=== PATIENT | female | born 1935 | race Caucasian/White ===

== ENCOUNTER → 2016-03-04 | Outpatient (CLI) | payer BC, OTHER ==
[~2016-03-04] MED LIST: ACET-1138 PO; APIX1TAB3 PO; ASPCH81X PO; ASPEC81 PO; BIOTCAP2 PO; COEN1CAP37 PO; CRS20 PO; CTP/1 PO; CTP1CL PO; CZR50 PO; DIAZ5TAB3 PO; DORZ2SOL17 OPB; ELQ25 PO; ERGO500011 PO; FERR1TAB13 PO; FERR325T5 PO; FERR325T51 PO; HYDR12.55 PO; HYDR25TA5 PO; HYZ/10015 PO; LEVO100T7 PO; LOSA100T65 PO; LVNIS40 SC; NRN100 PO; POLY335019 PO; PRAMCRE2 RE; ROSU20TA PO; RXC5 PO; SNK PO; TYLOTC500 PO; ULT50X PO; VITAMIN D2 PO; VTMD1000 PO
[2016-03-04 10:11] LABS: BASO % 0.3 %; BASO ABS # 0.02 K/uL (0-0.2); COMPLETE YES; HEMATOCRIT 42.5 % (37-47); IG% 0.2 %; LYMPH % 29.9 %; MEAN CELL VOLUME 93.2 fL (80-100); MEAN CORPUSCULAR HEMOGLOBIN 33.1 pg (25-34); MEAN CORPUSCULAR HGB CONC 35.5 g/dl (32-36); MEAN PLATELET VOLUME 10.5 fL (7.4-10.4); MONO % 8.1 %; NEUT % 60.5 %; PLATELET COUNT 169 K/uL (130-400); RED BLOOD COUNT 4.56 M/uL (4.2-5.4); WHITE BLOOD COUNT 6.02 K/uL (4.8-10.8)
[2016-03-04 10:20] LABS: URINE APPEARANCE CLEAR (CLEAR); URINE BILIRUBIN NEG (NEG); URINE COLOR YELLOW; URINE EPITHELIAL CELL AUTO >30 /lpf (0-5); URINE NITRITE NEG (NEG); URINE PH 6.5 (4.5-7.5); URINE SPECIFIC GRAVITY 1.018 (1.000-1.030); UROBILINOGEN NEG (NEG)
[2016-03-04 10:22] LABS: MANUAL MICROSCOPIC REQUIRED? NO; REVIEW REQ? NO
[2016-03-04 10:32] LABS: ALT/SGPT 17 U/L (12-78); AST/SGOT 20 U/L (15-37); BLOOD UREA NITROGEN 15 mg/dl (7-18); BUN/CREATININE RATIO 13.8 (10-20); CARBON DIOXIDE 24 mmol/L (21-32); CHLORIDE 100 mmol/L (98-107); CHOLESTEROL 259 mg/dl (0-200); GLUCOSE 131 mg/dl (70-99); SODIUM 134 mmol/L (136-145)
--- NOTE | 2016-03-04 10:34 | DIAGNOSTIC IMAGING REPORT ---
CT OF THE ABDOMEN WITH ORAL CONTRAST CT DOSE: 1022.65 mGy.cm CLINICAL HISTORY: Abdominal pain. TECHNIQUE: Axial images of the abdomen were obtained without IV contrast. Oral contrast was administered. COMPARISON STUDY: CT of the abdomen and pelvis September 14, 2012 and right upper quadrant ultrasound April 23, 2015. FINDINGS: The patient is status post left mastectomy. There is a small hiatal hernia. There is apparent wall thickening of the distal esophagus and proximal stomach. No pneumatosis, free air or portal venous gas is present. There several gallstones within the gallbladder. There is no pericholecystic infiltration. Evaluation of the abdomen is suboptimal given the lack of IV contrast. Unenhanced images of the liver, spleen, adrenal glands, kidneys and pancreas are unremarkable. There is no biliary or pancreatic ductal dilatation with there is no hydronephrosis. No renal calculi are present. The caliber and wall thickness of visualized small and large bowel are normal. The appendix is normal. There is a tiny fat-containing umbilical hernia. There is no abdominal lymphadenopathy. No suspicious skeletal lesions are identified. IMPRESSION: 1. Small hiatal hernia with apparent wall thickening of the distal esophagus and proximal stomach. This is probably due to underdistention although esophagitis or mucosal lesion could appear similar. If not recently performed, consideration might be given to further evaluation with upper endoscopy. 2. Cholelithiasis. No evidence of acute cholecystitis by CT. 3. Normal appendix. 4. No hydronephrosis. No renal calculi. Electronically signed by: Amarjit Quiñonez M.D. 03/04/2016 10:31 AM
[2016-03-04 10:44] LABS: CHOLESTEROL/HDL RATIO 5.1; ESTIMATED AVERAGE GLUCOSE 114 mg/dl; HA1C FLAG Normal (Normal); HDL CHOLESTEROL 51 mg/dl; LDL CHOLESTEROL CALCULATED 162 mg/dl; THYROID STIMULATING HORMONE 0.708 uIu/ml (0.300-4.500); TRIGLYCERIDES 228 mg/dl (0-150); VERY LOW DENSITY LIPOPROT CALC 46 mg/dl
--- NOTE | 2016-03-12 07:53 | CODING QUERY MEDICAL NECESSITY ---
SUPPORTING DIAGNOSIS NEEDED A supporting diagnosis is required for the test/procedure performed on this patient in order for us to be reimbursed by the patient's insurance. Please provide a supporting diagnosis for the following test/procedure listed below next to the test name along with your signature. *If there is no additional diagnosis for this patient that would support the following test/procedure please document that below next to the test/procedure. Test(s)/Procedure(s) that require a supporting diagnosis: DOS 03/04 * Hba1c DIAGNOSIS: Provider Signature: Date: Thank you Dia Malik Health Information Management Once completed, please kindly fax back to [phone] For questions please call [phone]
== END | disposition home or self-care (01) ==
LOC: C.CTS 09:24
PROVIDERS: ATTEND Internal Medicine
DX: R10.31 Right lower quadrant pain (principal); K44.9 Diaphragmatic hernia without obstruction or gangrene; K80.20 Calculus of gallbladder without cholecystitis without obstruction; E78.00 Pure hypercholesterolemia, unspecified; E11.9 Type 2 diabetes mellitus without complications

== ENCOUNTER → 2016-04-17 | Outpatient (CLI) | payer BC, OTHER ==
[~2016-04-17] MED LIST changes: -ASPCH81X PO; -CTP/1 PO; +ERGO1CAP41 PO; -ERGO500011 PO; -FERR1TAB13 PO; -HYDR12.55 PO; -LOSA100T65 PO; -LVNIS40 SC; -ROSU20TA PO; -TYLOTC500 PO; -VITAMIN D2 PO
== END | disposition home or self-care (01) ==
LOC: C.LAB1850 17:16
PROVIDERS: ATTEND Internal Medicine
DX: E78.00 Pure hypercholesterolemia, unspecified (principal)

== ENCOUNTER → 2016-06-06 | Outpatient (CLI) | payer BC, OTHER ==
[~2016-06-06] MED LIST changes: +ASPCH81X PO; +CTP/1 PO; -ERGO1CAP41 PO; +ERGO500011 PO; +FERR1TAB13 PO; +HYDR12.55 PO; +LOSA100T65 PO; +ROSU20TA PO; +TYLOTC500 PO; +VITAMIN D2 PO
[2016-06-06 14:50] LABS: ESTIMATED AVERAGE GLUCOSE 120 mg/dl; HA1C FLAG Normal (Normal)
--- NOTE | 2016-06-11 10:06 | CODING QUERY MEDICAL NECESSITY ---
SUPPORTING DIAGNOSIS NEEDED Dr. Valencia, A supporting diagnosis is required for the test/procedure performed on this patient in order for us to be reimbursed by the patient's insurance. Please provide a supporting diagnosis for the following test/procedure listed below next to the test name along with your signature. *If there is no additional diagnosis for this patient that would support the following test/procedure please document that below next to the test/procedure. Test(s)/Procedure(s) that require a supporting diagnosis: * 36001 GLYCATED HEMOGLOBIN DIAGNOSIS: * [id number] FRUCTOSAMINE DIAGNOSIS: DATE OF SERVICE: 06/06/16 Provider Signature: Date: Thank you Shankar Vila [facility] Information Management Once completed, please kindly fax back to [phone] For questions please call [phone]
== END | disposition home or self-care (01) ==
LOC: C.LAB1850 12:57
PROVIDERS: ATTEND Internal Medicine
DX: E78.00 Pure hypercholesterolemia, unspecified (principal); E11.9 Type 2 diabetes mellitus without complications

== ENCOUNTER → 2016-10-17 | Outpatient (CLI) | payer BC, OTHER ==
[~2016-10-17] MED LIST changes: -ASPCH81X PO; -CTP/1 PO; +ERGO1CAP41 PO; -ERGO500011 PO; -FERR1TAB13 PO; -HYDR12.55 PO; -LOSA100T65 PO; -ROSU20TA PO; -TYLOTC500 PO; -VITAMIN D2 PO
[2016-10-17 09:47] LABS: BASO % 0.5 %; BASO ABS # 0.04 K/uL (0-0.2); COMPLETE YES; EOS % 1.3 %; HEMATOCRIT 41.6 % (37-47); IG% 0.3 %; LYMPH % 31.7 %; LYMPH ABS # 2.74 K/uL (1.2-3.4); MEAN CELL VOLUME 96.1 fL (80-100); MEAN CORPUSCULAR HEMOGLOBIN 33.7 pg (25-34); MEAN CORPUSCULAR HGB CONC 35.1 g/dl (32-36); MEAN PLATELET VOLUME 10.7 fL (7.4-10.4); MONO % 9.1 %; NEUT % 57.1 %; PLATELET COUNT 194 K/uL (130-400); RED BLOOD COUNT 4.33 M/uL (4.2-5.4); WHITE BLOOD COUNT 8.65 K/uL (4.8-10.8)
[2016-10-17 09:50] LABS: URINE APPEARANCE CLEAR (CLEAR); URINE BILIRUBIN NEG (NEG); URINE COLOR YELLOW; URINE NITRITE NEG (NEG); URINE SPECIFIC GRAVITY 1.015 (1.000-1.030); UROBILINOGEN NEG (NEG)
[2016-10-17 09:52] LABS: MANUAL MICROSCOPIC REQUIRED? NO; REVIEW REQ? NO
[2016-10-17 10:10] LABS: BLOOD UREA NITROGEN 30 mg/dl (7-18); BUN/CREATININE RATIO 22.7 (10-20); CALCIUM 9.4 mg/dl (8.5-10.1); CARBON DIOXIDE 27 mmol/L (21-32); CHLORIDE 95 mmol/L (98-107); GLUCOSE 121 mg/dl (70-99); POTASSIUM 4.2 mmol/L (3.5-5.1); SODIUM 129 mmol/L (136-145)
[2016-10-17 10:20] LABS: RATIO 572.9 mcg/mg (0-30.0)
[2016-10-17 12:01] LABS: ESTIMATED AVERAGE GLUCOSE 123 mg/dl; HA1C FLAG Normal (Normal)
--- NOTE | 2016-10-28 11:14 | CODING QUERY MEDICAL NECESSITY ---
CQSUPPORTING DIAGNOSIS NEEDED A supporting diagnosis is required for the test/procedure performed on this patient in order for us to be reimbursed by the patient's insurance. Please provide a supporting diagnosis for the following test/procedure listed below next to the test name along with your signature. *If there is no additional diagnosis for this patient that would support the following test/procedure please document that below next to the test/procedure. Test(s)/Procedure(s) that require a supporting diagnosis: DOS 10/17/16 GLYCATED HEMOGLOBIN TEST Provider Signature: Date: Thank you Maria D Cooper Health Information Management Once completed, please kindly fax back to [phone] For questions please call [phone]
== END | disposition home or self-care (01) ==
LOC: C.LAB1850 07:34
PROVIDERS: ATTEND Internal Medicine
DX: E78.00 Pure hypercholesterolemia, unspecified (principal); E11.9 Type 2 diabetes mellitus without complications

== ENCOUNTER 2016-11-16 13:31 | Inpatient (IN) | payer BC, OTHER ==
[~2016-11-16] VITALS: Ht 170.2 cm; Wt 99.1 kg
[~2016-11-16 13:31] MED LIST changes: -APIX1TAB3 PO; -CRS20 PO; -CTP1CL PO; -CZR50 PO; -ELQ25 PO; -ERGO1CAP41 PO; -FERR325T5 PO; -HYDR25TA5 PO; -NRN100 PO; -VTMD1000 PO
[2016-11-16] MEDS ORDERED: SODIUM CHLORIDE 0.9% 1000ML 1,000 ML IV SCH (13:42)
[2016-11-16 14:16] LABS: BASO % 0.3 %; BASO ABS # 0.02 K/uL (0-0.2); COMPLETE YES; EOS % 1.4 %; HEMATOCRIT 43.6 % (37-47); IG% 0.1 %; LYMPH % 31.7 %; LYMPH ABS # 2.28 K/uL (1.2-3.4); MEAN CELL VOLUME 97.3 fL (80-100); MEAN CORPUSCULAR HEMOGLOBIN 34.4 pg (25-34); MEAN CORPUSCULAR HGB CONC 35.3 g/dl (32-36); MEAN PLATELET VOLUME 9.7 fL (7.4-10.4); MONO % 9.2 %; NEUT % 57.3 %; PLATELET COUNT 176 K/uL (130-400); RED BLOOD COUNT 4.48 M/uL (4.2-5.4); WHITE BLOOD COUNT 7.19 K/uL (4.8-10.8)
[2016-11-16 14:24] LABS: PROTHROMBIN TIME (PATIENT) 10.8 SECONDS (9.0-12.0)
[2016-11-16 14:32] LABS: ALT/SGPT 17 U/L (12-78); BLOOD UREA NITROGEN 21 mg/dl (7-18); BUN/CREATININE RATIO 16.3 (10-20); CALCIUM 9.7 mg/dl (8.5-10.1); CARBON DIOXIDE 27 mmol/L (21-32); CHLORIDE 103 mmol/L (98-107); GLUCOSE 109 mg/dl (70-99); POTASSIUM 3.6 mmol/L (3.5-5.1); SODIUM 139 mmol/L (136-145)
--- NOTE | 2016-11-16 14:35 | DIAGNOSTIC IMAGING REPORT ---
HEAD WITHOUT CONTRAST (CT) CLINICAL HISTORY: 81 years-old Female presenting with Stroke. TECHNIQUE: Multidetector CT imaging of the head was performed without the use of intravenous contrast. IV contrast: None. A dose lowering technique was used consistent with the principles of ALARA (as low as reasonably achievable). COMPARISON: 04/22/2013. CT DOSE (mGy.cm): The estimated cumulative dose is 537.48 mGy.cm. 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 Ventricles and sulci normal in size. Apparent crowding of the foramen magnum unchanged from prior. Periventricular and subcortical white matter hypoattenuation, nonspecific but likely indicative of chronic small vessel ischemic change. Interval development of new hypodensity in the left occipital parietal region with effacement of regional sulci. More inferiorly, evidence of chronic infarct in the left occipital lobe, new from prior. No hemorrhage or acute territorial infarct. No extra-axial fluid collection. Minimal polypoid mucosal thickening in the left maxillary sinus. Calvarium intact. IMPRESSION: 1. Findings consistent with acute to subacute infarct in the left occipital parietal region, new from prior. No hemorrhage. Noncontrast MR brain could confirm the acuity of these findings. 2. 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 3. Chronic small vessel ischemic change. 4. Crowding of the foramen magnum is unchanged from prior, likely normal variant or Chiari malformation. Mass effect as a cause for crowding is felt to be unlikely at this time. The report will be called/faxed according to standard departmental protocol. Electronically signed by: Abrahan Vergara M.D. 11/16/2016 2:33 PM Dictated Date/Time: 11/16/2016 2:28 PM
--- NOTE | 2016-11-16 14:36 | DIAGNOSTIC IMAGING REPORT ---
CHEST ONE VIEW PORTABLE CLINICAL HISTORY: 81 years-old Female presenting with Stroke. TECHNIQUE: Portable upright AP view of the chest was obtained. COMPARISON: 06/13/2015. FINDINGS: Mild prominence of the ascending aorta is unchanged from prior. Cardiac silhouette normal in size. Lungs and pleural spaces clear. Degenerative changes of the thoracic spine. Upper abdomen normal. IMPRESSION: 1. No acute cardiopulmonary disease. Electronically signed by: Abrahan Vergara M.D. 11/16/2016 2:34 PM Dictated Date/Time: 11/16/2016 2:33 PM
[2016-11-16 14:37] LABS: ALKALINE PHOSPHATASE 71 U/L (45-117); AST/SGOT 23 U/L (15-37); CKMB/CK RATIO 1.2 (0-3.0)
[2016-11-16] MEDS ORDERED: FERR325T5 PO (14:37)
[2016-11-16] MEDS ORDERED: NRN100 PO (14:37)
[2016-11-16] MEDS ORDERED: CTP1CL PO (14:37)
[2016-11-16] MEDS ORDERED: ASPIRIN 81 MG CHEW PO STA (14:43)
--- NOTE | 2016-11-16 14:50 | EMERGENCY ROOM VISIT NOTE ---
History Report prepared by Estella: Jay Trinidad Under the Supervision of: Alison GarciaO. First contact with patient: 13:42 Chief Complaint: STROKE SYMPTOMS Stated Complaint: CONFUSION, DROOPING MOUTH, MEMORY LOSS History of Present Illness The patient is a 81 year old female who presents to the Emergency Room with complaints of constant stroke symptoms first noticed about an hour ago. The patient's son states that the patient has been more confused, she has slurred speech, and she has a right sided facial droop. The patient denies any headache , chest pain, shortness of breath, nausea, and vomiting. The son states that the patient's last known well time was yesterday evening around 6 or 7pm. The patient has a history of hypertension, hip surgery, and she had diabetes but it is under control after weight loss. The patient does not have a history of strokes or irregular heart beats. Source of History: patient, family Onset: an hour ago Position: other (global) Quality: other (stroke symptoms) Timing: constant Associated Symptoms: No headache, No chest pain, No SOB, No nausea, No vomiting Note: Associated symptoms: Confusion, slurred speech, and right sided facial droop. Review of Systems See HPI for pertinent positives & negatives. A total of 10 systems reviewed and were otherwise negative. Past Medical & Surgical Medical Problems: (1) Arthritis (2) HTN (hypertension) (3) Hyperlipidemia (4) Hypothyroid (5) IDDM (insulin dependent diabetes mellitus) (6) Neuropathy (7) Restless leg syndrome (8) Sleep apnea Surgical Problems: (1) Post-operative state Family History FH: dementia Hypertension Social History Smoking Status: Never Smoker Alcohol Use: none Drug Use: none Marital Status: Housing Status: lives alone Occupation Status: retired Current/Historical Medications Scheduled Aspirin (Aspirin EC Low Dose), 81 MG PO BID Biotin (Biotin 5000), 1 CAP PO HS Clonidine Hcl (Catapres), 1 TAB PO BID Coenzyme Q10 (Ubidecarenone) (Co Q-10), 200 MG PO QAM Diazepam (Valium), 5 MG PO HS Ferrous Sulfate (Ferrous Sulfate), 1 TAB PO DAILY Gabapentin (Gabapentin), 100 MG PO DAILY Hctz/Losartan (Hyzaar 25MG/100MG), 1 TABLET PO QAM Levothyroxine Sodium (Levothyroxine Sodium), 100 MCG PO QAM Scheduled PRN Tramadol HCl (Tramadol HCl), 50-100 MG PO Q4H PRN for Pain Allergies Coded Allergies: Adhesives (Verified Allergy, Mild, SKIN GETS RED, SORE AND ITCHY, 11/16/16) Atorvastatin (Verified Adverse Reaction, Intermediate, GENERIC-SEVERE LEG CRAMPS NAUSEA NIGHTMARES, 11/16/16) CAN USE NAME BRAND LIPITOR Physical Exam Vital Signs Date Time Temp Pulse Resp B/P (MAP) Pulse Ox O2 Delivery O2 Flow Rate FiO2 11/16/16 15:16 195/99 11/16/16 15:06 71 21 99 11/16/16 15:01 215/124 11/16/16 14:51 60 19 100 11/16/16 14:46 195/97 11/16/16 14:36 64 18 99 11/16/16 14:31 166/101 11/16/16 14:25 212/127 11/16/16 14:21 62 18 99 11/16/16 14:16 73 20 221/98 98 11/16/16 14:12 228/98 11/16/16 14:12 97 Room Air 11/16/16 14:03 76 11/16/16 13:58 240/110 11/16/16 13:37 37.0 87 18 205/121 93 Room Air Physical Exam GENERAL: Patient is listless but responds to questions appropriately. EYES: The conjunctivae are clear. The pupils are round and reactive. EARS, NOSE, MOUTH AND THROAT: The nose is without any evidence of any deformity. Mucous membranes are moist tongue is midline NECK: The neck is nontender and supple. RESPIRATORY: Normal respiratory effort is noted there is no evidence of wheezing rhonchi or rales CARDIOVASCULAR: Regular rate and rhythm noted there no murmurs rubs or gallops normal S1 normal S2 GASTROINTESTINAL: The abdomen is soft. Bowel sounds are present in all quadrants. Abdomen is nontender MUSCULOSKELETAL/EXTREMITIES: There is no evidence of gross deformity full range of motion is noted in the hips and shoulders SKIN: There is trace pedal edema bilaterally. There is no obvious evidence of any rash. There are no petechiae, pallor or cyanosis noted. NEUROLOGIC: Speech was slurred and pressured. Right sided facial droop with forehead involvement. Finisher Brush strength is diminished but symmetric. No drift in the upper extremities. Medical Decision & Procedures ER Provider Diagnostic Interpretation: Radiology results as stated below per my review and radiologist interpretation: HEAD WITHOUT CONTRAST (CT) CLINICAL HISTORY: 81 years-old Female presenting with Stroke. TECHNIQUE: Multidetector CT imaging of the head was performed without the use of intravenous contrast. IV contrast: None. A dose lowering technique was used consistent with the principles of ALARA (as low as reasonably achievable). COMPARISON: 04/22/2013. CT DOSE (mGy.cm): The estimated cumulative dose is 537.48 mGy.cm. 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 Ventricles and sulci normal in size. Apparent crowding of the foramen magnum unchanged from prior. Periventricular and subcortical white matter hypoattenuation, nonspecific but likely indicative of chronic small vessel ischemic change. Interval development of new hypodensity in the left occipital parietal region with effacement of regional sulci. More inferiorly, evidence of chronic infarct in the left occipital lobe, new from prior. No hemorrhage or acute territorial infarct. No extra-axial fluid collection. Minimal polypoid mucosal thickening in the left maxillary sinus. Calvarium intact. IMPRESSION: 1. Findings consistent with acute to subacute infarct in the left occipital parietal region, new from prior. No hemorrhage. Noncontrast MR brain could confirm the acuity of these findings. 2. 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 3. Chronic small vessel ischemic change. 4. Crowding of the foramen magnum is unchanged from prior, likely normal variant or Chiari malformation. Mass effect as a cause for crowding is felt to be unlikely at this time. The report will be called/faxed according to standard departmental protocol. Electronically signed by: Abrahan Vergara M.D. 11/16/2016 2:33 PM Dictated Date/Time: 11/16/2016 2:28 PM CHEST ONE VIEW PORTABLE CLINICAL HISTORY: 81 years-old Female presenting with Stroke. TECHNIQUE: Portable upright AP view of the chest was obtained. COMPARISON: 06/13/2015. FINDINGS: Mild prominence of the ascending aorta is unchanged from prior. Cardiac silhouette normal in size. Lungs and pleural spaces clear. Degenerative changes of the thoracic spine. Upper abdomen normal. IMPRESSION: 1. No acute cardiopulmonary disease. Electronically signed by: Abrahan Vergara M.D. 11/16/2016 2:34 PM Dictated Date/Time: 11/16/2016 2:33 PM Laboratory Results 11/16/16 14:06 Red Blood Count 4.48, Mean Corpuscular Volume 97.3, Mean Corpuscular Hemoglobin 34.4, Mean Corpuscular Hemoglobin Concent 35.3, Mean Platelet Volume 9.7, Neutrophils (%) (Auto) 57.3, Lymphocytes (%) (Auto) 31.7, Monocytes (%) (Auto) 9.2, Eosinophils (%) (Auto) 1.4, Basophils (%) (Auto) 0.3, Neutrophils # (Auto) 4.12, Lymphocytes # (Auto) 2.28, Monocytes # (Auto) 0.66, Eosinophils # (Auto) 0.10, Basophils # (Auto) 0.02 11/16/16 14:06 Test 11/16/16 13:59 11/16/16 14:00 11/16/16 14:06 Bedside Prothrombin Time INR 1.0 (0.9-1.1) Bedside Glucose 101 mg/dl (70-90) White Blood Count 7.19 K/uL (4.8-10.8) Red Blood Count 4.48 M/uL (4.2-5.4) Hemoglobin 15.4 g/dL (12.0-16.0) Hematocrit 43.6 % (37-47) Mean Corpuscular Volume 97.3 fL (80-100) Mean Corpuscular Hemoglobin 34.4 pg (25-34) Mean Corpuscular Hemoglobin Concent 35.3 g/dl (32-36) Platelet Count 176 K/uL (130-400) Mean Platelet Volume 9.7 fL (7.4-10.4) Neutrophils (%) (Auto) 57.3 % Lymphocytes (%) (Auto) 31.7 % Monocytes (%) (Auto) 9.2 % Eosinophils (%) (Auto) 1.4 % Basophils (%) (Auto) 0.3 % Neutrophils # (Auto) 4.12 K/uL (1.4-6.5) Lymphocytes # (Auto) 2.28 K/uL (1.2-3.4) Monocytes # (Auto) 0.66 K/uL (0.11-0.59) Eosinophils # (Auto) 0.10 K/uL (0-0.5) Basophils # (Auto) 0.02 K/uL (0-0.2) RDW Standard Deviation 44.9 fL (36.4-46.3) RDW Coefficient of Variation 12.7 % (11.5-14.5) Immature Granulocyte % (Auto) 0.1 % Immature Granulocyte # (Auto) 0.01 K/uL (0.00-0.02) Prothrombin Time 10.8 SECONDS (9.0-12.0) Prothromb Time International Ratio 1.0 (0.9-1.1) Activated Partial Thromboplast Time 25.1 SECONDS (21.0-31.0) Partial Thromboplastin Ratio 1.0 Anion Gap 9.0 mmol/L (3-11) Est Creatinine Clear Calc Drug Dose 41.8 ml/min Estimated GFR () 44.9 Estimated GFR (Non- 38.7 BUN/Creatinine Ratio 16.3 (10-20) Calcium Level 9.7 mg/dl (8.5-10.1) Total Bilirubin 0.6 mg/dl (0.2-1) Direct Bilirubin 0.1 mg/dl (0-0.2) Aspartate Amino Transf (AST/SGOT) 23 U/L (15-37) Alanine Aminotransferase (ALT/SGPT) 17 U/L (12-78) Alkaline Phosphatase 71 U/L (45-117) Total Creatine Kinase 134 U/L (26-192) Creatine Kinase MB 1.6 ng/ml (0.5-3.6) Creatine Kinase MB Ratio 1.2 (0-3.0) Troponin I < 0.015 ng/ml (0-0.045) Total Protein 7.8 gm/dl (6.4-8.2) Albumin 4.0 gm/dl (3.4-5.0) Laboratory results per my review. Medications Administered Medications (Trade) Dose Ordered Sig/Olaf Route Start Time Stop Time Status Last Admin Dose Admin Sodium Chloride 1,000 ml @ 50 mls/hr Q20H IV 11/16/16 13:42 11/16/16 17:16 DC 11/16/16 14:20 50 MLS/HR Aspirin (Aspirin Chew) 324 mg NOW STAT PO 11/16/16 14:43 11/16/16 14:44 DC 11/16/16 14:58 324 MG ECG Indication: other (stroke symptoms) Rate (beats per minute): 77 Rhythm: normal sinus Findings: PAC, other (No acute ST abnormalities) ED Course 1342: The patient was evaluated in room B1. A complete history and physical examination were performed. I ordered NSS 1,000 ml @ 50 mls/hr IV 1430: I reevaluated the patient, and I discussed the treatment plan with her. 1442: I discussed the patient's case with Dr. Castañeda, [facility]. The patient will be evaluated for further management. 1443: Aspirin 324mg PO Medical Decision Differential diagnosis: Etiologies such as metabolic, infection, hypo/hyperglycemia, electrolyte abnormalities, cardiac sources, intracerebral event, toxicologic, neurologic, as well as others were entertained. Nursing notes reviewed. Additional history is obtained from the patient's son. The patient is an 81-year-old female who presented to the emergency department for an evaluation of weakness. The patient has had some generalized weakness and has been having problems with walking as well as memory over the last few days. The patient was last known well last evening when she was seen by family members. Today she was found to have a facial droop and appeared to be slurring her speech. The patient did not meet criteria for thrombolytics because of the unknown onset of symptoms. Her CT showed signs of subacute infarction which appears to be ischemic in nature. She was treated with aspirin. She was also treated with IV fluids. I discussed the patient's laboratory radiographic studies with her. [facility] also [facility] evaluate patient in emergent apartment for further management and disposition. I discussed the patient's laboratory and radiographic studies with her and her family members. Medication Reconcilliation Current Medication List: was personally reviewed by me Blood Pressure Screening Patient's blood pressure: Elevated blood pressure Blood pressure disposition: Elevated BP felt to be situational Consults Time Called: 1440 Consulting Physician: Dr. Castañeda Returned Call: 1442 I discussed the patient's case with Dr. Castañeda, [facility]. The patient will be evaluated for further management. Impression Primary Impression: CVA (cerebral vascular accident) Additional Impression: Facial droop Scribe Attestation The scribe's documentation has been prepared under my direction and personally reviewed by me in its entirety. I confirm that the note above accurately reflects all work, treatment, procedures, and medical decision making performed by me. Departure Information Dispostion Being Evaluated By Hospitalist Referrals Maico Valencia M.D. (PCP) Patient Instructions [facility] Problem Qualifiers Primary Impression: CVA (cerebral vascular accident) CVA mechanism: unspecified Qualified Codes: I63.9 - Cerebral infarction, unspecified
[2016-11-16] MEDS ORDERED: MAGNESIUM HYDROXIDE SUSP 30 ML UDC PO PRN (15:15)
[2016-11-16] MEDS ORDERED: ONDANSETRON INJ 2 MG/ML 2 ML VIAL IV PRN (15:15)
[2016-11-16] MEDS ORDERED: PHARMACIST DISCHARGE MED REC CONSULT PRN (15:15)
[2016-11-16] MEDS ORDERED: ACETAMINOPHEN 325 MG TAB PO PRN (15:15)
--- NOTE | 2016-11-16 15:42 | History and Physical ---
History & Physical Date & Time of Service: Nov 16, 2016 at 15:20 Chief Complaint: Confusion, Drooping Mouth, Memory Loss Primary Care Physician: Maico Valencia M.D. History of Present Illness Source: patient, family 81 y/o F who was brought to the ED by her son for concerns of slurred speech and R sided facial droop. Son states that pt was with his yesterday. He states he felt that the pt was having difficulty with memory recall, which is unusual for the pt, but was otherwise her usual self. Son states that he noted this morning that pt was having slurred speech, more issues with memory, and R facial droop. He states that due to multiple hip and knee replacements, pt has issues with walking at baseline, but that she was able to ambulate at her usual. He did not notice any difference with her UE use. Pt cannot tell me when this started. Pt does know that she has "felt slow" and had some vision changes in the last few weeks. She notes that she had laser eye surgery 2-3 weeks ago, but is not certain why she had this. Son states that pt has been having memory issues for some time now, but "could always figure it out", but today she cannot. Pt states that she used to see Dr. Valencia, but recently switched to Dr. Braun. She states that Dr. Braun changed her medications during that visit. Pt is having difficulty remembering, but she was started on gabapentin, she thinks to replace the valium that she had been taking prior. Pt states she checks her BP and that it was in the 165-175 systolic range, but then she started the gabapentin and it has been over 200 systolic since that time. She states that she does not take medication for HTN, but that Dr. Braun wanted her to start one. It is unclear if pt filled this script or not. Son states that pt took 2 doses of gabapentin in late September after that initial appt, but it caused a skin rash on her hands so she has not continued to take it. It is not certain if Dr. Braun was made aware of this. Son notes that her facial droop is still present, but better than it was. Pharmacy contacted to clarify meds. Per outpt pharmacy records, pt has been on Hyzaar for many months, last filled for a 3 month supply in August. Catapres is a new medication started 10/31. Pharmacy states that records indicate the gabapentin was started for RLS, which was also the indication given for the valium dosing. Past Medical/Surgical History Medical Problems: (1) Arthritis Status: Chronic (2) HTN (hypertension) Status: Chronic (3) Hyperlipidemia Status: Chronic (4) Hypothyroid Status: Chronic (6) Neuropathy Status: Chronic (7) Restless leg syndrome Status: Chronic (8) Sleep apnea--on CPAP Status: Chronic DM: pt states she used to be on insulin, but after she lost 50+ pounds, she has not needed any medication for DM including PO Family History Family history was reviewed; no changes noted. Social History Smoking Status: Never Smoker Alcohol Use: none Drug Use: none Marital Status: Occupational Status: retired Immunizations History of Influenza Vaccine: Yes Influenza Vaccine Date: Jan 30, 2013 History of Tetanus Vaccine?: No History of Pneumococcal: Yes Pneumococcal Date: Dec 23, 2011 History of Hepatitis B Vaccine: No Multi-Drug Resistant Organisms History of MDRO: No Allergies Coded Allergies: Adhesives (Verified Allergy, Mild, SKIN GETS RED, SORE AND ITCHY, 11/16/16) Atorvastatin (Verified Allergy, Unknown, SEVERE LEG CRAMPS NAUSEA NIGHTMARES, 11/16/16) CAN USE NAME BRAND LIPITOR Home Medications Scheduled Aspirin (Aspirin EC Low Dose), 81 MG PO BID Biotin (Biotin 5000), 1 CAP PO HS Clonidine Hcl (Catapres), 1 TAB PO BID Coenzyme Q10 (Ubidecarenone) (Co Q-10), 200 MG PO QAM Diazepam (Valium), 5 MG PO HS Ferrous Sulfate (Ferrous Sulfate), 1 TAB PO DAILY Gabapentin (Gabapentin), 100 MG PO DAILY Hctz/Losartan (Hyzaar 25MG/100MG), 1 TABLET PO QAM Levothyroxine Sodium (Levothyroxine Sodium), 100 MCG PO QAM Scheduled PRN Tramadol HCl (Tramadol HCl), 50-100 MG PO Q4H PRN for Pain Review of Systems Pertinent positives and negatives reviewed in HPI--all others negative Physical Exam Vital Signs Date Time Temp Pulse Resp B/P (MAP) Pulse Ox O2 Delivery O2 Flow Rate FiO2 11/16/16 14:31 166/101 11/16/16 14:25 212/127 11/16/16 14:21 62 18 99 11/16/16 14:16 73 20 221/98 98 11/16/16 14:12 228/98 11/16/16 14:12 97 Room Air 11/16/16 14:03 76 11/16/16 13:58 240/110 11/16/16 13:37 37.0 87 18 205/121 93 Room Air General Appearance: WD/WN, no apparent distress Head: normocephalic, atraumatic Eyes: normal inspection, PERRL, EOMI ENT: hearing grossly normal Neck: supple Respiratory/Chest: normal breath sounds, no respiratory distress Cardiovascular: regular rate, rhythm, no edema Abdomen/GI: non tender, soft Extremities/Musculoskelatal: no calf tenderness, no pedal edema Neurologic/Psych: alert, oriented x 3, + facial droop (R sided, minimal), + pertinent finding (Speech is slurred, mild facial droop but other cranial nerves intact, 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, 4/5 strength against resistance with hip flexion, 5/5 strength against resistence with plantar/dorsiflexion, difficulty with recall) Skin: normal color, warm/dry Diagnostics Laboratory Results Results Past 24 Hours Test 11/16/16 13:59 11/16/16 14:06 11/16/16 15:13 Range/Units Bedside Prothrombin Time INR 1.0 0.9-1.1 White Blood Count 7.19 4.8-10.8 K/uL Red Blood Count 4.48 4.2-5.4 M/uL Hemoglobin 15.4 12.0-16.0 g/dL Hematocrit 43.6 37-47 % Mean Corpuscular Volume 97.3 80-100 fL Mean Corpuscular Hemoglobin 34.4 25-34 pg Mean Corpuscular Hemoglobin Concent 35.3 32-36 g/dl Platelet Count 176 130-400 K/uL Mean Platelet Volume 9.7 7.4-10.4 fL Neutrophils (%) (Auto) 57.3 % Lymphocytes (%) (Auto) 31.7 % Monocytes (%) (Auto) 9.2 % Eosinophils (%) (Auto) 1.4 % Basophils (%) (Auto) 0.3 % Neutrophils # (Auto) 4.12 1.4-6.5 K/uL Lymphocytes # (Auto) 2.28 1.2-3.4 K/uL Monocytes # (Auto) 0.66 0.11-0.59 K/uL Eosinophils # (Auto) 0.10 0-0.5 K/uL Basophils # (Auto) 0.02 0-0.2 K/uL RDW Standard Deviation 44.9 36.4-46.3 fL RDW Coefficient of Variation 12.7 11.5-14.5 % Immature Granulocyte % (Auto) 0.1 % Immature Granulocyte # (Auto) 0.01 0.00-0.02 K/uL Prothrombin Time 10.8 9.0-12.0 SECONDS Prothromb Time International Ratio 1.0 0.9-1.1 Activated Partial Thromboplast Time 25.1 21.0-31.0 SECONDS Partial Thromboplastin Ratio 1.0 Sodium Level 139 136-145 mmol/L Potassium Level 3.6 3.5-5.1 mmol/L Chloride Level 103 98-107 mmol/L Carbon Dioxide Level 27 21-32 mmol/L Anion Gap 9.0 3-11 mmol/L Blood Urea Nitrogen 21 7-18 mg/dl Creatinine 1.30 0.60-1.20 mg/dl Est Creatinine Clear Calc Drug Dose 41.8 ml/min Estimated GFR () 44.9 Estimated GFR (Non- 38.7 BUN/Creatinine Ratio 16.3 10-20 Random Glucose 109 70-99 mg/dl Calcium Level 9.7 8.5-10.1 mg/dl Total Bilirubin 0.6 0.2-1 mg/dl Direct Bilirubin 0.1 0-0.2 mg/dl Aspartate Amino Transf (AST/SGOT) 23 15-37 U/L Alanine Aminotransferase (ALT/SGPT) 17 12-78 U/L Alkaline Phosphatase 71 45-117 U/L Total Creatine Kinase 134 26-192 U/L Creatine Kinase MB 1.6 0.5-3.6 ng/ml Creatine Kinase MB Ratio 1.2 0-3.0 Troponin I < 0.015 0-0.045 ng/ml Total Protein 7.8 6.4-8.2 gm/dl Albumin 4.0 3.4-5.0 gm/dl Diagnostic Radiology CXR neg for acute CT head: IMPRESSION: 1. Findings consistent with acute to subacute infarct in the left occipital parietal region, new from prior. No hemorrhage. Noncontrast MR brain could confirm the acuity of these findings. 2. 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 3. Chronic small vessel ischemic change. 4. Crowding of the foramen magnum is unchanged from prior, likely normal variant or Chiari malformation. Mass effect as a cause for crowding is felt to be unlikely at this time. EKG Sinus with PACs Impression Assessment and Plan 81 y/o F who was admitted on 11/16 for CVA CVA: subacute L occipital noted on CT head, possibly related to elevated BP MRI/MRA pending ECHO pending 324 aspirin given in ED Pt's home medications list aspirin 81mg, however pt denies daily use Trop neg x1, serials pending PT/OT/speech evals Neuro c/s pending HTN: pt denies medications for this, however pharmacy clarified that she has been on hyzaar for many months, catapres was new 10/31 Uncertain if pt is taking this Will continue given elevated BP RLS: pt was on valium and tramadol HS for this per pharmacy records Changed to gabapentin, however only took 2 doses due to rash Will not continue freeman given rash or valium/tramadol given current mentation issue Elevated cr: appears baseline is 1.1-1.3 Monitor on NS + K given borderline K Hypothyroid: continue home meds JUAN: pt compliant with CPAP at home, son will bring in tonight for use Other: Full code, although does specify that she would not want a feeding tube or longterm or prolonged life support Heparin for DVT proph NPO for bedside dysphagia, can move to AHA diet if passed Level of Care Telemetry Resuscitation Status FULL RESUSCITATION VTE Prophylaxis VTE Risk Assessment Done? Y/N: Yes Risk Level: Low
[2016-11-16] MEDS ORDERED: GADAVIST IV PRN (17:15)
--- NOTE | 2016-11-16 17:24 | DIAGNOSTIC IMAGING REPORT ---
BRAIN COMBO, MRA NECK COMBO CLINICAL HISTORY: 81 years-old Female presenting with Stroke, slurred speech, confusion, memory loss, right-sided facial droop started this afternoon, abnormal CT. TECHNIQUE: Multisequence, multiplanar MR imaging of the brain was performed before and after the administration of intravenous contrast. MR angiography of the neck was performed before and after the administration of intravenous contrast. IV contrast: 10 mL of Gadavist. COMPARISON: CT head performed earlier the same day.. FINDINGS: MR brain: Ventricles and sulci normal in size. Periventricular and subcortical white matter T2/FLAIR hyperintensity, nonspecific but likely indicative of chronic small vessel ischemic change. Regional mass effect with sulcal effacement in the left parieto-occipital region as seen on CT. Multifocal sites of restricted diffusion in the bilateral cerebellar hemispheres most prominently on the left in the left parieto-occipital region as well as right frontal region. Intrinsic T1 hyperintensity along the cortex of the left occipital region at the inferior margin of the acute infarct. Mild enhancement in this region suggested likely indicating blood barrier breakdown. Old infarct in the left occipital lobe noted. Old lacunar infarct noted in the bria and right basal ganglia. No extra-axial fluid collection. T2 skull base flow voids preserved. Bone marrow signal intensity within the calvarium within normal limits. MRA head: Limited intracranial evaluation demonstrates patent vasculature in the anterior and posterior circulations. Three-vessel aortic arch with patent origins of the major branch vessels. Right common carotid artery patent. Significant stenosis of the proximal right internal carotid artery with a minimal diameter of 1.5 mm in comparison to the normal distal diameter of 4 mm (greater than 60% stenosis). Left common carotid artery patent. Mild narrowing of the proximal left internal carotid artery. Right vertebral artery patent at its origin and along its course. Critical stenosis or vessel occlusion of the origin of the left vertebral artery. 1 to 2 cm beyond its origin, the left vertebral artery is opacified, although irregularity of its lumen suggest atherosclerotic plaque in this region. The remainder is patent. IMPRESSION: 1. Findings consistent with embolic infarcts most prominently involving the left parieto-occipital region but affecting the bilateral cerebral hemispheres. The presence of intrinsic T1 hyperintensity along a small region of the cortex in the left occipital lobe at the inferior margin of the acute infarct may represent laminar necrosis or microhemorrhage. Mineralization would be unexpected in the acute setting. 2. Old infarcts in the left occipital lobe and old lacunar infarcts in the bria and right basal ganglia. 3. Greater than 60% stenosis of the proximal right ICA. 4. Critical stenosis/occlusion of the origin and proximal 1 to 2 cm of the left vertebral artery. In the most proximal opacified portion 1 to 2 cm beyond its origin, luminal irregularity in the proximal portion suggestive of atherosclerotic plaque. Electronically signed by: Abrahan Vergara M.D. 11/16/2016 5:23 PM Dictated Date/Time: 11/16/2016 5:08 PM
[2016-11-16 17:26] VITALS: BP 197/111; PULSE 61; TEMP 36.7; O2SAT 95; Ht 170.2 cm; Wt 99.1 kg
[2016-11-16] MEDS: NSS + 20MEQ KCL 1000ML 1,000 ML IV SCH (17:50)
[2016-11-16 19:35] LABS: URINE APPEARANCE CLEAR (CLEAR); URINE BILIRUBIN NEG (NEG); URINE COLOR YELLOW; URINE NITRITE NEG (NEG); URINE PH 7.5 (4.5-7.5); URINE SPECIFIC GRAVITY 1.016 (1.000-1.030); UROBILINOGEN NEG (NEG); ZZUR CULT IF INDIC CLEAN CATCH NO
[2016-11-16 19:38] LABS: MANUAL MICROSCOPIC REQUIRED? NO; REVIEW REQ? NO; SULFASALICYLIC ACID POS (NEG)
[2016-11-16 20:03] VITALS: BP 187/94; PULSE 85; TEMP 36.7; O2SAT 98
[2016-11-16] MEDS: CLONIDINE HCL 0.1 MG TAB PO SCH (20:06)
[2016-11-16] MEDS ORDERED: NON-FORMULARY MEDICATION (Biotin (Biotin 5000) 1 CAP) PO SCH (21:00)
[2016-11-16] MEDS: HEPARIN SOD 5000 UNIT/0.5 ML CARP SQ SCH (22:13)
[2016-11-17] VITALS (7 sets, daily range): BP systolic 113–188; BP diastolic 62–95; PULSE 55–88; TEMP 36.5–37.1; O2SAT 94–98
[2016-11-17 05:44] LABS: BLOOD UREA NITROGEN 20 mg/dl (7-18); BUN/CREATININE RATIO 16.5 (10-20); CALCIUM 8.4 mg/dl (8.5-10.1); CARBON DIOXIDE 28 mmol/L (21-32); CHLORIDE 105 mmol/L (98-107); GLUCOSE 123 mg/dl (70-99); SODIUM 139 mmol/L (136-145)
[2016-11-17 05:49] LABS: CHOLESTEROL 241 mg/dl (0-200); CHOLESTEROL/HDL RATIO 5.2; HDL CHOLESTEROL 46 mg/dl; LDL CHOLESTEROL CALCULATED 149 mg/dl; TRIGLYCERIDES 228 mg/dl (0-150); VERY LOW DENSITY LIPOPROT CALC 46 mg/dl
[2016-11-17] MEDS: HEPARIN SOD 5000 UNIT/0.5 ML CARP SQ SCH ×2 (05:56→13:24)
[2016-11-17] MEDS: LEVOTHYROXINE 100 MCG TAB PO SCH (05:56)
[2016-11-17] MEDS: NSS + 20MEQ KCL 1000ML 1,000 ML IV SCH ×2 (05:57→21:09)
[2016-11-17 06:09] LABS: ESTIMATED AVERAGE GLUCOSE 123 mg/dl; HA1C FLAG Normal (Normal)
[2016-11-17] MEDS: FERROUS SULFATE 325 MG TAB PO SCH (08:29)
[2016-11-17] MEDS: CLONIDINE HCL 0.1 MG TAB PO SCH ×2 (08:29→21:06)
[2016-11-17] MEDS: LOSARTAN/HCTZ 50-12.5 EA TAB PO SCH (08:29)
[2016-11-17] MEDS: ASPIRIN 81 MG ECTAB PO SCH (08:29)
[2016-11-17] MEDS ORDERED: NON-FORMULARY MEDICATION (Coenzyme Q10 (Ubidecarenone) (Co Q-10) 200 MG) PO SCH (09:00)
[2016-11-17] MEDS ORDERED: OPTIRAY 320 IV PRN (10:45)
--- NOTE | 2016-11-17 10:46 | Neurology Consultation ---
Neurology Consultation Date of Consultation: Nov 17, 2016. Attending Physician: Asad Arrington D.O. Primary Care Physician: Maico Valencia M.D. Reason for Consultation: Acute stroke History of Present Illness Source: patient, hospital records This is a 81-year-old right-handed female who presented with slurred speech and right facial droop. Per family report she may been having some increased memory and confusion the day before. Patient seems to indicate that her speech may have been off for a longer period of time but the son only noticed it yesterday. She does report some nonspecific weakness and gait dysfunction for which she has been getting physical therapy for the last month. She does report some baseline peripheral neuropathy diffusely in her legs a little bit on her hands. Otherwise she denies any new numbness. Denies any new focal weakness other than facial weakness. Does have slurred speech. Reports that her vision is been off but it's not clear that this is acute and could be secondary to cataracts. Denies any trouble swallowing. Denies any chest pain, shortness of breath, or heart palpitations. I could not find any previous history of A. fib and the patient does not know if any diagnosis of A. fib. Patient was not taking any antiplatelets at the time of this event. Echocardiogram is pending MRI of the brain report and images reviewed by myself. The patient has patchy extensive left parietal and occipital subacute ischemic strokes along with a few tiny bilateral subcortical cerebral subacute ischemic strokes. There may be small spot of microhemorrhage in the left occipital area. Also noted is old left occipital, pontine, and right basal ganglia lacunar strokes MRA of the neck Notes greater than 60% stenosis of the right ICA and critical stenosis versus occlusion of the left vertebral proximal artery. Total cholesterol 241, LDL 149, HDL 46, triglycerides 228, hemoglobin A1c 5.9 Past Medical/Surgical History Medical Problems: (1) Abdominal pain Status: Acute (2) CVA (cerebral vascular accident) Status: Acute (3) Facial droop Status: Acute Past medical history: Hypertension Peripheral neuropathy with restless leg symptoms (previously on gabapentin and Valium) Dyslipidemia Hypothyroid Obstructive sleep apnea on CPAP Chronic pain, arthralgias, myalgias Depression History of breast cancer status post mastectomy Sensory neuronal hearing loss History of diabetes type 2 diet controlled Family History Noncontributory Social History Patient is normally independent in her activities of daily living. No tobacco use. Smoking Status: Never smoker Alcohol Use: none Drug Use: none Marital Status: Housing Status: lives alone Occupation Status: retired Allergies Coded Allergies: Adhesives (Verified Allergy, Mild, SKIN GETS RED, SORE AND ITCHY, 11/16/16) Atorvastatin (Verified Adverse Reaction, Intermediate, GENERIC-SEVERE LEG CRAMPS NAUSEA NIGHTMARES, 11/16/16) CAN USE NAME BRAND LIPITOR Current Inpatient Medications Current Inpatient Medications Medications (Trade) Dose Ordered Sig/Olaf Route Start Time Stop Time Status Last Admin Dose Admin Aspirin (Ecotrin Tab) 81 mg QAM PO 11/17/16 09:00 12/17/16 08:59 11/17/16 08:29 81 MG Miscellaneous Information (Pharmacist Discharge Med Rec Consult) 1 ea UD PRN N/A 11/16/16 15:15 12/16/16 15:14 Heparin Sodium (Porcine) (Heparin Sq 5000 Unit/0.5ml) 5,000 unit Q8 SQ 11/16/16 22:00 12/16/16 21:59 11/17/16 05:56 5,000 UNIT Acetaminophen (Tylenol Tab) 650 mg Q4H PRN PO 11/16/16 15:15 12/16/16 15:14 Magnesium Hydroxide (Milk Of Magnesia Susp) 30 ml Q12H PRN PO 11/16/16 15:15 12/16/16 15:14 Ondansetron HCl (Zofran Inj) 4 mg Q6H PRN IV 11/16/16 15:15 12/16/16 15:14 Ferrous Sulfate (Feosol Tab) 325 mg DAILY PO 11/17/16 09:00 12/17/16 08:59 11/17/16 08:29 325 MG Levothyroxine Sodium (Synthroid Tab) 100 mcg DAILYBB PO 11/17/16 06:00 12/17/16 05:59 11/17/16 05:56 100 MCG Clonidine HCl (Catapres Tab) 0.1 mg BID PO 11/16/16 21:00 12/16/16 20:59 11/17/16 08:29 0.1 MG HCTZ/Losartan Potassium (Hyzaar 50-12.5 Tab) 1 tab QAM PO 11/17/16 09:00 12/17/16 08:59 11/17/16 08:29 1 TAB Potassium Chloride/Sodium Chloride 1,000 ml @ 80 mls/hr [id number] IV 11/16/16 17:45 12/16/16 15:44 11/17/16 05:57 80 MLS/HR Gadobutrol (Gadavist) 10 mmol UD PRN IV 11/16/16 17:15 11/20/16 17:14 Review of Systems Complete review of systems is otherwise negative except for the above noted in history of present illness Physical Exam Vital Signs (Past 24 Hrs): Date Time Temp Pulse Resp B/P (MAP) Pulse Ox O2 Delivery O2 Flow Rate FiO2 11/17/16 08:23 36.9 60 18 156/84 (108) 96 11/17/16 08:00 Room Air 11/17/16 04:16 36.5 88 18 159/89 (112) 94 Room Air 11/17/16 04:00 Room Air 11/17/16 00:07 37.1 66 20 145/81 (102) 96 CPAP 11/17/16 00:00 Room Air 11/16/16 20:03 36.7 85 16 187/94 (125) 98 Room Air 11/16/16 20:00 Room Air 11/16/16 17:26 36.7 61 18 197/111 95 Room Air 11/16/16 15:46 201/141 11/16/16 15:36 62 17 99 11/16/16 15:31 194/107 11/16/16 15:21 59 17 99 11/16/16 15:16 195/99 11/16/16 15:06 71 21 99 11/16/16 15:01 215/124 11/16/16 14:51 60 19 100 11/16/16 14:46 195/97 11/16/16 14:36 64 18 99 11/16/16 14:31 166/101 11/16/16 14:25 212/127 11/16/16 14:21 62 18 99 11/16/16 14:16 73 20 221/98 98 11/16/16 14:12 228/98 11/16/16 14:12 97 Room Air 11/16/16 14:03 76 11/16/16 13:58 240/110 11/16/16 13:37 37.0 87 18 205/121 93 Room Air Gen.: Patient is alert and sitting in bed, in no acute distress. HEENT: Normocephalic /atraumatic, no scleral icterus Heart: Regular rate and rhythm Extremities: No gross deformities or rashes noted Neurological examination: Mental status: Patient is alert and oriented x3. Attention and concentration normal for the situation. Able to give her own history but question how accurate of a historian she is currently. Speech is fluent with mild to moderate dysarthria Cranial nerve: Funduscopic examination was difficult to visualize. Pupils equally round and reactive to light. Extraocular muscles intact without nystagmus. Mild right lower facial droop. Facial sensation intact. Tongue is midline. Good palatal elevation. Good shoulder shrug bilaterally. Hearing globally decreased to voice. Strength: 5/5 both proximal and distally in all extremities although there was some give way weakness bilaterally in upper extremities. There is no arm drift. Tone is normal. Sensation: Grossly intact to light touch in all extremities although patient does note decreased sensation to light touch in bilateral lower extremities diffusely. Deep tendon reflexes: +1 in bilateral biceps, brachioradialis and patellar. Coordination: Patient had good finger to nose without dysmetria Station within the bed was normal Laboratory Results Past 24 Hours: 11/16/16 14:06 Red Blood Count 4.48, Mean Corpuscular Volume 97.3, Mean Corpuscular Hemoglobin 34.4, Mean Corpuscular Hemoglobin Concent 35.3, Mean Platelet Volume 9.7, Neutrophils (%) (Auto) 57.3, Lymphocytes (%) (Auto) 31.7, Monocytes (%) (Auto) 9.2, Eosinophils (%) (Auto) 1.4, Basophils (%) (Auto) 0.3, Neutrophils # (Auto) 4.12, Lymphocytes # (Auto) 2.28, Monocytes # (Auto) 0.66, Eosinophils # (Auto) 0.10, Basophils # (Auto) 0.02 11/17/16 05:11 Test 11/16/16 13:59 11/16/16 14:06 11/16/16 19:20 11/16/16 20:20 Bedside Prothrombin Time INR 1.0 (0.9-1.1) White Blood Count 7.19 K/uL (4.8-10.8) Red Blood Count 4.48 M/uL (4.2-5.4) Hemoglobin 15.4 g/dL (12.0-16.0) Hematocrit 43.6 % (37-47) Mean Corpuscular Volume 97.3 fL (80-100) Mean Corpuscular Hemoglobin 34.4 pg (25-34) Mean Corpuscular Hemoglobin Concent 35.3 g/dl (32-36) Platelet Count 176 K/uL (130-400) Mean Platelet Volume 9.7 fL (7.4-10.4) Neutrophils (%) (Auto) 57.3 % Lymphocytes (%) (Auto) 31.7 % Monocytes (%) (Auto) 9.2 % Eosinophils (%) (Auto) 1.4 % Basophils (%) (Auto) 0.3 % Neutrophils # (Auto) 4.12 K/uL (1.4-6.5) Lymphocytes # (Auto) 2.28 K/uL (1.2-3.4) Monocytes # (Auto) 0.66 K/uL (0.11-0.59) Eosinophils # (Auto) 0.10 K/uL (0-0.5) Basophils # (Auto) 0.02 K/uL (0-0.2) RDW Standard Deviation 44.9 fL (36.4-46.3) RDW Coefficient of Variation 12.7 % (11.5-14.5) Immature Granulocyte % (Auto) 0.1 % Immature Granulocyte # (Auto) 0.01 K/uL (0.00-0.02) Prothrombin Time 10.8 SECONDS (9.0-12.0) Prothromb Time International Ratio 1.0 (0.9-1.1) Activated Partial Thromboplast Time 25.1 SECONDS (21.0-31.0) Partial Thromboplastin Ratio 1.0 Estimated Average Glucose 123 mg/dl Hemoglobin A1c 5.9 % (4.5-5.6) Total Bilirubin 0.6 mg/dl (0.2-1) Direct Bilirubin 0.1 mg/dl (0-0.2) Aspartate Amino Transf (AST/SGOT) 23 U/L (15-37) Alanine Aminotransferase (ALT/SGPT) 17 U/L (12-78) Alkaline Phosphatase 71 U/L (45-117) Total Creatine Kinase 134 U/L (26-192) Creatine Kinase MB 1.6 ng/ml (0.5-3.6) Creatine Kinase MB Ratio 1.2 (0-3.0) Total Protein 7.8 gm/dl (6.4-8.2) Albumin 4.0 gm/dl (3.4-5.0) Urine Color YELLOW Urine Appearance CLEAR (CLEAR) Urine pH 7.5 (4.5-7.5) Urine Specific [place] 1.016 (1.000-1.030) Urine Protein 2+ (NEG) Urine Glucose (UA) NEG (NEG) Urine Ketones NEG (NEG) Urine Occult Blood NEG (NEG) Urine Nitrite NEG (NEG) Urine Bilirubin NEG (NEG) Urine Urobilinogen NEG (NEG) Urine Leukocyte Esterase TRACE (NEG) Urine WBC (Auto) 1-5 /hpf (0-5) Urine RBC (Auto) 0-4 /hpf (0-4) Urine Hyaline Casts (Auto) 0 /lpf (0-5) Urine Epithelial Cells (Auto) 10-20 /lpf (0-5) Urine Bacteria (Auto) NEG (NEG) Bedside Glucose 128 mg/dl (70-90) Test 11/17/16 05:11 Anion Gap 6.0 mmol/L (3-11) Est Creatinine Clear Calc Drug Dose 45.3 ml/min Estimated GFR () 49.4 Estimated GFR (Non- 42.7 BUN/Creatinine Ratio 16.5 (10-20) Calcium Level 8.4 mg/dl (8.5-10.1) Troponin I < 0.015 ng/ml (0-0.045) Triglycerides Level 228 mg/dl (0-150) Cholesterol Level 241 mg/dl (0-200) HDL Cholesterol 46 mg/dl LDL Cholesterol, Calculated 149 mg/dl VLDL Cholesterol, Calculated 46 mg/dl Cholesterol/HDL Ratio 5.2 Imaging As noted above in history of present illness Impression This is a 81-year-old right-handed female who presents with an acute patchy last parietal/occipital subacute ischemic strokes with some signs of subacute tiny emboli in the bilateral cerebral hemispheres. Overall etiology concerning for either cardioembolic versus large vessel embolic. Residual neurological deficits include cognitive deficits, dysarthria, and right facial droop. Patient already had baseline gait dysfunction. Known stroke risk factors include hypertension, dyslipidemia, diet-controlled diabetes, and obstructive sleep apnea on CPAP. Plan I have ordered a CTA of the head and neck for further evaluation of possible critical stenosis noted on MRA. Continue aspirin 81 mg daily for secondary stroke prevention. If the patient does have confirmed critical stenosis on CTA, recommend addition of Plavix 75 mg daily. Recommend starting statin medication for dyslipidemia. Patient denies any side effects to statin medications in the past, although outpatient chart reports headaches with atorvastatin. Recommend considering either simvastatin versus pravastatin. Agree with vascular surgeon evaluation of the patient truly has critical stenosis. At this time right ICA critical stenosis appears to be asymptomatic. Would only recommend endarterectomy if stenosis greater than 85%. Left vertebral proximal artery stenosis may be her symptomatic side. Follow-up echocardiogram results Follow-up PT/OT and speech therapies for discharge planning. Blood pressure recommendations while in hospital 175/95-150/80 (MAPs 90-110) Avoid hypotension and dehydration Stroke risk factor modifications and recommendations: Blood pressure recommendations for the first month post hospital discharge 150/ 90-130/80, and after that blood pressure recommendations 130/80-110/70 Total cholesterol goal 100- 200 and LDL goal less than 70 Hemoglobin A1c goal less than 7 (at goal) Encourage cardiovascular exercise at least 3 times a week for 30 minutes. Follow-up in neurology clinic in 1 month for post stroke hospital follow-up. If there is any questions or concerns, feel free to call/page me.
--- NOTE | 2016-11-17 10:51 | Surgery Consultation ---
Consultation Date of Service Nov 17, 2016. Chief Complaint L hemispheric CVA, carotid stenosis History of Present Illness The patient is a 81 year old female with hx of HTN, hypothyroidism, seen in consultation today for L ICA stenosis in association with L hemispheric completed CVA which occurred yesterday. Pt is [place] and poor historian. Most hx obtained from her son, Erik. He states his mother lives alone and he and his frequently visit or contact her to make sure she is ok. He states she would occasionally become mildly confused, but was always able to realize what she was doing wrong and correct it. States that her confusion became much worse yesterday and he noted that the right side of her face was drooping and she had difficulty with word finding and slurred speech, so brought her to [facility] for eval. Pt herself states she thinks she is here b/c she had a stroke, but is unable to recall events leading up to hospital arrival or whether she is feeling any better. Per son, her facial droop is less and her speech is more clear, but still having word finding difficulty. No extremity sx per son. Pt denies COLBY, fever, recent illness, chest pain, SOB, abd pain, N/V, other complaints. MRA demonstrates completed L hemispheric CVA, occluded L vertebral art, and 90+ % L ICA stenosis. Vitals Vital Signs Past 12 Hours Date Time Temp Pulse Resp B/P (MAP) Pulse Ox O2 Delivery O2 Flow Rate FiO2 11/17/16 08:23 36.9 60 18 156/84 (108) 96 11/17/16 08:00 Room Air 11/17/16 04:16 36.5 88 18 159/89 (112) 94 Room Air 11/17/16 04:00 Room Air 11/17/16 00:07 37.1 66 20 145/81 (102) 96 CPAP 11/17/16 00:00 Room Air Allergies Coded Allergies: Adhesives (Verified Allergy, Mild, SKIN GETS RED, SORE AND ITCHY, 11/16/16) Atorvastatin (Verified Adverse Reaction, Intermediate, GENERIC-SEVERE LEG CRAMPS NAUSEA NIGHTMARES, 11/16/16) CAN USE NAME BRAND LIPITOR Home Medications Scheduled Aspirin (Aspirin EC Low Dose), 81 MG PO BID Biotin (Biotin 5000), 1 CAP PO HS Clonidine Hcl (Catapres), 1 TAB PO BID Coenzyme Q10 (Ubidecarenone) (Co Q-10), 200 MG PO QAM Diazepam (Valium), 5 MG PO HS Ferrous Sulfate (Ferrous Sulfate), 1 TAB PO DAILY Gabapentin (Gabapentin), 100 MG PO DAILY Hctz/Losartan (Hyzaar 25MG/100MG), 1 TABLET PO QAM Levothyroxine Sodium (Levothyroxine Sodium), 100 MCG PO QAM Scheduled PRN Tramadol HCl (Tramadol HCl), 50-100 MG PO Q4H PRN for Pain Problem List Medical Problems: (1) Arthritis (2) HTN (hypertension) (3) Hyperlipidemia (4) Hypothyroid (5) IDDM (insulin dependent diabetes mellitus) (6) Neuropathy (7) Restless leg syndrome (8) Sleep apnea Surgical Problems: (1) Post-operative state Surgical / Medical History Hx Cardiac Surgery: No Hx Abdominal Surgery: Yes ([facility] BSO ) Hx Cancer Surgery: Yes (LEFT BREAST MASTECTOMY; SKIN - NOSE) Hx Thoracic Surgery: No Hx Orthopedic: Yes (Right TKA, LEFT HIP ORIF) Hx Urinary Tract Surgery: No HX Other Surgery: No Past Medical/Surgical History: Hypertension, Kidney Disease Family History FH: dementia Hypertension Social History Smoking Status: Never Smoker Hx Tobacco Use In Past Year?: No Hx Alcohol Use - Type & Amnt: No Hx Substance Use -Type & Amnt: No Review of Systems Constitutional: No chills, No fever, No malaise Skin: No change in color Eyes: + visual changes ENMT: No sore throat Respiratory: No cough, No hemoptysis, No short of breath Cardiovascular: No chest pain, No palpitations, No edema, No intermittent claudication Gastrointestinal: No abdominal pain, No nausea, No vomiting Neurologic: No dizziness, No headache, No numbness, No tingling Physical Exam Constitutional: General Apperance: well-nourished, well-developed, obese Level of Distress: NAD, chronically ill (mildly) Psychiatric: Mental Status: active & alert, normal mood, normal affect Orientation: to place, to person, not oriented to time Memory: recent memory abnormal (vague, poor recall of events), remote memory abnormal Head: normocephalic, atraumatic Eyes: EOM: EOMI ENMT: normal ENT inspection, + pertinent finding ([place]) Neck: supple, trachea midline Lungs: Respiratory effort: no dyspnea Auscultation: no wheezing, no rales/crackles, no rhonchi, decreased breath sounds Cardiovascular: Apical Impulse: not displaced Heart Auscultation: RRR, no murmurs, no rubs Peripheral Pulses: Pulses: full and equal, in all extremities except if noted Bruits: none appreciated Carotid Pulse: normal on the left, normal on the right Brachial Pulses: normal on the left, normal on the right Radial Pulse: normal on the left, normal on the right Femoral Pulse: normal on the left, normal on the right Posterior Tibialis Pulse: decreased on the left, decreased on the right Dorsalis Pedis Pulse: decreased on the left, decreased on the right Abdomen: Bowel Sounds: normal Inspection & Palpation: soft, non-distended, no tenderness, guarding & rebound Musculoskeletal: normal strength (5/5 throughout), normal tone Extremities: Upper Right: no cyanosis, no edema, no varicosities Upper Left: no cyanosis, no edema, no varicosities Lower Right: no cyanosis, no varicosities, edema Lower Left: no cyanosis, no varicosities, edema Additional Comments: + loss of R nasolabial fold, mild R facial droop. + trouble word finding and mildly slurred speech. [place], strength equal. 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 D/t symptomatic, severe L ICA stenosis, recommend L CEA to decrease risk of further cerebrovascular events. D/T completed CVA, will see pt in office in 1-2 weeks to reevaluate and schedule procedure. Will also have to obtain a CTA prior to procedure. Discussed with son, he understands and is agreeable.
--- NOTE | 2016-11-17 12:26 | DIAGNOSTIC IMAGING REPORT ---
ANGIOGRAPHY HEAD COMBO HISTORY: Stroke mental status change TECHNIQUE: Multiaxial CT images of the head were performed both before and after the intravenous administration of contrast to evaluate the major cerebral vessels. Maximum intensity projection images were also obtained. A dose lowering technique was utilized adhering to the principles of ALARA. COMPARISON: None. FINDINGS: Findings consistent with a multiplicity of hypodensities involving the cerebral hemispheres bilaterally. These have been described as a combination of subacute and/or chronic infarcts on prior MRI study. No evidence for acute intracranial hemorrhage. High-grade stenosis mid left middle cerebral artery at the base of the sylvian fissure. All remaining intracranial vessels appear unremarkable. IMPRESSION: 1. High-grade stenosis left middle cerebral artery at the base of the sylvian fissure. 2. Multiple hypodensities throughout both cerebral hemispheres consistent with a combination of a subacute and chronic vascular insults. 3. No evidence for acute intracranial hemorrhage. The above report was generated using voice recognition software. It may contain grammatical, syntax or spelling errors. Electronically signed by: Favio Wray M.D. 11/17/2016 12:24 PM Dictated Date/Time: 11/17/2016 12:18 PM
--- NOTE | 2016-11-17 12:36 | ECHOCARDIOGRAM REPORT ---
*NOTICE TO RECEIVING REPUBLICAN AGENCY This information is strictly Confidential and protected under [place] law. [place] law prohibits you from making any further disclosure of this information unless further disclosure is expressly permitted by the written consent of the person to whom it pertains or is authorized by law. A general authorization for the release of medical or other information is not sufficient for this purpose. Hospital accepts no responsibility if the information is made available to any other person, INCLUDING THE PATIENT. Interpretation Summary * Name: RAMANA MOHAN Study Date: 11/17/2016 06:27 AM * Patient Location: 2\S\S244\S\1 * : 1935 (M/d/yyyy) Gender: Female Height: 67 in * Age: 81 yrs Ethnicity: [place] Weight: 218 lb * Ordering Physician: Eli Castañeda * Referring Physician: Self, Referred * Performed By: Valeria Klein RDCS * * Reason For Study: CVA * BSA: 2.1 m2 * -- Conclusions -- * Left ventricular systolic function is normal. * No regional wall motion abnormalities noted. * Ejection Fraction = 60-65%. * There is mild concentric left ventricular hypertrophy. * Grade I diastolic dysfunction, (abnormal relaxation pattern). * Mild mitral regurgitation. Procedure Details * A saline contrast injection was performed to assess for cardiac shunting. * The injection was performed through an intravenous line in the right arm. * The attending nurse who injected the saline contrast was ALYSSA MCKEON RN. * A total of 20 cc of agitated saline was given. * A contrast injection of Definity was performed to improve assessment of LV function. * Contrast was injected into an intravenous site in the right arm. * One vial of Definity ultrasound contrast was diluted in normal saline to a total volume of 10 ml. A total of '2' ml of solution was administered during imaging. * Lot # [id number] of Definity utilized for procedure. * Expiration date DEC 17. * The attending nurse who injected the contrast agent was ALYSSA MCKEON RN. Left Ventricle * The left ventricle is normal in size. * There is mild concentric left ventricular hypertrophy. * Ejection Fraction = 60-65%. * Left ventricular systolic function is normal. * No regional wall motion abnormalities noted. Right Ventricle * The right ventricle is grossly normal size. * The right ventricular systolic function is normal as assessed by tricuspid annular plane systolic excursion (TAPSE) (normal >1.5 cm). Atria * The left atrium is mildly dilated. * Right atrium not well visualized. * Injection of contrast documented no interatrial shunt. * Lipomatous hypertrophy of the interatrial septum is noted. Mitral Valve * The mitral valve is grossly normal. * There is no mitral valve stenosis. * There is mild mitral regurgitation. Tricuspid Valve * The tricuspid valve is not well visualized, but is grossly normal. * There is no tricuspid stenosis. * There is trace tricuspid regurgitation. Aortic Valve * The aortic valve is trileaflet. * The aortic valve opens well. * Aortic valve sclerosis mild, without significant aortic valvular stenosis. * There is no significant aortic regurgitation. Pulmonic Valve * The pulmonary valve is not well seen, but the Doppler examination is normal without significant regurgitation or stenosis. Great Vessels * The aortic root is normal size. * The pulmonary is not well visualized. Pericardium/Pleural * There is no pericardial effusion. Great Vessels * Normal inferior vena cava size and collapsability with sniff indicates a normal right atrial pressure of 3 mmHg Left Ventricular Diastolic Function * Grade I diastolic dysfunction, (abnormal relaxation pattern). MMode 2D Measurements and Calculations IVSd 1.6 cm IVSs 2.0 cm LVIDd 3.5 cm LVIDs 2.4 cm LVPWd 1.3 cm LVPWs 1.9 cm IVS/LVPW 1.2 FS 31.1 % EDV(Teich) 50.8 ml ESV(Teich) 20.4 ml EF(Teich) 59.8 % EDV(cubed) 42.8 ml ESV(cubed) 14.0 ml EF(cubed) 67.2 % % IVS thick 26.1 % % LVPW thick 50.9 % LV mass(C)d 176.9 grams LV mass(C)dI 84.3 grams/m\S\2 LV mass(C)s 197.8 grams LV mass(C)sI 94.3 grams/m\S\2 SV(Teich) 30.4 ml SI(Teich) 14.5 ml/m\S\2 SV(cubed) 28.8 ml SI(cubed) 13.7 ml/m\S\2 Ao root diam 3.3 cm Ao root area 8.6 cm\S\2 LA dimension 3.2 cm LA/Ao 0.97 LVAd ap4 25.1 cm\S\2 LVLd ap4 7.4 cm EDV(MOD-sp4) 71.1 ml EDV(sp4-el) 72.5 ml LVAs ap4 14.3 cm\S\2 LVLs ap4 5.9 cm ESV(MOD-sp4) 29.5 ml ESV(sp4-el) 29.4 ml EF(MOD-sp4) 58.6 % EF(sp4-el) 59.4 % LVAd ap2 27.3 cm\S\2 LVLd ap2 7.5 cm EDV(MOD-sp2) 81.2 ml EDV(sp2-el) 83.9 ml LVAs ap2 17.8 cm\S\2 LVLs ap2 6.6 cm ESV(MOD-sp2) 39.8 ml ESV(sp2-el) 40.9 ml EF(MOD-sp2) 51.0 % EF(sp2-el) 51.2 % LVLd %diff 2.2 % EDV(MOD-bp) 76.6 ml LVLs %diff 10.3 % ESV(MOD-bp) 34.9 ml EF(MOD-bp) 54.4 % SV(MOD-sp4) 41.6 ml SI(MOD-sp4) 19.9 ml/m\S\2 SV(MOD-sp2) 41.4 ml SI(MOD-sp2) 19.7 ml/m\S\2 SV(MOD-bp) 41.7 ml SI(MOD-bp) 19.9 ml/m\S\2 SV(sp4-el) 43.1 ml SI(sp4-el) 20.5 ml/m\S\2 SV(sp2-el) 43.0 ml SI(sp2-el) 20.5 ml/m\S\2 Doppler Measurements and Calculations MV E max yadira 78.1 cm/sec MV A max yadira 90.7 cm/sec MV E/A 0.86 MV dec time 0.35 sec Ao V2 max 155.3 cm/sec Ao max PG 9.6 mmHg Ao max PG (full) 6.5 mmHg LV V1 max PG 3.1 mmHg LV V1 max 88.3 cm/sec TR max yadira 232.1 cm/sec
--- NOTE | 2016-11-17 12:38 | DIAGNOSTIC IMAGING REPORT ---
CT ANGIOGRAPHY OF THE NECK WITH CONTRAST CLINICAL HISTORY: Cerebrovascular accident. COMPARISON STUDY: MRA of the neck November 16, 2016. Technique: CT angiography of the carotid and vertebral arteries was obtained using OptiraElliptic 320 IV and 3D reconstruction on an independent workstation. NASCET criteria was utilized. A dose lowering technique was utilized adhering to the principles of ALARA. Findings: Note is made of a pulmonary embolus within visualized portions of a lingular segmental branch shown on axial image 1 of 417. This is partially imaged on this exam. There may be small segmental pulmonary emboli within visualized portions of the right pulmonary arterial system. There is no cervical lymphadenopathy. The caliber of the aortic arch is normal. Evaluation of the origin of the left vertebral artery is suboptimal due to artifact on this exam. There is either severe stenosis of the proximal left vertebral artery or short segment occlusion with distal reconstitution. The remainder of the left vertebral artery is patent. There is moderate narrowing of the distal intracranial portion of the left vertebral artery. Right vertebral artery is patent. There is severe stenosis of the proximal right internal carotid artery which is short segment, immediately distal to the origin of this vessel. The vessel measures 1.2 mm in caliber at the site of stenosis and 5 mm distally. There is moderate plaque within the proximal left internal carotid artery with mild stenosis. IMPRESSION: 1. 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 2. Probable partially visualized segmental pulmonary embolus within the lingular pulmonary artery. Possible small segmental right lung pulmonary emboli. The findings could be confirmed with a chest CT PE protocol. 3. Severe stenosis at the origin of the left vertebral artery. Artifact at this level makes evaluation difficult although a short segment occlusion with distal reconstitution is considered less likely. 4. Mild stenosis at the origin of the left internal carotid artery. Electronically signed by: Amarjit Quiñonez M.D. 11/17/2016 12:37 PM Dictated Date/Time: 11/17/2016 12:20 PM
[2016-11-17] MEDS ORDERED: SODIUM CHLORIDE 0.9% 1000ML 1,000 ML IV SCH (14:00)
[2016-11-17] MEDS ORDERED: ROSUVASTATIN CALCIUM 20 MG TAB PO ONE (14:00)
--- NOTE | 2016-11-17 14:07 | Progress Note ---
Subjective Date of Service: Nov 17, 2016. Subjective Pt evaluation today including: conversation w/ patient, physical exam, chart review, lab review, review of studies, conversation w/ beauty sales consultant, review of inpatient medication list feeling overwhelmed, feels like there's so much she needs to deal with. her biggest concern is surgery. no new complaints otherwise, no new neuro deficits. feeling ok in that respect. willing to go to rehab. no other acute complaints. discussed dx's and plans with pt Problem List Medical Problems: (1) Abdominal pain Status: Acute (2) CVA (cerebral vascular accident) Status: Acute (3) Facial droop Status: Acute Review of Systems all other ROS otherwise negative except for as above Objective Vital Signs Date Time Temp Pulse Resp B/P (MAP) Pulse Ox O2 Delivery O2 Flow Rate FiO2 11/17/16 12:00 Room Air 11/17/16 11:47 36.9 74 18 113/62 (79) 96 11/17/16 08:23 36.9 60 18 156/84 (108) 96 11/17/16 08:00 Room Air 11/17/16 04:16 36.5 88 18 159/89 (112) 94 Room Air 11/17/16 04:00 Room Air 11/17/16 00:07 37.1 66 20 145/81 (102) 96 CPAP 11/17/16 00:00 Room Air 11/16/16 20:03 36.7 85 16 187/94 (125) 98 Room Air 11/16/16 20:00 Room Air 11/16/16 17:26 36.7 61 18 197/111 95 Room Air 11/16/16 15:46 201/141 11/16/16 15:36 62 17 99 11/16/16 15:31 194/107 11/16/16 15:21 59 17 99 11/16/16 15:16 195/99 11/16/16 15:06 71 21 99 11/16/16 15:01 215/124 11/16/16 14:51 60 19 100 11/16/16 14:46 195/97 11/16/16 14:36 64 18 99 11/16/16 14:31 166/101 11/16/16 14:25 212/127 11/16/16 14:21 62 18 99 11/16/16 14:16 73 20 221/98 98 11/16/16 14:12 228/98 11/16/16 14:12 97 Room Air 11/16/16 14:03 76 11/16/16 13:58 240/110 Physical Exam General Appearance: no apparent distress (somewhat anxious and tearful at times , but no physical or respiratory distress) Eyes: EOMI ENT: hearing grossly normal Neck: trachea midline Respiratory/Chest: no respiratory distress, no accessory muscle use Extremities: normal range of motion Neurologic/Psychiatric: + pertinent finding (ongoing R facial droop) Skin: normal color, warm/dry Laboratory Results Last 24 Hours Test 11/16/16 13:59 11/16/16 14:00 11/16/16 14:06 11/16/16 17:28 Bedside Prothrombin Time INR 1.0 Bedside Glucose 101 mg/dl 101 mg/dl White Blood Count 7.19 K/uL Red Blood Count 4.48 M/uL Hemoglobin 15.4 g/dL Hematocrit 43.6 % Mean Corpuscular Volume 97.3 fL Mean Corpuscular Hemoglobin 34.4 pg Mean Corpuscular Hemoglobin Concent 35.3 g/dl Platelet Count 176 K/uL Mean Platelet Volume 9.7 fL Neutrophils (%) (Auto) 57.3 % Lymphocytes (%) (Auto) 31.7 % Monocytes (%) (Auto) 9.2 % Eosinophils (%) (Auto) 1.4 % Basophils (%) (Auto) 0.3 % Neutrophils # (Auto) 4.12 K/uL Lymphocytes # (Auto) 2.28 K/uL Monocytes # (Auto) 0.66 K/uL Eosinophils # (Auto) 0.10 K/uL Basophils # (Auto) 0.02 K/uL RDW Standard Deviation 44.9 fL RDW Coefficient of Variation 12.7 % Immature Granulocyte % (Auto) 0.1 % Immature Granulocyte # (Auto) 0.01 K/uL Prothrombin Time 10.8 SECONDS Prothromb Time International Ratio 1.0 Activated Partial Thromboplast Time 25.1 SECONDS Partial Thromboplastin Ratio 1.0 Sodium Level 139 mmol/L Potassium Level 3.6 mmol/L Chloride Level 103 mmol/L Carbon Dioxide Level 27 mmol/L Anion Gap 9.0 mmol/L Blood Urea Nitrogen 21 mg/dl Creatinine 1.30 mg/dl Est Creatinine Clear Calc Drug Dose 41.8 ml/min Estimated GFR () 44.9 Estimated GFR (Non- 38.7 BUN/Creatinine Ratio 16.3 Random Glucose 109 mg/dl Estimated Average Glucose 123 mg/dl Hemoglobin A1c 5.9 % Calcium Level 9.7 mg/dl Total Bilirubin 0.6 mg/dl Direct Bilirubin 0.1 mg/dl Aspartate Amino Transf (AST/SGOT) 23 U/L Alanine Aminotransferase (ALT/SGPT) 17 U/L Alkaline Phosphatase 71 U/L Total Creatine Kinase 134 U/L Creatine Kinase MB 1.6 ng/ml Creatine Kinase MB Ratio 1.2 Troponin I < 0.015 ng/ml Total Protein 7.8 gm/dl Albumin 4.0 gm/dl Test 11/16/16 19:20 11/16/16 20:20 11/16/16 20:51 11/17/16 05:11 Urine Color YELLOW Urine Appearance CLEAR Urine pH 7.5 Urine Specific [place] 1.016 Urine Protein 2+ Urine Glucose (UA) NEG Urine Ketones NEG Urine Occult Blood NEG Urine Nitrite NEG Urine Bilirubin NEG Urine Urobilinogen NEG Urine Leukocyte Esterase TRACE Urine WBC (Auto) 1-5 /hpf Urine RBC (Auto) 0-4 /hpf Urine Hyaline Casts (Auto) 0 /lpf Urine Epithelial Cells (Auto) 10-20 /lpf Urine Bacteria (Auto) NEG Bedside Glucose 128 mg/dl Troponin I 0.021 ng/ml < 0.015 ng/ml Sodium Level 139 mmol/L Potassium Level 4.0 mmol/L Chloride Level 105 mmol/L Carbon Dioxide Level 28 mmol/L Anion Gap 6.0 mmol/L Blood Urea Nitrogen 20 mg/dl Creatinine 1.20 mg/dl Est Creatinine Clear Calc Drug Dose 45.3 ml/min Estimated GFR () 49.4 Estimated GFR (Non- 42.7 BUN/Creatinine Ratio 16.5 Random Glucose 123 mg/dl Calcium Level 8.4 mg/dl Triglycerides Level 228 mg/dl Cholesterol Level 241 mg/dl HDL Cholesterol 46 mg/dl LDL Cholesterol, Calculated 149 mg/dl VLDL Cholesterol, Calculated 46 mg/dl Cholesterol/HDL Ratio 5.2 Assessment and Plan 81 y/o F who was admitted on 11/16 for CVA CVA: likely large vessel embolic (although given question of bilateral findings , will continue to monitor to r/u PAF) -asa, statin, BP control -rehab -CT angio done - anticipate surgical treatment 1-2 weeks unless any further events ?PE: -noted on CT angio of neck as incidental finding. no hypoxia, no sx. investigate w dedicated CT chest; if (+) d/w neuro and can anticoagulate if need be -additional 1L IVF for contrast clearance HTN: pt denied medications for this at admission, however pharmacy clarified that she has been on hyzaar for many months, catapres was new 10/31 Uncertain if pt is taking this - BP under reasonable control now - slightly tighter than desired this acute but no new sx - continue meds at current, follow closely, and low threshold to slightly reduce dosing hyperlipid given large vessel stroke and lipid levels - crestor 20mg, low threshold to escalate to 40mg RLS: pt was on valium and tramadol HS for this per pharmacy records Changed to gabapentin, however only took 2 doses due to rash Will not continue freeman given rash or valium/tramadol given current mentation issue continue to follow Elevated cr: appears baseline is 1.1-1.3 age makes cockroft gault less accurate, possibly baseline of stage 3 CKD BMP in AM Hypothyroid: continue home meds JUAN: CPAP from home hypocalcemia and prior vitamin D deficiency - check D level Other: Full code, although does specify that she would not want a feeding tube or termination clerk or prolonged life support Heparin for DVT proph (unless needing to escalate to full anticoagulation) anticipate rehab likely tomorrow
--- NOTE | 2016-11-17 15:02 | DIAGNOSTIC IMAGING REPORT ---
(CHEST FOR PE) ANGIO WITH CLINICAL HISTORY: 81 years-old Female presenting with pulmonary embolism noted on CTA neck, further evaluation with chest CTA. TECHNIQUE: Multidetector CT angiography of the chest was performed after administration of intravenous contrast. 3-D volumetric and/or maximum intensity projection (MIP) images were subsequently reconstructed for review. IV contrast: None. A dose lowering technique was used consistent with the principles of ALARA (as low as reasonably achievable). COMPARISON: None. CT DOSE (mGy.cm): The estimated cumulative dose is 516.87 mGycm. FINDINGS: Court Collections Officer topogram: Unremarkable. Pulmonary vasculature: The study is adequate for assessment of the pulmonary vascular tree. Filling defect consistent with acute pulmonary embolus in the lingular branch of the left pulmonary artery (series 4 image 132). Additional filling defect in a segmental branch in the right middle lobe (series 4 image 140). Main pulmonary artery is mildly enlarged measuring 3.2 cm in transverse dimension. No flattening of the interventricular septum. No intracardiac intracardiac filling defect. No reflux of contrast into the hepatic veins. Remaining chest: On soft tissue windows, normal thyroid and thoracic inlet. No axillary, supraclavicular, hilar, or mediastinal lymphadenopathy. Atherosclerosis of aorta. Top normal heart size. Minimal coronary artery calcification. No pericardial or pleural effusion. Small hiatal hernia. On lung windows, minimal dependent changes likely atelectasis. No other focal infiltrate. Old calcified granuloma noted in the superior segment of the right lower lobe. Airways patent. On bone windows, degenerative changes of the thoracic spine. Old fracture deformities of several right anterior ribs. IMPRESSION: 1. Bilateral pulmonary emboli involving the lingular branch of the left pulmonary artery and segmental branch of the right middle lobe. No CT evidence of right heart failure. 2. No focal consolidation. Electronically signed by: Abrahan Vergara M.D. 11/17/2016 3:01 PM Dictated Date/Time: 11/17/2016 2:54 PM
[2016-11-17] MEDS ORDERED: HEPARIN IV LOW DOSE NO BOLUS SCH (15:54)
[2016-11-17 16:26] LABS: BASO % 0.5 %; BASO ABS # 0.03 K/uL (0-0.2); EOS % 2.3 %; IG% 0.2 %; LYMPH % 33.2 %; LYMPH ABS # 2.02 K/uL (1.2-3.4); MEAN CELL VOLUME 98.5 fL (80-100); MEAN CORPUSCULAR HEMOGLOBIN 33.3 pg (25-34); MEAN PLATELET VOLUME 9.2 fL (7.4-10.4); MONO % 10.2 %; NEUT % 53.6 %; PLATELET COUNT 153 K/uL (130-400); RED BLOOD COUNT 4.06 M/uL (4.2-5.4); WHITE BLOOD COUNT 6.08 K/uL (4.8-10.8)
[2016-11-17 16:27] LABS: COMPLETE YES; MEAN CORPUSCULAR HGB CONC 33.8 g/dl (32-36)
[2016-11-17 16:37] LABS: PROTHROMBIN TIME (PATIENT) 10.7 SECONDS (9.0-12.0)
[2016-11-17] MEDS: HEPARIN 25,000 UNIT/500ML D5W 500 ML IV PRN ×2 (16:42→19:18)
[2016-11-17 23:57] LABS: PARTIAL THROMBOPLASTIN RATIO 1.5
[2016-11-18] VITALS (7 sets, daily range): BP systolic 148–178; BP diastolic 66–95; PULSE 56–68; TEMP 36.2–37; O2SAT 95–98
[2016-11-18] MEDS ORDERED: HEPARIN IV BOLUS 4,500 UNIT in SYRINGE 0 ML IV STA (00:30)
[2016-11-18] MEDS: HEPARIN 25,000 UNIT/500ML D5W 500 ML IV PRN ×2 (00:40→08:17)
[2016-11-18] MEDS: LEVOTHYROXINE 100 MCG TAB PO SCH (06:05)
[2016-11-18 07:01] LABS: HEMATOCRIT 43.7 % (37-47); MEAN CELL VOLUME 97.8 fL (80-100); MEAN CORPUSCULAR HEMOGLOBIN 31.8 pg (25-34); MEAN CORPUSCULAR HGB CONC 32.5 g/dl (32-36); PLATELET COUNT 147 K/uL (130-400); RED BLOOD COUNT 4.47 M/uL (4.2-5.4); WHITE BLOOD COUNT 6.38 K/uL (4.8-10.8)
[2016-11-18 07:19] LABS: PARTIAL THROMBOPLASTIN RATIO 3.3
[2016-11-18 07:35] LABS: BUN/CREATININE RATIO 16.2 (10-20); CALCIUM 8.6 mg/dl (8.5-10.1); CREATININE 1.2 mg/dl (0.60-1.20); POTASSIUM 4.2 mmol/L (3.5-5.1)
[2016-11-18] MEDS: NSS + 20MEQ KCL 1000ML 1,000 ML IV SCH (07:46)
[2016-11-18] MEDS: ROSUVASTATIN CALCIUM 20 MG TAB PO SCH (07:46)
[2016-11-18] MEDS: LOSARTAN/HCTZ 50-12.5 EA TAB PO SCH (07:46)
[2016-11-18] MEDS: CLONIDINE HCL 0.1 MG TAB PO SCH ×2 (07:47→20:25)
[2016-11-18] MEDS: ASPIRIN 81 MG ECTAB PO SCH (07:47)
[2016-11-18] MEDS: FERROUS SULFATE 325 MG TAB PO SCH (07:47)
--- NOTE | 2016-11-18 11:04 | Neurology Progress Notes ---
Neurology Progress Note Date of Service Nov 18, 2016. Subjective No new neurological complaints or symptoms. Feels that her speech is a little bit better compared to yesterday. CTA of the head and neck report and images was reviewed. Noted 80% stenosis of the right proximal ICA. Severe stenosis of the left vertebral. Mild left ICA stenosis In addition the patient was noted to have signs concerning for possible PE so dedicated CTA of the chest was done and noted to have bilateral ease. Patient was started on anticoagulation. Objective Date Time Temp Pulse Resp B/P (MAP) Pulse Ox O2 Delivery O2 Flow Rate FiO2 11/18/16 08:22 36.8 68 18 148/66 (93) 97 11/18/16 08:00 Room Air 11/18/16 04:00 Room Air 11/18/16 02:45 36.2 61 22 178/94 (122) 96 CPAP 11/18/16 00:00 Room Air 11/17/16 23:20 36.7 59 18 179/95 (123) 98 Room Air 11/17/16 20:00 Room Air 11/17/16 19:55 36.8 62 22 94 Room Air 11/17/16 15:45 Room Air CPAP 11/17/16 15:35 36.8 55 22 188/83 (118) 97 Room Air 11/17/16 12:00 Room Air 11/17/16 11:47 36.9 74 18 113/62 (79) 96 Last 24 Hours Test 11/17/16 16:09 11/17/16 16:12 11/17/16 20:40 11/17/16 23:21 Bedside Glucose 123 mg/dl 110 mg/dl White Blood Count 6.08 K/uL Red Blood Count 4.06 M/uL Hemoglobin 13.5 g/dL Hematocrit 40.0 % Mean Corpuscular Volume 98.5 fL Mean Corpuscular Hemoglobin 33.3 pg Mean Corpuscular Hemoglobin Concent 33.8 g/dl Platelet Count 153 K/uL Mean Platelet Volume 9.2 fL Neutrophils (%) (Auto) 53.6 % Lymphocytes (%) (Auto) 33.2 % Monocytes (%) (Auto) 10.2 % Eosinophils (%) (Auto) 2.3 % Basophils (%) (Auto) 0.5 % Neutrophils # (Auto) 3.26 K/uL Lymphocytes # (Auto) 2.02 K/uL Monocytes # (Auto) 0.62 K/uL Eosinophils # (Auto) 0.14 K/uL Basophils # (Auto) 0.03 K/uL RDW Standard Deviation 46.0 fL RDW Coefficient of Variation 12.7 % Immature Granulocyte % (Auto) 0.2 % Immature Granulocyte # (Auto) 0.01 K/uL Prothrombin Time 10.7 SECONDS Prothromb Time International Ratio 1.0 Activated Partial Thromboplast Time 26.6 SECONDS 39.7 SECONDS Partial Thromboplastin Ratio 1.0 1.5 Test 11/18/16 06:35 11/18/16 06:48 White Blood Count 6.38 K/uL Red Blood Count 4.47 M/uL Hemoglobin 14.2 g/dL Hematocrit 43.7 % Mean Corpuscular Volume 97.8 fL Mean Corpuscular Hemoglobin 31.8 pg Mean Corpuscular Hemoglobin Concent 32.5 g/dl RDW Standard Deviation 45.0 fL RDW Coefficient of Variation 12.7 % Platelet Count 147 K/uL Mean Platelet Volume 10.0 fL Activated Partial Thromboplast Time 86.1 SECONDS Partial Thromboplastin Ratio 3.3 Sodium Level 139 mmol/L Potassium Level 4.2 mmol/L Chloride Level 107 mmol/L Carbon Dioxide Level 26 mmol/L Anion Gap 6.0 mmol/L Blood Urea Nitrogen 19 mg/dl Creatinine 1.20 mg/dl Est Creatinine Clear Calc Drug Dose 44.8 ml/min Estimated GFR () 49.4 Estimated GFR (Non- 42.7 BUN/Creatinine Ratio 16.2 Random Glucose 121 mg/dl Calcium Level 8.6 mg/dl 25-Hydroxy Vitamin D Total 16.2 ng/ml Bedside Glucose 119 mg/dl Exam: Gen.: Patient is alert and sitting in chair, in no acute distress. HEENT: Normocephalic /atraumatic, no scleral icterus Heart: Regular rate and rhythm Extremities: No gross deformities or rashes noted Neurological examination: Mental status: Patient is alert and oriented x3. Attention and concentration normal for the situation. Speech is fluent with mild to moderate dysarthria Cranial nerve: Extraocular muscles intact without nystagmus. Mild right lower facial droop. Facial sensation intact. Tongue is midline. Good palatal elevation. Good shoulder shrug bilaterally. Hearing globally decreased to voice. Strength: 5/5 both proximal and distally in all extremities although there was some give way weakness bilaterally in upper extremities. There is no arm drift. Tone is normal. Sensation: Grossly intact to light touch in all extremities although patient does note decreased sensation to light touch in bilateral lower extremities diffusely. Station within the chair was normal Current Inpatient Medications Medications (Trade) Dose Ordered Sig/Olaf Route Start Time Stop Time Status Last Admin Dose Admin Aspirin (Ecotrin Tab) 81 mg QAM PO 11/17/16 09:00 12/17/16 08:59 11/18/16 07:47 81 MG Miscellaneous Information (Pharmacist Discharge Med Rec Consult) 1 ea UD PRN N/A 11/16/16 15:15 12/16/16 15:14 Acetaminophen (Tylenol Tab) 650 mg Q4H PRN PO 11/16/16 15:15 12/16/16 15:14 Magnesium Hydroxide (Milk Of Magnesia Susp) 30 ml Q12H PRN PO 11/16/16 15:15 12/16/16 15:14 Ondansetron HCl (Zofran Inj) 4 mg Q6H PRN IV 11/16/16 15:15 12/16/16 15:14 Ferrous Sulfate (Feosol Tab) 325 mg DAILY PO 11/17/16 09:00 12/17/16 08:59 11/18/16 07:47 325 MG Levothyroxine Sodium (Synthroid Tab) 100 mcg DAILYBB PO 11/17/16 06:00 12/17/16 05:59 11/18/16 06:05 100 MCG Clonidine HCl (Catapres Tab) 0.1 mg BID PO 11/16/16 21:00 12/16/16 20:59 11/18/16 07:47 0.1 MG HCTZ/Losartan Potassium (Hyzaar 50-12.5 Tab) 1 tab QAM PO 11/17/16 09:00 12/17/16 08:59 11/18/16 07:46 1 TAB Potassium Chloride/Sodium Chloride 1,000 ml @ 80 mls/hr [id number] IV 11/16/16 17:45 12/16/16 15:44 11/18/16 07:46 80 MLS/HR Gadobutrol (Gadavist) 10 mmol UD PRN IV 11/16/16 17:15 11/20/16 17:14 Ioversol (Optiray 320) 125 ml UD PRN IV 11/17/16 10:45 11/21/16 10:44 Rosuvastatin Calcium (Crestor Tab) 20 mg QAM PO 11/18/16 09:00 12/18/16 08:59 11/18/16 07:46 20 MG Heparin Sodium/ Dextrose 500 ml @ 18 mls/hr Q24H PRN IV 11/17/16 16:15 12/17/16 16:14 11/18/16 08:17 18 MLS/HR Impression This is a 81-year-old right-handed female who presents with an acute patchy left parietal/occipital subacute ischemic strokes with some signs of subacute tiny emboli in the bilateral cerebral hemispheres. Overall etiology concerning for either cardioembolic versus large vessel embolic. Residual neurological deficits include cognitive deficits, dysarthria, and right facial droop. Patient already had baseline gait dysfunction. Known stroke risk factors include hypertension, dyslipidemia, diet-controlled diabetes, and obstructive sleep apnea on CPAP. Likely asymptomatic right proximal ICA critical stenosis of 80% and possibly symptomatic severe stenosis of the left vertebral. Plan I discussed with hospitalist yesterday afternoon regarding medical management of pulmonary embolus in the setting of stroke and critical arterial stenosis. Okay to initiate anticoagulation for treatment of PEs. In the future when patient is off of anticoagulation, I would recommend switching antiplatelets to Plavix as this would be better indicated in the setting of severe or arterial stenosis. A non-urgent follow-up with vascular surgery as an outpatient regarding likely asymptomatic severe proximal right ICA stenosis and possibly symptomatic left severe vertebral stenosis. If patient has any additional stroke like episodes in the future may need a more urgent evaluation from neurosurgery or vascular surgery. Continue low-dose aspirin and statin for secondary stroke prevention Follow-up PT/OT and speech therapies for discharge planning. Blood pressure recommendations while in hospital 175/95-150/80 (MAPs 90-110) Avoid hypotension and dehydration Stroke risk factor modifications and recommendations: Blood pressure recommendations for the first month post hospital discharge 150/ 90-130/80, and after that blood pressure recommendations 130/80-110/70 Total cholesterol goal 100- 200 and LDL goal less than 70 Hemoglobin A1c goal less than 7 (at goal) Encourage cardiovascular exercise at least 3 times a week for 30 minutes. Follow-up in neurology clinic in 1 month for post stroke hospital follow-up. If there is any questions or concerns, feel free to call/page me.
[2016-11-18 14:54] LABS: PARTIAL THROMBOPLASTIN RATIO 2.1
--- NOTE | 2016-11-18 15:08 | Progress Note ---
Subjective Date of Service: Nov 18, 2016. Subjective Pt evaluation today including: conversation w/ patient, physical exam, chart review, lab review, review of inpatient medication list saw pt walking in halls w PT - appearing to be doing well. later visited in room - seen/examined, discussed dx's and plans current biggest complaint is actually hearing loss - wonders if it could be related to current situation. notes it's been going on for about 2 years. worse in crowded places, on directed questioning acknowledges typical s/s of high frequency hearing loss. absolutely no change in this related to current stroke no new numbness/weakness. no sob Problem List Medical Problems: (1) Abdominal pain Status: Acute (2) CVA (cerebral vascular accident) Status: Acute (3) Facial droop Status: Acute Review of Systems all other ROS otherwise negative except for as above Objective Vital Signs Date Time Temp Pulse Resp B/P (MAP) Pulse Ox O2 Delivery O2 Flow Rate FiO2 11/18/16 12:05 36.7 56 20 153/70 (97) 95 11/18/16 12:00 Room Air 11/18/16 08:22 36.8 68 18 148/66 (93) 97 11/18/16 08:00 Room Air 11/18/16 04:00 Room Air 11/18/16 02:45 36.2 61 22 178/94 (122) 96 CPAP 11/18/16 00:00 Room Air 11/17/16 23:20 36.7 59 18 179/95 (123) 98 Room Air 11/17/16 20:00 Room Air 11/17/16 19:55 36.8 62 22 94 Room Air 11/17/16 15:45 Room Air CPAP 11/17/16 15:35 36.8 55 22 188/83 (118) 97 Room Air Physical Exam General Appearance: no apparent distress Eyes: EOMI ENT: hearing grossly normal (is somewhat NINILCHIK but able to communicate well) Neck: trachea midline Respiratory/Chest: no respiratory distress, no accessory muscle use Extremities: normal range of motion Neurologic/Psychiatric: drying supervisor II-XII nml as tested (except for facial droop), alert, normal mood/affect, + pertinent finding (ongoing R facial droop, speech more clear) Skin: normal color, warm/dry Laboratory Results Last 24 Hours Test 11/17/16 16:09 11/17/16 16:12 9/18/17 20:40 11/17/16 23:21 Bedside Glucose 123 mg/dl 110 mg/dl White Blood Count 6.08 K/uL Red Blood Count 4.06 M/uL Hemoglobin 13.5 g/dL Hematocrit 40.0 % Mean Corpuscular Volume 98.5 fL Mean Corpuscular Hemoglobin 33.3 pg Mean Corpuscular Hemoglobin Concent 33.8 g/dl Platelet Count 153 K/uL Mean Platelet Volume 9.2 fL Neutrophils (%) (Auto) 53.6 % Lymphocytes (%) (Auto) 33.2 % Monocytes (%) (Auto) 10.2 % Eosinophils (%) (Auto) 2.3 % Basophils (%) (Auto) 0.5 % Neutrophils # (Auto) 3.26 K/uL Lymphocytes # (Auto) 2.02 K/uL Monocytes # (Auto) 0.62 K/uL Eosinophils # (Auto) 0.14 K/uL Basophils # (Auto) 0.03 K/uL RDW Standard Deviation 46.0 fL RDW Coefficient of Variation 12.7 % Immature Granulocyte % (Auto) 0.2 % Immature Granulocyte # (Auto) 0.01 K/uL Prothrombin Time 10.7 SECONDS Prothromb Time International Ratio 1.0 Activated Partial Thromboplast Time 26.6 SECONDS 39.7 SECONDS Partial Thromboplastin Ratio 1.0 1.5 Test 11/18/16 06:35 11/18/16 06:48 11/18/16 14:20 White Blood Count 6.38 K/uL Red Blood Count 4.47 M/uL Hemoglobin 14.2 g/dL Hematocrit 43.7 % Mean Corpuscular Volume 97.8 fL Mean Corpuscular Hemoglobin 31.8 pg Mean Corpuscular Hemoglobin Concent 32.5 g/dl RDW Standard Deviation 45.0 fL RDW Coefficient of Variation 12.7 % Platelet Count 147 K/uL Mean Platelet Volume 10.0 fL Activated Partial Thromboplast Time 86.1 SECONDS 53.3 SECONDS Partial Thromboplastin Ratio 3.3 2.1 Sodium Level 139 mmol/L Potassium Level 4.2 mmol/L Chloride Level 107 mmol/L Carbon Dioxide Level 26 mmol/L Anion Gap 6.0 mmol/L Blood Urea Nitrogen 19 mg/dl Creatinine 1.20 mg/dl Est Creatinine Clear Calc Drug Dose 44.8 ml/min Estimated GFR () 49.4 Estimated GFR (Non- 42.7 BUN/Creatinine Ratio 16.2 Random Glucose 121 mg/dl Calcium Level 8.6 mg/dl 25-Hydroxy Vitamin D Total 16.2 ng/ml Bedside Glucose 119 mg/dl Assessment and Plan 81 y/o F who was admitted on 11/16 for CVA 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 no hypoxia, no sx. investigate w dedicated CT chest; started heparin gtt --> tolerating well and no s/s bleeding - will transition to eliquis tonight -no stasis/hypercoagulability/endothelial damage/dysfunction noted. notes breast cancer has been long stable, last colo was clean --> discussed and will defer further w/u for root cause of PE to outpt; anticoagulation for now anticipated to be ~3-6 months HTN: pt denied medications for this at admission, however pharmacy clarified that she has been on hyzaar for many months, catapres was new 10/31 Uncertain if pt is taking this - BP under reasonable control now hyperlipid given large vessel stroke and lipid levels - crestor 20mg initiated, low threshold to escalate to 40mg RLS: pt was on valium and tramadol HS for this per pharmacy records Changed to gabapentin, however only took 2 doses due to rash Will not continue freeman given rash or valium/tramadol given current mentation issue continue to follow Elevated cr: appears baseline is 1.1-1.3 age makes cockroft gault less accurate, possibly baseline of stage 3 CKD BMP has been stable Hypothyroid: continue home meds JUAN: CPAP from home hypocalcemia and vitamin D deficiency - replace D Other: Full code, although does specify that she would not want a feeding tube or senior living or prolonged life support Heparin --> eliquis anticipate rehab likely tomorrow
[2016-11-18] MEDS: APIXABAN 2.5 MG TAB PO SCH (20:25)
[2016-11-19] VITALS (8 sets, daily range): BP systolic 169–176; BP diastolic 74–95; PULSE 60–88; TEMP 36.4–36.9; O2SAT 93–98
[2016-11-19] MEDS: NSS + 20MEQ KCL 1000ML 1,000 ML IV SCH ×2 (03:41→08:02)
[2016-11-19] MEDS: LEVOTHYROXINE 100 MCG TAB PO SCH (06:00)
[2016-11-19] MEDS: CLONIDINE HCL 0.1 MG TAB PO SCH (08:02)
[2016-11-19] MEDS: ROSUVASTATIN CALCIUM 20 MG TAB PO SCH (08:02)
[2016-11-19] MEDS: FERROUS SULFATE 325 MG TAB PO SCH (08:03)
[2016-11-19] MEDS: LOSARTAN/HCTZ 50-12.5 EA TAB PO SCH (08:03)
[2016-11-19] MEDS: APIXABAN 2.5 MG TAB PO SCH (08:03)
[2016-11-19] MEDS: ASPIRIN 81 MG ECTAB PO SCH (08:04)
[2016-11-19 08:08] LABS: BUN/CREATININE RATIO 15.3 (10-20); CALCIUM 8.6 mg/dl (8.5-10.1); CREATININE 1.2 mg/dl (0.60-1.20); POTASSIUM 4.4 mmol/L (3.5-5.1)
[2016-11-19] MEDS ORDERED: ERGOCALCIFEROL 50,000 INTER.UNIT CAP PO SCH (09:00)
[2016-11-19] MEDS ORDERED: CHOLECALCIFEROL 1000 INTER.UNIT TAB PO SCH (09:00)
[2016-11-19] MEDS ORDERED: VTMD1000 PO (11:00)
[2016-11-19] MEDS ORDERED: ELQ25 PO (11:00)
[2016-11-19] MEDS ORDERED: HYDR25TA5 PO (11:00)
[2016-11-19] MEDS ORDERED: ULT50X PO (11:00)
[2016-11-19] MEDS ORDERED: CZR50 PO (11:00)
[2016-11-19] MEDS ORDERED: ERGO1CAP41 PO (11:00)
[2016-11-19] MEDS ORDERED: DIAZ5TAB3 PO (11:00)
[2016-11-19] MEDS ORDERED: CRS20 PO (11:00)
[2016-11-19] MEDS ORDERED: APIX1TAB3 PO (11:00)
--- NOTE | 2016-11-19 11:01 | Discharge Instructions ---
Discharge Instructions Date of Service Nov 19, 2016. Admission Reason for Admission: Cva (Cerebral Vascular Accident) Discharge Discharge Diagnosis / Problem: stroke Discharge Goals Goal(s): Diagnostic testing, Therapeutic intervention Activity Recommendations Activity Limitations: as noted below (per rehab recommendations) . Instructions / Follow-Up Instructions / Follow-Up please see rehab directed instructions for further details Risk Factors for Stroke: You can reduce your chances of stroke by working with your medical provider to adopt a healthy lifestyle. Some specific ways to lower your chance of stroke are: * If you are a smoker, now is the time to stop smoking cigarettes * If you are diabetic, improve the control of your blood sugars * Avoid excessive amounts of alcohol * Control high blood pressure * Lose weight if you are overweight * Be sure to lead an active lifestyle * Eat a healthy diet low in salt, cholesterol and fat You should know about other risk factors for stroke that you are unable to control. These include: * Age 55 years or older * Male gender * Certain racial groups: , or / * Family History of Stroke, Mini stroke or Heart Attack * Sickle Cell Disease Follow Up: It is important for you to keep your follow up appointments with your medical provider. Current Hospital Diet Patient's current hospital diet: Diabetes Type 2 Diet Discharge Diet Recommended Diet: Diabetes Type 2 Diet Pending Studies Studies pending at discharge: no Laboratory Results Hemoglobin A1c Test 11/16/16 14:06 Range/Units Estimated Average Glucose 123 mg/dl Hemoglobin A1c 5.9 H 4.5-5.6 % Lipid Panel Test 11/17/16 05:11 Range/Units Triglycerides Level 228 H 0-150 mg/dl Cholesterol Level 241 H 0-200 mg/dl HDL Cholesterol 46 mg/dl Cholesterol/HDL Ratio 5.2 LDL Cholesterol, Calculated 149 mg/dl Medical Emergencies . Who to Call and When: Medical Emergencies: Call 911 immediately if you experience any of the following warning signs and symptoms of Stroke: * Sudden numbness or weakness of the face, arm or leg, especially on one side of the body * Sudden confusion, trouble speaking or understanding * Sudden trouble seeing in one or both eyes * Sudden trouble walking, dizziness, loss of balance or coordination * Sudden severe headache with no cause Do not delay calling 911 if you experience any warning signs or symptoms of a stroke. Delay in seeking medical attention may affect what treatments can be given to you. . Non-Emergent Contact Non-Emergency issues call your: Primary Care Provider, Surgeon . . "Provider Documentation" section prepared by Asad Arrington. . Stroke Core Measures Reason no t-PA for Stroke: Treatment not indicated Reason no antithrom by day 2: Treatment provided - N/A Reason no antithrom at D/C: Treatment provided - N/A Reason no statin at D/C: Treatment provided - N/A Reason no anticoag w/a fib: Treatment provided - N/A VTE Core Measure Inpt VTE Proph given/why not?: Other Anticoagulation
--- NOTE | 2016-11-19 11:10 | Discharge Instructions ---
Discharge Instructions Date of Service Nov 19, 2016. Admission Reason for Admission: Cva (Cerebral Vascular Accident) Discharge Discharge Diagnosis / Problem: CVA Discharge Goals Goal(s): Diagnostic testing, Therapeutic intervention Activity Recommendations Activity Level: Assistance Required Therapies: Physical Therapy, Occupational Therapy, Speech Therapy . Additional Information Patient informed of condition: Yes Advance Directives: Yes DNR: No Level of Care: Acute Rehab Communicable Disease: No Prognosis: Improving Instructions / Follow-Up Instructions / Follow-Up a) CVA -PT/OT/speech to maximize recovery -secondary prevention with aspirin (consider switch to plavix after off anticoagulation), crestor, BP control (BP control slowly being titrated - 11/19 increased losartan to 100mg, please continue to follow BP readings and slowly tighten control as clinically warranted) -appeared arterioembolic as she is noted to have fairly severe stenoses (see CT angio in attached documentation) -for endarterectomy w Dr Ng in 1-2 weeks --- he will guide on holding/ bridging anticoagulation perioperatively b) PE -incidentally noted first on CT angio of neck -- thought possibly to simply be artifact as minimal and nonspecific SOB -- but CT chest clearly confirmatory -currently treating w eliquis 10mg bid for first week (had 2 doses @ [facility], so only 12 more doses 10mg bid then switch to 5mg bid) -no clear hypercoagulable state or endothelial dysfunction; 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 and is generally fairly sedentary so possible all provoked by fairly severe venous stasis (also does have remote hx of breast cancer but appears stable, is UTD on colo -- d/w PCP for now plan will be empiric 3-6 months anticoagulation, ongoing outpatient f/u with further w/u for underlying etiologies if appearing warranted) (also no evidence of paradoxical embolus - certainly stroke + PE raises the question, but TTE of fairly high quality with no evidence of ASD/PFO/shunting -- d/w pt and PCP that obviously KARINE would be definitive but also highly likely to be negative/currently of low clinical utility/if would become clear that it's necessary would be safer with further time passing after she is more stable) -again Dr Ng to give guidance on what he prefers with holding/bridging anticoagulation for endarterectomy Current Hospital Diet Patient's current hospital diet: Diabetes Type 2 Diet Discharge Diet Recommended Diet: Diabetes Type 2 Diet Pending Studies Studies pending at discharge: no Laboratory Results Hemoglobin A1c Test 11/16/16 14:06 Range/Units Estimated Average Glucose 123 mg/dl Hemoglobin A1c 5.9 H 4.5-5.6 % Lipid Panel Test 11/17/16 05:11 Range/Units Triglycerides Level 228 H 0-150 mg/dl Cholesterol Level 241 H 0-200 mg/dl HDL Cholesterol 46 mg/dl Cholesterol/HDL Ratio 5.2 LDL Cholesterol, Calculated 149 mg/dl Medical Emergencies . Who to Call and When: Medical Emergencies: If at any time you feel your situation is an emergency, please call 911 immediately. . Non-Emergent Contact Non-Emergency issues call your: Primary Care Provider, Surgeon . . "Provider Documentation" section prepared by Asad Arrington. . Core Measure Problem Core Measures: Stroke Stroke Core Measures Reason no t-PA for Stroke: Treatment not indicated Reason no antithrom by day 2: Treatment provided - N/A Reason no antithrom at D/C: Treatment provided - N/A Reason no statin at D/C: Treatment provided - N/A Reason no anticoag w/a fib: Treatment provided - N/A
--- NOTE | 2016-11-19 13:36 | Discharge Summary ---
Discharge Summary Date of Service Nov 19, 2016. Discharge Summary Admission Date: Nov 16, 2016 at 15:17 Discharge Date: Nov 19, 2016 Discharge Disposition: Rehab Principal Diagnosis: atheroembolic CVA, incidental PE Immunizations: Have You Had Influenza Vaccine: Yes Influenza Vaccine Date: Jan 30, 2013 History of Tetanus Vaccine?: No History of Pneumococcal: Yes Pneumococcal Date: Dec 23, 2011 History of Hepatitis B Vaccine: No Procedures: BRAIN COMBO, MRA NECK COMBO CLINICAL HISTORY: 81 years-old Female presenting with Stroke, slurred speech, confusion, memory loss, right-sided facial droop started this afternoon, abnormal CT. TECHNIQUE: Multisequence, multiplanar MR imaging of the brain was performed before and after the administration of intravenous contrast. MR angiography of the neck was performed before and after the administration of intravenous contrast. IV contrast: 10 mL of Gadavist. COMPARISON: CT head performed earlier the same day.. FINDINGS: MR brain: Ventricles and sulci normal in size. Periventricular and subcortical white matter T2/FLAIR hyperintensity, nonspecific but likely indicative of chronic small vessel ischemic change. Regional mass effect with sulcal effacement in the left parieto-occipital region as seen on CT. Multifocal sites of restricted diffusion in the bilateral cerebellar hemispheres most prominently on the left in the left parieto-occipital region as well as right frontal region. Intrinsic T1 hyperintensity along the cortex of the left occipital region at the inferior margin of the acute infarct. Mild enhancement in this region suggested likely indicating blood barrier breakdown. Old infarct in the left occipital lobe noted. Old lacunar infarct noted in the bria and right basal ganglia. No extra-axial fluid collection. T2 skull base flow voids preserved. Bone marrow signal intensity within the calvarium within normal limits. MRA head: Limited intracranial evaluation demonstrates patent vasculature in the anterior and posterior circulations. Three-vessel aortic arch with patent origins of the major branch vessels. Right common carotid artery patent. Significant stenosis of the proximal right internal carotid artery with a minimal diameter of 1.5 mm in comparison to the normal distal diameter of 4 mm (greater than 60% stenosis). Left common carotid artery patent. Mild narrowing of the proximal left internal carotid artery. Right vertebral artery patent at its origin and along its course. Critical stenosis or vessel occlusion of the origin of the left vertebral artery. 1 to 2 cm beyond its origin, the left vertebral artery is opacified, although irregularity of its lumen suggest atherosclerotic plaque in this region. The remainder is patent. IMPRESSION: 1. Findings consistent with embolic infarcts most prominently involving the left parieto-occipital region but affecting the bilateral cerebral hemispheres. The presence of intrinsic T1 hyperintensity along a small region of the cortex in the left occipital lobe at the inferior margin of the acute infarct may represent laminar necrosis or microhemorrhage. Mineralization would be unexpected in the acute setting. 2. Old infarcts in the left occipital lobe and old lacunar infarcts in the bria and right basal ganglia. 3. Greater than 60% stenosis of the proximal right ICA. 4. Critical stenosis/occlusion of the origin and proximal 1 to 2 cm of the left vertebral artery. In the most proximal opacified portion 1 to 2 cm beyond its origin, luminal irregularity in the proximal portion suggestive of atherosclerotic plaque. Electronically signed by: Abrahan Vergara M.D. 11/16/2016 5:23 PM Dictated Date/Time: 11/16/2016 5:08 PM [~ rep ct add3]] CT ANGIOGRAPHY OF THE NECK WITH CONTRAST CLINICAL HISTORY: Cerebrovascular accident. COMPARISON STUDY: MRA of the neck November 16, 2016. Technique: CT angiography of the carotid and vertebral arteries was obtained using Optiray 320 IV and 3D reconstruction on an independent workstation. NASCET criteria was utilized. A dose lowering technique was utilized adhering to the principles of ALARA. Findings: Note is made of a pulmonary embolus within visualized portions of a lingular segmental branch shown on axial image 1 of 417. This is partially imaged on this exam. There may be small segmental pulmonary emboli within visualized portions of the right pulmonary arterial system. There is no cervical lymphadenopathy. The caliber of the aortic arch is normal. Evaluation of the origin of the left vertebral artery is suboptimal due to artifact on this exam. There is either severe stenosis of the proximal left vertebral artery or short segment occlusion with distal reconstitution. The remainder of the left vertebral artery is patent. There is moderate narrowing of the distal intracranial portion of the left vertebral artery. Right vertebral artery is patent. There is severe stenosis of the proximal right internal carotid artery which is short segment, immediately distal to the origin of this vessel. The vessel measures 1.2 mm in caliber at the site of stenosis and 5 mm distally. There is moderate plaque within the proximal left internal carotid artery with mild stenosis. IMPRESSION: 1. 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 2. Probable partially visualized segmental pulmonary embolus within the lingular pulmonary artery. Possible small segmental right lung pulmonary emboli. The findings could be confirmed with a chest CT PE protocol. 3. Severe stenosis at the origin of the left vertebral artery. Artifact at this level makes evaluation difficult although a short segment occlusion with distal reconstitution is considered less likely. 4. Mild stenosis at the origin of the left internal carotid artery. Electronically signed by: Amarjit Quiñonez M.D. 11/17/2016 12:37 PM Dictated Date/Time: 11/17/2016 12:20 PM [~ rep ct add3]] ANGIOGRAPHY HEAD COMBO HISTORY: Stroke mental status change TECHNIQUE: Multiaxial CT images of the head were performed both before and after the intravenous administration of contrast to evaluate the major cerebral vessels. Maximum intensity projection images were also obtained. A dose lowering technique was utilized adhering to the principles of ALARA. COMPARISON: None. FINDINGS: Findings consistent with a multiplicity of hypodensities involving the cerebral hemispheres bilaterally. These have been described as a combination of subacute and/or chronic infarcts on prior MRI study. No evidence for acute intracranial hemorrhage. High-grade stenosis mid left middle cerebral artery at the base of the sylvian fissure. All remaining intracranial vessels appear unremarkable. IMPRESSION: 1. High-grade stenosis left middle cerebral artery at the base of the sylvian fissure. 2. Multiple hypodensities throughout both cerebral hemispheres consistent with a combination of a subacute and chronic vascular insults. 3. No evidence for acute intracranial hemorrhage. ----- (CHEST FOR PE) ANGIO WITH CLINICAL HISTORY: 81 years-old Female presenting with pulmonary embolism noted on CTA neck, further evaluation with chest CTA. TECHNIQUE: Multidetector CT angiography of the chest was performed after administration of intravenous contrast. 3-D volumetric and/or maximum intensity projection (MIP) images were subsequently reconstructed for review. IV contrast: None. A dose lowering technique was used consistent with the principles of ALARA (as low as reasonably achievable). COMPARISON: None. CT DOSE (mGy.cm): The estimated cumulative dose is 516.87 mGycm. 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 Pulmonary vasculature: The study is adequate for assessment of the pulmonary vascular tree. Filling defect consistent with acute pulmonary embolus in the lingular branch of the left pulmonary artery (series 4 image 132). Additional filling defect in a segmental branch in the right middle lobe (series 4 image 140). Main pulmonary artery is mildly enlarged measuring 3.2 cm in transverse dimension. No flattening of the interventricular septum. No intracardiac intracardiac filling defect. No reflux of contrast into the hepatic veins. Remaining chest: On soft tissue windows, normal thyroid and thoracic inlet. No axillary, supraclavicular, hilar, or mediastinal lymphadenopathy. Atherosclerosis of aorta. Top normal heart size. Minimal coronary artery calcification. No pericardial or pleural effusion. Small hiatal hernia. On lung windows, minimal dependent changes likely atelectasis. No other focal infiltrate. Old calcified granuloma noted in the superior segment of the right lower lobe. Airways patent. On bone windows, degenerative changes of the thoracic spine. Old fracture deformities of several right anterior ribs. IMPRESSION: 1. Bilateral pulmonary emboli involving the lingular branch of the left pulmonary artery and segmental branch of the right middle lobe. No CT evidence of right heart failure. 2. No focal consolidation. Electronically signed by: Abrahan Vergara M.D. 11/17/2016 3:01 PM Dictated Date/Time: 11/17/2016 2:54 PM CHEST ONE VIEW PORTABLE CLINICAL HISTORY: 81 years-old Female presenting with Stroke. TECHNIQUE: Portable upright AP view of the chest was obtained. COMPARISON: 06/13/2015. FINDINGS: Mild prominence of the ascending aorta is unchanged from prior. Cardiac silhouette normal in size. Lungs and pleural spaces clear. Degenerative changes of the thoracic spine. Upper abdomen normal. IMPRESSION: 1. No acute cardiopulmonary disease. Electronically signed by: Abrahan Vergara M.D. 11/16/2016 2:34 PM Dictated Date/Time: 11/16/2016 2:33 PM ECHO: Interpretation Summary * Name: RAMANA MOHAN Study Date: 11/17/2016 06:27 AM * Patient Location: [address]\ * : 1935 (M/d/yyyy) Gender: Female Height: 67 in * Age: 81 yrs Ethnicity: PA Weight: 218 lb * Ordering Physician: Eli Castañeda * Referring Physician: Self, Referred * Performed By: Valeria Klein RDCS * * Reason For Study: CVA * BSA: 2.1 m2 * -- Conclusions -- * Left ventricular systolic function is normal. * No regional wall motion abnormalities noted. * Ejection Fraction = 60-65%. * There is mild concentric left ventricular hypertrophy. * Grade I diastolic dysfunction, (abnormal relaxation pattern). * Mild mitral regurgitation. Procedure Details * A saline contrast injection was performed to assess for cardiac shunting. * The injection was performed through an intravenous line in the right arm. * The attending nurse who injected the saline contrast was ALYSSA MCKEON RN. * A total of 20 cc of agitated saline was given. * A contrast injection of Definity was performed to improve assessment of LV function. * Contrast was injected into an intravenous site in the right arm. * One vial of Definity ultrasound contrast was diluted in normal saline to a total volume of 10 ml. A total of '2' ml of solution was administered during imaging. * Lot # [id number] of Definity utilized for procedure. * Expiration date DEC 17. * The attending nurse who injected the contrast agent was ALYSSA MCKEON RN. Left Ventricle * The left ventricle is normal in size. * There is mild concentric left ventricular hypertrophy. * Ejection Fraction = 60-65%. * Left ventricular systolic function is normal. * No regional wall motion abnormalities noted. Right Ventricle * The right ventricle is grossly normal size. * The right ventricular systolic function is normal as assessed by tricuspid annular plane systolic excursion (TAPSE) (normal >1.5 cm). Atria * The left atrium is mildly dilated. * Right atrium not well visualized. * Injection of contrast documented no interatrial shunt. * Lipomatous hypertrophy of the interatrial septum is noted. Mitral Valve * The mitral valve is grossly normal. * There is no mitral valve stenosis. * There is mild mitral regurgitation. Tricuspid Valve * The tricuspid valve is not well visualized, but is grossly normal. * There is no tricuspid stenosis. * There is trace tricuspid regurgitation. Aortic Valve * The aortic valve is trileaflet. * The aortic valve opens well. * Aortic valve sclerosis mild, without significant aortic valvular stenosis. * There is no significant aortic regurgitation. Pulmonic Valve * The pulmonary valve is not well seen, but the Doppler examination is normal without significant regurgitation or stenosis. Great Vessels * The aortic root is normal size. * The pulmonary is not well visualized. Pericardium/Pleural * There is no pericardial effusion. Great Vessels * Normal inferior vena cava size and collapsability with sniff indicates a normal right atrial pressure of 3 mmHg Left Ventricular Diastolic Function * Grade I diastolic dysfunction, (abnormal relaxation pattern). Last Resulted CBC 11/18/16 06:35 Last Resulted BMP 11/19/16 07:20 Item Value Date Time 25-Hydroxy Vitamin D Total 16.2 ng/ml L 11/18/16 0635 Cholesterol Level 241 mg/dl H 11/17/16 0511 Triglycerides Level 228 mg/dl H 11/17/16 0511 LDL Cholesterol, Calculated 149 mg/dl 11/17/16 0511 HDL Cholesterol 46 mg/dl 11/17/16 0511 Hemoglobin A1c 5.9 % H 11/16/16 1406 Consultations: neurology vascular surgery Medication Reconciliation New Medications: Apixaban (Eliquis) 5 Mg Tab 5 MG PO BID, #60 TAB to be started after 7 days of 10mg bid (1 day given inpatient before discharge) Apixaban (Eliquis) 2.5 Mg Tab 10 MG PO BID, #12 TAB Cholecalciferol (Vitamin D3) 1,000 Inter.unit Tab 2000 INTER.UNIT PO QAM, #30 TAB Ergocalciferol (Vitamin D 24238 Unit) 50,000 Unit Cap 62632 INTERUNIT PO We@0900, #12 CAP Hydrochlorothiazide (Hydrochlorothiazide) 25 Mg Tab 12.5 MG PO QAM, #30 TAB Losartan Potassium (Losartan Potassium) 50 Mg Tab 100 MG PO QAM, #30 TAB Rosuvastatin Calcium (Crestor) 20 Mg Tab 20 MG PO QAM, #30 TAB Continued Medications: Aspirin (Aspirin EC Low Dose) 81 Mg Ectab 81 MG PO BID for 30 Days Biotin (Biotin 5000) 5 Mg Cap 1 CAP PO HS Clonidine Hcl (Catapres) 0.1 Mg Tab 1 TAB PO BID, #60 Coenzyme Q10 (Ubidecarenone) (Co Q-10) 200 Mg Cap 200 MG PO QAM Diazepam (Valium) 5 Mg Tab 5 MG PO HS, #10 TAB (This prescription has been renewed) Ferrous Sulfate (Ferrous Sulfate) 325 Mg Tab 1 TAB PO DAILY Gabapentin (Gabapentin) 100 Mg Cap 100 MG PO DAILY, #30 Levothyroxine Sodium (Levothyroxine Sodium) 100 Mcg Tab 100 MCG PO QAM Tramadol HCl (Tramadol HCl) 50 Mg Tab 50-100 MG PO Q4H PRN for Pain for 10 Days, #20 TAB (This prescription has been renewed) Discontinued Medications: Hctz/Losartan (Hyzaar 25MG/100MG) Tab 1 TABLET PO QAM, TAB Discharge Exam Physical Exam: General Appearance: no apparent distress Eyes: EOMI ENT: hearing grossly normal (mildly DEERING but able to communicate well) Neck: trachea midline Respiratory/Chest: no respiratory distress, no accessory muscle use Extremities: normal inspection Neurologic/Psychiatric: [employer] employee II-XII nml as tested, alert, normal mood/affect , + pertinent finding (improving but ongoing R facial droop) Skin: normal color, warm/dry Hospital Course 81 y/o F who was admitted on 11/16 for CVA CVA: likely large vessel embolic (although given question of bilateral findings , will continue to monitor to r/u PAF, and d/w pt regarding unlikely but possible need for eventual KARINE, although with no compelling evidence of paradoxical embolus and no change in current management, this is better/safer deferred) -asa, statin, BP control -rehab -CT angio done - anticipate surgical treatment 1-2 weeks unless any further events (currently has been stable)(f/u Dr Ng 1wks) PE: -noted on CT angio of neck as incidental finding. no hypoxia, no sx. investigate w dedicated CT chest; started heparin gtt --> tolerating well and no s/s bleeding - transitioned to eliquis -- tolerating well and safe for rehab on eliquis. dr ng to guide anticoagulation surrounding endarterectomy -no stasis/hypercoagulability/endothelial damage/dysfunction noted. notes breast cancer has been long stable, last colo was clean --> discussed and will defer further w/u for root cause of PE to outpt, although PCP and i both suspect venous stasis from OA and sedentary lifestyle; anticoagulation for now anticipated to be ~3-6 months HTN: pt denied medications for this at admission, however pharmacy clarified that she has been on hyzaar for many months, catneftali was new 10/31 for now discharging on clonidine 0.1mg bid, losartan 100mg daily, HCTZ 12.5mg daily --> continue to slowly titrate for better control hyperlipid given large vessel stroke and lipid levels - crestor 20mg initiated, low threshold to escalate to 40mg RLS: pt was on valium and tramadol HS for this per pharmacy records Changed to gabapentin, however only took 2 doses due to rash Will not continue freeman given rash or valium/tramadol given current mentation issue continue to follow PLEASE NOTE THAT INITIAL MED REC STATED TO CONTINUE GABAPENTIN AND VALIUM , IN ERROR. THIS HAS BEEN AMENDED AND CORRECTED Elevated cr: appears baseline is 1.1-1.3 age makes cockroft gault less accurate, possibly baseline of stage 3 CKD BMP has been stable Hypothyroid: continue home meds JUAN: CPAP from home hypocalcemia and vitamin D deficiency - replace D, repeat levels in ~3 months Other: Full code, although does specify that she would not want a feeding tube or medical terminologist or prolonged life support Heparin --> eliquis stable for rehab Total Time Spent: Greater than 30 minutes This includes examination of the patient, discharge planning, medication reconciliation, and communication with other providers. Discharge Instructions Please refer to the electronic Patient Visit Report (Discharge Instructions) for additional information. Additional Copies To Maico Valencia M.D.; [facility]
[2016-11-20] MEDS ORDERED: LOSARTAN POTASSIUM 50 MG TAB PO SCH (09:00)
[2016-11-20] MEDS ORDERED: HYDROCHLOROTHIAZIDE 25 MG TAB PO SCH (09:00)
== END 2016-11-19 14:36 | DRG 64 ==
LOC: C.EDB 13:34 → C.2T 15:17 → ENRESERV 15:40
PROVIDERS: ADMIT Family Medicine; ATTEND Family Medicine
DX: I63.112 Cerebral infarction due to embolism of left vertebral artery (principal); I26.99 Other pulmonary embolism without acute cor pulmonale; R29.703 NIHSS score 3; I65.21 Occlusion and stenosis of right carotid artery; I12.9 Hypertensive chronic kidney disease with stage 1 through stage 4 chronic kidney disease, or unspecified chronic kidney disease; E78.5 Hyperlipidemia, unspecified; G25.81 Restless legs syndrome; G62.9 Polyneuropathy, unspecified; N18.3 Chronic kidney disease, stage 3 (moderate); E03.9 Hypothyroidism, unspecified; G47.33 Obstructive sleep apnea (adult) (pediatric); E55.9 Vitamin D deficiency, unspecified; E11.9 Type 2 diabetes mellitus without complications; H90.5 Unspecified sensorineural hearing loss; E66.9 Obesity, unspecified; Z68.34 Body mass index [BMI] 34.0-34.9, adult; Z79.82 Long term (current) use of aspirin; Z79.899 Other long term (current) drug therapy; Z85.3 Personal history of malignant neoplasm of breast; Z90.12 Acquired absence of left breast and nipple; Z90.710 Acquired absence of both cervix and uterus; Z90.722 Acquired absence of ovaries, bilateral; Z96.651 Presence of right artificial knee joint; Z88.8 Allergy status to other drugs, medicaments and biological substances; Z82.49 Family history of ischemic heart disease and other diseases of the circulatory system; Z81.8 Family history of other mental and behavioral disorders

== ENCOUNTER 2017-02-10 05:33 | Inpatient (IN) | payer BC, OTHER ==
[2017-01-30 13:32] VITALS: BMI 33.0
--- NOTE | 2017-01-30 14:18 | PAT Medication Instructions ---
Service Date Jan 30, 2017. Current Home Medication List Acetaminophen (Tylenol), 500 MG PO BID PRN for Pain Apixaban (Eliquis), 5 MG PO QAM Aspirin (Aspirin Chewable), 81 MG PO QAM Cholecalciferol (Vitamin D3), 2,000 INTER.UNIT PO QAM Clonidine Hcl (Catapres), 0.1 MG PO BID Dorzolamide Hcl (Trusopt Oph), 1 DROPS OPB BID Ferrous Sulfate (Kp Ferrous Sulfate), 1 TAB PO QAM Hydrochlorothiazide (Hydrochlorothiazide), 1 TAB PO QAM Levothyroxine Sodium (Levothyroxine Sodium), 1 TAB PO QAM Losartan Potassium (Cozaar), 100 MG PO QAM Polyethylene Glycol 3350 (Miralax), 17 GM PO DAILY PRN for Constipation Rosuvastatin Calcium (Crestor), 20 MG PO HS [Vitamin D2], 50,000 INTER.UNIT PO WK Medication Instructions For Your Scheduled Surgery Follow your surgeon's instructions for: Apixaban (Eliquis), 5 MG PO QAM Aspirin (Aspirin Chewable), 81 MG PO QAM - Continue as directed: [Vitamin D2], 50,000 INTER.UNIT PO WK - Hold the following medications the morning of surgery: Polyethylene Glycol 3350 (Miralax), 17 GM PO DAILY PRN for Constipation Losartan Potassium (Cozaar), 100 MG PO QAM Hydrochlorothiazide (Hydrochlorothiazide), 1 TAB PO QAM Ferrous Sulfate (Kp Ferrous Sulfate), 1 TAB PO QAM Cholecalciferol (Vitamin D3), 2,000 INTER.UNIT PO QAM - Take the following medications the morning of surgery with a sip of water: Levothyroxine Sodium (Levothyroxine Sodium), 1 TAB PO QAM Clonidine Hcl (Catapres), 0.1 MG PO BID Dorzolamide Hcl (Trusopt Oph), 1 DROPS OPB BID Acetaminophen (Tylenol), 500 MG PO BID PRN for Pain (if needed, can be taken up to four hours before surgery) - Take the following medications as scheduled the night before surgery: Polyethylene Glycol 3350 (Miralax), 17 GM PO DAILY PRN for Constipation (if needed) Rosuvastatin Calcium (Crestor), 20 MG PO HS Clonidine Hcl (Catapres), 0.1 MG PO BID Dorzolamide Hcl (Trusopt Oph), 1 DROPS OPB BID Acetaminophen (Tylenol), 500 MG PO BID PRN for Pain (if needed) If you have any questions please call us at [phone] or [phone] or [phone]
[2017-01-30 14:58] LABS: HEMATOCRIT 37.7 % (37-47); HEMOGLOBIN 13.1 g/dL (12.0-16.0); MEAN CELL VOLUME 96.9 fL (80-100); MEAN CORPUSCULAR HEMOGLOBIN 33.7 pg (25-34); MEAN CORPUSCULAR HGB CONC 34.7 g/dl (32-36); MEAN PLATELET VOLUME 9.5 fL (7.4-10.4); PLATELET COUNT 182 K/uL (130-400); RED CELL DISTRIBUTION WIDTH CV 12.9 % (11.5-14.5); RED CELL DISTRIBUTION WIDTH SD 44.9 fL (36.4-46.3); WHITE BLOOD COUNT 7.43 K/uL (4.8-10.8)
[2017-01-30 15:06] LABS: CALCIUM 9.5 mg/dl (8.5-10.1); CREATININE 1.47 mg/dl (0.60-1.20); POTASSIUM 3.8 mmol/L (3.5-5.1)
[2017-01-30 15:38] LABS: BASO % 0.4 %; BASO ABS # 0.03 K/uL (0-0.2); EOS % 1.7 %; EOS ABS # 0.13 K/uL (0-0.5); IG# 0.01 K/uL (0.00-0.02); LYMPH % 30.1 %; LYMPH ABS # 2.24 K/uL (1.2-3.4); MONO % 10.9 %; MONO ABS # 0.81 K/uL (0.11-0.59); NEUT % 56.8 %; NEUT ABS # 4.21 K/uL (1.4-6.5)
[~2017-02-10] VITALS: Ht 170.2 cm; Wt 96.7 kg
[2017-02-10] VITALS (29 sets, daily range): BP systolic 124–176; BP diastolic 54–85; PULSE 42–74; TEMP 36.6–37; O2SAT 91–100
[~2017-02-10 05:33] MED LIST changes: -ACET-1138 PO; +APIX1TAB3 PO; +ASPCH81X PO; -ASPEC81 PO; -BIOTCAP2 PO; -COEN1CAP37 PO; +CTP/1 PO; -DIAZ5TAB3 PO; +FERR1TAB13 PO; -FERR325T51 PO; +HYDR12.55 PO; -HYZ/10015 PO; +LOSA100T65 PO; -PRAMCRE2 RE; +ROSU20TA PO; -RXC5 PO; -SNK PO; +TYLOTC500 PO; -ULT50X PO; +VITAMIN D2 PO; +VTMD1000 PO
--- NOTE | 2017-02-10 05:47 | History and Physical ---
History & Physical Date of Service Feb 10, 2017. 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 Pt is HABEMATOLEL and poor historian. Most hx obtained from her son, Erik. He states his mother lives alone and he and his frequently visit or contact her to make sure she is ok. He states she would occasionally become mildly confused, but was always able to realize what she was doing wrong and correct it. States that her confusion became much worse yesterday and he noted that the right side of her face was drooping and she had difficulty with word finding and slurred speech, so brought her to [facility] for eval. Pt herself states she thinks she is here b/c she had a stroke, but is unable to recall events leading up to hospital arrival or whether she is feeling any better. Per son, her facial droop is less and her speech is more clear, but still having word finding difficulty. No extremity sx per son. Testing revealed a severe right internal carotid artery stenosis. Pt denies COLBY, fever, recent illness, chest pain, SOB, abd pain, N/V, other complaints. MRA demonstrates completed L hemispheric CVA, occluded L vertebral art, and 90+ % L ICA stenosis. Allergies Coded Allergies: Adhesives (Verified Allergy, Mild, SKIN GETS RED, SORE AND ITCHY, 11/16/16) Atorvastatin (Verified Adverse Reaction, Intermediate, GENERIC-SEVERE LEG CRAMPS NAUSEA NIGHTMARES, 11/16/16) CAN USE NAME BR[facility] Home Medications Scheduled Aspirin (Aspirin EC Low Dose), 81 MG PO BID Biotin (Biotin 5000), 1 CAP PO HS Clonidine Hcl (Catapres), 1 TAB PO BID Coenzyme Q10 (Ubidecarenone) (Co Q-10), 200 MG PO QAM Diazepam (Valium), 5 MG PO HS Ferrous Sulfate (Ferrous Sulfate), 1 TAB PO DAILY Gabapentin (Gabapentin), 100 MG PO DAILY Hctz/Losartan (Hyzaar 25MG/100MG), 1 TABLET PO QAM Levothyroxine Sodium (Levothyroxine Sodium), 100 MCG PO QAM Scheduled PRN Tramadol HCl (Tramadol HCl), 50-100 MG PO Q4H PRN for Pain Problem List Medical Problems: (1) Arthritis (2) HTN (hypertension) (3) Hyperlipidemia (4) Hypothyroid (5) IDDM (insulin dependent diabetes mellitus) (6) Neuropathy (7) Restless leg syndrome (8) Sleep apnea Surgical Problems: (1) Post-operative state Surgical / Medical History Hx Cardiac Surgery: No Hx Abdominal Surgery: Yes ([facility] BSO ) Hx Cancer Surgery: Yes (LEFT BREAST MASTECTOMY; SKIN - NOSE) Hx Thoracic Surgery: No Hx Orthopedic: Yes (Right TKA, LEFT HIP ORIF) Hx Urinary Tract Surgery: No HX Other Surgery: No Past Medical/Surgical History: Hypertension, Kidney Disease Family History FH: dementia Hypertension Social History Smoking Status: Never Smoker Hx Tobacco Use In Past Year?: No Hx Alcohol Use - Type & Amnt: No Hx Substance Use -Type & Amnt: No Review of Systems Constitutional: No chills, No fever, No malaise Skin: No change in color Eyes: + visual changes ENMT: No sore throat Respiratory: No cough, No hemoptysis, No short of breath Cardiovascular: No chest pain, No palpitations, No edema, No intermittent claudication Gastrointestinal: No abdominal pain, No nausea, No vomiting Neurologic: No dizziness, No headache, No numbness, No tingling Physical Exam Constitutional: General Apperance: well-nourished, well-developed, obese Level of Distress: NAD, chronically ill (mildly) Psychiatric: Mental Status: active & alert, normal mood, normal affect Orientation: to place, to person, not oriented to time Memory: recent memory abnormal (vague, poor recall of events), remote memory abnormal Head: normocephalic, atraumatic Eyes: EOM: EOMI ENMT: normal ENT inspection, + pertinent finding (HABEMATOLEL) Neck: supple, trachea midline Lungs: Respiratory effort: no dyspnea Auscultation: no wheezing, no rales/crackles, no rhonchi, normal breath sounds Cardiovascular: Apical Impulse: not displaced Heart Auscultation: RRR, no murmurs, no rubs Peripheral Pulses: Pulses: full and equal, in all extremities except if noted Bruits: none appreciated Carotid Pulse: normal on the left, normal on the right Brachial Pulses: normal on the left, normal on the right Radial Pulse: normal on the left, normal on the right Femoral Pulse: normal on the left, normal on the right Posterior Tibialis Pulse: decreased on the left, decreased on the right Dorsalis Pedis Pulse: decreased on the left, decreased on the right Abdomen: Bowel Sounds: normal Inspection & Palpation: soft, non-distended, no tenderness, guarding & rebound Musculoskeletal: normal strength (5/5 throughout), normal tone Extremities: Upper Right: no cyanosis, no edema, no varicosities Upper Left: no cyanosis, no edema, no varicosities Lower Right: no cyanosis, no varicosities, edema Lower Left: no cyanosis, no varicosities, edema Assessment and Plan ASSESSMENT and PLAN: L ICA stenosis, 90+% L hemispheric completed CVA Plan: Patient is admitted for a right CEA. I have discussed the risks options and benefits of the procedure with the patient. The patient understands the risks options and benefits and agrees to the procedure.
[2017-02-10] MEDS ORDERED: LACTATED RINGER'S 1000ML 1,000 ML IV SCH (06:00)
[2017-02-10] MEDS ORDERED: CEFAZOLIN 2000MG IV PUSH 10 ML IV SCH (06:00)
[2017-02-10] MEDS ORDERED: SODIUM CHLORIDE 0.9% 1000ML 1,000 ML IV SCH (06:00)
[2017-02-10] MEDS ORDERED: LVNIS40 SC (06:16)
[2017-02-10] MEDS ORDERED: GELATIN SPONGE SZ 100 ONE (06:57)
[2017-02-10] MEDS ORDERED: CEFAZOLIN SOD 1 GM VIAL ONE (06:58)
[2017-02-10] MEDS ORDERED: BUPIVACAINE/EPINEPHRINE 0.5% MPF 1:200,000 30 ML VIAL ONE (06:58)
[2017-02-10] MEDS ORDERED: HEPARIN SOD (PORCINE) 1000 UNIT/ML 10 ML VIAL ONE ×2 (06:58→08:14)
[2017-02-10] MEDS ORDERED: THROMBIN FOR SOLN 20000 UNIT KIT ONE (06:58)
[2017-02-10] MEDS ORDERED: LIDOCAINE HCL 1% 20 ML VIAL ONE (06:58)
[2017-02-10] MEDS ORDERED: FENTANYL CITRATE INJ 50 MCG/1 ML 2 ML VIAL ONE ×2 (07:07→08:02)
--- NOTE | 2017-02-10 07:14 | History & Physical Bridge Note ---
H&P Re-Evaluation Bridge Note: I have examined the patient, reviewed the History & Physical and in the interval since the performance of the History & Physical I have noted the following changes of clinical significance: No changes noted
[2017-02-10] MEDS ORDERED: FENTANYL CITRATE INJ 50 MCG/1 ML 2 ML VIAL IV PRN (07:30)
[2017-02-10] MEDS ORDERED: LABETALOL HCL IV 5 MG/ML 20ML IV PRN (07:30)
[2017-02-10] MEDS ORDERED: ONDANSETRON INJ 2 MG/ML 2 ML VIAL IV PRN ×2 (07:30→10:30)
[2017-02-10] MEDS ORDERED: EpHEDrine SULFATE INJ 50 MG/ML AMP IV PRN (07:30)
[2017-02-10] MEDS ORDERED: HYDROmorphone INJ 1 MG/ML SYR IV PRN (07:30)
[2017-02-10] MEDS ORDERED: PHENYLEPHRINE 100MCG/ML 5ML SYR IV PRN (07:30)
[2017-02-10] MEDS ORDERED: ATROPINE SULFATE 0.1 MG/ML 5ML SYR IV PRN (07:30)
[2017-02-10] MEDS ORDERED: ROCURONIUM BROMIDE 10 MG/ML 5 ML VIAL IV ONE (08:14)
[2017-02-10] MEDS ORDERED: PHENYLEPHRINE HCL INJ 10 MG/ML VIAL ONE (08:14)
[2017-02-10] MEDS ORDERED: ONDANSETRON INJ 2 MG/ML 2 ML VIAL ONE (08:14)
[2017-02-10] MEDS ORDERED: DEXAMETHASONE SOD INJ 4 MG/ML VIAL ONE (08:14)
[2017-02-10] MEDS ORDERED: GLYCOPYRROLATE INJ 0.2 MG/ML VIAL ONE (08:14)
[2017-02-10] MEDS ORDERED: NEOSTIGMINE METHYLSULFATE 5 MG/5 ML SYR ONE (08:14)
[2017-02-10] MEDS ORDERED: PROPOFOL IV EMULSION 10 MG/ML 20 ML VIAL IV ONE ×2 (08:14→09:35)
[2017-02-10] MEDS ORDERED: LIDOCAINE HCL 2% 2 ML VIAL (20MG/ML) ONE (08:14)
[2017-02-10] MEDS ORDERED: NITROGLYCERIN 5 MG/ML 10 ML VIAL ONE (08:14)
[2017-02-10] MEDS ORDERED: LARYING-O-JET KIT (LTA) ONE (08:14)
[2017-02-10] MEDS ORDERED: NITROGLYCERIN/D5W 100 MCG/ML 250 ML IV PRN (10:21)
[2017-02-10] MEDS ORDERED: SODIUM NITROPRUSSIDE SOLN INJ 50 MG in DEXTROSE 5% 500ML 500 ML IV PRN (10:21)
[2017-02-10] MEDS ORDERED: PHENYLEPHRINE HCL INJ 20 MG in DEXTROSE 5% 500ML 500 ML IV PRN (10:21)
--- NOTE | 2017-02-10 10:21 | [facility] Post Operative Brief Note ---
Immediate Operative Summary Operative Date Feb 10, 2017. Pre-Operative Diagnosis Right Internal Carotid Artery stenois, 90+%; Left hemispheric completed cerebralvascular accident Post-Operative Diagnosis Right Internal Carotid Artery stenois, 90+%; Left hemispheric completed cerebralvascular accident Procedure(s) Performed Right Carotid Endarterectomy with Patch Surgeon Dr. Atul Ng Integrated Circuit Fabricator Surgeon(s) Dr. Atul Gutierrez; Maria M Alejandre PA-C Estimated Blood Loss 150mL Findings severe ICA origin stenosis Specimens A: Plaque Anesthesia Gen Complication(s) None Disposition Recovery Room / PACU
[2017-02-10] MEDS ORDERED: MoRPHine SULFATE 4 MG/ML 1 ML CARP\\VIAL IV PRN (10:30)
[2017-02-10] MEDS ORDERED: POLYETHYLENE (MIRALAX) 17 GM PACK PO PRN (10:30)
[2017-02-10] MEDS ORDERED: METOPROLOL TARTRATE 1 MG/ML VIAL IV PRN (10:30)
[2017-02-10] MEDS ORDERED: ACETAMINOPHEN 500 MG TAB PO PRN (10:30)
[2017-02-10] MEDS ORDERED: OXYCODONE/ACETAMINOPHEN 5-325 TAB PO PRN (10:30)
--- NOTE | 2017-02-10 10:46 | OPERATIVE REPORT ---
DATE OF OPERATION: 02/10/2017 PREOPERATIVE DIAGNOSIS: Right carotid artery stenosis. POSTOPERATIVE DIAGNOSIS: Same. PROCEDURE: Right carotid endarterectomy with patch. SURGEON: Dr. Casper Ng. SUPERVISOR METAL HANGING: Dr. Kaitlyn Gutierrez and Fabby Alejandre PA-C. ANESTHESIA: General endotracheal anesthesia. ESTIMATED BLOOD LOSS: 150 mL. FLUIDS: 1200. URINE OUTPUT: Not recorded. COMPLICATIONS: None apparent. CONDITION: Extubated to PACU. INDICATIONS: Ms. Bui is a 81-year-old female with right carotid artery stenosis. She was advised of the risks and benefits of right-sided symptomatic carotid artery stenosis. She was advised of the risks and benefits to undergo a carotid endarterectomy and agreed to undergo said procedure. OPERATION AND FINDINGS: She was brought into the operative suite, she was prepped and draped in the usual fashion. A timeout occurred. A transverse incision was made along the anterior border of sternocleidomastoid. Skin was incised, subcutaneous tissue divided. The platysma was divided with Bovie. The sternocleidomastoid was identified and retracted laterally. The facial vein was identified and ligated. The low lying hypoglossal was identified. Several other main branches were ligated and the carotid artery was exposed. The hypoglossal was draped over the bifurcation. The ansa was divided to allow for better mobilization. The external and superior thyroid were slung way to bring the internal up. The patient was heparinized with 7000 units of heparin. Clamps were applied to the internal, common and external. An arteriotomy was made with 11 blade and extended with Dominguez scissors. The plaque was removed with a freer elevator. The artery was inspected for any loose pieces of plaque. These were picked with plaque pickers. The patch was placed in a running fashion. The clamps were applied. We clamped the internal, common and external. A Jovi shunt was then placed proximally. The shunt was allowed to backbleed and then was placed proximally. Upon removal of the proximal clamp it appeared that the distal come out of the clamp. The artery was reclamped and the shunt was replaced. During manipulation of the proximal shunt this became dislodged and the artery was reclamped and the shunt was placed. Once the shunt was in good position the endarterectomy was performed using [place] elevator. The artery was inspected for any loose pieces of plaque. These were picked out and the patch then sewn in an end-to-side fashion. Upon release of clamps, there was a large leak proximally. This was repaired with interrupted 6-0 Prolene sutures. Hemostasis was obtained and the incision was closed with 3-0 and 4-0 Vicryl suture and Dermabond. The patient was then awoken from anesthesia. Dr. Casper Ng was present for the entirety of this case. I attest to the content of the Intraoperative Record and any orders documented therein. Any exceptions are noted below. MICHELLE
--- NOTE | 2017-02-10 11:10 | Anesthesiology Progress Note ---
Anesthesia Post Op Note Date & Time Feb 10, 2017 at 11:09 Vital Signs Pain Intensity: 0 Vital Signs Past 12 Hours Date Time Temp Pulse Resp B/P (MAP) Pulse Ox O2 Delivery O2 Flow Rate FiO2 02/10/17 11:00 50 15 152/67 99 Nasal Cannula 2 163/79 (93) 02/10/17 10:50 47 14 150/79 100 Oxymask 10 160/78 (95) 02/10/17 10:40 48 16 148/79 100 Oxymask 10 149/64 (87) 02/10/17 10:30 36.3 63 16 148/61 96 Oxymask 10 02/10/17 06:18 37 74 20 166/83 95 Room Air Notes Mental Status: alert / awake / arousable, participated in evaluation Pt Amnestic to Procedure: Yes Nausea / Vomiting: adequately controlled Pain: adequately controlled Airway Patency, RR, SpO2: stable & adequate BP & HR: stable & adequate Hydration State: stable & adequate Anesthetic Complications: no major complications apparent Awake, doing well, BP controlled with labetalol. VSS. Ready for d/c to ICU
[2017-02-10] MEDS ORDERED: D5W AND 1/2NSS 1,000 ML IV SCH (12:30)
[2017-02-10] MEDS ORDERED: NURSING VERBAL MED ORDER ONE ×5 (12:45→18:00)
[2017-02-10] MEDS: SODIUM CHLORIDE 0.9% 1000ML 1,000 ML IV SCH ×2 (13:43→23:22)
[2017-02-10] MEDS ORDERED: NovoLOG PER UNIT CHARGE SC ONE (14:00)
[2017-02-10] MEDS: INSULIN ASPART 100 UNITS/ML 3 ML PEN SC SCH ×2 (14:30→16:22)
[2017-02-10] MEDS ORDERED: PHARMACY GLYCEMIC MGMT CONSULT PRN (16:11)
[2017-02-10] MEDS ORDERED: GLUCAGON FOR INJ 1 MG VIAL SQ PRN (16:15)
[2017-02-10] MEDS ORDERED: DEXTROSE 50% 50 ML SYR IV PRN (16:15)
[2017-02-10] MEDS ORDERED: GLUCOSE 40% GEL 15 GM TUBE PO PRN (16:15)
[2017-02-10] MEDS ORDERED: GLUCOSE 10 TABS/TUBE PO PRN (16:15)
--- NOTE | 2017-02-10 20:26 | DIAGNOSTIC IMAGING REPORT ---
CT OF THE HEAD WITHOUT CONTRAST CLINICAL HISTORY: Aphasia - new deficits s/p CEA. COMPARISON STUDY: MRI of the brain November 16, [address] November 17, 2016. CT DOSE: 537.48 mGy.cm TECHNIQUE: Helical axial images of the head were obtained without IV contrast. Automated exposure control was utilized for the study. A dose lowering technique was utilized adhering to the principles of ALARA. FINDINGS: No acute intracranial hemorrhage, midline shift or mass effect is present. Encephalomalacia within the left MCA distribution suggests an old infarct which was shown on MRI of November 16, 2016. Ventricular system is unremarkable. Basilar cisterns are patent. There are no extra-axial collections. There are no CT findings to suggest acute dural sinus thrombosis or acute territorial infarct. There are no significant calvarial abnormalities. Visualized portions of the sinuses and mastoid air cells are clear. IMPRESSION: 1. No acute intracranial hemorrhage or mass effect. No CT evidence for acute infarction. 2. Old left MCA territory infarct. Electronically signed by: Amarjit Quiñonez M.D. 02/10/2017 8:25 PM Dictated Date/Time: 02/10/2017 8:17 PM
[2017-02-10] MEDS: CEFAZOLIN IV 1,000 MG in SYRINGE 0 ML IV SCH (20:47)
[2017-02-10] MEDS ORDERED: LANTUS PER UNIT CHARGE SQ SCH (21:00)
[2017-02-10] MEDS: CLONIDINE HCL 0.1 MG TAB PO SCH ×2 (21:00→21:56)
[2017-02-10] MEDS: ROSUVASTATIN CALCIUM 20 MG TAB PO SCH ×2 (21:00→21:56)
--- NOTE | 2017-02-10 21:22 | DIAGNOSTIC IMAGING REPORT ---
CAROTID ARTERY ULTRASOUND CLINICAL HISTORY: Status post right carotid endarterectomy. Stroke. COMPARISON STUDY: CTA of the neck November 17, 2016. TECHNIQUE: Real-time, grayscale, and color Doppler sonography of the carotid and vertebral arteries was performed. Images were viewed in the transverse and longitudinal planes. FINDINGS: There is moderate atherosclerotic plaque present within the proximal left internal carotid artery. Velocity measurements are listed below. COMMON CAROTID PEAK SYSTOLIC VELOCITY (CM/S): RIGHT 84 LEFT 84 ICA PEAK SYSTOLIC VELOCITY (CM/S): RIGHT 140 LEFT 78 Systolic ratios between the internal to common carotid arteries are normal. Antegrade flow is seen in the vertebral arteries. The external carotid arteries are patent. Blood pressures were not obtained in this patient. IMPRESSION: No definite evidence for a hemodynamically significant stenosis. Mildly elevated peak systolic velocity within the proximal right internal carotid artery; however, systolic ratio between the right internal to common carotid artery is within normal limits. Electronically signed by: Amarjit Quiñonez M.D. 02/10/2017 9:21 PM Dictated Date/Time: 02/10/2017 9:16 PM
--- NOTE | 2017-02-10 21:26 | Critical Care Consultation ---
Critical Care Consultation Date of Consultation: Feb 10, 2017. Attending Physician: Casper Ng M.D. Reason for Consultation: Carotid endarterectomy on the right. History of Present Illness Dear Dr. Mcpherson: Thank you for your kind referral of Mrs. Bui to critical care service. This is 81-year-old female with a history of old left sided CVA with right-sided weakness, history of diabetes, hyperlipidemia, and hypertension. The patient presented to the ICU after carotid endarterectomy. Apparently upon discussing the case with the nursing staff the patient did have slowed speech, aphasia that appeared to be expressive, right-sided weakness and the fascial, upper extremity and lower extremity compared to left. Quinine. The patient, it was difficult to obtain the review of system however the patient denies any pain, and weakness in the right side complained to be chronic. She did have minimal swelling at the surgical site but appeared to be clean healing without any induration. No dizziness or altered mental status reported. The patient was able to tolerate oral intake. Past Medical/Surgical History As above. Family History FH: dementia Hypertension Social History Smoking Status: Never Smoker Drug Use: none Marital Status: Housing Status: lives alone Occupation Status: retired Allergies Coded Allergies: Adhesives (Verified Allergy, Mild, SKIN GETS RED, SORE AND ITCHY, 02/10/17 ) Atorvastatin (Verified Adverse Reaction, Intermediate, GENERIC-SEVERE LEG CRAMPS NAUSEA NIGHTMARES, 02/10/17) CAN USE NAME BRAND [employer] Home Medications Scheduled Apixaban (Eliquis), 5 MG PO QAM Aspirin (Aspirin Chewable), 81 MG PO QAM Cholecalciferol (Vitamin D3), 2,000 INTER.UNIT PO QAM Clonidine Hcl (Catapres), 0.1 MG PO BID Dorzolamide Hcl (Trusopt Oph), 1 DROPS OPB BID Enoxaparin (Enoxaparin Sodium), 40 MG SC DAILY Ferrous Sulfate (Kp Ferrous Sulfate), 1 TAB PO QAM Hydrochlorothiazide (Hydrochlorothiazide), 1 TAB PO QAM Levothyroxine Sodium (Levothyroxine Sodium), 1 TAB PO QAM Losartan Potassium (Cozaar), 100 MG PO QAM Rosuvastatin Calcium (Crestor), 20 MG PO HS [Vitamin D2], 50,000 INTER.UNIT PO WK Scheduled PRN Acetaminophen (Tylenol), 500 MG PO BID PRN for Pain Polyethylene Glycol 3350 (Miralax), 17 GM PO DAILY PRN for Constipation Current Inpatient Medications Current Inpatient Medications Medications (Trade) Dose Ordered Sig/Olaf Route Start Time Stop Time Status Last Admin Dose Admin Oxycodone/ Acetaminophen (Percocet 5-325mg Tab) FOR MODERATE PAIN ... Q4H PRN PO 02/10/17 10:30 02/24/17 10:29 Morphine Sulfate (MoRPHine SULFATE INJ) 4 mg Q4H PRN IV 02/10/17 10:30 02/24/17 10:29 Ondansetron HCl (Zofran Inj) 4 mg Q6H PRN IV 02/10/17 10:30 03/12/17 10:29 Cefazolin Sodium 1000 mg/Syringe 5 ml @ 100 mls/hr Q8H IV 02/10/17 20:00 02/11/17 04:02 02/10/17 20:47 100 MLS/HR Aspirin (Ecotrin Tab) 81 mg QAM PO 02/11/17 08:00 03/13/17 07:59 Metoprolol Tartrate (Lopressor Iv) 5 mg Q10M PRN IV 02/10/17 10:30 03/12/17 10:29 Nitroglycerin/ Dextrose 250 ml @ 0 mls/hr Q0M PRN IV 02/10/17 10:21 03/12/17 10:20 Sodium Nitroprusside 50 mg/Dextrose 502 ml @ 0 mls/hr Q0M PRN IV 02/10/17 10:21 03/12/17 10:20 Phenylephrine HCl 20 mg/Dextrose 502 ml @ 0 mls/hr Q0M PRN IV 02/10/17 10:21 03/12/17 10:20 Enoxaparin Sodium (Lovenox Inj) 30 mg Q12@0800,2000 SQ 02/11/17 08:00 03/13/17 07:59 Acetaminophen (Tylenol Tab) 500 mg BID PRN PO 02/10/17 10:30 03/12/17 10:29 Cholecalciferol (Vitamin D Tab) 2,000 inter.unit QAM PO 02/11/17 09:00 03/13/17 08:59 Clonidine HCl (Catapres Tab) 0.1 mg BID PO 02/10/17 21:00 03/12/17 20:59 Dorzolamide HCl (Trusopt 2% Oph Soln) 1 drops BID OPB 02/10/17 21:00 03/12/17 20:59 Levothyroxine Sodium (Synthroid Tab) 100 mcg DAILYBB PO 02/11/17 06:00 03/13/17 05:59 Losartan Potassium (coZAAR TAB) 100 mg QAM PO 02/11/17 09:00 03/13/17 08:59 Rosuvastatin Calcium (Crestor Tab) 20 mg HS PO 02/10/17 21:00 03/12/17 20:59 Ferrous Sulfate (Feosol Tab) 325 mg QAM PO 02/11/17 09:00 03/13/17 08:59 Hydrochlorothiazide (Hydrochlorothiazide Tab) 12.5 mg QAM PO 02/11/17 09:00 03/13/17 08:59 Polyethylene (Miralax Powder Packet) 17 gm DAILY PRN PO 02/10/17 10:30 03/12/17 10:29 Ergocalciferol (Vitamin D Cap) 50,000 interunit Q7D@0900 PO 02/11/17 09:00 03/13/17 08:59 Sodium Chloride 1,000 ml @ 100 mls/hr Q10H IV 02/10/17 13:45 03/12/17 13:44 02/10/17 13:43 100 MLS/HR Miscellaneous Information (Consult Glycemic Management Pharmacy) 1 ea UD PRN N/A 02/10/17 16:11 03/12/17 16:10 Insulin Aspart (novoLOG ASPART) SLIDING SCALE ACHS SC 02/10/17 16:00 03/12/17 15:59 02/10/17 14:30 7 UNITS Glucose (Glucose 40% Gel) 15-30 GRAMS 15 GRAMS... UD PRN PO 02/10/17 16:15 03/12/17 16:14 Glucose (Glucose Chew Tab) 4-8 Tablets 4 Tabl... UD PRN PO 02/10/17 16:15 03/12/17 16:14 Dextrose (Dextrose 50% 50ML Syringe) 25-50ML OF 50% DW IV FOR... UD PRN IV 02/10/17 16:15 03/12/17 16:14 Glucagon (Glucagon Inj) 1 mg UD PRN SQ 02/10/17 16:15 03/12/17 16:14 Insulin Aspart (novoLOG ASPART) SLIDING SCALE 0200 SC 02/11/17 02:00 02/11/17 02:01 Review of Systems Constitutional: No fever, No chills, No sweats, No weight loss, No weakness, No fatigue, No problem reported Respiratory: No cough, No sputum, No wheezing, No shortness of breath, No dyspnea on exertion, No dyspnea at rest, No hemoptysis, No problem reported Cardiovascular: No chest pain, No orthopnea, No PND, No edema, No claudication , No palpitations, No problem reported Abdomen: No pain, No nausea, No vomiting, No diarrhea, No constipation, No GI bleeding, No problem reported Neurologic: + paralysis, + weakness Physical Exam Date Time Temp Pulse Resp B/P (MAP) Pulse Ox O2 Delivery O2 Flow Rate FiO2 02/10/17 20:46 59 19 135/63 (87) 93 Room Air 02/10/17 20:31 57 23 135/65 (88) 94 Room Air 02/10/17 20:22 59 19 143/77 (99) 95 Room Air 02/10/17 19:31 53 24 136/64 (88) 97 Room Air 02/10/17 19:01 36.8 58 19 137/62 (87) 94 Room Air 02/10/17 18:01 56 16 140/60 (86) 95 Room Air 02/10/17 17:31 53 12 171/79 (109) 95 02/10/17 16:02 93 Room Air 02/10/17 16:01 36.6 48 9 124/54 (77) 91 Room Air 02/10/17 15:15 55 18 144/65 (91) 100 Room Air 02/10/17 14:01 36.6 54 10 143/61 (88) 97 Room Air 02/10/17 13:31 36.8 45 19 144/60 (88) 98 02/10/17 13:01 42 13 135/58 (83) 99 02/10/17 12:36 46 13 138/63 (88) 99 02/10/17 12:02 96 Nasal Cannula 2.0 02/10/17 11:30 36.6 45 16 161/69 (99) Nasal Cannula 2.0 02/10/17 11:16 148/63 02/10/17 11:16 36.7 48 14 148/63 (91) 99 Nasal Cannula 2.0 02/10/17 11:15 46 17 143/51 99 02/10/17 11:15 47 17 02/10/17 11:11 144/50 02/10/17 11:10 46 19 142/51 99 02/10/17 11:10 47 19 02/10/17 11:10 36.6 47 15 144/50 99 Nasal Cannula 2 152/62 (84) 02/10/17 11:06 145/68 02/10/17 11:05 51 24 148/53 99 02/10/17 11:05 52 24 02/10/17 11:01 152/67 02/10/17 11:00 50 17 02/10/17 11:00 50 17 151/55 99 02/10/17 11:00 50 15 152/67 99 Nasal Cannula 2 163/79 (93) 02/10/17 10:56 159/73 02/10/17 10:55 50 13 02/10/17 10:55 48 13 153/55 100 02/10/17 10:51 150/79 02/10/17 10:50 47 14 150/79 100 Oxymask 10 160/78 (95) 02/10/17 10:50 47 13 152/56 100 02/10/17 10:50 47 13 02/10/17 10:46 161/78 02/10/17 10:45 57 22 02/10/17 10:45 58 22 160/61 100 02/10/17 10:41 148/79 02/10/17 10:40 51 22 148/57 100 02/10/17 10:40 51 22 02/10/17 10:40 48 16 148/79 100 Oxymask 10 149/64 (87) 02/10/17 10:36 146/68 02/10/17 10:35 58 19 142/56 100 02/10/17 10:35 58 19 02/10/17 10:30 63 16 148/61 98 02/10/17 10:30 36.3 63 16 148/61 96 Oxymask 10 02/10/17 10:30 62 16 02/10/17 06:18 37 74 20 166/83 95 Room Air General Appearance: no apparent distress Eyes: PERRLA ENT: other (slurred speech) Neck: trachea midline, no stridor, other (post carotid endarterectomy right- sided) Respiratory: breath sounds normal, clear to auscultation Cardiovasular: regular rate/rhythm, normal S1S2, no M/G/R Abdomen: non tender, no rebound, no masses Upper Extremities: no edema, edema, other (right upper extremity edema.) Lower Extremities: no edema Neuro: alert, focal weakness (right-sided), focal sensation deficit (right- sided) Psychiatric: normal affect Laboratory Results Last 24 Hours Test 02/10/17 06:03 02/10/17 10:33 02/10/17 13:13 02/10/17 15:52 Bedside Glucose 165 mg/dl 215 mg/dl 210 mg/dl 234 mg/dl Diagnostic Results Head CT was done to rule out CVA which revealed old stroke. I have discussed the case with Dr. Quiñonez personally. No evidence of a new stroke. Assessment & Plan #1 carotid stenosis status post carotid endarterectomy on the right side. No complications. #2 hypertension. #3 diabetes. #4 CVA left sided with right-sided paresis. #5 right upper extremity edema related to the blood pressure cuff. Plan: #1 stroke alert was initiated, we'll defer further workup to the neurologist. No evidence of CVA on the CAT scan. According to the nursing staff which I discussed the case with them earlier that the patient did have focal deficit in the right upper extremity as well as facial droop. She does have slurred speech and aphasia. She is also hard of hearing. #2 glucose control with insulin sliding scale. No need for insulin drip. #3 blood pressure control. #4 case discussed with the staff and details. Critical care time spent with the patient was 45 minutes.
[2017-02-10] MEDS: DORZOLAMIDE HCL 2% OPH SOLN 10 ML BTL OPB SCH (21:56)
--- NOTE | 2017-02-10 22:02 | Critical Care Progress Note ---
Critical Care Progress Note Date of Service Feb 10, 2017. Critical Care Progress Note At 1930, the patient was found to be somewhat hypoxic in the 80s with good waveform. I personally evaluated the patient and she easily woke. Pulse ox responded appropriately. While speaking with the patient, she was noted to have a persistent RIGHT lower facial droop and some slurred speech communicated as a previous finding. Of concern, however, the patient was perseverating and unable to tell me her name. She was able to answer "yes/no" questions. She completed a neurological exam with only the above mentioned findings. PE: VITAL SIGNS - Vital signs and nursing notes were reviewed. GENERAL - 81-year-old female appearing her stated age who is in no acute distress. HEAD - Normocephalic, Atraumatic. EYES - PERRL with EOMI bilaterally. Sclera anicteric. Palpebral conjunctiva pink and moist with no injection noted. EARS - No deformities of external structures noted on gross examination bilaterally. NOSE - Midline and without cyanosis. MOUTH/OROPHARYNX - Without perioral cyanosis. Buccal mucosa pink and moist and without leukoplakia. Tongue midline with equal elevation of palate bilaterally. NECK - Incision to the RIGHT sided neck with surrounding ecchymosis. LUNGS - Chest wall symmetric without accessory muscle use, intercostals retractions, or central cyanosis. Normal vesicular breath sounds CTA B/L. No wheezes, rales, or rhonchi appreciated. CARDIAC - RRR with S1/S2. No murmur, rubs, or gallops appreciated. ABDOMEN - Abdominal contour obese and without pulsations or visible masses. BS normoactive all four quadrants. No tenderness, palpable masses, hepatosplenomegaly, or ascites noted. EXTREMITIES - No pretibial edema present. +3/5 radial and dorsalis pedis pulses palpated throughout. FROM with no tremors. +4/5 strength noted in UE/LE bilaterally. NEUROLOGIC - RIGHT sided lower mouth facial droop appreciated. All other cranial nerves II through XII grossly intact. Sensory intact to light touch throughout. Negative Drift. Initially perseverating numbers when asked name. Later able to answer questions and tell name. Slurred speech noted. Nursing evaluated the patient as well and the aphasia was thought to be a new finding from report as change of shift. Nursing staff contacted Dr. Ng and he agreed with Stroke Alert and imaging of the head and neck. Stroke alert was called at 1999. While speaking with the patient, she was able to tell me her complete name and report that she was in no pain. This was improvement from initial evaluation.CT of the head was unchanged from prior. Spoke with Dr. Lawler and complete stroke evaluation was preformed. I talked with the patient 's son, Erik, in the process who reports that his mother does have problems finding words occasionally, but dose state that her not being able to provide her name or his name is certainly new and concerning. I updated him with information. Dr. Lawler suggests labs and MRI evaluations tomorrow. This information was communicated with Dr. Ng. Patient remains resting comfortably without complaints. seen , examined separately, agree with the plan , see my note for further details. CCM 35 min additional to earlier.
--- NOTE | 2017-02-10 22:06 | DIAGNOSTIC IMAGING REPORT ---
CHEST ONE VIEW PORTABLE CLINICAL HISTORY: S/P STROKE ALERT COMPARISON STUDY: Chest radiograph November 16, [address] November 17, 2016. FINDINGS: Lung volumes are normal. No pneumothorax or pleural effusion is present. Mild cardiomegaly is noted. There is no consolidation to suggest pneumonia. There is pulmonary vascular congestion without overt edema. IMPRESSION: 1. Pulmonary vascular congestion without evidence of pulmonary edema. 2. No consolidation to suggest pneumonia. Electronically signed by: Amarjit Quiñonez M.D. 02/10/2017 10:05 PM Dictated Date/Time: 02/10/2017 10:04 PM
[2017-02-10 22:10] LABS: BASO % 0.1 %; BASO ABS # 0.01 K/uL (0-0.2); HEMATOCRIT 32.4 % (37-47); IG# 0.01 K/uL (0.00-0.02); LYMPH % 12.7 %; LYMPH ABS # 1.24 K/uL (1.2-3.4); MEAN CELL VOLUME 98.8 fL (80-100); MEAN CORPUSCULAR HEMOGLOBIN 33.5 pg (25-34); MEAN PLATELET VOLUME 9.4 fL (7.4-10.4); MONO ABS # 0.88 K/uL (0.11-0.59); NEUT % 78.1 %; NEUT ABS # 7.59 K/uL (1.4-6.5); PLATELET COUNT 172 K/uL (130-400); RED CELL DISTRIBUTION WIDTH CV 13.2 % (11.5-14.5); WHITE BLOOD COUNT 9.73 K/uL (4.8-10.8)
[2017-02-10 22:37] LABS: ALBUMIN 2.9 gm/dl (3.4-5.0); CALCIUM 8.4 mg/dl (8.5-10.1); CREATININE 1.62 mg/dl (0.60-1.20); POTASSIUM 4.2 mmol/L (3.5-5.1)
[2017-02-10 22:41] LABS: TOTAL PROTEIN 6.3 gm/dl (6.4-8.2)
[2017-02-11] VITALS (24 sets, daily range): BP systolic 132–176; BP diastolic 52–91; PULSE 47–72; TEMP 36.6–37; O2SAT 92–100; Ht 170.2 cm; Wt 96.7 kg
[2017-02-11] MEDS ORDERED: INSULIN ASPART 100 UNITS/ML 3 ML PEN SC SCH (02:00)
[2017-02-11] MEDS: CEFAZOLIN IV 1,000 MG in SYRINGE 0 ML IV SCH (04:17)
[2017-02-11 05:56] LABS: BASO % 0.2 %; BASO ABS # 0.02 K/uL (0-0.2); EOS % 0.2 %; EOS ABS # 0.02 K/uL (0-0.5); HEMATOCRIT 30.9 % (37-47); HEMOGLOBIN 10.5 g/dL (12.0-16.0); IG# 0.03 K/uL (0.00-0.02); LYMPH % 23.7 %; LYMPH ABS # 2.57 K/uL (1.2-3.4); MEAN CELL VOLUME 98.4 fL (80-100); MEAN CORPUSCULAR HEMOGLOBIN 33.4 pg (25-34); MEAN PLATELET VOLUME 10.3 fL (7.4-10.4); MONO % 10.2 %; MONO ABS # 1.11 K/uL (0.11-0.59); NEUT % 65.4 %; NEUT ABS # 7.11 K/uL (1.4-6.5); PLATELET COUNT 156 K/uL (130-400); RED CELL DISTRIBUTION WIDTH CV 13.2 % (11.5-14.5); RED CELL DISTRIBUTION WIDTH SD 47.4 fL (36.4-46.3); WHITE BLOOD COUNT 10.86 K/uL (4.8-10.8)
[2017-02-11] MEDS: LEVOTHYROXINE 100 MCG TAB PO SCH ×2 (06:00→09:24)
[2017-02-11 06:13] LABS: CALCIUM 7.9 mg/dl (8.5-10.1); CREATININE 1.36 mg/dl (0.60-1.20); PHOSPHORUS 2.8 mg/dl (2.5-4.9); POTASSIUM 4.4 mmol/L (3.5-5.1)
[2017-02-11] MEDS: INSULIN ASPART 100 UNITS/ML 3 ML PEN SC SCH ×4 (06:45→21:00)
--- NOTE | 2017-02-11 08:08 | Clinical Documentation Query ---
Dr. SHARP,[facility] : CLINICAL DOCUMENTATION QUERY Patient is an 81 year old female admitted for elective right ICA endarterectomy. Postoperative stroke alert called for facial droop, weakness, garbled speech, aphasia, and perseverance on numbers when asked name. CT scan of the head unchanged. MRI pending. As appropriate, consider documentation as suggested below in order to capture the severity of illness and risk of mortality associated with these diagnostic considerations. In your clinical opinion is this patient being managed for: ( x ) (Possible) Postoperative TIA versus CVA, a complication of care ( ) Not Agree ( ) Other explanation of clinical findings (Please Explain) ( ) Unable to determine (Please Define) ( ) Need to Discuss The medical record reflects the following clinical findings, treatment, and risk factors. Clinical Indicators: As above Treatment: ICU standard of care, neuro, repeat CT head, MRI brain, carotid ultrasound. Risk Factors: Right carotid endarterectomy in the setting of carotid stenosis Please clarify and document your clinical opinion in the progress notes and discharge summary. Terms such as "probable", "suspected", "likely", "questionable", "possible", or "still to be ruled out" are acceptable. IF IN AGREEMENT, YOU MUST DOCUMENT ABOVE DIAGNOSTIC STATEMENT IN DAILY PROGRESS NOTES AND DISCHARGE SUMMARY. This document is not part of the patient's record. Thank You, Pasha Walden RN [phone]
[2017-02-11] MEDS ORDERED: ERGOCALCIFEROL 50,000 INTER.UNIT CAP PO SCH (09:00)
[2017-02-11] MEDS: ASPIRIN 81 MG ECTAB PO SCH ×2 (09:00→09:25)
[2017-02-11] MEDS ORDERED: ASPIRIN 81 MG CHEW PO SCH (09:00)
[2017-02-11] MEDS ORDERED: HYDROCHLOROTHIAZIDE 25 MG TAB PO SCH (09:00)
--- NOTE | 2017-02-11 09:07 | Progress Note ---
Progress Note Date of Service: Feb 11, 2017. Subjective No new complaints other than neck discomfort Problem List Medical Problems: (1) Abdominal pain Status: Acute (2) CVA (cerebral vascular accident) Status: Acute (3) Facial droop Status: Acute Objective Vital Signs Vital Signs Past 12 Hours Date Time Temp Pulse Resp B/P (MAP) Pulse Ox O2 Delivery O2 Flow Rate FiO2 02/11/17 06:01 56 15 151/69 (96) 95 Room Air 02/11/17 05:54 61 24 165/61 (95) 96 CPAP 02/11/17 05:01 57 15 149/69 (95) 96 CPAP 02/11/17 04:01 36.7 55 19 142/64 (90) 95 CPAP 02/11/17 04:00 Room Air 02/11/17 03:01 51 15 132/78 (96) 92 CPAP 02/11/17 02:01 56 15 158/81 (106) 97 CPAP 02/11/17 01:59 72 19 152/77 (102) 94 CPAP 02/11/17 01:46 56 20 165/73 (103) 96 CPAP 02/11/17 01:31 47 10 166/72 (103) 94 CPAP 02/11/17 01:16 56 12 147/80 (102) 97 CPAP 02/11/17 01:01 49 11 156/77 (103) 95 CPAP 02/11/17 00:46 58 20 150/80 (103) 96 CPAP 02/11/17 00:31 52 16 166/76 (106) 96 CPAP 02/11/17 00:16 47 24 161/69 (99) 93 CPAP 02/11/17 00:01 Room Air 02/11/17 00:01 36.6 50 20 155/72 (99) 94 CPAP 02/10/17 23:46 65 21 158/84 (108) 95 CPAP 02/10/17 23:31 57 10 159/72 (101) 93 CPAP 02/10/17 23:16 49 13 156/64 (94) 97 CPAP 02/10/17 23:01 47 8 149/76 (100) 95 CPAP 02/10/17 22:46 52 16 176/74 (108) 96 Room Air 02/10/17 22:31 55 20 150/69 (96) 94 Room Air 02/10/17 22:16 54 16 145/67 (93) 94 Room Air 02/10/17 21:46 56 23 135/85 (102) 96 Room Air 02/10/17 21:31 69 17 138/70 (92) 93 Room Air 02/10/17 21:16 53 24 135/70 (91) 95 Room Air Exam VSS Afebrile Incision dry and clean. Minimal swelling. Neuro exam appears unchanged from pre op. Laboratory and Microbiology Results Past 24 Hours Test 02/10/17 10:33 02/10/17 13:13 02/10/17 15:52 02/10/17 20:22 Range/Units Bedside Glucose 215 210 234 179 70-90 mg/dl Test 02/10/17 21:55 02/11/17 00:08 02/11/17 02:45 02/11/17 05:22 Range/Units White Blood Count 9.73 10.86 4.8-10.8 K/uL Red Blood Count 3.28 3.14 4.2-5.4 M/uL Hemoglobin 11.0 10.5 12.0-16.0 g/dL Hematocrit 32.4 30.9 37-47 % Mean Corpuscular Volume 98.8 98.4 80-100 fL Mean Corpuscular Hemoglobin 33.5 33.4 25-34 pg Mean Corpuscular Hemoglobin Concent 34.0 34.0 32-36 g/dl Platelet Count 172 156 130-400 K/uL Mean Platelet Volume 9.4 10.3 7.4-10.4 fL Neutrophils (%) (Auto) 78.1 65.4 % Lymphocytes (%) (Auto) 12.7 23.7 % Monocytes (%) (Auto) 9.0 10.2 % Eosinophils (%) (Auto) 0.0 0.2 % Basophils (%) (Auto) 0.1 0.2 % Neutrophils # (Auto) 7.59 7.11 1.4-6.5 K/uL Lymphocytes # (Auto) 1.24 2.57 1.2-3.4 K/uL Monocytes # (Auto) 0.88 1.11 0.11-0.59 K/uL Eosinophils # (Auto) 0.00 0.02 0-0.5 K/uL Basophils # (Auto) 0.01 0.02 0-0.2 K/uL RDW Standard Deviation 48.0 47.4 36.4-46.3 fL RDW Coefficient of Variation 13.2 13.2 11.5-14.5 % Immature Granulocyte % (Auto) 0.1 0.3 % Immature Granulocyte # (Auto) 0.01 0.03 0.00-0.02 K/uL Sodium Level 137 138 136-145 mmol/L Potassium Level 4.2 4.4 3.5-5.1 mmol/L Chloride Level 107 111 98-107 mmol/L Carbon Dioxide Level 23 20 21-32 mmol/L Anion Gap 8.0 7.0 3-11 mmol/L Blood Urea Nitrogen 30 30 7-18 mg/dl Creatinine 1.62 1.36 0.60-1.20 mg/dl Est Creatinine Clear Calc Drug Dose 33.2 39.4 ml/min Estimated GFR () 34.4 42.5 Estimated GFR (Non- 29.7 36.7 BUN/Creatinine Ratio 18.6 22.4 10-20 Random Glucose 167 116 70-99 mg/dl Calcium Level 8.4 7.9 8.5-10.1 mg/dl Total Bilirubin 0.3 0.2-1 mg/dl Direct Bilirubin 0.1 0-0.2 mg/dl Aspartate Amino Transf (AST/SGOT) 12 15-37 U/L Alanine Aminotransferase (ALT/SGPT) 11 12-78 U/L Alkaline Phosphatase 49 45-117 U/L Ammonia 18.2 11-32 umol/L Total Protein 6.3 6.4-8.2 gm/dl Albumin 2.9 3.4-5.0 gm/dl Globulin 3.4 2.5-4.0 gm/dl Albumin/Globulin Ratio 0.9 0.9-2 Vitamin B12 Level 734 211-911 pg/mL Folate > 24.00 >5.38 ng/mL Thyroid Stimulating Hormone (TSH) 0.569 0.300-4.500 uIu/ml Bedside Glucose 134 117 70-90 mg/dl Phosphorus Level 2.8 2.5-4.9 mg/dl Magnesium Level 1.8 1.8-2.4 mg/dl Microbiology Results 02/10/17 MRSA DNA Surveillance Screen - Final, Complete Specimen Negative for MRSA by DNA Probe Imp: Post RCEA Plan: Patient for mri scan today for a short period of aphasia last pm. Will transfer to floor and possible d/c tomorrow
[2017-02-11] MEDS: DORZOLAMIDE HCL 2% OPH SOLN 10 ML BTL OPB SCH ×2 (09:23→21:01)
[2017-02-11] MEDS: ENOXAPARIN 30 MG/0.3 ML SYR SQ SCH ×2 (09:23→21:01)
[2017-02-11] MEDS: CLONIDINE HCL 0.1 MG TAB PO SCH ×2 (09:24→21:02)
[2017-02-11] MEDS: LOSARTAN POTASSIUM 50 MG TAB PO SCH (09:25)
[2017-02-11] MEDS: CHOLECALCIFEROL 1000 INTER.UNIT TAB PO SCH (09:26)
[2017-02-11] MEDS: FERROUS SULFATE 325 MG TAB PO SCH (09:26)
[2017-02-11] MEDS: SODIUM CHLORIDE 0.9% 1000ML 1,000 ML IV SCH ×2 (09:26→21:01)
[2017-02-11] MEDS ORDERED: LORAZEPAM 1 MG TAB ONE (10:59)
[2017-02-11] MEDS ORDERED: NURSING VERBAL MED ORDER ONE (11:00)
--- NOTE | 2017-02-11 11:07 | Anesthesiology Progress Note ---
Anesthesia Post Op Note Date & Time Feb 11, 2017 at 11:02 Vital Signs Pain Intensity: 0 Vital Signs Past 12 Hours Date Time Temp Pulse Resp B/P (MAP) Pulse Ox O2 Delivery O2 Flow Rate FiO2 02/11/17 10:00 68 16 176/91 (119) 94 Room Air 02/11/17 08:00 36.7 67 16 149/52 (84) 95 Room Air 02/11/17 08:00 36.7 67 16 149/52 (84) 95 Room Air 02/11/17 06:01 56 15 151/69 (96) 95 Room Air 02/11/17 05:54 61 24 165/61 (95) 96 CPAP 02/11/17 05:01 57 15 149/69 (95) 96 CPAP 02/11/17 04:01 36.7 55 19 142/64 (90) 95 CPAP 02/11/17 04:00 Room Air 02/11/17 03:01 51 15 132/78 (96) 92 CPAP 02/11/17 02:01 56 15 158/81 (106) 97 CPAP 02/11/17 01:59 72 19 152/77 (102) 94 CPAP 02/11/17 01:46 56 20 165/73 (103) 96 CPAP 02/11/17 01:31 47 10 166/72 (103) 94 CPAP 02/11/17 01:16 56 12 147/80 (102) 97 CPAP 02/11/17 01:01 49 11 156/77 (103) 95 CPAP 02/11/17 00:46 58 20 150/80 (103) 96 CPAP 02/11/17 00:31 52 16 166/76 (106) 96 CPAP 02/11/17 00:16 47 24 161/69 (99) 93 CPAP 02/11/17 00:01 Room Air 02/11/17 00:01 36.6 50 20 155/72 (99) 94 CPAP 02/10/17 23:46 65 21 158/84 (108) 95 CPAP 02/10/17 23:31 57 10 159/72 (101) 93 CPAP 02/10/17 23:16 49 13 156/64 (94) 97 CPAP Notes Mental Status: participated in evaluation (Patient sitting in a chair at bedside. Patient demonstrates some expressive aphasia, having difficulty finding words to answer questions. Olivia WELLINGTON notified and describes this aphasia as pre-existing from previous stroke. Dr Ng aware.)
--- NOTE | 2017-02-11 12:54 | DIAGNOSTIC IMAGING REPORT ---
MR ANGIOGRAM OF THE BRAIN CLINICAL HISTORY: Stroke. COMPARISON STUDY: MRI of the brain dated 02/11/2017. CT angiogram of the brain dated 11/17/2016. TECHNIQUE: 3-D [id number] MR angiography of the intracranial circulation is performed. 3-D tumble views are created and assessed. IV contrast was not administered for this examination. FINDINGS: The internal carotid arteries are widely patent bilaterally, as are the anterior and right middle cerebral arteries. The proximal and mid portions of the left middle cerebral artery is patent. There is high-grade stenosis of the distal left MCA artery with at least focal occlusion in the region of the sylvian fissure. There is pruning of the peripheral branches of the left middle cerebral artery. The vertebrobasilar system and posterior cerebral arteries are widely patent. The vertebral arteries are codominant. There is no aneurysm seen throughout the intracranial circulation. IMPRESSION: 1. 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 There is pruning of the peripheral branches of the left middle cervical artery. 2. The remaining intracranial vessels are patent. Electronically signed by: Andrew Reese M.D. 02/11/2017 12:53 PM Dictated Date/Time: 02/11/2017 12:47 PM
--- NOTE | 2017-02-11 12:55 | DIAGNOSTIC IMAGING REPORT ---
MRI OF THE BRAIN WITHOUT AND WITH IV CONTRAST CLINICAL HISTORY: Stroke like symptoms status post carotid endarterectomy. REMOTE HISTORY OF BREAST CARCINOMA. COMPARISON STUDY: Noncontrast head CT dated 02/10/2017, MRI the brain dated 11/16/2016 TECHNIQUE: MRI of the brain was performed from the vertex to the skull base utilizing various T1 and T2 weighted sequences. Following the IV administration of 9.6 mL of Gadavist contrast, additional enhanced images were obtained. FINDINGS: Sagittal T1, axial diffusion, proton density and T2 weighted axial, coronal FLAIR, and pre and post axial T1-weighted images were acquired. These were supplemented with post gadolinium coronal T1 weighted images. No intra or extra-axial mass lesions are visualized. There are areas of restricted water diffusion in the left middle cerebral artery territory involving portions the right frontal, temporal and parietal lobes. There is also a punctate focus of restricted water diffusion within the right centrum semiovale and right posterior temporal lobe There is no evidence of ventricular dilatation. Proton density T2-weighted and FLAIR images reveal multiple foci of increased T2 signal, consistent with a combination of small vessel disease, and areas of parenchymal infarction. 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 There are no abnormal flow voids. There is minimal postinfarct gyriform enhancement within the left hemisphere. There are no enhancing lesions suspicious for neoplasm. IMPRESSION: 1. Diffusion abnormalities within the left hemisphere, consistent with subacute and chronic infarction, as well as a new focus of acute/subacute infarction within the left parietal lobe measuring 14 mm. 2. Punctate focus of restricted water diffusion within the right centrum semiovale consistent with acute/subacute infarct 3. No pathologic masses identified. Electronically signed by: Yonatan Patino M.D. 02/11/2017 12:53 PM Dictated Date/Time: 02/11/2017 12:30 PM
[2017-02-11] MEDS ORDERED: PHARMACIST DISCHARGE MED REC CONSULT PRN (14:45)
--- NOTE | 2017-02-11 15:07 | Pharmacy Progress Note ---
Glycemic: Assessment & Plan Date of Service Feb 11, 2017. Assessment & Plan The patient is currently receiving 14 units of insulin per day. BSGs ranging 107 - 210 mg/dl over the past 24hrs. Patient received one dose of dexamethasone in the OR, most likely the cause of hyperglycemia as patient has had all BSGs in range today. Therefore, will not schedule any basal insulin given no antidiabetic home medications. I will continue CF/CR for coverage while in ICU. I will loosen CR given unclear history of diabetes. * Basal insulin: none * Correctional Insulin: Novolog Correction per scale ACHS Goal Range: Low 140 mg/dL - High 180 mg/dL Correction Factor: 25 mg/dL/unit * Prandial insulin: Per carb ratio of 1 unit per 20 grams CHO consumed Pharmacy will continue to monitor patient daily and write orders per [facility] inpatient glycemic control protocol. Thanks. * Please note that the plan above was derived based on current level of insulin resistance and hospital stress. These recommendations are appropriate for inpatient admission only. Plan of care upon discharge will need to be reassessed to avoid potential outpatient hypo/hyperglycemia.
--- NOTE | 2017-02-11 16:23 | Critical Care Progress Note ---
Critical Care Progress Note Date of Service Feb 11, 2017. Attending Dr. Henderson Subjective The patient has been waxing and waning in terms of her neurologic status. Although the patient speech appeared to improve in the morning however deteriorated after a dose of Ativan for tolerating MRI. The patient herself had stroke alert yesterday overnight with a CAT scan of the head did not reveal a new CVA. She denies any dysphagia, dysphonia, but she continued to have aphasia. Weakness in the right side with facial droop has been persistent. I do not appreciate worsening of the symptoms. Objective On 02/11/2017, patient continued to have weakness of the right upper extremity 3 over 5, similar in the right lower extremity as well. Facial droop has not changed to my exam. Patient has no stridor, she is having difficulty finding her words. Appeared to be expressive aphasia. According to the nursing staff this was her baseline in the past. The patient had no JVP, S1-S2 regular rate and rhythm, still breath sounds bilaterally, abdomen is benign with edema in the periphery affecting also like approximately. Current SOFA Score SOFA Score Response (Comments) Value PaO2/FiO2 (mmHg) < 400 1 SaO2 / FIO2 221 - 301 1 Platelets (x10) > 150 0 Bilirubin (mg/dL) < 1.2 0 [place] Coma Score 15 0 Level of Hypotension No Hypotension 0 Creatinine (mg/dL) < 1.2 0 Total 2 Assessment & Plan #1 CVA left-sided with right-sided weakness, based on the MRI results the patient does have new CVA in the left parietal area. #2 right carotid stenosis status post carotid endarterectomy. #3 diabetes mellitus. #4 aphasia, it appeared to be waxing and waning for the past 24 hours, the patient is already on aspirin, other antiplatelets were not started in the face of recent carotid endarterectomy. Plan: #1 case discussed with neurology, input appreciated, recommended CT angiogram of the neck. #2 repeat echocardiogram. #3 continue aspirin. #4 given the patient waxing and waning his symptoms, I will defer further decision terms of treatment to neurology. #5 I would obtain neck CT with angiography in the morning. #6 start oral intake is tolerable. #7 case discussed with the patient, the staff, critical care time spent with the patient was 45 minutes. Consults & Procedures Consultants: Neurology Procedures: MRI and MRA of the head Data Medications: Current Inpatient Medications Medications (Trade) Dose Ordered Sig/Olaf Route Start Time Stop Time Status Last Admin Dose Admin Oxycodone/ Acetaminophen (Percocet 5-325mg Tab) FOR MODERATE PAIN ... Q4H PRN PO 02/10/17 10:30 02/24/17 10:29 Morphine Sulfate (MoRPHine SULFATE INJ) 4 mg Q4H PRN IV 02/10/17 10:30 02/24/17 10:29 Ondansetron HCl (Zofran Inj) 4 mg Q6H PRN IV 02/10/17 10:30 03/12/17 10:29 Aspirin (Ecotrin Tab) 81 mg QAM PO 02/11/17 08:00 03/13/17 07:59 02/11/17 09:00 81 MG Metoprolol Tartrate (Lopressor Iv) 5 mg Q10M PRN IV 02/10/17 10:30 03/12/17 10:29 Nitroglycerin/ Dextrose 250 ml @ 0 mls/hr Q0M PRN IV 02/10/17 10:21 03/12/17 10:20 Sodium Nitroprusside 50 mg/Dextrose 502 ml @ 0 mls/hr Q0M PRN IV 02/10/17 10:21 03/12/17 10:20 Phenylephrine HCl 20 mg/Dextrose 502 ml @ 0 mls/hr Q0M PRN IV 02/10/17 10:21 03/12/17 10:20 Enoxaparin Sodium (Lovenox Inj) 30 mg Q12@0800,2000 SQ 02/11/17 08:00 03/13/17 07:59 02/11/17 09:23 30 MG Acetaminophen (Tylenol Tab) 500 mg BID PRN PO 02/10/17 10:30 03/12/17 10:29 Cholecalciferol (Vitamin D Tab) 2,000 inter.unit QAM PO 02/11/17 09:00 03/13/17 08:59 02/11/17 09:26 2,000 INTER.UNIT Clonidine HCl (Catapres Tab) 0.1 mg BID PO 02/10/17 21:00 03/12/17 20:59 02/11/17 09:24 0.1 MG Dorzolamide HCl (Trusopt 2% Oph Soln) 1 drops BID OPB 02/10/17 21:00 03/12/17 20:59 02/11/17 09:23 1 DROPS Levothyroxine Sodium (Synthroid Tab) 100 mcg DAILYBB PO 02/11/17 06:00 03/13/17 05:59 02/11/17 09:24 100 MCG Losartan Potassium (coZAAR TAB) 100 mg QAM PO 02/11/17 09:00 03/13/17 08:59 02/11/17 09:25 100 MG Rosuvastatin Calcium (Crestor Tab) 20 mg HS PO 02/10/17 21:00 03/12/17 20:59 Ferrous Sulfate (Feosol Tab) 325 mg QAM PO 02/11/17 09:00 03/13/17 08:59 02/11/17 09:26 325 MG Hydrochlorothiazide (Hydrochlorothiazide Tab) 12.5 mg QAM PO 02/11/17 09:00 03/13/17 08:59 02/11/17 09:25 12.5 MG Polyethylene (Miralax Powder Packet) 17 gm DAILY PRN PO 02/10/17 10:30 03/12/17 10:29 Ergocalciferol (Vitamin D Cap) 50,000 interunit Q7D@0900 PO 02/11/17 09:00 03/13/17 08:59 02/11/17 09:25 50,000 INTERUNIT Sodium Chloride 1,000 ml @ 100 mls/hr Q10H IV 02/10/17 13:45 03/12/17 13:44 02/11/17 09:26 100 MLS/HR Miscellaneous Information (Consult Glycemic Management Pharmacy) 1 ea UD PRN N/A 02/10/17 16:11 03/12/17 16:10 Insulin Aspart (novoLOG ASPART) SLIDING SCALE ACHS SC 02/10/17 16:00 03/12/17 15:59 02/10/17 14:30 7 UNITS Glucose (Glucose 40% Gel) 15-30 GRAMS 15 GRAMS... UD PRN PO 02/10/17 16:15 03/12/17 16:14 Glucose (Glucose Chew Tab) 4-8 Tablets 4 Tabl... UD PRN PO 02/10/17 16:15 03/12/17 16:14 Dextrose (Dextrose 50% 50ML Syringe) 25-50ML OF 50% DW IV FOR... UD PRN IV 02/10/17 16:15 03/12/17 16:14 Glucagon (Glucagon Inj) 1 mg UD PRN SQ 02/10/17 16:15 03/12/17 16:14 Miscellaneous Information (Pharmacist Discharge Med Rec Consult) 1 ea UD PRN N/A 02/11/17 14:45 03/13/17 14:44 I & O: 24-Hour Column 02/12/17 07:59 Intake Total 1320 ml Output Total 200 ml Balance 1120 ml Vital Signs: Date Time Temp Pulse Resp B/P (MAP) Pulse Ox O2 Delivery O2 Flow Rate FiO2 02/11/17 16:00 Room Air 02/11/17 14:00 50 16 159/71 (100) 100 Nasal Cannula 2.0 02/11/17 12:20 Room Air 02/11/17 12:20 36.8 53 16 146/72 (96) 93 Room Air 02/11/17 10:00 68 16 176/91 (119) 94 Room Air 02/11/17 08:00 36.7 67 16 149/52 (84) 95 Room Air 02/11/17 08:00 Room Air 02/11/17 08:00 Room Air 02/11/17 08:00 36.7 67 16 149/52 (84) 95 Room Air 02/11/17 06:01 56 15 151/69 (96) 95 Room Air 02/11/17 05:54 61 24 165/61 (95) 96 CPAP 02/11/17 05:01 57 15 149/69 (95) 96 CPAP 02/11/17 04:01 36.7 55 19 142/64 (90) 95 CPAP 02/11/17 04:00 Room Air 02/11/17 03:01 51 15 132/78 (96) 92 CPAP 02/11/17 02:01 56 15 158/81 (106) 97 CPAP 02/11/17 01:59 72 19 152/77 (102) 94 CPAP 02/11/17 01:46 56 20 165/73 (103) 96 CPAP 02/11/17 01:31 47 10 166/72 (103) 94 CPAP 02/11/17 01:16 56 12 147/80 (102) 97 CPAP 02/11/17 01:01 49 11 156/77 (103) 95 CPAP 02/11/17 00:46 58 20 150/80 (103) 96 CPAP 02/11/17 00:31 52 16 166/76 (106) 96 CPAP 02/11/17 00:16 47 24 161/69 (99) 93 CPAP 02/11/17 00:01 Room Air 02/11/17 00:01 36.6 50 20 155/72 (99) 94 CPAP 02/10/17 23:46 65 21 158/84 (108) 95 CPAP 02/10/17 23:31 57 10 159/72 (101) 93 CPAP 02/10/17 23:16 49 13 156/64 (94) 97 CPAP 02/10/17 23:01 47 8 149/76 (100) 95 CPAP 02/10/17 22:46 52 16 176/74 (108) 96 Room Air 02/10/17 22:31 55 20 150/69 (96) 94 Room Air 02/10/17 22:16 54 16 145/67 (93) 94 Room Air 02/10/17 21:46 56 23 135/85 (102) 96 Room Air 02/10/17 21:31 69 17 138/70 (92) 93 Room Air 02/10/17 21:16 53 24 135/70 (91) 95 Room Air 02/10/17 21:01 61 27 148/70 (96) 96 Room Air 02/10/17 20:46 59 19 135/63 (87) 93 Room Air 02/10/17 20:31 57 23 135/65 (88) 94 Room Air 02/10/17 20:22 59 19 143/77 (99) 95 Room Air 02/10/17 20:00 Room Air 02/10/17 19:31 53 24 136/64 (88) 97 Room Air 02/10/17 19:01 36.8 58 19 137/62 (87) 94 Room Air 02/10/17 18:01 56 16 140/60 (86) 95 Room Air 02/10/17 17:31 53 12 171/79 (109) 95 Laboratory Results: Last 24 Hours Test 02/10/17 20:22 02/10/17 21:55 02/11/17 00:08 02/11/17 02:45 Bedside Glucose 179 mg/dl 134 mg/dl 117 mg/dl White Blood Count 9.73 K/uL Red Blood Count 3.28 M/uL Hemoglobin 11.0 g/dL Hematocrit 32.4 % Mean Corpuscular Volume 98.8 fL Mean Corpuscular Hemoglobin 33.5 pg Mean Corpuscular Hemoglobin Concent 34.0 g/dl Platelet Count 172 K/uL Mean Platelet Volume 9.4 fL Neutrophils (%) (Auto) 78.1 % Lymphocytes (%) (Auto) 12.7 % Monocytes (%) (Auto) 9.0 % Eosinophils (%) (Auto) 0.0 % Basophils (%) (Auto) 0.1 % Neutrophils # (Auto) 7.59 K/uL Lymphocytes # (Auto) 1.24 K/uL Monocytes # (Auto) 0.88 K/uL Eosinophils # (Auto) 0.00 K/uL Basophils # (Auto) 0.01 K/uL RDW Standard Deviation 48.0 fL RDW Coefficient of Variation 13.2 % Immature Granulocyte % (Auto) 0.1 % Immature Granulocyte # (Auto) 0.01 K/uL Sodium Level 137 mmol/L Potassium Level 4.2 mmol/L Chloride Level 107 mmol/L Carbon Dioxide Level 23 mmol/L Anion Gap 8.0 mmol/L Blood Urea Nitrogen 30 mg/dl Creatinine 1.62 mg/dl Est Creatinine Clear Calc Drug Dose 33.2 ml/min Estimated GFR () 34.4 Estimated GFR (Non- 29.7 BUN/Creatinine Ratio 18.6 Random Glucose 167 mg/dl Calcium Level 8.4 mg/dl Total Bilirubin 0.3 mg/dl Direct Bilirubin 0.1 mg/dl Aspartate Amino Transf (AST/SGOT) 12 U/L Alanine Aminotransferase (ALT/SGPT) 11 U/L Alkaline Phosphatase 49 U/L Ammonia 18.2 umol/L Total Protein 6.3 gm/dl Albumin 2.9 gm/dl Globulin 3.4 gm/dl Albumin/Globulin Ratio 0.9 Vitamin B12 Level 734 pg/mL Folate > 24.00 ng/mL Thyroid Stimulating Hormone (TSH) 0.569 uIu/ml Test 02/11/17 05:22 02/11/17 11:00 White Blood Count 10.86 K/uL Red Blood Count 3.14 M/uL Hemoglobin 10.5 g/dL Hematocrit 30.9 % Mean Corpuscular Volume 98.4 fL Mean Corpuscular Hemoglobin 33.4 pg Mean Corpuscular Hemoglobin Concent 34.0 g/dl Platelet Count 156 K/uL Mean Platelet Volume 10.3 fL Neutrophils (%) (Auto) 65.4 % Lymphocytes (%) (Auto) 23.7 % Monocytes (%) (Auto) 10.2 % Eosinophils (%) (Auto) 0.2 % Basophils (%) (Auto) 0.2 % Neutrophils # (Auto) 7.11 K/uL Lymphocytes # (Auto) 2.57 K/uL Monocytes # (Auto) 1.11 K/uL Eosinophils # (Auto) 0.02 K/uL Basophils # (Auto) 0.02 K/uL RDW Standard Deviation 47.4 fL RDW Coefficient of Variation 13.2 % Immature Granulocyte % (Auto) 0.3 % Immature Granulocyte # (Auto) 0.03 K/uL Sodium Level 138 mmol/L Potassium Level 4.4 mmol/L Chloride Level 111 mmol/L Carbon Dioxide Level 20 mmol/L Anion Gap 7.0 mmol/L Blood Urea Nitrogen 30 mg/dl Creatinine 1.36 mg/dl Est Creatinine Clear Calc Drug Dose 39.4 ml/min Estimated GFR () 42.5 Estimated GFR (Non- 36.7 BUN/Creatinine Ratio 22.4 Random Glucose 116 mg/dl Calcium Level 7.9 mg/dl Phosphorus Level 2.8 mg/dl Magnesium Level 1.8 mg/dl Urine Color YELLOW Urine Appearance CLEAR Urine pH 5.0 Urine Specific [place] 1.025 Urine Protein 1+ Urine Glucose (UA) NEG Urine Ketones NEG Urine Occult Blood NEG Urine Nitrite NEG Urine Bilirubin NEG Urine Urobilinogen NEG Urine Leukocyte Esterase MODERATE Urine WBC (Auto) 10-30 /hpf Urine RBC (Auto) 0-4 /hpf Urine Hyaline Casts (Auto) 1-5 /lpf Urine Epithelial Cells (Auto) >30 /lpf Urine Bacteria (Auto) NEG
--- NOTE | 2017-02-11 16:46 | ECHOCARDIOGRAM REPORT ---
*NOTICE TO RECEIVING [employer] AG[employer]Y This information is strictly Confidential and protected under [place] law. [place] law prohibits you from making any further disclosure of this information unless further disclosure is expressly permitted by the written consent of the person to whom it pertains or is authorized by law. A general authorization for the release of medical or other information is not sufficient for this purpose. Hospital accepts no responsibility if the information is made available to any other person, INCLUDING THE PATIENT. Interpretation Summary * Name: RAMANA MOHAN Study Date: 02/11/2017 03:18 PM BP: 159/71 mmHg * [facility] HR: 50 * : 1935 (M/d/yyy) Gender: Female Height: 67 in * Age: 81 yrs Ethnicity: [place] Weight: 213 lb * Ordering Physician: Andrew Painting * Referring Physician: Casper Ng * Performed By: Yoli Adams RDCS * * Reason For Study: Acute on chronic CVA * BSA: 2.1 m2 * -- Conclusions -- * Left ventricular systolic function is normal. * No regional wall motion abnormalities noted. * Ejection Fraction = 60-65%. * There is mild concentric left ventricular hypertrophy. * Diastolic dysfunction, Grade II (pseudonormalization pattern). Procedure Details * A complete two-dimensional transthoracic echocardiogram was performed (2D, M-mode, Doppler and color flow Doppler). Left Ventricle * The left ventricle is normal in size. * There is mild concentric left ventricular hypertrophy. * Ejection Fraction = 60-65%. * Left ventricular systolic function is normal. * No regional wall motion abnormalities noted. Right Ventricle * The right ventricle is not well visualized. * The right ventricular systolic function is normal as assessed by tricuspid annular plane systolic excursion (TAPSE) (normal >1.5 cm). Atria * The left atrium is borderline dilated. * Right atrium not well visualized. * No ASD detected; PFO is not assessed. Mitral Valve * The mitral valve leaflets appear thickened, but open well. * Significant mitral regurgitation is absent. Tricuspid Valve * The tricuspid valve is not well visualized, but is grossly normal. * There is no tricuspid stenosis. * Significant tricuspid regurgitation is absent. Aortic Valve * The aortic valve is trileaflet. * The aortic valve opens well. * Aortic valve sclerosis mild, without significant aortic valvular stenosis. * No aortic regurgitation is present. Pulmonic Valve * The pulmonary valve is not well seen, but the Doppler examination is normal without significant regurgitation or stenosis. Great Vessels * The aortic root is normal size. * The pulmonary is not well visualized. Pericardium/Pleural * There is no pericardial effusion. Great Vessels * Normal inferior vena cava size and collapsability with sniff indicates a normal right atrial pressure of 3 mmHg Left Ventricular Diastolic Function * Diastolic dysfunction, Grade II (pseudonormalization pattern). MMode 2D Measurements and Calculations IVSd 1.1 cm LVIDd 4.1 cm LVIDs 2.6 cm LVPWd 1.0 cm IVS/LVPW 1.0 FS 35.8 % EDV(Teich) 73.8 ml ESV(Teich) 25.2 ml EF(Teich) 65.8 % EDV(cubed) 68.4 ml ESV(cubed) 18.1 ml EF(cubed) 73.5 % LV mass(C)d 138.4 grams LV mass(C)dI 66.6 grams/m\S\2 SV(Teich) 48.5 ml SI(Teich) 23.4 ml/m\S\2 SV(cubed) 50.3 ml SI(cubed) 24.2 ml/m\S\2 Ao root diam 3.1 cm Ao root area 7.8 cm\S\2 ACS 1.7 cm LA dimension 3.0 cm asc Aorta Diam 3.0 cm LA/Ao 0.95 LVOT diam 2.0 cm LVOT area 3.2 cm\S\2 LVAd ap4 27.0 cm\S\2 LVLd ap4 7.3 cm EDV(MOD-sp4) 81.9 ml EDV(sp4-el) 84.8 ml LVAs ap4 16.2 cm\S\2 LVLs ap4 6.6 cm ESV(MOD-sp4) 32.4 ml ESV(sp4-el) 33.8 ml EF(MOD-sp4) 60.4 % EF(sp4-el) 60.2 % LVAd ap2 21.6 cm\S\2 LVLd ap2 7.2 cm EDV(MOD-sp2) 56.7 ml EDV(sp2-el) 55.3 ml LVAs ap2 11.6 cm\S\2 LVLs ap2 5.3 cm ESV(MOD-sp2) 23.1 ml ESV(sp2-el) 21.5 ml EF(MOD-sp2) 59.2 % EF(sp2-el) 61.2 % LVLd %diff -1.72 % EDV(MOD-bp) 68.4 ml LVLs %diff -23.84 % ESV(MOD-bp) 29.6 ml EF(MOD-bp) 56.7 % SV(MOD-sp4) 49.5 ml SI(MOD-sp4) 23.8 ml/m\S\2 SV(MOD-sp2) 33.6 ml SI(MOD-sp2) 16.2 ml/m\S\2 SV(MOD-bp) 38.8 ml SI(MOD-bp) 18.7 ml/m\S\2 SV(sp4-el) 51.0 ml SI(sp4-el) 24.6 ml/m\S\2 SV(sp2-el) 33.9 ml SI(sp2-el) 16.3 ml/m\S\2 Doppler Measurements and Calculations MV E max yadira 97.0 cm/sec MV A max yadira 72.8 cm/sec MV E/A 1.3 MV dec time 0.21 sec Ao V2 max 136.3 cm/sec Ao max PG 7.4 mmHg Ao max PG (full) 3.9 mmHg ADE(V,A) 2.2 cm\S\2 ADE(V,D) 2.2 cm\S\2 LV V1 max PG 3.5 mmHg LV V1 max 94.1 cm/sec PA V2 max 62.8 cm/sec PA max PG 1.6 mmHg PA acc slope 366.2 cm/sec\S\2 PA acc time 0.14 sec TR max yadira 288.8 cm/sec PA pr(Accel) 14.0 mmHg
[2017-02-11] MEDS: ROSUVASTATIN CALCIUM 20 MG TAB PO SCH (21:02)
[2017-02-12] VITALS (8 sets, daily range): BP systolic 131–163; BP diastolic 57–92; PULSE 52–68; TEMP 36.8; O2SAT 95–98
[2017-02-12 00:05] LABS: CALCIUM 8.1 mg/dl (8.5-10.1); CREATININE 1.06 mg/dl (0.60-1.20); POTASSIUM 3.7 mmol/L (3.5-5.1)
[2017-02-12] MEDS ORDERED: GADAVIST IV PRN (04:10)
[2017-02-12] MEDS: SODIUM CHLORIDE 0.9% 1000ML 1,000 ML IV SCH ×2 (05:45→11:28)
[2017-02-12 06:13] LABS: BASO % 0.3 %; BASO ABS # 0.02 K/uL (0-0.2); EOS ABS # 0.15 K/uL (0-0.5); HEMATOCRIT 32.9 % (37-47); HEMOGLOBIN 10.9 g/dL (12.0-16.0); IG# 0.01 K/uL (0.00-0.02); LYMPH ABS # 1.36 K/uL (1.2-3.4); MEAN CELL VOLUME 100.6 fL (80-100); MEAN CORPUSCULAR HEMOGLOBIN 33.3 pg (25-34); MEAN CORPUSCULAR HGB CONC 33.1 g/dl (32-36); MEAN PLATELET VOLUME 10.1 fL (7.4-10.4); MONO % 9.5 %; MONO ABS # 0.72 K/uL (0.11-0.59); NEUT % 70.1 %; NEUT ABS # 5.29 K/uL (1.4-6.5); PLATELET COUNT 150 K/uL (130-400); RED CELL DISTRIBUTION WIDTH CV 13.4 % (11.5-14.5); RED CELL DISTRIBUTION WIDTH SD 49.6 fL (36.4-46.3); WHITE BLOOD COUNT 7.55 K/uL (4.8-10.8)
[2017-02-12 06:27] LABS: CALCIUM 8.2 mg/dl (8.5-10.1); CREATININE 1.03 mg/dl (0.60-1.20)
[2017-02-12 06:35] LABS: HEMOGLOBIN A1C 6.7 % (4.5-5.6)
--- NOTE | 2017-02-12 07:50 | DIAGNOSTIC IMAGING REPORT ---
MR ANGIOGRAM OF THE NECK COMBO CLINICAL HISTORY: Stroke. Recent carotid surgery. COMPARISON STUDY: Carotid artery ultrasound dated 02/10/2017. CT imaging of the neck dated 11/17/2016. TECHNIQUE: Axial 3-D [id number] MR angiography of the neck is performed. Subsequently, following the IV administration of 9.6 cc of Gadavist. Coronal MR angiogram of the neck was performed to corroborate the findings. 3-D reformats are created and assessed. All measurements were calculated based on NASCET criteria. The Examination is degraded by motion artifact. FINDINGS: Visualized portions of the thoracic aorta are normal in caliber. The aortic arch demonstrates bovine variant anatomy. The subclavian arteries are widely patent bilaterally. Mild atherosclerotic irregularity is seen within the carotid bulbs and the proximal internal carotid arteries bilaterally. The right common carotid artery is widely patent, as are the right internal and external carotid arteries. The left common carotid artery is widely patent, as are the left internal and external carotid arteries. There is high-grade stenosis seen at the origin of the left vertebral artery. This was also seen by CT angiogram on 11/17/2016. The vertebral arteries are otherwise widely patent. The vertebral arteries are codominant. High-grade stenosis is again suggested in the distal left MCA. See report of MR angiogram performed yesterday for detailed intracranial findings. IMPRESSION: 1. The carotid arteries are patent. 2. High-grade stenosis is again seen at the origin of the left vertebral artery. The vertebral arteries are otherwise patent. Electronically signed by: Andrew Reese M.D. 02/12/2017 7:48 AM Dictated Date/Time: 02/12/2017 7:44 AM
[2017-02-12] MEDS: INSULIN ASPART 100 UNITS/ML 3 ML PEN SC SCH ×3 (07:51→16:00)
[2017-02-12] MEDS: CHOLECALCIFEROL 1000 INTER.UNIT TAB PO SCH (09:09)
[2017-02-12] MEDS: ASPIRIN 81 MG ECTAB PO SCH (09:09)
[2017-02-12] MEDS: FERROUS SULFATE 325 MG TAB PO SCH (09:09)
[2017-02-12] MEDS: DORZOLAMIDE HCL 2% OPH SOLN 10 ML BTL OPB SCH (09:09)
[2017-02-12] MEDS: CLONIDINE HCL 0.1 MG TAB PO SCH (09:09)
[2017-02-12] MEDS: LOSARTAN POTASSIUM 50 MG TAB PO SCH (09:09)
--- NOTE | 2017-02-12 09:17 | Medical Student: [facility] ---
Consultation Date of Consultation: Feb 12, 2017. History of Present Illness Patient is an 81 year old female who presents in the ICU post CVA secondary to right carotid endarterectomy for stenosis of right carotid artery performed yesterday. After the procedure she had developed slowed speech with expressive asphasia, some right sided weakness of the face and limbs. She has a medical history significant for diabetes, hyperlipidemia, sleep apnea, insulin dependent diabetes, and hypertension. She had a previous left sided stroke with dysarthria (and minor aphasia) and right sided weakness in her past. The patient's expressive aphasia makes it difficult to establish a prior history and a baseline. It is believed from our conversation that although she never achieved baseline after her first stroke, but she is still worse after this event yesterday than she was previously. She says that she has no known history of an atrial fibrillation diagnosis. She denies shortness of breath, palpitations, chest pain, fever, chills, nausea, vomiting. She does not smoke. Past Medical/Surgical History Medical History: Diabetes Hypertension Hyperlipidemia Hypothyroidism Surgical History: Right carotid endarterectomy Family History Hypertension Social History Smoking Status: Never Smoker History of Alcohol Use: No Drug Use: none Marital Status: Occupation Status: retired Review of Systems Constitutional: No fever, No chills Respiratory: No shortness of breath Cardiac: No chest pain Abdomen: No nausea, No vomiting Neurologic: No numbness/tingling Allergies Coded Allergies: Adhesives (Verified Allergy, Mild, SKIN GETS RED, SORE AND ITCHY, 02/10/17 ) Atorvastatin (Verified Adverse Reaction, Intermediate, GENERIC-SEVERE LEG CRAMPS NAUSEA NIGHTMARES, 02/10/17) CAN USE NAME BRAND LIPITOR Medications Current Inpatient Medications Medications (Trade) Dose Ordered Sig/Olaf Route Start Time Stop Time Status Last Admin Dose Admin Oxycodone/ Acetaminophen (Percocet 5-325mg Tab) FOR MODERATE PAIN ... Q4H PRN PO 02/10/17 10:30 02/24/17 10:29 Morphine Sulfate (MoRPHine SULFATE INJ) 4 mg Q4H PRN IV 02/10/17 10:30 02/24/17 10:29 Ondansetron HCl (Zofran Inj) 4 mg Q6H PRN IV 02/10/17 10:30 03/12/17 10:29 Aspirin (Ecotrin Tab) 81 mg QAM PO 02/11/17 08:00 03/13/17 07:59 02/11/17 09:00 81 MG Metoprolol Tartrate (Lopressor Iv) 5 mg Q10M PRN IV 02/10/17 10:30 03/12/17 10:29 Nitroglycerin/ Dextrose 250 ml @ 0 mls/hr Q0M PRN IV 02/10/17 10:21 03/12/17 10:20 Sodium Nitroprusside 50 mg/Dextrose 502 ml @ 0 mls/hr Q0M PRN IV 02/10/17 10:21 03/12/17 10:20 Phenylephrine HCl 20 mg/Dextrose 502 ml @ 0 mls/hr Q0M PRN IV 02/10/17 10:21 03/12/17 10:20 Enoxaparin Sodium (Lovenox Inj) 30 mg Q12@0800,2000 SQ 02/11/17 08:00 03/13/17 07:59 02/11/17 21:01 30 MG Acetaminophen (Tylenol Tab) 500 mg BID PRN PO 02/10/17 10:30 03/12/17 10:29 Cholecalciferol (Vitamin D Tab) 2,000 inter.unit QAM PO 02/11/17 09:00 03/13/17 08:59 02/11/17 09:26 2,000 INTER.UNIT Clonidine HCl (Catapres Tab) 0.1 mg BID PO 02/10/17 21:00 03/12/17 20:59 02/11/17 21:02 0.1 MG Dorzolamide HCl (Trusopt 2% Oph Soln) 1 drops BID OPB 02/10/17 21:00 03/12/17 20:59 02/11/17 21:01 1 DROPS Levothyroxine Sodium (Synthroid Tab) 100 mcg DAILYBB PO 02/11/17 06:00 03/13/17 05:59 02/11/17 09:24 100 MCG Losartan Potassium (coZAAR TAB) 100 mg QAM PO 02/11/17 09:00 03/13/17 08:59 02/11/17 09:25 100 MG Rosuvastatin Calcium (Crestor Tab) 20 mg HS PO 02/10/17 21:00 03/12/17 20:59 02/11/17 21:02 20 MG Ferrous Sulfate (Feosol Tab) 325 mg QAM PO 02/11/17 09:00 03/13/17 08:59 02/11/17 09:26 325 MG Hydrochlorothiazide (Hydrochlorothiazide Tab) 12.5 mg QAM PO 02/11/17 09:00 03/13/17 08:59 02/11/17 09:25 12.5 MG Polyethylene (Miralax Powder Packet) 17 gm DAILY PRN PO 02/10/17 10:30 03/12/17 10:29 Ergocalciferol (Vitamin D Cap) 50,000 interunit Q7D@0900 PO 02/11/17 09:00 03/13/17 08:59 02/11/17 09:25 50,000 INTERUNIT Sodium Chloride 1,000 ml @ 100 mls/hr Q10H IV 02/10/17 13:45 03/12/17 13:44 02/11/17 21:01 100 MLS/HR Miscellaneous Information (Consult Glycemic Management Pharmacy) 1 ea UD PRN N/A 02/10/17 16:11 03/12/17 16:10 Insulin Aspart (novoLOG ASPART) SLIDING SCALE ACHS SC 02/10/17 16:00 03/12/17 15:59 02/10/17 14:30 7 UNITS Glucose (Glucose 40% Gel) 15-30 GRAMS 15 GRAMS... UD PRN PO 02/10/17 16:15 03/12/17 16:14 Glucose (Glucose Chew Tab) 4-8 Tablets 4 Tabl... UD PRN PO 02/10/17 16:15 03/12/17 16:14 Dextrose (Dextrose 50% 50ML Syringe) 25-50ML OF 50% DW IV FOR... UD PRN IV 02/10/17 16:15 03/12/17 16:14 Glucagon (Glucagon Inj) 1 mg UD PRN SQ 02/10/17 16:15 03/12/17 16:14 Miscellaneous Information (Pharmacist Discharge Med Rec Consult) 1 ea UD PRN N/A 02/11/17 14:45 03/13/17 14:44 Gadobutrol (Gadavist) 9.6 mmol UD PRN IV 02/12/17 04:10 02/16/17 04:09 Physical Exam Date Time Temp Pulse Resp B/P (MAP) Pulse Ox O2 Delivery O2 Flow Rate FiO2 02/12/17 06:00 52 20 163/57 (92) 97 CPAP 02/12/17 04:00 95 Nasal Cannula 2.0 02/12/17 04:00 36.8 59 20 159/92 (114) 95 Nasal Cannula 2.0 02/12/17 00:01 36.8 54 20 131/66 (87) 98 CPAP 02/11/17 23:59 98 CPAP 02/11/17 22:00 59 20 160/79 (106) 95 CPAP 02/11/17 20:00 36.6 55 20 176/81 (112) 100 Nasal Cannula 2.0 02/11/17 20:00 100 Nasal Cannula 2.0 02/11/17 18:00 57 18 135/74 (94) 94 Room Air 02/11/17 16:00 Room Air 02/11/17 16:00 37.0 52 18 132/62 (85) 95 Room Air 02/11/17 14:00 50 16 159/71 (100) 100 Nasal Cannula 2.0 02/11/17 12:20 Room Air 02/11/17 12:20 36.8 53 16 146/72 (96) 93 Room Air 02/11/17 10:00 68 16 176/91 (119) 94 Room Air General Appearance: WD/WN, no apparent distress Eyes: bilateral eyes normal inspection, bilateral eyes PERRL, bilateral eyes EOMI ENT: hearing grossly normal, pharynx normal Respiratory: chest non-tender, normal breath sounds, no respiratory distress, no accessory muscle use Cardiovascular: regular rate, rhythm, no edema, no JVD, no murmur Musculoskeletal: normal tone, abnormal strength (weak (4-/5) in right lower extremity) Neurologic/Psychiatric: oriented x 3, + abnormal cerebellar tests (finger to nose testing was normal on the left and worse on the right with shakiness especially further away from herself), + aphasia, + facial droop (right sided), + motor weakness Skin: normal color, warm/dry, no rash, + pertinent finding (hematoma on right upper neck from cartoid endarterectomy) Neurological exam: Eyes: sclera and conjunctiva normal. Pupils were equal in size, round reactive to light and with normal accommodation. Extraocular movements were intact and no nystagmus was noted. Mental status: Drowsy - secondary to being woken up from sleep, attentive, and cooperative. Oriented to name and location, not time. She correctly identified the month and day but not the year. This seemed like a problem with dysphasia. Recent and historical memory not tested. Language - spontaneous slowed speech, with some expressive aphasia. Some word finding difficulties. Normal fluency, no paraphasic errors or neologisms or grammar errors present. Neglect, constructions, praxis not tested. Logic and abstraction tested and normal. Denied delusions and denied hallucinations. Crania nerves: 1 - olfaction not tested 2 - visual campuzano intact 3,4,6 - normal eye tracking to all directions 5 - normal sensation 7 - notable right sided facial droop on exam 8 - hearing grossly intact, some hearing difficulty however 9,10 - normal palatal elevation 11 - shoulder shrug 5/5 strength and equal bilaterally 12 - no tongue deviation on protrusion Reflexes - DTRs are 1+ in arms and legs bilaterally Motor strength - 5/5 on left arm, 4+/5 on right arm. 5/5 on left leg. 4-/5 on right leg - this related to either or both of the new and old stroke Sensation - normal to touch and vibration in bilateral arms and legs and normal touch in face Gait - not assessed. Nursing stated that she does much better with a walker as far as balance goes. Coordination - appears impaired. Right hand shaky on finger - to - nose testing - this may be secondary to weakness. impaired heel to spencer test bilaterally, may be secondary to lack of comprehension however. Laboratory Results Last 24 Hours Test 02/11/17 11:00 02/11/17 11:08 02/11/17 15:46 02/11/17 21:09 Urine Color YELLOW Urine Appearance CLEAR Urine pH 5.0 Urine Specific [place] 1.025 Urine Protein 1+ Urine Glucose (UA) NEG Urine Ketones NEG Urine Occult Blood NEG Urine Nitrite NEG Urine Bilirubin NEG Urine Urobilinogen NEG Urine Leukocyte Esterase MODERATE Urine WBC (Auto) 10-30 /hpf Urine RBC (Auto) 0-4 /hpf Urine Hyaline Casts (Auto) 1-5 /lpf Urine Epithelial Cells (Auto) >30 /lpf Urine Bacteria (Auto) NEG Bedside Glucose 107 mg/dl 88 mg/dl 110 mg/dl Test 02/11/17 23:23 02/12/17 05:34 02/12/17 05:35 Sodium Level 139 mmol/L 136 mmol/L Potassium Level 3.7 mmol/L 4.0 mmol/L Chloride Level 109 mmol/L 107 mmol/L Carbon Dioxide Level 23 mmol/L 25 mmol/L Anion Gap 7.0 mmol/L 4.0 mmol/L Blood Urea Nitrogen 23 mg/dl 22 mg/dl Creatinine 1.06 mg/dl 1.03 mg/dl Est Creatinine Clear Calc Drug Dose 50.5 ml/min 52.0 ml/min Estimated GFR () 57.4 59.5 Estimated GFR (Non- 49.6 51.3 BUN/Creatinine Ratio 21.4 21.5 Random Glucose 102 mg/dl 118 mg/dl Calcium Level 8.1 mg/dl 8.2 mg/dl White Blood Count 7.55 K/uL Red Blood Count 3.27 M/uL Hemoglobin 10.9 g/dL Hematocrit 32.9 % Mean Corpuscular Volume 100.6 fL Mean Corpuscular Hemoglobin 33.3 pg Mean Corpuscular Hemoglobin Concent 33.1 g/dl Platelet Count 150 K/uL Mean Platelet Volume 10.1 fL Neutrophils (%) (Auto) 70.1 % Lymphocytes (%) (Auto) 18.0 % Monocytes (%) (Auto) 9.5 % Eosinophils (%) (Auto) 2.0 % Basophils (%) (Auto) 0.3 % Neutrophils # (Auto) 5.29 K/uL Lymphocytes # (Auto) 1.36 K/uL Monocytes # (Auto) 0.72 K/uL Eosinophils # (Auto) 0.15 K/uL Basophils # (Auto) 0.02 K/uL RDW Standard Deviation 49.6 fL RDW Coefficient of Variation 13.4 % Immature Granulocyte % (Auto) 0.1 % Immature Granulocyte # (Auto) 0.01 K/uL Triglycerides Level 194 mg/dl Cholesterol Level 112 mg/dl HDL Cholesterol 47 mg/dl LDL Cholesterol, Calculated 26 mg/dl VLDL Cholesterol, Calculated 39 mg/dl Cholesterol/HDL Ratio 2.4 Bedside Glucose 122 mg/dl Lipid panel examined and with appropriate control of dyslipidemia on rosuvastatin 20 mg daily therapy. Assessment & Plan Impression: Patient is an 81 year old female who presents in the ICU post left parietal lobe ischemic stroke secondary to right carotid endarterectomy for stenosis of right carotid artery performed yesterday. After the procedure she had developed slowed speech with moderate-severe expressive aphasia, some right sided weakness of the face and limbs. Minor sensory deficiency as well, although this was difficult to determine per patient's aphasia. She has a medical history significant for diabetes, hyperlipidemia, hypertension, sleep apnea, hypothyroidism. A/P: left parietal lobe ischemic stroke vs. brain ischemia due to hypoperfusion during surgery -Secondary to surgery for highly stenosed right ICA and right carotid endarterectomy -There is no evidence of hypotension from anesthesia's monitoring of patients BP during the procedure, making ischemia secondary to hypoperfusion less likely -Continue 81 mg Aspirin daily; begin Plavix anticoagulation therapy when deemed appropriate post-procedure per surgery -Symptoms of right sided weakness in the arm and leg, as well as facial droop on the right side, with moderate-severe expressive asphasia - Recommend PT, OT, and speech therapy for patient's post-stroke symptoms of right sided motor weakness as well as moderate expressive asphasia - MRI results show new acute/subacute infarct within the left parietal lobe, and also a new ischemic change in the right centrum semiovale. There were also old infarcts noted per radiology- one in the bria and 1 in the left hemisphere left parietal lobe. -Rule out atrial fibrillation / arrhythmia as possible cause of event with cardiac monitoring in ICU or on outpatient basis Hypertension -Continue on hydrochlorothiazide 12.5 mg QAM and clonidine 0.1 mg BID -Continue monitoring with vigilance, as hypertension is the #1 modifiable risk factor for future stroke. 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 Patient is currently in goal (LDL less than 100 - her's is 26. Total cholesterol 100-200 - her's is 112) Hypothyroidism -continue 100 mcg Levothyroxine daily Sleep Apnea -Continue On CPAP with monitoring IDDM -Continue insulin regimen on outpatient basis as previously -Continue to monitor blood glucose and HbA1c for goal. HbA1c goal less than 7, as this is a risk factor for stroke. Neurology attending addendum: Patient was seen and evaluated with medical student. Please see my separate neurology consult note for full evaluation and recommendations. -Clara Hull,
--- NOTE | 2017-02-12 09:40 | Neurology Consultation ---
Neurology Consultation Date of Consultation: Feb 12, 2017. Attending Physician: Casper Ng M.D. Primary Care Physician: Maico Valencia M.D. Reason for Consultation: Consultation for new stroke History of Present Illness Source: patient, hospital records This is a 81-year-old female who presented for elective right endarterectomy for critical stenosis of right ICA. Patient was originally seen by myself in neurology consult in October 2016 for an acute patchy left parietal/occipital subacute strokes with signs of subacute bilateral cerebral ischemic strokes that was concerning for either cardioembolic versus large vessel embolic etiology. At that time of the patient was noted to have residual cognitive deficits, mild to moderate dysarthria, right facial droop, and also had bilateral PEs for which she was put on anticoagulation for. After surgery for right ICA critical stenosis, the patient was noted to have worsening expressive aphasia and right-sided weakness. Stroke alert was called and recommendations for MRI and MRA were made. Patient postoperation is on aspirin. MRI of the brain report and images reviewed by myself. The patient does have new acute to subacute left parietal lobe ischemic stroke and some tiny right scattered ischemic strokes in the area of the centrum semiovale ovale. 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 She notes some double vision which she reports was there previously. No significant headaches. Denies any new numbness. Operative records were reviewed and no signs of hypotensive event. Past Medical/Surgical History Medical Problems: (1) Abdominal pain Status: Acute (2) CVA (cerebral vascular accident) Status: Acute (3) Facial droop Status: Acute Acute patchy left parietal/occipital ischemic stroke in October 2016 along with signs of small subacute bilateral cerebral ischemic strokes with residual cognitive deficits, dysarthria, right facial droop, and incidental bilateral PEs noted on chest CT Hypertension Peripheral neuropathy with restless leg symptoms (previously on gabapentin and Valium) Dyslipidemia Hypothyroid Obstructive sleep apnea on CPAP Chronic pain, arthralgias, myalgias Depression History of breast cancer status post mastectomy Sensory neuronal hearing loss History of diabetes type 2 diet controlled Family History HTN, dementia Social History No tobacco use. Smoking Status: Never smoker Drug Use: none Marital Status: Housing Status: lives alone Occupation Status: retired Allergies Coded Allergies: Adhesives (Verified Allergy, Mild, SKIN GETS RED, SORE AND ITCHY, 02/10/17 ) Atorvastatin (Verified Adverse Reaction, Intermediate, GENERIC-SEVERE LEG CRAMPS NAUSEA NIGHTMARES, 02/10/17) CAN USE NAME BRAND LIPITOR Current Inpatient Medications Current Inpatient Medications Medications (Trade) Dose Ordered Sig/Olaf Route Start Time Stop Time Status Last Admin Dose Admin Aspirin (Ecotrin Tab) 81 mg QAM PO 02/11/17 08:00 03/13/17 07:59 02/11/17 09:00 81 MG Acetaminophen (Tylenol Tab) 500 mg BID PRN PO 02/10/17 10:30 03/12/17 10:29 Cholecalciferol (Vitamin D Tab) 2,000 inter.unit QAM PO 02/11/17 09:00 03/13/17 08:59 02/11/17 09:26 2,000 INTER.UNIT Clonidine HCl (Catapres Tab) 0.1 mg BID PO 02/10/17 21:00 03/12/17 20:59 02/11/17 21:02 0.1 MG Dorzolamide HCl (Trusopt 2% Oph Soln) 1 drops BID OPB 02/10/17 21:00 03/12/17 20:59 02/11/17 21:01 1 DROPS Levothyroxine Sodium (Synthroid Tab) 100 mcg DAILYBB PO 02/11/17 06:00 03/13/17 05:59 02/11/17 09:24 100 MCG Losartan Potassium (coZAAR TAB) 100 mg QAM PO 02/11/17 09:00 03/13/17 08:59 02/11/17 09:25 100 MG Rosuvastatin Calcium (Crestor Tab) 20 mg HS PO 02/10/17 21:00 03/12/17 20:59 02/11/17 21:02 20 MG Ferrous Sulfate (Feosol Tab) 325 mg QAM PO 02/11/17 09:00 1/12/18 08:59 02/11/17 09:26 325 MG Polyethylene (Miralax Powder Packet) 17 gm DAILY PRN PO 02/10/17 10:30 03/12/17 10:29 Ergocalciferol (Vitamin D Cap) 50,000 interunit Q7D@0900 PO 02/11/17 09:00 03/13/17 08:59 02/11/17 09:25 50,000 INTERUNIT Sodium Chloride 1,000 ml @ 100 mls/hr Q10H IV 02/10/17 13:45 03/12/17 13:44 02/11/17 21:01 100 MLS/HR Miscellaneous Information (Consult Glycemic Management Pharmacy) 1 ea UD PRN N/A 02/10/17 16:11 03/12/17 16:10 Insulin Aspart (novoLOG ASPART) SLIDING SCALE ACHS SC 02/10/17 16:00 03/12/17 15:59 02/10/17 14:30 7 UNITS Glucose (Glucose 40% Gel) 15-30 GRAMS 15 GRAMS... UD PRN PO 02/10/17 16:15 03/12/17 16:14 Glucose (Glucose Chew Tab) 4-8 Tablets 4 Tabl... UD PRN PO 02/10/17 16:15 03/12/17 16:14 Dextrose (Dextrose 50% 50ML Syringe) 25-50ML OF 50% DW IV FOR... UD PRN IV 02/10/17 16:15 03/12/17 16:14 Glucagon (Glucagon Inj) 1 mg UD PRN SQ 02/10/17 16:15 03/12/17 16:14 Miscellaneous Information (Pharmacist Discharge Med Rec Consult) 1 ea UD PRN N/A 02/11/17 14:45 03/13/17 14:44 Gadobutrol (Gadavist) 9.6 mmol UD PRN IV 02/12/17 04:10 02/16/17 04:09 Review of Systems Complete review of systems is otherwise negative except for the above noted in history of present illness Physical Exam Vital Signs (Past 24 Hrs): Date Time Temp Pulse Resp B/P (MAP) Pulse Ox O2 Delivery O2 Flow Rate FiO2 02/12/17 08:00 96 Nasal Cannula 2.0 02/12/17 06:00 52 20 163/57 (92) 97 CPAP 02/12/17 04:00 95 Nasal Cannula 2.0 02/12/17 04:00 36.8 59 20 159/92 (114) 95 Nasal Cannula 2.0 02/12/17 00:01 36.8 54 20 131/66 (87) 98 CPAP 02/11/17 23:59 98 CPAP 02/11/17 22:00 59 20 160/79 (106) 95 CPAP 02/11/17 20:00 36.6 55 20 176/81 (112) 100 Nasal Cannula 2.0 02/11/17 20:00 100 Nasal Cannula 2.0 02/11/17 18:00 57 18 135/74 (94) 94 Room Air 02/11/17 16:00 Room Air 02/11/17 16:00 37.0 52 18 132/62 (85) 95 Room Air 02/11/17 14:00 50 16 159/71 (100) 100 Nasal Cannula 2.0 02/11/17 12:20 Room Air 02/11/17 12:20 36.8 53 16 146/72 (96) 93 Room Air 02/11/17 10:00 68 16 176/91 (119) 94 Room Air Gen.: Patient is alert and sitting in bed, in no acute distress. HEENT: Normocephalic /atraumatic, no scleral icterus. Endarterectomy postop changes noted on the right Heart: Regular rate and rhythm Extremities: No gross deformities or rashes noted Neurological examination: Mental status: Patient is alert and oriented x3. Attention and concentration normal for the situation. Detailed history is somewhat limited due to expressive aphasia. mild to moderate dysarthria. Severe expressive aphasia Cranial nerve: Funduscopic examination was difficult to visualize. Pupils equally round and reactive to light. Extraocular muscles intact without nystagmus. Mild to moderate right lower facial droop. Facial sensation intact. Tongue is midline. Good palatal elevation. Good shoulder shrug bilaterally. Hearing globally decreased to voice. Strength: 5/5 both proximal and distally in all extremities with the exception of 4+/5 right upper extremity, 4/5 right hip flexion, and 4+/5 left hip flexion. There is no arm drift. Tone is normal. Sensation: Grossly intact to light touch in all extremities with the exception of altered sensation in the right lower extremity. Deep tendon reflexes: +1 in bilateral biceps, brachioradialis and patellar. Coordination: Patient had fair finger to nose without dysmetria. Appeared to be somewhat limited possibly secondary to weakness Station within the bed was normal Laboratory Results Past 24 Hours: 02/12/17 05:34 Red Blood Count 3.27, Mean Corpuscular Volume 100.6, Mean Corpuscular Hemoglobin 33.3, Mean Corpuscular Hemoglobin Concent 33.1, Mean Platelet Volume 10.1, Neutrophils (%) (Auto) 70.1, Lymphocytes (%) (Auto) 18.0, Monocytes (%) ( Auto) 9.5, Eosinophils (%) (Auto) 2.0, Basophils (%) (Auto) 0.3, Neutrophils # ( Auto) 5.29, Lymphocytes # (Auto) 1.36, Monocytes # (Auto) 0.72, Eosinophils # ( Auto) 0.15, Basophils # (Auto) 0.02 02/12/17 05:34 Test 02/11/17 11:00 02/12/17 05:34 02/12/17 05:35 Urine Color YELLOW Urine Appearance CLEAR (CLEAR) Urine pH 5.0 (4.5-7.5) Urine Specific [place] 1.025 (1.000-1.030) Urine Protein 1+ (NEG) Urine Glucose (UA) NEG (NEG) Urine Ketones NEG (NEG) Urine Occult Blood NEG (NEG) Urine Nitrite NEG (NEG) Urine Bilirubin NEG (NEG) Urine Urobilinogen NEG (NEG) Urine Leukocyte Esterase MODERATE (NEG) Urine WBC (Auto) 10-30 /hpf (0-5) Urine RBC (Auto) 0-4 /hpf (0-4) Urine Hyaline Casts (Auto) 1-5 /lpf (0-5) Urine Epithelial Cells (Auto) >30 /lpf (0-5) Urine Bacteria (Auto) NEG (NEG) White Blood Count 7.55 K/uL (4.8-10.8) Red Blood Count 3.27 M/uL (4.2-5.4) Hemoglobin 10.9 g/dL (12.0-16.0) Hematocrit 32.9 % (37-47) Mean Corpuscular Volume 100.6 fL (80-100) Mean Corpuscular Hemoglobin 33.3 pg (25-34) Mean Corpuscular Hemoglobin Concent 33.1 g/dl (32-36) Platelet Count 150 K/uL (130-400) Mean Platelet Volume 10.1 fL (7.4-10.4) Neutrophils (%) (Auto) 70.1 % Lymphocytes (%) (Auto) 18.0 % Monocytes (%) (Auto) 9.5 % Eosinophils (%) (Auto) 2.0 % Basophils (%) (Auto) 0.3 % Neutrophils # (Auto) 5.29 K/uL (1.4-6.5) Lymphocytes # (Auto) 1.36 K/uL (1.2-3.4) Monocytes # (Auto) 0.72 K/uL (0.11-0.59) Eosinophils # (Auto) 0.15 K/uL (0-0.5) Basophils # (Auto) 0.02 K/uL (0-0.2) RDW Standard Deviation 49.6 fL (36.4-46.3) RDW Coefficient of Variation 13.4 % (11.5-14.5) Immature Granulocyte % (Auto) 0.1 % Immature Granulocyte # (Auto) 0.01 K/uL (0.00-0.02) Anion Gap 4.0 mmol/L (3-11) Est Creatinine Clear Calc Drug Dose 52.0 ml/min Estimated GFR () 59.5 Estimated GFR (Non- 51.3 BUN/Creatinine Ratio 21.5 (10-20) Calcium Level 8.2 mg/dl (8.5-10.1) Triglycerides Level 194 mg/dl (0-150) Cholesterol Level 112 mg/dl (0-200) HDL Cholesterol 47 mg/dl LDL Cholesterol, Calculated 26 mg/dl VLDL Cholesterol, Calculated 39 mg/dl Cholesterol/HDL Ratio 2.4 Bedside Glucose 122 mg/dl (70-90) Imaging As noted above in history of present illness Impression This is a 81-year-old female who presented for elective endarterectomy of right ICA critical stenosis. Patient had had previous acute ischemic stroke in October involving patchy area of the left parietal/occipital area as well as small signs of subacute ischemic changes in the bilateral cerebral hemispheres. Patient now has new acute to subacute left parietal ischemic stroke and small scattered tiny ischemic changes in the area of the right centrum semiovale ovale. Residual neurological deficits include mild right hemiplegia and sensory changes, severe expressive aphasia, old right mild to moderate facial droop, and cognitive changes. Stroke etiology at this time is not clear. There is no reported events of hypotension that could cause hyperperfusion ischemic strokes in the setting of a left distal intercranial MCA high-grade stenosis. No known hypercoagulable state (although recent surgery could cause a prothrombotic state). No cardioembolic source is identified at this time. It is possible that the left distal intercranial MCA high-grade stenosis could've contributed to the patient' s acute left parietal territory ischemic stroke, but would not explain the tiny scattered ischemic changes on the right hemisphere. Known stroke risk factors include previous stroke, hypertension, dyslipidemia, diabetes type 2, and minor risk factor of obstructive sleep apnea (on CPAP). Plan Continue aspirin 81 mg daily. Recommend addition of Plavix 75 mg daily when cleared to do so by surgery for secondary stroke prevention. Aspirin plus Plavix is indicated in the setting of a high-grade intracranial distal MCA stenosis. Continue cardiac monitoring to rule out A. fib. If the patient is found to have A. fib, antiplatelet should be discontinued and anticoagulation initiated. At this time I do not have any indications for anticoagulation treatments in the setting of stroke prevention. If no cardiac arrhythmias are found while the patient is in hospital, could consider an outpatient Holter monitor or 30 day event monitor for further evaluation. Follow-up PT/OT and speech therapies for discharge planning. Blood pressure recommendations while in hospital 175/95-150/80 (or MAPs 90-110) Avoid hypotension and dehydration Stroke risk factor modifications and recommendations: Blood pressure recommendations for the first month post hospital discharge 150/ 90-130/80, and after that blood pressure recommendations 130/80-110/70 Total cholesterol goal 100- 200 and LDL goal less than 100 (at goal) Hemoglobin A1c goal less than 7 (at goal) Encourage exercise at least 3 times a week for 30 minutes. Follow-up in neurology clinic in 1 month for post stroke hospital follow-up. If there is any questions or concerns, feel free to call/page me.
[2017-02-12] MEDS ORDERED: NURSING VERBAL MED ORDER ONE (11:30)
--- NOTE | 2017-02-12 14:25 | Progress Note ---
Progress Note Date of Service: Feb 12, 2017. Subjective 81 yo f with multiple medical problems, including CVA with residual cognitive and aphasia, POD #2 after R CEA, seen in f/u today. Pt states feeling ok, just tired and mild neck pain at incision. Problem List Medical Problems: (1) Abdominal pain Status: Acute (2) CVA (cerebral vascular accident) Status: Acute (3) Facial droop Status: Acute Objective Vital Signs Vital Signs Past 12 Hours Date Time Temp Pulse Resp B/P (MAP) Pulse Ox O2 Delivery O2 Flow Rate FiO2 02/12/17 14:01 68 20 96 Room Air 02/12/17 12:00 Nasal Cannula 2.0 02/12/17 12:00 59 20 148/72 (97) 96 Room Air 02/12/17 10:21 66 22 95 Room Air 02/12/17 08:00 Room Air Nasal Cannula CPAP 02/12/17 08:00 96 Nasal Cannula 2.0 02/12/17 08:00 64 18 152/72 (98) 95 Room Air 02/12/17 06:00 52 20 163/57 (92) 97 CPAP 02/12/17 04:00 95 Nasal Cannula 2.0 02/12/17 04:00 36.8 59 20 159/92 (114) 95 Nasal Cannula 2.0 Exam CONST: A&O x3, NAD, mildly chronically ill appearing female. Mild aphasia NECK: R neck + local tenderness/ecchymosis, soft. No erythema or discharge CHEST: irregular lungs decreased, but ctab ABD: soft, nontender, + bs x 4 quad NEURO: mild aphasia, mild r sided weakness, chronic Intake & Output 8-Hour Column 02/12/17 02/12/17 02/13/17 15:59 23:59 07:59 Intake Total 955 ml Output Total 400 ml Balance 555 ml 24-Hour Column 02/13/17 07:59 Intake Total 955 ml Output Total 400 ml Balance 555 ml Laboratory and Microbiology Results Past 24 Hours Test 02/11/17 15:46 02/11/17 21:09 02/11/17 23:23 02/12/17 05:34 Range/Units Bedside Glucose 88 110 70-90 mg/dl Sodium Level 139 136 136-145 mmol/L Potassium Level 3.7 4.0 3.5-5.1 mmol/L Chloride Level 109 107 98-107 mmol/L Carbon Dioxide Level 23 25 21-32 mmol/L Anion Gap 7.0 4.0 3-11 mmol/L Blood Urea Nitrogen 23 22 7-18 mg/dl Creatinine 1.06 1.03 0.60-1.20 mg/dl Est Creatinine Clear Calc Drug Dose 50.5 52.0 ml/min Estimated GFR () 57.4 59.5 Estimated GFR (Non- 49.6 51.3 BUN/Creatinine Ratio 21.4 21.5 10-20 Random Glucose 102 118 70-99 mg/dl Calcium Level 8.1 8.2 8.5-10.1 mg/dl White Blood Count 7.55 4.8-10.8 K/uL Red Blood Count 3.27 4.2-5.4 M/uL Hemoglobin 10.9 12.0-16.0 g/dL Hematocrit 32.9 37-47 % Mean Corpuscular Volume 100.6 80-100 fL Mean Corpuscular Hemoglobin 33.3 25-34 pg Mean Corpuscular Hemoglobin Concent 33.1 32-36 g/dl Platelet Count 150 130-400 K/uL Mean Platelet Volume 10.1 7.4-10.4 fL Neutrophils (%) (Auto) 70.1 % Lymphocytes (%) (Auto) 18.0 % Monocytes (%) (Auto) 9.5 % Eosinophils (%) (Auto) 2.0 % Basophils (%) (Auto) 0.3 % Neutrophils # (Auto) 5.29 1.4-6.5 K/uL Lymphocytes # (Auto) 1.36 1.2-3.4 K/uL Monocytes # (Auto) 0.72 0.11-0.59 K/uL Eosinophils # (Auto) 0.15 0-0.5 K/uL Basophils # (Auto) 0.02 0-0.2 K/uL RDW Standard Deviation 49.6 36.4-46.3 fL RDW Coefficient of Variation 13.4 11.5-14.5 % Immature Granulocyte % (Auto) 0.1 % Immature Granulocyte # (Auto) 0.01 0.00-0.02 K/uL Triglycerides Level 194 0-150 mg/dl Cholesterol Level 112 0-200 mg/dl HDL Cholesterol 47 mg/dl LDL Cholesterol, Calculated 26 mg/dl VLDL Cholesterol, Calculated 39 mg/dl Cholesterol/HDL Ratio 2.4 Test 02/12/17 05:35 Range/Units Bedside Glucose 122 70-90 mg/dl ASSESSMENT and PLAN: s/p R CEA RICAS Hx CVA Pt doing well post op. OK for d/c home with home nursing.
[2017-02-12] MEDS ORDERED: ULT50X PO (14:31)
--- NOTE | 2017-02-12 14:33 | Discharge Instructions ---
Discharge Instructions Date of Service Feb 12, 2017. Admission Reason for Admission: Right Internal Carotid Artery Stenosis Discharge Discharge Diagnosis / Problem: post RIGHT CAROTID ENDARTERECTOMY Discharge Goals Goal(s): Therapeutic intervention, Prevent Disease Progression Activity Recommendations Activity Limitations: per Instructions/Follow-up section . Instructions / Follow-Up Instructions / Follow-Up SPECIAL CARE INSTRUCTIONS: Medications: * Continue to take Aspirin as directed. Incision Care: * You may shower, but do not rub incision. You may let the warm soapy water run over it. Be sure to dry the incision well after bathing. * Do not shave directly over the incision until it is healed. * DO NOT IMMERSE THE INCISION IN A TUB/POOL/etc. UNTIL HEALED. Restrictions: * Do not drive for at least one week or if you are still taking any narcotic pain medication. * Do not lift anything heavier than a gallon of milk for one week after going home. Possible Complications: * Numbness - It is normal to have some numbness around the incision. Numbness can extend beyond the incision to areas of the neck, ear and face. The numbness is due to bruising of nerves during the surgery and will gradually improve over a period of months. * Hoarseness/Difficulty Speaking and Swallowing - The bruising of nerves in the neck can also cause a hoarse voice, difficulty speaking or swallowing. This may improve over time, HOWEVER, if it continues for more than a few days please contact our office ([phone]). * Excessive Swelling - There will be some swelling immediately after surgery which usually resolves within one week. If you notice that the swelling is getting worse, notify your surgeon ([phone]). * Drainage/Bleeding - If there is any drainage or bleeding, it should be a very small amount (less than a teaspoon per day). If you have excessive bleeding or drainage from the incision, call your surgeon ([phone]) right away. ACTIVATION OF EMERGENCY MEDICAL SYSTEM: Call 911, immediately, if you experience any of the following: Warning Signs and Symptoms of Stroke: * Sudden numbness or weakness of the face, arm or leg, especially on one side of the body * Sudden confusion, trouble speaking or understanding * Sudden trouble seeing in one or both eyes * Sudden trouble walking, dizziness, loss of balance or coordination * Sudden severe headache with no cause Do not delay calling 911 if you experience any warning signs or symptoms of a stroke. Delay in seeking medical attention may affect what treatments can be given to you. Risk Factors for Stroke: You can reduce your chances of stroke by working with your medical provider to adopt a healthy lifestyle. Some specific ways to lower your chance of stroke are: * If you are a smoker, now is the time to stop smoking cigarettes * If you are diabetic, improve the control of your blood sugars * Avoid excessive amounts of alcohol * Control high blood pressure * Lose weight if you are overweight * Be sure to lead an active lifestyle * Eat a healthy diet low in salt, cholesterol and fat You should know about other risk factors for stroke that you are unable to control. These include: * Age 55 years or older * Male gender * Certain racial groups: , or / * Family History of Stroke, Mini stroke or Heart Attack * Sickle Cell Disease You will be receiving a call from the Vascular Surgery Nurse after you are discharged. FOLLOW UP VISIT: It is important for you to keep your follow up appointments with your medical provider. Keep any scheduled doctor appointments. Current Hospital Diet Patient's current hospital diet: AHA Diet (Heart Healthy), Diabetes Type 1 Diet Discharge Diet Recommended Diet: AHA Diet (Heart Healthy), Diabetes Type 1 Diet Procedures Procedures Performed: Right Carotid Endarterectomy with Patch Pending Studies Studies pending at discharge: no Laboratory Results Hemoglobin A1c Test 02/10/17 21:55 Range/Units Estimated Average Glucose 146 mg/dl Hemoglobin A1c 6.7 H 4.5-5.6 % Lipid Panel Test 02/12/17 05:34 Range/Units Triglycerides Level 194 H 0-150 mg/dl Cholesterol Level 112 0-200 mg/dl HDL Cholesterol 47 mg/dl Cholesterol/HDL Ratio 2.4 LDL Cholesterol, Calculated 26 mg/dl Medical Emergencies . Who to Call and When: Medical Emergencies: If at any time you feel your situation is an emergency, please call 911 immediately. . Non-Emergent Contact Non-Emergency issues call your: Surgeon . "Provider Documentation" section prepared by Fabby Alejandre. . VTE Core Measure Inpt VTE Proph given/why not?: Enoxaparin (Lovenox) [place] Drug Monitoring Program Search Results: patient reviewed within database, no issues identified
--- NOTE | 2017-02-12 16:20 | Pharmacy Progress Note ---
Pharmacist Stroke Counseling Date of Service Feb 12, 2017. Scope Pharmacy has been consulted to provide medication discharge counseling for this patient admitted with ischemic stroke as per the Pharmacist Discharge Counseling for Stroke Patients Protocol. Medications on Discharge New Medications: Tramadol HCl (Tramadol HCl) 50 Mg Tab 1 TAB PO Q6 PRN for Pain, #10 Continued Medications: Acetaminophen (Tylenol) 500 Mg Tab 500 MG PO BID PRN for Pain, TAB Apixaban (Eliquis) 5 Mg Tab 5 MG PO QAM, TAB Aspirin (Aspirin Chewable) 81 Mg Chew 81 MG PO QAM Cholecalciferol (Vitamin D3) 1,000 Inter.unit Tab 2000 INTER.UNIT PO QAM, #30 TAB Clonidine Hcl (Catapres) 0.1 Mg Tab 0.1 MG PO BID, TAB Dorzolamide Hcl (Trusopt Oph) 2 % [place] 1 DROPS OPB BID, ML 3 Refills Ferrous Sulfate (Kp Ferrous Sulfate) 325 Mg Tab 1 TAB PO QAM, TAB Hydrochlorothiazide (Hydrochlorothiazide) 12.5 Mg Tab 1 TAB PO QAM, TAB Levothyroxine Sodium (Levothyroxine Sodium) 100 Mcg Tab 1 TAB PO QAM, TAB 3 Refills Losartan Potassium (Cozaar) 100 Mg Tab 100 MG PO QAM, TAB Polyethylene Glycol 3350 (Miralax) 1 Pow Pow 17 GM PO DAILY PRN for Constipation, GM Rosuvastatin Calcium (Crestor) 20 Mg Tab 20 MG PO HS, TAB [Vitamin D2] () 42964 INTER.UNIT PO WK Discontinued Medications: Enoxaparin (Enoxaparin Sodium) 40 Mg/0.4 Ml Inj 40 MG SC DAILY Action The above medications, specifically ones for stroke treatment/prophylaxis, have been reviewed in detail with the patient event sales representative(s) prior to discharge. This includes indication, common adverse reactions, drug interactions, and medication administration. Medication counseling has been employed using the teach-back method to ensure understanding. Outcome The patient event sales representative(s) have demonstrated understanding of the medications. Please note, they are aware that the pharmacist will call them within 72 hours post-discharge to confirm that the appropriate medications are being taken and answer any further medication related questions the patient might have at that time. Contact information Individual to be contacted: Ozzie Relationship to patient : Son Phone number: [phone] Best time to call: Please call friday 02/16 after 3pm Additional comments: Spoke with the patient's son Ozzie. He said he has learned a lot about stroke over the past few months while caring for his mother. He verbalized understanding of the medications and is aware we will be contacting him on Thursday. Thank you for allowing pharmacy to be involved in the care of this patient. Please call [phone] or [phone] with any additional questions
--- NOTE | 2017-02-12 16:31 | Critical Care Progress Note ---
Critical Care Progress Note Date of Service Feb 12, 2017. Attending Dr. Henderson Subjective The patient has no issues overnight. Her slurred speech has improved today in the morning. She continued to have right-sided paresis and weakness. No dysphagia or cough with a swallowing. Denies any discomfort or pain. Does not appear to be emotional as she did yesterday. The rest of her review of system was unremarkable. Objective On 02/11/2017, patient continued to have weakness of the right upper extremity 3 over 5, similar in the right lower extremity as well. Facial droop has not changed to my exam. Patient has no stridor, she is having difficulty finding her words. Appeared to be expressive aphasia. According to the nursing staff this was her baseline in the past. The patient had no JVP, S1-S2 regular rate and rhythm, still breath sounds bilaterally, abdomen is benign with edema in the periphery affecting also like approximately. On 02/12/2017, the patient's physical exam has not changed significantly. Her vital signs are stable. Right-sided facial droop. Weakness of the right upper extremity and lower extremity. Edema in the lower extremities as well as the right upper extremity. Lungs are clear, heart examination S1-S2 regular rate and rhythm, abdomen is soft and benign. Current SOFA Score SOFA Score Response (Comments) Value PaO2/FiO2 (mmHg) < 400 1 SaO2 / FIO2 221 - 301 1 Platelets (x10) > 150 0 Bilirubin (mg/dL) < 1.2 0 [place] Coma Score 15 0 Level of Hypotension No Hypotension 0 Creatinine (mg/dL) < 1.2 0 Total 2 Assessment & Plan #1 left parietal CVA. Right-sided weakness. Acute on subacute. #2 carotid end arterectomy on the right side. #3 diabetes mellitus. #4 history of hypertension. Plan: #1 continue current treatment. #2 add Plavix if agreeable by vascular surgery. #3 appreciate all consults. #4 oral intake. #5 ambulate. #6 discussed with the staff on rounds and details. Patient can be transferred to regular floor. Thank you Consults & Procedures Consultants: Neurology Procedures: MRI and MRA of the head Data I & O: 24-Hour Column 02/13/17 08:00 Intake Total 955 ml Output Total 400 ml Balance 555 ml Vital Signs: Date Time Temp Pulse Resp B/P (MAP) Pulse Ox O2 Delivery O2 Flow Rate FiO2 02/12/17 15:23 36.8 68 20 96 Room Air 02/12/17 14:01 68 20 96 Room Air 02/12/17 12:00 Nasal Cannula 2.0 02/12/17 12:00 59 20 148/72 (97) 96 Room Air 02/12/17 10:21 66 22 95 Room Air 02/12/17 08:00 Room Air Nasal Cannula CPAP 02/12/17 08:00 96 Nasal Cannula 2.0 02/12/17 08:00 64 18 152/72 (98) 95 Room Air 02/12/17 06:00 52 20 163/57 (92) 97 CPAP 02/12/17 04:00 95 Nasal Cannula 2.0 02/12/17 04:00 36.8 59 20 159/92 (114) 95 Nasal Cannula 2.0 02/12/17 00:01 36.8 54 20 131/66 (87) 98 CPAP 02/11/17 23:59 98 CPAP 02/11/17 22:00 59 20 160/79 (106) 95 CPAP 02/11/17 20:00 36.6 55 20 176/81 (112) 100 Nasal Cannula 2.0 02/11/17 20:00 100 Nasal Cannula 2.0 02/11/17 18:00 57 18 135/74 (94) 94 Room Air Laboratory Results: Last 24 Hours Test 02/11/17 21:09 02/11/17 23:23 02/12/17 05:34 02/12/17 05:35 Bedside Glucose 110 mg/dl 122 mg/dl Sodium Level 139 mmol/L 136 mmol/L Potassium Level 3.7 mmol/L 4.0 mmol/L Chloride Level 109 mmol/L 107 mmol/L Carbon Dioxide Level 23 mmol/L 25 mmol/L Anion Gap 7.0 mmol/L 4.0 mmol/L Blood Urea Nitrogen 23 mg/dl 22 mg/dl Creatinine 1.06 mg/dl 1.03 mg/dl Est Creatinine Clear Calc Drug Dose 50.5 ml/min 52.0 ml/min Estimated GFR () 57.4 59.5 Estimated GFR (Non- 49.6 51.3 BUN/Creatinine Ratio 21.4 21.5 Random Glucose 102 mg/dl 118 mg/dl Calcium Level 8.1 mg/dl 8.2 mg/dl White Blood Count 7.55 K/uL Red Blood Count 3.27 M/uL Hemoglobin 10.9 g/dL Hematocrit 32.9 % Mean Corpuscular Volume 100.6 fL Mean Corpuscular Hemoglobin 33.3 pg Mean Corpuscular Hemoglobin Concent 33.1 g/dl Platelet Count 150 K/uL Mean Platelet Volume 10.1 fL Neutrophils (%) (Auto) 70.1 % Lymphocytes (%) (Auto) 18.0 % Monocytes (%) (Auto) 9.5 % Eosinophils (%) (Auto) 2.0 % Basophils (%) (Auto) 0.3 % Neutrophils # (Auto) 5.29 K/uL Lymphocytes # (Auto) 1.36 K/uL Monocytes # (Auto) 0.72 K/uL Eosinophils # (Auto) 0.15 K/uL Basophils # (Auto) 0.02 K/uL RDW Standard Deviation 49.6 fL RDW Coefficient of Variation 13.4 % Immature Granulocyte % (Auto) 0.1 % Immature Granulocyte # (Auto) 0.01 K/uL Triglycerides Level 194 mg/dl Cholesterol Level 112 mg/dl HDL Cholesterol 47 mg/dl LDL Cholesterol, Calculated 26 mg/dl VLDL Cholesterol, Calculated 39 mg/dl Cholesterol/HDL Ratio 2.4
[2017-02-13] MEDS ORDERED: NON-FORMULARY MEDICATION (Apixaban (Eliquis) 5 MG) PO SCH (09:00)
--- NOTE | 2017-02-16 17:22 | Pharmacy Progress Note ---
Pharmacist Post D/C Phone Note Date of phone call: Feb 16, 2017. Individual with whom pharmacist spoke to: Ozzie, patient's son I had the pleasure of speaking with Ozzie. He is concerned about his mother's speech and notes she is having a hard time speaking. She had her first speech therapy session today. She has appointments scheduled with Dr. Ng in early march and her primary care in April. He had no questions or concerns regarding his mother's medication therapy or post-discharge care. Per request of the caregiver, this phone call has been completed outside the 72 hour discharge window as stated by the Pharmacist Discharge Counseling for Stroke Patients Protocol. Thank you for allowing us to be involved in the care of this patient.
--- NOTE | 2017-02-17 11:23 | DISCHARGE SUMMARY ---
ADMISSION DIAGNOSIS: Severe right internal carotid artery stenosis. DISCHARGE DIAGNOSES: 1. Status post right carotid endarterectomy. 2. Severe right internal carotid artery stenosis. DISCHARGE CONDITION: Stable. CONSULTATIONS DONE IN THE HOSPITAL: Included critical care and neurology. PROCEDURES IN THE HOSPITAL: Included her right carotid endarterectomy performed on 02/10/2017 with an EBL of 150 mL and no significant complications. HISTORY OF PRESENT ILLNESS: Mr. Bui is an 81-year-old female who presented to [facility] approximately 2 months prior to this with aphasia, right facial droop, difficulty word finding and right-sided weakness. She was found to have had a left hemispheric CVA at that time. Upon workup, she was noted to have a severe stenosis of her right internal carotid artery and was recommended to follow up with Dr. Ng as an outpatient to discuss possible right CEA due to over 90% stenosis. By the time the patient came to the office 2 weeks later, she had had significant improvement in her symptoms, still occasionally having some word finding difficulty and some very mild right-sided weakness. At that time, she was recommended to undergo the carotid endarterectomy on the right side to minimize her risk of further CVA. The procedure, risks, benefits, and alternatives were discussed with the patient and her son who was also present. The patient expressed understanding and agreement to proceed. HOSPITAL COURSE: The patient was admitted on 02/10/2017 after undergoing her right carotid endarterectomy. At that time, this was performed without significant complications and the patient did essentially well throughout. Postoperatively, there was some concern whether the patient's old CVA symptoms had possibly worsened, and she was reevaluated for possible new CVA. Imaging performed demonstrated no significant changes in the CT of the head as well as a carotid ultrasound. These are essentially normal for postop. She continued to improve postoperatively in the next 1-2 days and was felt to be stable enough for discharge on postop day 2. PHYSICAL EXAMINATION: VITAL SIGNS: On day of discharge, her vital signs were as follows: Temperature of 36.8, pulse of 68, respiratory rate of 20, blood pressure 148/72, pulse oximetry 96% on room air. CONSTITUTIONAL: In general, the patient is a mildly chronically ill appearing elderly female in no acute distress. She ambulates slowly, but without assistance and is active, alert and oriented x3. HEAD: Normocephalic and atraumatic. EYES: EOMI. ENMT: Demonstrated no hearing loss, rhinorrhea or pharyngeal erythema. NECK: Supple, nontender with a midline trachea without masses or crepitus. The patient's right-sided carotid endarterectomy site has some soft local ecchymosis, but is essentially dry. There is no erythema noted. Trachea is midline. LUNGS: Demonstrated no dyspnea. They are decreased throughout, but clear bilaterally. CARDIOVASCULAR: Demonstrated nondisplaced apical impulse with a regular rate and rhythm. Peripheral pulses are full and equal in all extremities unless otherwise noted, specifically they were normal in her carotid, brachial, radial, and femoral pulses. Lower extremity distal pulses are +2. She had brisk capillary refill and no sign of distal ischemia. ABDOMEN: Soft, nontender with normoactive bowel sounds in all 4 quadrants without guarding or rebound. There is no flank or CVA tenderness. EXTREMITIES: Bilateral upper extremities demonstrate no cyanosis, edema, clubbing, varicosities or ulcers. Bilateral lower extremities demonstrate no cyanosis, edema, clubbing, varicosities or ulcers. NEUROLOGIC: Exam does demonstrate some mild right-sided hand weakness as well as some mild right-sided facial droop and some difficulty with word finding, although she does seem to be appropriate. Otherwise, there were no other focal deficits. DIET UPON DISCHARGE: Should be a low-cholesterol AHA diet. MEDICATIONS: Reconciled on the chart and are as per her discharge instructions. FOLLOWUP: Should be with Dr. Ng or his PA, Fabby Alejandre within 2 weeks for reevaluation of her surgical site. She is advised to call the office with any other questions.
--- NOTE | 2017-03-08 11:52 | EDITING REQUIRED CODING QUERY ---
CODING QUERY To promote full compliance with coding requirements relating to patient care, provider participation is requested in all cases of sign hanger supervisor uncertainty. Please assist us with the question(s) below: Coding Question(s): Dr. Gutierrez, In order to code the endarterectomy procedure correctly, the following information is needed: Vessel(s) on which the endarterectomy procedure was performed (select all that apply): ( ) Right common carotid artery Bifurcation ( x ) yes ( ) no ( ) Right external carotid artery Bifurcation ( ) yes ( ) no ( ) Right internal carotid artery Bifurcation ( x ) yes ( ) no Location of the patch (select all that apply): ( x ) Right common carotid artery ( ) Right external carotid artery ( x ) Right internal carotid artery Material of the patch: ( ) Autologous tissue substitute ( ) Nonautologous tissue (includes bioengineered, zooplastic, etc.) (x ) Synthetic substitute (e.g. Dacron, Gortext, PTFE, etc.) Physician's Response(s): Thank you for your time, SHASTA Ramirez, PROPAGATION MANAGER
== END 2017-02-12 16:21 | disposition home health service (06) | DRG 37 ==
LOC: C.ACU 05:33 → C.MSICU 10:25 → ENRESERV 11:03
PROVIDERS: ADMIT Surgery Vascular Surgery; ATTEND Surgery Vascular Surgery
PROC: 03CH0Z6 (ICD-10-PCS; principal; 2017-02-10 07:30)
PROC: 03CK0Z6 (ICD-10-PCS; principal; 2017-02-10 07:30)
PROC: 03UK0JZ Supplement Right Internal Carotid Artery with Synthetic Substitute, Open Approach (ICD-10-PCS; principal; 2017-02-10 07:30)
PROC: 03UH0JZ Supplement Right Common Carotid Artery with Synthetic Substitute, Open Approach (ICD-10-PCS; principal; 2017-02-10 07:30)
DX: I65.21 Occlusion and stenosis of right carotid artery (principal); I63.8 Other cerebral infarction; I69.351 Hemiplegia and hemiparesis following cerebral infarction affecting right dominant side; I65.02 Occlusion and stenosis of left vertebral artery; R47.01 Aphasia; R60.0 Localized edema; T88.8XXA Other specified complications of surgical and medical care, not elsewhere classified, initial encounter; Y71.0 Diagnostic and monitoring cardiovascular devices associated with adverse incidents; Y92.239 Unspecified place in hospital as the place of occurrence of the external cause; I69.328 Other speech and language deficits following cerebral infarction; I69.392 Facial weakness following cerebral infarction; I10 Essential (primary) hypertension; E11.42 Type 2 diabetes mellitus with diabetic polyneuropathy; E03.9 Hypothyroidism, unspecified; E78.5 Hyperlipidemia, unspecified; G89.29 Other chronic pain; H90.5 Unspecified sensorineural hearing loss; F32.9 Major depressive disorder, single episode, unspecified; G47.33 Obstructive sleep apnea (adult) (pediatric); Z99.89 Dependence on other enabling machines and devices; Z79.01 Long term (current) use of anticoagulants; Z79.82 Long term (current) use of aspirin; Z79.899 Other long term (current) drug therapy

== ENCOUNTER → 2017-04-07 | Outpatient (CLI) | payer BC, OTHER ==
[~2017-04-07] MED LIST changes: +ULT50X PO
== END | disposition home or self-care (01) ==
LOC: C.RDSM 15:26
PROVIDERS: ATTEND Orthopaedic Surgery
DX: M79.605 Pain in left leg (principal)

== ENCOUNTER → 2017-06-16 | Outpatient (CLI) | payer BC, OTHER ==
[2017-06-17 06:44] LABS: HEMOGLOBIN A1C 6.5 % (4.5-5.6)
== END | disposition home or self-care (01) ==
LOC: C.LAB1850 15:00
PROVIDERS: ATTEND Internal Medicine
DX: E11.9 Type 2 diabetes mellitus without complications (principal)

== ENCOUNTER → 2017-09-18 | Outpatient (CLI) | payer BC, OTHER ==
[~2017-09-18] MED LIST changes: -DORZ2SOL17 OPB; +DORZ2SOL19 OPB
[2017-09-18 14:47] LABS: BASO % 0.5 %; BASO ABS # 0.03 K/uL (0-0.2); EOS % 1.5 %; HEMATOCRIT 39.7 % (37-47); HEMOGLOBIN 13.1 g/dL (12.0-16.0); IG# 0.01 K/uL (0.00-0.02); LYMPH % 46.8 %; LYMPH ABS # 3.03 K/uL (1.2-3.4); MEAN CELL VOLUME 97.1 fL (80-100); MEAN PLATELET VOLUME 10.4 fL (7.4-10.4); MONO ABS # 0.58 K/uL (0.11-0.59); NEUT ABS # 2.72 K/uL (1.4-6.5); PLATELET COUNT 166 K/uL (130-400); RED CELL DISTRIBUTION WIDTH CV 13.5 % (11.5-14.5); RED CELL DISTRIBUTION WIDTH SD 48.1 fL (36.4-46.3); WHITE BLOOD COUNT 6.47 K/uL (4.8-10.8)
[2017-09-18 15:08] LABS: BLOOD UREA NITROGEN 41 mg/dl (7-18); CALCIUM 9.1 mg/dl (8.5-10.1); CARBON DIOXIDE 26 mmol/L (21-32); CREATININE 1.77 mg/dl (0.60-1.20); GLUCOSE 109 mg/dl (70-99); POTASSIUM 4.4 mmol/L (3.5-5.1); SODIUM 138 mmol/L (136-145)
== END | disposition home or self-care (01) ==
LOC: C.LAB1850 13:45
PROVIDERS: ATTEND Internal Medicine
DX: E11.9 Type 2 diabetes mellitus without complications (principal)

== ENCOUNTER 2020-08-19 20:11 | Inpatient (IN) ==
[2020-08-19] MEDS ORDERED: SODIUM CHLORIDE 0.9% 1000ML 1,000 ML IV STA (20:35)
[2020-08-19] MEDS ORDERED: SODIUM CHLORIDE 0.9% 500 ML IV SCH (20:45)
[2020-08-19] MEDS ORDERED: LORazepam 1 MG TAB SL STA (20:48)
--- NOTE | 2020-08-19 20:48 | Emergency Department Note ---
Impression & Plan Right lateral abdominal pain, Hypertension, Cholelithiasis, Biliary sludge ED Provider Note INFORMANT: Patient ED PROVIDER(S): Toi Schultz MD CHIEF COMPLAINT: Abdominal pain PLAN: Disposition: Admitted Condition: Good Outpatient prescription management: none Referral: None MEDICAL DECISION MAKING: Patient presented with vague complaints of abdominal pain at she seemed to localize more to the right side. She was given Toradol prior to arrival. She had a work-up obtained. She was very anxious. She was hydrated. She was given a dose of Ativan and this did help her anxiety. Her ECG was normal. CBC and chemistry panel was unremarkable. She has baseline renal insufficiency. Her LFTs were unremarkable. The patient was significantly hypertensive. She did not take her evening blood pressure medications but states she did take her morning medications. She was given 5 mg of IV hydralazine. CT imaging did not reveal any acute process but stones were seen in the gallbladder. The patient was sent for ultrasound imaging. Her blood pressure was improved but still hy pertensive after the hydralazine. She was found to have sludge and stones within the gallbladder including a stone within the gallbladder neck that was nonmobile. No wall thickening or pericholecystic fluid. The patient has sludge and a stone in the neck with complaints of pain. She is not doing well at home with this. The gallbladder may be the cause of the issues however further work- up is necessary. Consultation was made with Dr. Lazarus Sumner of the [facility] service. Patient was evaluated in the ER for further management. Triage Nursing notes reviewed and agree them. Vital Signs: reviewed and remarkable for severe hypertension Differential diagnosis: Appendicitis, cardiac sources, infections, diverticulitis, UTI, obstruction, mesenteric ischemia, aortic pathology, inflammatory bowel disease, renal colic, PUD, pancreatitis, biliary pathology, hernia, volvulus, constipation, as well as other pathologies. Diagnostics interpreted by me: ECG: Rate: 67 Rhythm:Normal sinus [place]:Normal QRS:Normal ST segements:No elevation or depression Other:No PACs or PVCs Cardiac Monitoring: Cardiac monitoring ordered by me: The patient was placed on continuous cardiac monitoring and observed. It revealed a normal sinus rhythm at 70 beats per minute without ectopy or evidence of dysrhythmia. Imaging studies: CT scan of the abdomen pelvis did not reveal any evidence of acute pathology. Stones in the gallbladder. Ultrasound of the gallbladder revealed sludge and stones in the gallbladder with a stone in the neck that is nonmobile. No evidence of pericholecystic fluid or gallbladder wall thickening. Per statrad. I refer you to the EMR for further details. HPI: The patient is a 85 year old female who presents to the Emergency Room with complaints of right abdominal pain. This started a few days ago and is worsening. The patient also notes the following associated symptoms, SOB, uncontrolled blood pressure, constipation, bleeding hemorrhoids. The patient has found no relieving factors. Current pain is moderated, unable to quantify. Pt denies LOC, headache, fevers, chills, diaphoresis, visual changes, neck pain, chest pain, nausea, vomiting, back pain, melena, urinary symptoms, numbness, weakness, lymphadenopathy, rash, or other complaints. ROS: See above HPI for pertinent positives & negatives. A total of 10 systems reviewed and were otherwise negative. PAST MEDICAL HISTORY:See Below , DM PAST SURGICAL HISTORY:See Below, FAMILY HISTORY:See Below SOCIAL HISTORY:See Below, lives alone HOME MEDICATIONS:See Below ALLERGIES:See Below VITALS:See Below PHYSICAL EXAMINATION: GENERAL: Awake, alert, anxious-appearing, in no distress HENT: Normocephalic, atraumatic. Oropharynx unremarkable. EYES: Normal conjunctiva. Sclera non-icteric. NECK: Inspection normal. Non-tender. Supple. No nuchal rigidity. FROM. No m asses. RESPIRATORY: Clear to auscultation. No wheezes. No rales. Increased respiratory effort. CARDIAC: Normal rate. Normal rhythm. No murmurs. No rubs. Extremities warm and well perfused. Pulses equal. No JVD. GI: Soft, non-distended. Right sided and mild generalized tenderness to palpation. No rebound or guarding. No masses. RECTAL: Deferred. MUSCULOSKELETAL: Atraumatic. Chest examination reveals no tenderness. The back is symmetrical on inspection without obvious abnormality. There is no CVA tenderness to palpation. No joint edema. LOWER EXTREMITIES: Calves are equal size bilaterally and non-tender. No edema. No discoloration. NEURO: Normal sensorium. No sensory or motor deficits noted. SKIN: No rash or jaundice noted. Toi Schultz MD Past Med/Surg History Medical History Cholelithiasis Chronic reflux esophagitis Chronic renal insufficiency Depression Dysarthria, post-stroke Expressive aphasia Gait instability Hearing loss, bilateral History of diabetes mellitus History of stroke Hoarseness Hypercholesterolemia Leg pain, bilateral Obstructive sleep apnea Osteoarthritis Peripheral neuropathy Sensorineural hearing loss (SNHL) of both ears Urge incontinence of urine Surgical History H/O left mastectomy Social History Smoking Status: Never smoker Preferred Language: Chadian Feels Safe at Home: Yes Allergies Allergies Allergy/AdvReac Type Severity Reaction Status Date / Time adhesive Allergy Mild SKIN GETS Verified 08/19/20 21:47 RED, SORE AND ITCHY atorvastatin AdvReac Intermediate GENERIC-SEVERE Verified 08/19/20 21:47 LEG CRAMPS NAUSEA NIGHTMARES Home Meds Home Medications Medication Instructions Recorded Confirmed acetaminophen 500 mg tablet 500 mg PO Q4H PRN tab 10/25/18 08/19/20 dorzolamide 2 % eye drops 1 drops OPB BID ml 10/25/18 08/19/20 polyethylene glycol 3350 17 17 g PO DAILY PRN gm 10/25/18 08/19/20 gram/dose oral powder aspirin 81 mg PO QAM 05/24/19 08/19/20 ergocalciferol (vitamin D2) 50,000 unit PO WK 07/29/20 08/19/20 glipizide 5 mg PO BID 07/29/20 08/19/20 Previous Rx's Medication Instructions Recorded diclofenac sodium 1 % topical gel 4 gm TOP QID #100 gm 08/12/19 levothyroxine 100 mcg tablet 100 mcg PO QAM #90 tab 09/16/19 apixaban 2.5 mg tablet 2.5 mg PO BID #180 tab 01/31/20 hydrochlorothiazide 25 mg tablet 25 mg PO QAM #90 tab 03/14/20 rosuvastatin 20 mg tablet 20 mg PO QAM #90 tab 06/19/20 clonidine HCl 0.1 mg tablet 0.1 mg PO BID #60 tab 07/03/20 losartan 100 mg tablet 100 mg PO QAM #90 tab 07/16/20 hydrocortisone acetate 25 mg 25 mg [place] BID #24 ea 06/07/21 rectal suppository Results & Data (ED) Vital Signs Vital Signs - 24 hr 08/19/20 20:30 08/19/20 20:35 08/19/20 21:52 Temperature 36.8 C Temperature Source Oral Pulse Rate 74 63 Pulse Rate [Apical] 74 Pulse Rate from SpO2 Sensor 60 Respiratory Rate 20 22 Respiratory Effort / Characteristics Non-Labored Spontaneous Respiratory Depth Normal Respiratory Pattern Regular Blood Pressure 220/143 H 207/77 H Blood Pressure [Right Arm] 220/143 H Blood Pressure Mean 168 120 Blood Pressure Mean [Right Arm] 168 Pulse Oximetry 96 99 99 Oxygen Delivery Method Room Air Room Air Oxygen Flow Rate Sepsis Recent Fever Within 48 Hours No Sepsis New/Unexplained Change in Mental Status No Sepsis Action Taken by Nursing No Action Required 08/19/20 22:00 08/19/20 22:30 08/19/20 23:01 Temperature Temperature Source Pulse Rate 60 57 L 65 Pulse Rate [Apical] Pulse Rate from SpO2 Sensor 61 59 L 65 Respiratory Rate 12 16 19 Respiratory Effort / Characteristics Respiratory Depth Respiratory Pattern Blood Pressure 185/79 H 209/80 H 216/90 H Blood Pressure [Right Arm] Blood Pressure Mean 114 123 132 Blood Pressure Mean [Right Arm] Pulse Oximetry 99 99 100 Oxygen Delivery Method Oxygen Flow Rate Sepsis Recent Fever Within 48 Hours Sepsis New/Unexplained Change in Mental Status Sepsis Action Taken by Nursing 08/19/20 23:30 08/20/20 00:10 08/20/20 00:30 Temperature Temperature Source Pulse Rate 60 65 70 Pulse Rate [Apical] Pulse Rate from SpO2 Sensor 63 64 Respiratory Rate 15 26 H 20 Respiratory Effort / Characteristics Respiratory Depth Respiratory Pattern Blood Pressure 184/79 H 202/83 H 172/74 H Blood Pressure [Right Arm] Blood Pressure Mean 114 122 106 Blood Pressure Mean [Right Arm] Pulse Oximetry 94 99 99 Oxygen Delivery Method Oxymask Oxygen Flow Rate 2 Sepsis Recent Fever Within 48 Hours Sepsis New/Unexplained Change in Mental Status Sepsis Action Taken by Nursing 08/20/20 01:00 08/20/20 01:30 Temperature Temperature Source Pulse Rate 69 70 Pulse Rate [Apical] Pulse Rate from SpO2 Sensor Respiratory Rate 21 14 Respiratory Effort / Characteristics Respiratory Depth Respiratory Pattern Blood Pressure 175/78 H 180/82 H Blood Pressure [Right Arm] Blood Pressure Mean 110 114 Blood Pressure Mean [Right Arm] Pulse Oximetry Oxygen Delivery Method Oxygen Flow Rate Sepsis Recent Fever Within 48 Hours Sepsis New/Unexplained Change in Mental Status Sepsis Action Taken by Nursing Laboratory Data Result diagrams: 08/19/20 19:39 08/19/20 19:39 Lab Results 08/19/20 08/19/20 08/19/20 Range/Units 19:39 19:39 19:39 WBC 6.87 (4.8-10.8) K/uL RBC 3.75 L (4.2-5.4) M/uL Hgb 12.5 (12.0-16.0) g/dL Hct 36.8 L (37-47) % MCV 98.1 (80-100) fL MCH 33.3 (25-34) pg MCHC 34.0 (32-36) g/dL RDW Std Deviation 47.0 H (36.4-46.3) fL RDW Coeff of Nora 13.1 (11.5-14.5) % Plt Count 178 (130-400) K/uL MPV 10.1 (7.4-10.4) fL Immature Gran % (Auto) 0.1 % Neut % (Auto) 34.5 % Lymph % (Auto) 54.0 % Milam % (Auto) 9.2 % Eos % (Auto) 1.9 % Baso % (Auto) 0.3 % Neut # (Auto) 2.37 (1.4-6.5) K/uL Lymph # (Auto) 3.71 H (1.2-3.4) K/uL Milam # (Auto) 0.63 H (0.11-0.59) K/uL Eos # (Auto) 0.13 (0-0.5) K/uL Baso # (Auto) 0.02 (0-0.2) K/uL Immature Gran # (Auto) 0.01 (0.00-0.02) K/uL PT 10.0 (9.0-12.0) Seconds INR 1.0 (0.9-1.1) APTT 25.0 (21.0-31.0) Seconds PTT Ratio 1.0 Sodium 137 (136-145) mmol/L Potassium 4.2 (3.5-5.1) mmol/L Chloride 104 (98-107) mmol/L Carbon Dioxide 24 (21-32) mmol/L Anion Gap 10.0 (3-11) BUN 44 H (7-18) mg/dl Creatinine 1.85 H (0.6-1.2) mg/dl Est Cr Clr Drug Dosing 29.3 ml/min Est GFR ( Amer) 28.5 ml/min Est GFR (Non-Af Amer) 24.6 ml/min BUN/Creatinine Ratio 23.8 H (10-20) Glucose 194 H (70-99) mg/dl Calcium 9.2 (8.5-10.1) mg/dl Total Bilirubin 0.5 (0.2-1) mg/dl AST 15 (15-37) U/L ALT 16 (12-78) U/L Alkaline Phosphatase 62 (45-117) U/L Total Protein 7.6 (6.4-8.2) gm/dl Albumin 3.6 (3.4-5.0) gm/dl Globulin 4.0 (2.5-4.0) gm/dl Albumin/Globulin Ratio 0.9 (0.9-2) Blood Type Antibody Screen 08/19/20 Range/Units 21:00 WBC (4.8-10.8) K/uL RBC (4.2-5.4) M/uL Hgb (12.0-16.0) g/dL Hct (37-47) % MCV (80-100) fL MCH (25-34) pg MCHC (32-36) g/dL RDW Std Deviation (36.4-46.3) fL RDW Coeff of Nora (11.5-14.5) % Plt Count (130-400) K/uL MPV (7.4-10.4) fL Immature Gran % (Auto) % Neut % (Auto) % Lymph % (Auto) % Milam % (Auto) % Eos % (Auto) % Baso % (Auto) % Neut # (Auto) (1.4-6.5) K/uL Lymph # (Auto) (1.2-3.4) K/uL Mil[place] # (Auto) (0.11-0.59) K/uL Eos # (Auto) (0-0.5) K/uL Baso # (Auto) (0-0.2) K/uL Immature Gran # (Auto) (0.00-0.02) K/uL PT (9.0-12.0) Seconds INR (0.9-1.1) APTT (21.0-31.0) Seconds PTT Ratio Sodium (136-145) mmol/L Potassium (3.5-5.1) mmol/L Chloride (98-107) mmol/L Carbon Dioxide (21-32) mmol/L Anion Gap (3-11) BUN (7-18) mg/dl Creatinine (0.6-1.2) mg/dl Est Cr Clr Drug Dosing ml/min Est GFR ( Amer) ml/min Est GFR (Non-Af Amer) ml/min BUN/Creatinine Ratio (10-20) Glucose (70-99) mg/dl Calcium (8.5-10.1) mg/dl Total Bilirubin (0.2-1) mg/dl AST (15-37) U/L ALT (12-78) U/L Alkaline Phosphatase (45-117) U/L Total Protein (6.4-8.2) gm/dl Albumin (3.4-5.0) gm/dl Globulin (2.5-4.0) gm/dl Albumin/Globulin Ratio (0.9-2) Blood Type A Positive Antibody Screen NEGATIVE Administered Medications Sodium Chloride (Nss 1000ml) 1,000 mls @ 125 mls/hr IV .Q8H STA Stop: 08/20/20 04:34 Last Admin: 08/19/20 22:35 Dose: 125 mls/hr Documented by: [id number] Discontinued Medications Hydralazine HCl (Hydralazine Hcl 20 Mg/Ml Vial) 5 mg IV NOW ONE Stop: 08/19/20 23:28 Last Admin: 08/20/20 00:12 Dose: 5 mg Documented by: [id number] Sodium Chloride (Nss) 500 mls @ 999 mls/hr IV .Q31M MATTY Stop: 08/19/20 21:15 Last Infusion: 08/19/20 22:35 Dose: 0 mls/hr Documented by: [id number] Admin: 08/19/20 20:56 Dose: 999 mls/hr Documented by: [id number] Lorazepam (Lorazepam 1 Mg Tab) 0.5 mg SL NOW STA Stop: 08/19/20 20:49 Last Admin: 08/19/20 20:56 Dose: 0.5 mg Documented by: [id number] Discharge Plan Visit Data Chief Complaint: Abdominal Pain Stated Complaint: Abd pain ED Provider: Toi Schultz Discharge Problem: Right lateral abdominal pain, Hypertension, Cholelithiasis, Biliary sludge Forms Stand Alone Forms: My [facility] [employer] Prescriptions Prescriptions: No Action levothyroxine 100 mcg tablet 100 mcg PO QAM Qty: 90 RF: 3 Eliquis 2.5 mg tablet 2.5 mg PO BID Qty: 180 RF: 3 hydrochlorothiazide 25 mg tablet 25 mg PO QAM Qty: 90 RF: 3 rosuvastatin 20 mg tablet 20 mg PO QAM Qty: 90 RF: 3 clonidine HCl 0.1 mg tablet 0.1 mg PO BID Qty: 60 RF: 2 losartan 100 mg tablet 100 mg PO QAM Qty: 90 RF: 3 diclofenac sodium 1 % gel 4 gm TOP QID Qty: 100 RF: 2 hydrocortisone acetate 25 mg suppository 25 mg PA BID Qty: 24 RF: 0 dorzolamide 2 % drops 1 drops OPB BID RF: 0 acetaminophen 500 mg tablet 500 mg PO Q4H PRN (Reason: pain) RF: 0 polyethylene glycol 3350 17 gram/dose powder 17 g PO DAILY PRN (Reason: Constipation) RF: 0 aspirin 81 mg tablet,delayed release (DR/EC) 81 mg PO QAM RF: 0 glipizide 5 mg tablet extended release 24hr 5 mg PO BID RF: 0 ergocalciferol (vitamin D2) 1,250 mcg (50,000 unit) capsule 50,000 unit PO WK RF: 0
[2020-08-19 20:56] LABS: Hematocrit (blood only) 36.8 % (37-47); Hemoglobin 12.5 g/dL (12.0-16.0); Mean Corpuscular Hemoglobin 33.3 pg (25-34); Mean Corpuscular Volume 98.1 fL (80-100); Mean Platelet Volume 10.1 fL (7.4-10.4); Platelet Count 178 K/uL (130-400); RDW Coefficient of Variation 13.1 % (11.5-14.5); Red Blood Count 3.75 M/uL (4.2-5.4); White Blood Count 6.87 K/uL (4.8-10.8)
[2020-08-19 21:16] LABS: Albumin Level 3.6 gm/dl (3.4-5.0); BUN Creatinine Ratio 23.8 (10-20); Calcium 9.2 mg/dl (8.5-10.1); Creatinine Clr Calc Pharmacy 29.3 ml/min; Est GFR (African American) 28.5 ml/min; Est GFR (Non-African American) 24.6 ml/min; Potassium 4.2 mmol/L (3.5-5.1)
[2020-08-19 21:19] LABS: Albumin Globulin Ratio 0.9 (0.9-2); Bilirubin,Total 0.5 mg/dl (0.2-1); Total Protein 7.6 gm/dl (6.4-8.2)
[2020-08-19 21:23] LABS: Basophils # (auto) 0.02 K/uL (0-0.2); Basophils % (auto) 0.3 %; Eosinophils # (auto) 0.13 K/uL (0-0.5); Eosinophils % (auto) 1.9 %; Immature Granulocytes # (auto) 0.01 K/uL (0.00-0.02); Immature Granulocytes % (auto) 0.1 %; Lymphocytes # (auto) 3.71 K/uL (1.2-3.4); Monocytes # (auto) 0.63 K/uL (0.11-0.59); Monocytes % (auto) 9.2 %; Neutrophils # (auto) 2.37 K/uL (1.4-6.5); Neutrophils % (auto) 34.5 %
[2020-08-19] MEDS ORDERED: hydrALAZINE HCL 20 MG/ML VIAL IV ONE (23:27)
--- NOTE | 2020-08-20 03:06 | History & Physical Report ---
Date of Service August 20, 2020 Assessment & Plan (1) Right lateral abdominal pain: Mrs. Bui is an 85 yo woman who presented to the [facility] for evaluation of progressive R sided abdominal pain. - likely secondary to developing acute calculous cholecystitis - imaging findings are conflicting - CT scan showed no stones in cystic duct, no gallbladder distention, wall thickening or pericholecystic fluid - US showed a stone lodged in the neck of the gallbladder with mild distention - patient is afebrile. WBC not elevated. - LFTs normal, Alk phos and T bili normal. Non-cholestatic pattern - general surgery consult placed - I will hold off on ordering HIDA/MRCP at this time given visualization of stone in neck of gallbladder on US - further studies per surgery's request - NPO, holding aspirin and eliquis in the event of possible procedure - continue mIVF - Tylenol for pain, zofran for nausea (2) Elevated serum creatinine: - Cr 1.85 on admission - baseline ~ 1.5-1.7 - BUN elevated to 44, ratio of 23 - suspect pre-renal etiology - patient likely had reduced PO intake over preceding 3 days with progressive abdominal pain - 1 liter of given in ED, continuing mIVF - trend BMP (3) Hypertension: - continue home HCTZ, losartan, and catapres (4) Hypothyroidism: - continue home levothyroxine (5) Type 2 diabetes mellitus: - HbA1c below goal at 6.9 on 08/17/20 - continue home glipizide (6) Hypercholesterolemia: - continue home dose crestor (7) Obstructive sleep apnea: - patient may wear home bipap device Dispo: Med/Surg DVT ppx: on Eliquis, SCDs Diet:NPO in anticipation of procedure Code: Full - unable to locate living will in EMR. Attempted to discuss with patient at bedside but conversation was limited due to hearing deficit + expressive aphasia. Recommend this be clarified in am with POA History of Present Illness Primary Care Provider: Maico Valencia MD Mrs. Bui is an 85 yo woman who presented to the emergency department for evaluation of right sided abdominal pain which progressed over 3 days duration. She suffered a CVA in the past which left her with an expressive aphasia - thus history was difficult to obtain, no family members present at bedside. She denied any associated nausea/vomiting - admitted to one episode of diarrhea this morning. In the ED, she was afebrile, HR normal, saturating 99% on 2L via oxymask. Her CBC was normal. Electrolytes were stable. Creatinine elevated to 1.85, BUN at 44. Coags normal. Liver enzymes, t-bili and alk phos were normal. CXR . Cat scan of abdomen showed cholelithiasis without gallbladder distention or wall thickening or pericholecystic fluid. A gallbladder US showed a non-mobile stone in the neck of the gallbladder, mild distention no wall thickening or pericholecystic fluid; no CBD dilation. She was given 1 liter of NSS, 5mg IV hydralazine, and a dose of Ativan. Allergies Allergy/AdvReac Type Severity Reaction Status Date / Time adhesive Allergy Mild SKIN GETS Verified 08/19/20 21:47 RED, SORE AND ITCHY atorvastatin AdvReac Intermediate GENERIC-SEVERE Verified 08/19/20 21:47 LEG CRAMPS NAUSEA NIGHTMARES Home Medications Medication Instructions Recorded Confirmed Type acetaminophen 500 mg tablet 500 mg PO Q4H PRN tab 10/25/18 08/19/20 History dorzolamide 2 % eye drops 1 drops OPB BID ml 10/25/18 08/19/20 History polyethylene glycol 3350 17 17 g PO DAILY PRN gm 10/25/18 08/19/20 History gram/dose oral powder aspirin 81 mg PO QAM 05/24/19 08/19/20 History diclofenac sodium 1 % topical gel 4 gm TOP QID #100 gm 08/12/19 08/19/20 Rx levothyroxine 100 mcg tablet 100 mcg PO QAM #90 tab 09/16/19 08/19/20 Rx apixaban 2.5 mg tablet 2.5 mg PO BID #180 tab 01/31/20 08/19/20 Rx hydrochlorothiazide 25 mg tablet 25 mg PO QAM #90 tab 03/14/20 08/19/20 Rx rosuvastatin 20 mg tablet 20 mg PO QAM #90 tab 06/19/20 08/19/20 Rx clonidine HCl 0.1 mg tablet 0.1 mg PO BID #60 tab 07/03/20 08/19/20 Rx losartan 100 mg tablet 100 mg PO QAM #90 tab 07/16/20 08/19/20 Rx ergocalciferol (vitamin D2) 50,000 unit PO WK 07/29/20 08/19/20 History glipizide 5 mg PO BID 07/29/20 08/19/20 History hydrocortisone acetate 25 mg 25 mg [place] BID #24 ea 08/06/20 08/19/20 Rx rectal suppository Past Med/Surg History Medical History Cholelithiasis Chronic reflux esophagitis Chronic renal insufficiency Depression Dysarthria, post-stroke Expressive aphasia Gait instability Hearing loss, bilateral History of diabetes mellitus History of stroke Hoarseness Hypercholesterolemia Leg pain, bilateral Obstructive sleep apnea Osteoarthritis Peripheral neuropathy Sensorineural hearing loss (SNHL) of both ears Urge incontinence of urine Surgical History H/O left mastectomy Social History Smoking Status: Never smoker Hx Alcohol Use: No Hx Substance Use: No Preferred Language: Citizen Of [place] Communication Ability: Impaired Warrant Clerk Required: No Beliefs That Will Affect Care: None Current Living Situation: Alone Feels Safe at Home: Yes Assistive Devices: CPAP and Denture - Upper Review of Systems Gastrointestinal: + abdominal pain Physical Exam Constitutional: WD/WN, vitals as above cooperative; no acute distress Eyes: + anicteric sclerae ENMT: external ear and nose normal, oropharynx normal Ears: + hearing impairment + facial flushing Neck: normal visual inspection and trachea midline Respiratory: normal respiratory effort, lungs clear to auscultation Cardiovascular: RRR, no murmur, no edema Heart Sounds: normal S1 and normal S2 Gastrointestinal (Abdomen): Inspection/Auscultation: abdomen normal to inspection and normal bowel sounds Percussion/Palpation: + abdomen tender (RUQ) and abdomen soft; no guarding Skin: no rashes, warm and dry Neurologic: Speech / Cognition: + expressive aphasia Psychiatric: Orientation: alert, oriented to person, oriented to place and oriented to time (knew month, not year) Results & Data Results & Data ([facility]) Vital Signs (Past 12 Hours) Vital Signs Temp Pulse Pulse Resp BP BP Pulse Ox 08/20/20 01:30 70 14 180/82 H 08/20/20 01:00 69 21 175/78 H 08/20/20 00:30 70 20 172/74 H 99 08/20/20 00:10 65 26 H 202/83 H 99 08/19/20 23:30 60 15 184/79 H 94 08/19/20 23:01 65 19 216/90 H 100 08/19/20 22:30 57 L 16 209/80 H 99 08/19/20 22:00 60 12 185/79 H 99 08/19/20 21:52 63 22 207/77 H 99 08/19/20 20:35 99 08/19/20 20:30 36.8 C 74 74 20 220/143 H 220/143 H 96 Supervising Physician Co-Signing Physician Notes Attending addendum: I have physically seen this patient, have supervised the medical residents activities, and agree with the H&P unless as otherwise noted. Assessment and Plan: Acute calculus cholecystitis- CT scan negative Ultrasound showing stone lodged in the neck of the gallbladder with mild gallbladder wall distention Hold on ordering HIDA/MRCP. Consult general surgery for their opinion N.p.o. Hold aspirin and Eliquis Continue IV fluids Zofran 4 mg IV every 6 hours as needed Famotidine 20 mg IV every 12 hours Tylenol 1 g IV every 8 hours as needed mild pain or fever Hypertension- Hold HCTZ and losartan due to mild bump in creatinine Continue Catapres Mild VALERI on CKD- Creatinine 1.5 upon admission, with baseline 1.5-1.7 Hold HCTZ and losartan as noted Give 1 L normal saline Repeat laboratories in a.m. Remaining orders and notations as noted Resident Activity Tracking Resident Involvement: Resident Care Provided Care Provided: Adult [facility]
[2020-08-20] MEDS ORDERED: LORazepam 0.5 MG/1 ML VIAL IV STA (03:16)
[2020-08-20] MEDS ORDERED: LORazepam 2 MG/4 ML VIAL ONE (03:26)
[2020-08-20] MEDS ORDERED: ACETAMINOPHEN 1,000 MG/100 ML VIAL IV STA (04:42)
[2020-08-20] MEDS ORDERED: MoRPHine SULFATE 2 MG/ML CARP IV PRN (04:42)
--- NOTE | 2020-08-20 05:08 | Surgery Consultation ---
Date of Consultation August 20, 2020 Assessment & Plan (1) Cholelithiasis: Patient has been admitted to the hospital service and we recommend proceeding as follows: Provide analgesics Provide antiemetics Hydration with IV fluids Maintain n.p.o. status As there is no evidence of cholecystitis we will not placed on antibiotics at this time The patient will likely benefit from cholecystectomy as the gallstones particularly in the neck of her gallbladder may be contributing to her the pain The patient does take Eliquis so would be preferable to have her off this medication for at least 24 hours or potentially longer prior to undergoing any surgical intervention The patient will evaluated by Dr. Dominguez to discuss timing of any surgical procedures as above. pt feeling better. no pain currently. discussed with her and her son. b/c of her comorbidities both prefer to proceed with conservative management and see how she does. will advance diet...if she tolerates it she could be started back on anticoagulants tomorrow and possibly discharged. if pain recurs with diet may need to reconsider lap hakeem this admission. History of Present Illness Reason for Consultation: Cholelithiasis Attending Physician: Lazarus Sumner MD History of Present Illness This is an 85-year-old female who presented to emergency department secondary to pain in her abdomen primarily located in the right side. Patient notes that the pain has been present for approximately 3 days. He denies any nausea vomiting. She denies any fevers shakes or chills. She does not note any modifying factors. She notes that the pain has been present for 3 days she presented to the emergency department for further evaluation. She does not note any prior abdominal surgery. In the emergency department the patient had labs and imaging which I did telemetry reviewed. A CBC showed her white blood cell count, hemoglobin, and platelet count are within the normal range. Chemistry profile revealed her sodium and potassium within normal range. His creatinine was noted to be elevated at 1.8. Review of records show that her baseline is approximately 1.6- 1.7. There were no elevation of her LFTs. A Covid test has been performed and is noted to be negative. A CT scan of the abdomen and pelvis was performed. Cholelithiasis was noted however the gallbladder was not distended and there is no pericholecystic fluid or gallbladder wall thickening. A gallbladder ultrasound was performed that showed sludge and stones within the gallbladder including a stone in the gallbladder neck. The gallbladder ultrasound did show mild gallbladder wall distention however no gallbladder wall thickening or pericholecystic fluid was noted. The common bile duct was not dilated on the study. A chest x-ray did not show any evidence of pneumonia. At the time of my interview the patient was in no distress. She did have some mild right upper quadrant abdominal pain with palpation. Allergies Allergy/AdvReac Type Severity Reaction Status Date / Time adhesive Allergy Mild SKIN GETS Verified 08/19/20 21:47 RED, SORE AND ITCHY atorvastatin AdvReac Intermediate GENERIC-SEVERE Verified 08/19/20 21:47 LEG CRAMPS NAUSEA NIGHTMARES Home Medications Medication Instructions Recorded Confirmed Type acetaminophen 500 mg tablet 500 mg PO Q4H PRN tab 10/25/18 08/19/20 History dorzolamide 2 % eye drops 1 drops OPB BID ml 10/25/18 08/19/20 History polyethylene glycol 3350 17 17 g PO DAILY PRN gm 10/25/18 08/19/20 History gram/dose oral powder aspirin 81 mg PO QAM 05/24/19 08/19/20 History diclofenac sodium 1 % topical gel 4 gm TOP QID #100 gm 08/12/19 08/19/20 Rx levothyroxine 100 mcg tablet 100 mcg PO QAM #90 tab 09/16/19 08/19/20 Rx apixaban 2.5 mg tablet 2.5 mg PO BID #180 tab 01/31/20 08/19/20 Rx hydrochlorothiazide 25 mg tablet 25 mg PO QAM #90 tab 03/14/20 08/19/20 Rx rosuvastatin 20 mg tablet 20 mg PO QAM #90 tab 06/19/20 08/19/20 Rx clonidine HCl 0.1 mg tablet 0.1 mg PO BID #60 tab 07/03/20 08/19/20 Rx losartan 100 mg tablet 100 mg PO QAM #90 tab 07/16/20 08/19/20 Rx ergocalciferol (vitamin D2) 50,000 unit PO WK 07/29/20 08/19/20 History glipizide 5 mg PO BID 07/29/20 08/19/20 History hydrocortisone acetate 25 mg 25 mg DE BID #24 ea 08/06/20 08/19/20 Rx rectal suppository Patient History Medical History Cholelithiasis Chronic reflux esophagitis Chronic renal insufficiency Depression Dysarthria, post-stroke Expressive aphasia Gait instability Hearing loss, bilateral History of diabetes mellitus History of stroke Hoarseness Hypercholesterolemia Leg pain, bilateral Obstructive sleep apnea Osteoarthritis Peripheral neuropathy Sensorineural hearing loss (SNHL) of both ears Urge incontinence of urine Surgical History H/O left mastectomy Social History Smoking Status: Never smoker Hx Alcohol Use: No Hx Substance Use: No Preferred Language: Bulgarian Communication Ability: Impaired Lead Quality Control Technician Required: No Beliefs That Will Affect Care: None Current Living Situation: Alone Other Information That Helps Us Care for You: No Feels Safe at Home: Yes Safety Concerns: Feels Safe At This Time Assistive Devices: Denture - Upper Review of Systems Constitutional: no fever and no chills Eyes: no diplopia Ear, Nose, Mouth, Throat: + hearing loss Respiratory: no cough and no dyspnea Cardiovascular: no chest pain Gastrointestinal: + abdominal pain Genitourinary: no dysuria Musculoskeletal: no back pain Integumentary: no rash Neurologic: no generalized weakness Physical Exam Constitutional: well developed and well nourished; no acute distress Eyes: no conjunctival abnormality ENMT: Ears: + hearing impairment Neck: trachea midline Respiratory: normal respiratory effort; no respiratory distress and no labored breathing Cardiovascular: Rate/Rhythm: regular rate and regular rhythm Gastrointestinal (Abdomen): Abdomen is soft and nondistended. There is no rebound tenderness or guarding. Patient did have pain with palpation in the right upper quadrant. Musculoskeletal: No calf tenderness Skin: no rashes, warm and dry Neurologic: moves all extremities Psychiatric: A+Ox3, euthymic affect Results & Data ([facility]) Vital Signs (Past 12 Hours) Vital Signs Temp Pulse Pulse Pulse Pulse Resp BP 08/20/20 04:49 77 08/20/20 04:20 37 C 97 H 24 08/20/20 04:10 78 22 186/98 H 08/20/20 01:30 70 14 180/82 H 08/20/20 01:00 69 21 175/78 H 08/20/20 00:30 70 20 172/74 H 08/20/20 00:10 65 26 H 202/83 H 08/19/20 23:30 60 15 184/79 H 08/19/20 23:01 65 19 216/90 H 08/19/20 22:30 57 L 16 209/80 H 08/19/20 22:00 60 12 185/79 H 08/19/20 21:52 63 22 207/77 H 08/19/20 20:35 08/19/20 20:30 36.8 C 74 74 20 220/143 H BP BP Pulse Ox 08/20/20 04:49 179/81 H 08/20/20 04:20 195/109 H 97 08/20/20 04:10 97 08/20/20 01:30 08/20/20 01:00 08/20/20 00:30 99 08/20/20 00:10 99 08/19/20 23:30 94 08/19/20 23:01 100 08/19/20 22:30 99 08/19/20 22:00 99 08/19/20 21:52 99 08/19/20 20:35 99 08/19/20 20:30 220/143 H 96 PG Care Time/CCT Total # of Minutes Spent Total Time Spent with Patient: Total time spent is greater than 50% in coordination of care (as documented) at patient's floor/unit and/or counseling patient: Coding Level of Care Code 38837 Inpt Consult Level 5 Diagnoses Cholelithiasis K80.20
[2020-08-20] MEDS: SODIUM CHLORIDE 0.9% 1000ML 1,000 ML IV SCH ×3 (05:48→22:03)
[2020-08-20] MEDS: LEVOTHYROXINE SODIUM 100 MCG TABLET PO SCH (06:06)
--- NOTE | 2020-08-20 07:56 | Ultrasound Report ---
BILIARY ULTRASOUND CLINICAL HISTORY: right abd pain COMPARISON STUDY: CT scan dated 08/19/2020 FINDINGS: The study was difficult for technical standpoint due to the patient's large body habitus. The liver was slightly heterogeneous in echotexture without evidence of focal mass. The gallbladder contains shadowing calculi, and probable sludge. There is no gallbladder wall thicken ing and no pericholecystic fluid. There is no intra or extrahepatic biliary ductal dilatation. The common bile duct measured 5 mm. There is no right-sided hydronephrosis. IMPRESSION: 1. Cholelithiasis 2. No ductal dilatation. 3. Nonspecific coarsened hepatic echotexture without evidence of a focal mass ACT 112: Negative or not required by law. Electronically signed by: Yonatan Patino M.D. 08/20/2020 7:55 AM
--- NOTE | 2020-08-20 08:47 | XRay Report ---
XR chest 1V portable CLINICAL HISTORY: SOB COMPARISON STUDY: August 03, 2020 FINDINGS: No pneumothorax. No pleural effusion. No large infiltrates or consolidative lesions are seen. Diffuse reticular nodular prominence of the i nterstitium is again seen bilaterally. Cardiomediastinal silhouette is within normal limits in size. No significant pulmonary vascular congestion.. Aorta is calcified Osseous structures: Degenerative changes of the spine. IMPRESSION: 1. No large infiltrates or consolidative lesions. Chronic reticular nodular prominence of pulmonary interstitium is not significantly changed since prior. 2. Atherosclerosis ACT 112: Negative or not required by law. The above report was generated using voice recognition software. It may contain grammatical, syntax o r spelling errors. Electronically signed by: Deborah Nieto DO 08/20/2020 8:46 AM
--- NOTE | 2020-08-20 08:51 | CT Scan Report ---
ABDOMEN AND PELVIS CT WITHOUT CONTRAST CT DOSE: 1532.97 mGy.cm HISTORY: Acute generalized abdominal pain abd pain TECHNIQUE: Multiaxial CT images of the abdomen and pelvis were performed without contrast. A dose lo wering technique was utilized adhering to the principles of ALARA. COMPARISON STUDY: Right upper quadrant abdominal ultrasound of same day, CT abdomen and pelvis 020 FINDINGS: Coronary artery calcifications. Mild subsegmental bibasilar atelectasis/scarring. No pneumatosis or p neumoperitoneum. Subcentimeter calcification of the spleen. Motion degraded exam. The unenhanced panc reas, adrenal glands and liver appear unremarkable. Cholelithiasis. No CT evidence of acute cholecyst itis. There are a few punctate nonobstructing calculi of the left kidney. 2 mm nonobstructing calculus of t he interpolar right kidney. No ureteral calculi or hydronephrosis identified. Venous calcifications a re noted within the abdomen and pelvis. Unremarkable urinary bladder. Hysterectomy. Streak artifact f rom hardware within the bilateral hips limits evaluation of the pelvic structures. Atherosclerosis of the abdominal aorta and branch vessels. No adenopathy. Small to moderate hiatal hernia. No bowel obstruction or bowel wall thickening. Colonic diverticulosi s. The appendix is not visualized. No secondary signs of acute appendicitis. Small fat filled periumb ilical hernia. No acute fracture. Right hip total joint arthroplasty. Intratrochanteric nail with med ullary hardik of the left femur. Dextroscoliosis of the lumbar spine. IMPRESSION: 1. No acute intra-abdominal or intrapelvic abnormality. 2. Cholelithiasis. 3. Hiatal hernia. 4. Nonobstructing bilateral nephrolithiasis. 5. Colonic diverticulosis. 6. Additional findings as above. ACT 112: Negative or not required by law. The above report was generated using voice recognition software. It may contain grammatical, syntax o r spelling errors. Electronically signed by: Oumar Stahl M.D. 08/20/2020 8:50 AM
[2020-08-20] MEDS: LOSARTAN POTASSIUM 50 MG TAB PO SCH (11:35)
[2020-08-20] MEDS: ROSUVASTATIN CALCIUM 20 MG TAB PO SCH (11:36)
[2020-08-20] MEDS: hydroCHLOROthiazide 25 MG TAB PO SCH (11:36)
[2020-08-20] MEDS: cloNIDine HCL 0.1 MG TAB PO SCH ×2 (11:37→21:50)
[2020-08-20] MEDS: HYDROCORTISONE ACETATE 25 MG SUPP PR SCH ×2 (11:38→21:52)
[2020-08-20] MEDS: DORZOLAMIDE HCL 2% OPH SOLN 10 ML BTL OPB SCH ×2 (11:38→21:51)
[2020-08-20 12:15] LABS: Basophils # (auto) 0.02 K/uL (0-0.2); Basophils % (auto) 0.3 %; Eosinophils # (auto) 0.12 K/uL (0-0.5); Eosinophils % (auto) 1.8 %; Hematocrit (blood only) 37.6 % (37-47); Hemoglobin 12.7 g/dL (12.0-16.0); Immature Granulocytes # (auto) 0.01 K/uL (0.00-0.02); Immature Granulocytes % (auto) 0.2 %; Lymphocytes # (auto) 2.25 K/uL (1.2-3.4); Lymphocytes % (auto) 34.3 %; Mean Corpuscular Hemoglobin 32.7 pg (25-34); Mean Corpuscular Hgb Conc 33.8 g/dL (32-36); Mean Corpuscular Volume 96.9 fL (80-100); Mean Platelet Volume 9.4 fL (7.4-10.4); Monocytes # (auto) 0.53 K/uL (0.11-0.59); Monocytes % (auto) 8.1 %; Neutrophils # (auto) 3.63 K/uL (1.4-6.5); Neutrophils % (auto) 55.3 %; Platelet Count 155 K/uL (130-400); RDW Coefficient of Variation 13.2 % (11.5-14.5); RDW Standard Deviation 46.1 fL (36.4-46.3); Red Blood Count 3.88 M/uL (4.2-5.4); White Blood Count 6.56 K/uL (4.8-10.8)
[2020-08-20 12:33] LABS: BUN Creatinine Ratio 21.1 (10-20); Calcium 8.5 mg/dl (8.5-10.1); Creatinine Clr Calc Pharmacy 36.4 ml/min; Est GFR (African American) 37.9 ml/min; Est GFR (Non-African American) 32.7 ml/min; Potassium 4.2 mmol/L (3.5-5.1)
[2020-08-20] MEDS ORDERED: GLUCAGON FOR INJ 1 MG VIAL IM PRN (13:45)
[2020-08-20] MEDS ORDERED: DEXTROSE 50% 50 ML SYRINGE IV PRN (13:45)
[2020-08-20] MEDS ORDERED: CARBOHYDRATES FOR HYPOGLYCEMIA PO PRN (13:45)
[2020-08-20] MEDS ORDERED: GLUCOSE 10 TABS/TUBE PO PRN (13:45)
[2020-08-20] MEDS ORDERED: GLUCOSE 40% GEL 15 GM TUBE PO PRN (13:45)
--- NOTE | 2020-08-20 14:26 | Electrocardiogram Report ---
Test Reason : Blood Pressure : / mmHG Vent. Rate : 067 BPM Atrial Rate : 067 BPM P-R Int : 186 ms QRS Dur : 086 ms QT Int : 406 ms P-R-T Axes : 051 024 069 degrees QTc Int : 429 ms Normal sinus rhythm Normal ECG When compared with ECG of 03-AUG-2020 04:30, Incomplete left bundle block is no longer Present Confirmed by Sachin Mitchell ([id number]) on 08/20/2020 2:25:25 PM Referred By: REFERRED SELF Confirmed By:Sachin Mitchell
--- NOTE | 2020-08-20 18:06 | Communication Note ---
Date of Service: August 20, 2020 Follow-up from early a.m. admissionpatient resting comfortably. Surgical plan noted. Continue to follow closely.
[2020-08-20] MEDS: INSULIN ASPART 100 UNITS/ML 3 ML PEN SC SCH ×2 (18:41→21:53)
--- NOTE | 2020-08-20 19:31 | Communication Note ---
Date of Service: August 20, 2020 Spoke to patient's son, Ozzie ([phone]), over the phone. States that he was in to visit with Aide today. Is concerned as "she is feeling well and pain- free when not moving/at rest but she is having pain with eating and moving." Will discuss case with general surgery.
[2020-08-21] MEDS: LEVOTHYROXINE SODIUM 100 MCG TABLET PO SCH (05:59)
[2020-08-21] MEDS: SODIUM CHLORIDE 0.9% 1000ML 1,000 ML IV SCH ×3 (05:59→22:18)
--- NOTE | 2020-08-21 06:16 | Billing Data ---
Date of Service August 21, 2020 Coding Level of Care Code 63723 OBS Care - Level 3
[2020-08-21 07:04] LABS: Basophils # (auto) 0.02 K/uL (0-0.2); Basophils % (auto) 0.3 %; Eosinophils # (auto) 0.15 K/uL (0-0.5); Eosinophils % (auto) 2.5 %; Hematocrit (blood only) 36.7 % (37-47); Hemoglobin 12.4 g/dL (12.0-16.0); Lymphocytes # (auto) 2.49 K/uL (1.2-3.4); Lymphocytes % (auto) 40.7 %; Mean Corpuscular Hemoglobin 33.2 pg (25-34); Mean Corpuscular Hgb Conc 33.8 g/dL (32-36); Mean Corpuscular Volume 98.4 fL (80-100); Mean Platelet Volume 9.4 fL (7.4-10.4); Monocytes # (auto) 0.45 K/uL (0.11-0.59); Monocytes % (auto) 7.4 %; Neutrophils # (auto) 3.01 K/uL (1.4-6.5); Neutrophils % (auto) 49.1 %; Platelet Count 157 K/uL (130-400); RDW Coefficient of Variation 13.2 % (11.5-14.5); RDW Standard Deviation 47.5 fL (36.4-46.3); Red Blood Count 3.73 M/uL (4.2-5.4); White Blood Count 6.12 K/uL (4.8-10.8)
[2020-08-21 07:43] LABS: BUN Creatinine Ratio 20.2 (10-20); Calcium 8.8 mg/dl (8.5-10.1); Est GFR (African American) 39.9 ml/min; Est GFR (Non-African American) 34.4 ml/min; Potassium 4.2 mmol/L (3.5-5.1)
[2020-08-21] MEDS: LOSARTAN POTASSIUM 50 MG TAB PO SCH (08:33)
[2020-08-21] MEDS: hydroCHLOROthiazide 25 MG TAB PO SCH (08:34)
[2020-08-21] MEDS: cloNIDine HCL 0.1 MG TAB PO SCH ×2 (08:34→21:40)
[2020-08-21] MEDS: ROSUVASTATIN CALCIUM 20 MG TAB PO SCH (08:34)
[2020-08-21] MEDS: DORZOLAMIDE HCL 2% OPH SOLN 10 ML BTL OPB SCH ×2 (08:34→21:39)
[2020-08-21] MEDS: HYDROCORTISONE ACETATE 25 MG SUPP PR SCH ×2 (08:35→21:40)
[2020-08-21] MEDS: INSULIN ASPART 100 UNITS/ML 3 ML PEN SC SCH ×4 (08:37→22:18)
--- NOTE | 2020-08-21 11:06 | Surgery Progress Note ---
Date of Service August 21, 2020 Assessment & Plan (1) Cholelithiasis: Patient appears to be about the same as yesterday, no acute issues Discussed with pt and nursing and she is tolerating a diet well. no increased pain with eating She does not have evidence of acute cholecystitis. WBC normal, afebrile Her abdominal pain is not localized to the RUQ/epigastric region Will continue current management for now, dr phillips discussed plan of care with son yesterday who agreed to give a diet a try. If any concerns we can revisit cholecystectomy this admission as above. pt seen. no pain currently. per RN did not have pain today. I spoke with son earlier. no plan for surgery at this time. can f/u with me in office in a couple weeks to discuss options going forward. Admission and Anticipated Discharge Date Admission Date: August 20, 2020 Subjective Patient does not offer any complaints this AM. She says she is eating well and does not get increased pain with a diet. She reports some generalized discomfort throughout her abdomen when palpated, but not specific to the RUQ. Physical Exam Physical Exam: awake Constitutional: no acute distress Gastrointestinal (Abdomen): Percussion/Palpation: + abdomen tender (generalized discomfort to palpation) and abdomen soft Results & Data ([facility]) Vital Signs (Past 12 Hours) Vital Signs Temp Pulse Resp BP Pulse Ox 08/21/20 06:10 36.7 C 71 20 178/80 H 97 PG Care Time/CCT Total # of Minutes Spent Total Time Spent with Patient: Total time spent is greater than 50% in coordination of care (as documented) at patient's floor/unit and/or counseling patient: Coding Level of Care Code 71391 Subseq Hosp Care Lvl 2 Diagnoses Cholelithiasis K80.20
--- NOTE | 2020-08-21 17:32 | Medical Student Progress Note ---
Date of Service August 21, 2020 Assessment & Plan (1) Right lateral abdominal pain: Observation overnight. If patient remains asymptomatic, plan to discharge after breakfast tomorrow morning. Patient has had a normal diet all day, and has had only brief recurrences of her abdominal pain throughout the day. Pain is not associated with eating. Surgery has seen her and does not consider her to be a candidate for cholecystectomy at this time. Discussed discharge options with patient and son at bedside. Although patient is asymptomatic, son is concerned about recurrence of her symptoms overnight. He also states that the patient lives alone and that no one would be able to stay with her overnight. Patient and son agree that one more night of observation will be the best plan. (2) Confusion: Some of the patients difficulty answering questions is attributable to aphasia from prior strokes, and some due to her difficulty hearing. Per son, this is her baseline. At this time, there is no reason to believe that her confusion is a new symptom. Patient has had her hearing aids put in, which should help with her orientation, as should discharge to a familiar environment. Admission and Anticipated Discharge Date Admission Date: August 20, 2020 Supervising Attestation I personally examined the patient and verified all chavez points of history and exam, discussed case, and agree with decision making with Ifeanyi Judge MS2. Feeling better. Not a lot of pain nowdoes still have some right upper quadrant discomfort, but notes that she ate breakfast okay. Later evaluated by MS 2 shortly after lunchno significant pain. Case discussed with surgery [id number]. Vitals noted, in general she is awake and alert pleasant no distress. HEENT normocephalic atraumatic mucous membranes moist. Breathing unlabored no accessory muscle use good effort. Skin shows no rashes no pallor or icterus. Abdomen shows ongoing right upper quadrant tenderness but no guarding rebound or rigidity. Symptomatic cholelithiasisfor now the plan is for conservative care, she actually seems to be doing reasonably well in this regard. Family is aware of what to watch for, as is the patient to the best of her ability. We will continue to observe her through tomorrow, but if she continues to have fairly minimal pain postprandially, it may be reasonable to discharge her to home with ongoing watchful waiting and outpatient surgical follow-up. Otherwise as above Subjective Patient is a 85 year old woman admitted yesterday with right upper quadrant pain. On ultrasound she had a stone lodged in the neck of her gallbladder. Patient is hard of hearing, her hearing aids were provided to her this morning. Surgery has been consulted and does not recommend surgery at this time. This morning the patient says she is feeling well. She is sitting up in bed and eating breakfast, she says that her abdomen does not bother her. She believes that she ate dinner last night, and does not recall having any pain with her meal. Review of Systems Review of Systems: All systems reviewed & are unremarkable except as noted in HPI & below Physical Exam ENMT: External ear and nose normal, oropharynx normal. Respiratory: Normal respiratory effort; no respiratory distress and no labored breathing Auscultation limited to the front and sides due to patient laying down in bed. Normal breath sounds. Cardiovascular: Rate/Rhythm: regular rate and regular rhythm Heart Sounds: no click, no gallop, no murmur and no cardiac rub. Gastrointestinal (Abdomen): Inspection/Auscultation: abdomen not distended Percussion/Palpation: abdomen soft; abdomen tender on deep palpation on the upper right, no guarding and no hepatosplenomegaly. Psychiatric: On exam, she is oriented to person only. She cannot remember her age, where she is, or the year, even with prompting. Results & Data ([facility]) Vital Signs (Past 12 Hours) Vital Signs Temp Pulse Resp BP Pulse Ox 08/21/20 06:10 36.7 C 71 20 178/80 H 97
--- NOTE | 2020-08-21 18:50 | Billing Data ---
Date of Service August 21, 2020 Coding Level of Care Code 34366 Subseq Obs Care Lvl 3
[2020-08-22] MEDS: LEVOTHYROXINE SODIUM 100 MCG TABLET PO SCH (05:36)
[2020-08-22] MEDS: SODIUM CHLORIDE 0.9% 1000ML 1,000 ML IV SCH ×4 (06:18→20:53)
[2020-08-22] MEDS: ROSUVASTATIN CALCIUM 20 MG TAB PO SCH (08:01)
[2020-08-22] MEDS: HYDROCORTISONE ACETATE 25 MG SUPP PR SCH ×2 (08:01→19:17)
[2020-08-22] MEDS: cloNIDine HCL 0.1 MG TAB PO SCH ×2 (08:02→19:18)
[2020-08-22] MEDS: hydroCHLOROthiazide 25 MG TAB PO SCH (08:02)
[2020-08-22] MEDS: LOSARTAN POTASSIUM 50 MG TAB PO SCH (08:02)
[2020-08-22] MEDS: ACETAMINOPHEN 325 MG TAB PO PRN ×2 (08:03→19:18)
[2020-08-22] MEDS: DORZOLAMIDE HCL 2% OPH SOLN 10 ML BTL OPB SCH ×2 (08:03→19:18)
[2020-08-22] MEDS: INSULIN ASPART 100 UNITS/ML 3 ML PEN SC SCH ×4 (09:11→20:40)
--- NOTE | 2020-08-22 17:29 | Hospitalist Progress Note ---
Date of Service August 22, 2020 Assessment & Plan (1) Cholelithiasis: Mrs. Bui is an 85 yo woman who presented to the [facility] for evaluation of progressive R sided abdominal pain. Abdominal Pain secondary to Cholelithiasis - US showed a stone lodged in the neck of the gallbladder with mild distention - Patient is afebrile. WBC not elevated. - LFTs normal, Alk phos and T bili normal. - General surgery consulted. Appreciate their assistance and recommendations -- no plan for surgery at this point, will continue with conservative management - Serial exams - mIVF w/ NSS 125 cc/hr - Tylenol for pain, zofran for nausea Elevated serum creatinine, resolved - Cr 1.85 on admission - Baseline ~ 1.5-1.7 - BUN elevated to 44, ratio of 23 - suspect pre-renal etiology - patient likely had reduced PO intake over preceding 3 days with progressive abdominal pain - 1 liter of given in ED, continuing mIVF - Cr improved to baseline and is currently 1.4 - trend BMP Hypertension: - continue home HCTZ, losartan, and catapres Hypothyroidism: - continue home levothyroxine Type 2 diabetes mellitus: - HbA1c below goal at 6.9 on 08/17/20 - home glipizide held - ISS Hypercholesterolemia: - continue home dose crestor Obstructive sleep apnea: - patient may wear home bipap device Dispo: Med/Surg DVT ppx: on Eliquis, SCDs Diet: DM2 Code: Full (2) Elevated serum creatinine: (3) Hypothyroidism: (4) Hypertension: (5) Type 2 diabetes mellitus: (6) Hypercholesterolemia: (7) Obstructive sleep apnea: Admission and Anticipated Discharge Date Admission Date: August 20, 2020 Supervising Physician Co-Signing Physician Notes I personally examined the patient and verified all chavez points of history and exam, discussed case, and agree with decision making with Ifeanyi Judge MS2. Has had more pain. A little bit nervous about going home. Discussed planshe would prefer to stay. Updated surgery. Vitals noted, in general she is awake and alert pleasant no distress. HEENT normocephalic atraumatic mucous membranes moist. Breathing unlabored no accessory muscle use good effort. Skin shows no rashes no pallor or icterus. Abdomen shows ongoing right upper quadrant tenderness but no guarding rebound or rigidity. Symptomatic cholelithiasiscontinue watchful waiting and conservative care, a little bit concerning that she is still having on again/off again pain. Otherwise as above Subjective Patient seen and evaluated at bedside this morning. Complains of worsening "achy" abd pain since last night. She is still tolerating diet. No nausea or vomiting. No other complaints or concerns. Denies fever, chills, CP, SOB, or leg pain. Review of Systems Review of Systems: See HPI Physical Exam Physical Exam: GENERAL: Elderly female appears stated age, laying in bed in no acute distress. Well developed and well nourished. Vital signs reviewed as above. EYES: EOMI. Anicteric sclerae. HENT: Moist mucous membranes. RESPIRATORY: Clear to auscultation bilaterally. No wheezing, rales, or rhonchi. CARDIOVASCULAR: Regular rate and rhythm. ABDOMEN: Soft, mild to moderate tenderness to palpation diffusely throughout the abdomen but most prominent on right side. Non-distended. Normal bowel sounds. EXTREMITIES: No edema. Non-tender. SKIN: Warm, dry. NEUROLOGIC: A/O x3. No focal neurological deficits. PSYCHIATRIC: Cooperative. Appropriate mood and affect. Results & Data Results & Data ([facility]) Vital Signs (Past 12 Hours) Vital Signs Temp Pulse Pulse Resp BP Pulse Ox 08/22/20 15:42 36.8 C 96 H 20 142/63 H 96 08/22/20 06:37 36.9 C 64 20 183/81 H 97 Resident Activity Tracking Resident Involvement: Resident Care Provided Care Provided: Adult Hospital Medicine
--- NOTE | 2020-08-22 19:40 | Billing Data ---
Date of Service August 22, 2020 Coding Level of Care Code 84311 Subseq Hosp Care Lvl 2
[2020-08-22] MEDS: ONDANSETRON INJ 2 MG/ML 2 ML VIAL IV PRN (23:49)
[2020-08-23] MEDS: SODIUM CHLORIDE 0.9% 1000ML 1,000 ML IV SCH ×3 (04:43→22:55)
[2020-08-23] MEDS: LEVOTHYROXINE SODIUM 100 MCG TABLET PO SCH (06:11)
[2020-08-23] MEDS: ACETAMINOPHEN 325 MG TAB PO PRN (07:47)
[2020-08-23] MEDS: ONDANSETRON INJ 2 MG/ML 2 ML VIAL IV PRN (07:47)
[2020-08-23] MEDS: cloNIDine HCL 0.1 MG TAB PO SCH ×2 (07:59→22:51)
[2020-08-23] MEDS: hydroCHLOROthiazide 25 MG TAB PO SCH (07:59)
[2020-08-23] MEDS: ROSUVASTATIN CALCIUM 20 MG TAB PO SCH (08:00)
[2020-08-23] MEDS: DORZOLAMIDE HCL 2% OPH SOLN 10 ML BTL OPB SCH ×2 (08:00→22:55)
[2020-08-23] MEDS: LOSARTAN POTASSIUM 50 MG TAB PO SCH (08:00)
[2020-08-23] MEDS: HYDROCORTISONE ACETATE 25 MG SUPP PR SCH ×2 (08:01→22:51)
[2020-08-23] MEDS: INSULIN ASPART 100 UNITS/ML 3 ML PEN SC SCH ×3 (08:36→21:25)
[2020-08-23 09:19] LABS: Basophils # (auto) 0.01 K/uL (0-0.2); Basophils % (auto) 0.1 %; Eosinophils # (auto) 0.09 K/uL (0-0.5); Eosinophils % (auto) 1.1 %; Hematocrit (blood only) 39.7 % (37-47); Hemoglobin 13.4 g/dL (12.0-16.0); Immature Granulocytes # (auto) 0.01 K/uL (0.00-0.02); Immature Granulocytes % (auto) 0.1 %; Lymphocytes # (auto) 1.49 K/uL (1.2-3.4); Lymphocytes % (auto) 17.6 %; Mean Corpuscular Hemoglobin 32.8 pg (25-34); Mean Corpuscular Hgb Conc 33.8 g/dL (32-36); Mean Corpuscular Volume 97.1 fL (80-100); Mean Platelet Volume 9.9 fL (7.4-10.4); Monocytes # (auto) 0.52 K/uL (0.11-0.59); Monocytes % (auto) 6.1 %; Neutrophils # (auto) 6.36 K/uL (1.4-6.5); Platelet Count 165 K/uL (130-400); RDW Coefficient of Variation 13.2 % (11.5-14.5); RDW Standard Deviation 46.6 fL (36.4-46.3); Red Blood Count 4.09 M/uL (4.2-5.4); White Blood Count 8.48 K/uL (4.8-10.8)
[2020-08-23 09:42] LABS: Albumin Level 3.1 gm/dl (3.4-5.0); BUN Creatinine Ratio 19.2 (10-20); Creatinine Clr Calc Pharmacy 36.7 ml/min; Est GFR (African American) 38.2 ml/min; Potassium 3.9 mmol/L (3.5-5.1)
[2020-08-23 09:45] LABS: Albumin Globulin Ratio 0.7 (0.9-2); Bilirubin,Total 0.5 mg/dl (0.2-1); Globulin 4.2 gm/dl (2.5-4.0); Total Protein 7.3 gm/dl (6.4-8.2)
[2020-08-23] MEDS ORDERED: ONDANSETRON INJ 2 MG/ML 2 ML VIAL IV ONE (09:57)
--- NOTE | 2020-08-23 14:24 | Surgery Progress Note ---
Date of Service August 23, 2020 Assessment & Plan (1) Cholelithiasis: There is no other obvious reason for her symptoms other than her gallbladder at this point. She is failing conservative management. I have called her son and discussed the issue with him and he agrees. She is currently n.p.o. and has been off of her anticoagulation for several days so this would be an opportune time to remove her gallbladder. We discussed the risks which include bleeding, infection, bile leaks or bile duct injury, injury to other organs, DVT, PE, AL, CVA etc. Following this I answered all of their questions. We will proceed this afternoon with laparoscopic cholecystectomy Admission and Anticipated Discharge Date Admission Date: August 22, 2020 Subjective Patient seen. Discussed with primary service as well. Apparently she developed early this morning some right upper quadrant pain as well as nausea and small amount of vomiting. She was unable to eat breakfast. Physical Exam Constitutional: WD/WN, vitals as above no acute distress and not ill appearing Eyes: PERRL, conjunctivae normal, anicteric sclerae EOM intact bilaterally ENMT: external ear and nose normal, oropharynx normal Ears: no hearing impairment Neck: trachea midline, no thyromegaly Respiratory: normal respiratory effort; no respiratory distress and does not use accessory muscles Cardiovascular: Rate/Rhythm: regular rate and regular rhythm Gastrointestinal (Abdomen): Soft. Positive right upper quadrant tenderness to palpation. No peritoneal signs. She does appear uncomfortable and admits to pain and mild nausea. Skin: no rashes, warm and dry Psychiatric: Orientation: alert, oriented x 3 and cooperative Results & Data ([facility]) Vital Signs (Past 12 Hours) Vital Signs Temp Pulse Resp BP Pulse Ox 08/23/20 06:31 36.9 C 80 18 190/106 H 91 PG Care Time/CCT Total # of Minutes Spent Total Time Spent with Patient: Total time spent is greater than 50% in coordination of care (as documented) at patient's floor/unit and/or counseling patient: Coding Level of Care Code 74692 Subseq Hosp Care Lvl 3 Diagnoses Cholelithiasis K80.20
--- NOTE | 2020-08-23 14:45 | Anesthesiology Consultation ---
Date of Service August 23, 2020 Assessment & Plan (1) Encounter for pre-operative examination: Chart Review Chart Review: entry operator initiated History Surgery Operation Date: 08/23/20 12:50 Proposed Procedures p Laparoscopic Cholecystectomy - Fracisco Dominguez, Height/Weight Height: 5 ft 8 in Weight: 105.3 kg Allergies Allergy/AdvReac Type Severity Reaction Status Date / Time adhesive Allergy Mild SKIN GETS Verified 08/19/20 21:47 RED, SORE AND ITCHY atorvastatin AdvReac Intermediate GENERIC-SEVERE Verified 08/19/20 21:47 LEG CRAMPS NAUSEA NIGHTMARES Medications Home Medications Medication Instructions Recorded Confirmed Last Taken acetaminophen 500 mg tablet 500 mg PO Q4H PRN tab 10/25/18 08/19/20 Unknown dorzolamide 2 % eye drops 1 drops OPB BID ml 10/25/18 08/19/20 07/29/20 polyethylene glycol 3350 17 17 g PO DAILY PRN gm 10/25/18 08/19/20 05/23/19 gram/dose oral powder aspirin 81 mg PO QAM 05/24/19 08/19/20 07/29/20 diclofenac sodium 1 % topical gel 4 gm TOP QID #100 gm 08/12/19 08/19/2007/29 levothyroxine 100 mcg tablet 100 mcg PO QAM #90 tab 09/16/19 08/19/20 07/29/20 apixaban 2.5 mg tablet 2.5 mg PO BID #180 tab 01/31/20 08/19/20 07/29/20 hydrochlorothiazide 25 mg tablet 25 mg PO QAM #90 tab 03/14/20 08/19/20 07/29/20 rosuvastatin 20 mg tablet 20 mg PO QAM #90 tab 06/19/20 08/19/20 07/29/20 clonidine HCl 0.1 mg tablet 0.1 mg PO BID #60 tab 07/03/20 08/19/20 07/29/20 losartan 100 mg tablet 100 mg PO QAM #90 tab 07/16/20 08/19/20 07/29/20 ergocalciferol (vitamin D2) 50,000 unit PO WK 07/29/20 08/19/20 Unknown glipizide 5 mg PO BID 07/29/20 08/19/20 07/29/20 hydrocortisone acetate 25 mg 25 mg ME BID #24 ea 08/06/20 08/19/20 Unknown rectal suppository Active Medications Generic Name Dose Route Start Last Admin Trade Name Freq PRN Reason Stop Dose Admin Acetaminophen 650 mg 08/20/20 19:19 08/23/20 07:47 Acetaminophen 325 Mg Tab PO 09/19/20 19:18 650 mg Q4H PRN Administration Pain Clonidine HCl 0.1 mg 08/20/20 09:00 08/23/20 07:59 Clonidine Hcl 0.1 Mg Tab PO 09/19/20 08:59 0.1 mg BID MATTY Administration Dorzolamide HCl 1 drops 08/20/20 09:00 08/23/20 08:00 Dorzolamide Hcl 2% Oph Soln 10 Ml Btl OPB 09/19/20 08:59 1 drops BID MATTY Administration Hydrochlorothiazide 25 mg 08/20/20 09:00 08/23/20 07:59 Hydrochlorothiazide 25 Mg Tab PO 09/19/20 08:59 25 mg QAM MATTY Administration Hydrocortisone 25 mg 08/20/20 09:00 08/23/20 08:01 Hydrocortisone Acetate 25 Mg Supp ME 09/19/20 08:59 Not Given BID MATTY Sodium Chloride 1,000 mls @ 125 mls/hr 08/20/20 04:42 08/23/20 12:42 Nss 1000ml IV 09/19/20 04:41 125 mls/hr .Q8H MATTY Administration Insulin Aspart 0 units 08/20/20 16:30 08/23/20 13:06 Insulin Aspart 100 Units/Ml 3 Ml Pen SC 09/19/20 16:29 1 units ACHS MATTY Administration Levothyroxine Sodium 100 mcg 08/20/20 06:30 08/23/20 06:11 Levothyroxine Sodium 100 Mcg Tablet PO 09/19/20 06:29 Not Given DAILYBB MATTY Losartan Potassium 100 mg 08/20/20 09:00 08/23/20 08:00 Losartan Potassium 50 Mg Tab PO 09/19/20 08:59 100 mg QAM MATTY Administration Ondansetron HCl 4 mg 08/20/20 04:42 08/23/20 07:47 Ondansetron Inj 2 Mg/Ml 2 Ml Vial IV 09/19/20 04:41 4 mg Q6H PRN Administration Nausea Rosuvastatin Calcium 20 mg 08/20/20 09:00 08/23/20 08:00 Rosuvastatin Calcium 20 Mg Tab PO 09/19/20 08:59 20 mg QAM MATTY Administration Past Medical History Medical History Cholelithiasis Chronic reflux esophagitis Chronic renal insufficiency Depression Dysarthria, post-stroke Expressive aphasia Gait instability Hearing loss, bilateral History of diabetes mellitus History of stroke Hoarseness Hypercholesterolemia Leg pain, bilateral Obstructive sleep apnea Osteoarthritis Peripheral neuropathy Sensorineural hearing loss (SNHL) of both ears Urge incontinence of urine Past Surgical History Surgical History H/O left mastectomy Social History Smoking Status: Never smoker Hx Alcohol Use: No Hx Substance Use: No Physical Exam Vital Signs Last Vital Signs Temp 98.4 F 08/23/20 06:31 Pulse 80 08/23/20 06:31 Resp 18 08/23/20 06:31 BP 190/106 H 08/23/20 06:31 Pulse Ox 91 08/23/20 06:31 Testing Laboratory Results 08/23/20 08:40 08/23/20 08:40 PT 10.0 Seconds (9.0-12.0) 08/19/20 19:39 INR 1.0 (0.9-1.1) 08/19/20 19:39 APTT 25.0 Seconds (21.0-31.0) 08/19/20 19:39 Blood Type A Positive 08/19/20 21:00 Antibody Screen NEGATIVE 08/19/20 21:00 08/23/20 08/23/20 12:13 08:08 POC Glucose 190 H 142 H Laboratory Tests 08/20/20 02:15 SARS-CoV-2 (PCR) NEGATIVE Electrocardiogram Date: 08/19/20 Normal sinus rhythm, rate 67 bpm Normal ECG When compared with ECG of 03-AUG-2020 04:30, Incomplete left bundle block is no longer Present Confirmed by Sachin Mitchell ([id number]) on 08/20/2020 2:25:25 PM Chest X-Ray Date: 08/19/20 IMPRESSION: 1. No large infiltrates or consolidative lesions. Chronic reticular nodular prominence of pulmonary interstitium is not significantly changed since prior. 2. Atherosclerosis
[2020-08-23] MEDS ORDERED: hydrALAZINE HCL 20 MG/ML VIAL IV STA (15:10)
[2020-08-23] MEDS ORDERED: hydrALAZINE HCL 20 MG/ML VIAL ONE (15:12)
[2020-08-23] MEDS ORDERED: BUPIVACAINE/EPINEPHRINE 0.5% MPF 1:200,000 30 ML VIAL ONE (15:17)
[2020-08-23] MEDS ORDERED: ceFAZolin 2,000 MG/15 ML IV PUSH IV ONE (15:56)
[2020-08-23] MEDS ORDERED: ceFAZolin 2000MG 2,000 MG/15 ML SYR IV ONE (16:00)
[2020-08-23] MEDS ORDERED: ONDANSETRON INJ 2 MG/ML 2 ML VIAL ONE (16:17)
[2020-08-23] MEDS ORDERED: PROPOFOL IV EMULSION 10 MG/ML 20 ML VIAL IV ONE (16:17)
[2020-08-23] MEDS ORDERED: LIDOCAINE 2% 2 ML VIAL/AMP(20MG/ML) INFIL ONE (16:17)
[2020-08-23] MEDS ORDERED: ROCURONIUM BROMIDE 10 MG/ML 5 ML VIAL IV ONE (16:17)
[2020-08-23] MEDS ORDERED: fentaNYL citrate 100 MCG/2 ML VIAL ONE (16:17)
[2020-08-23] MEDS ORDERED: SUCCINYLCHOLINE 100MG/5ML SYR IV ONE (17:29)
[2020-08-23] MEDS ORDERED: ePHEDrine sulfate 50 MG/ML AMP ONE (17:29)
[2020-08-23] MEDS ORDERED: PHENYLEPHRINE HCL 10 MG/ML VIAL ONE (17:29)
--- NOTE | 2020-08-23 18:06 | Medical Student Progress Note ---
Date of Service August 23, 2020 Assessment & Plan (1) Right lateral abdominal pain: Laparoscopic cholecystectomy performed this afternoon. (2) Confusion: Some of the patients difficulty answering questions is attributable to aphasia from prior strokes, and some due to her difficulty hearing. Per son, this is her baseline. At this time, there is no reason to believe that her confusion is a new symptom. Keep patient's hearing aids within reach, which should help with her orientation, as should discharge to a familiar environment. Admission and Anticipated Discharge Date Admission Date: August 22, 2020 Supervising Attestation I personally examined the patient and verified all chavez points of history and exam, discussed case, and agree with decision making with Ifeanyi JACOBS. More pain, more nausea. Vitals noted, laying in bed on her right side holding an emesis bag appearing uncomfortable. HEENT normocephalic atraumatic mucous membranes moist. Breathing unlabored no accessory muscle use good effort. Skin shows no rashes no pallor or icterus. Abdomen shows ongoing right upper quadrant tenderness now to even light palpation. Symptomatic cholelithiasisfor cholecystectomy today Otherwise as above Subjective The patient is a 85 year old woman admitted yesterday with right upper quadrant pain. On ultrasound she had a stone lodged in the neck of her gallbladder. Patient is hard of hearing. This morning the patient is feeling much worse. She has had increasing pain since last night, and has vomited multiple times. Tylenol and zofran are not helping her pain and nausea. She was unable to eat breakfast. Surgery saw her and she had a laparoscopic cholecystectomy performed this afternoon. Review of Systems Review of Systems: All systems reviewed & are unremarkable except as noted in HPI & below Physical Exam Constitutional: WD/WN, vitals as above ENMT: external ear and nose normal, oropharynx normal Respiratory: normal respiratory effort, lungs clear to auscultation Cardiovascular: RRR, no murmur, no edema Gastrointestinal (Abdomen): On exam her abdomen is diffusely tender, more so on the right side. Skin: no rashes, warm and dry Results & Data ([facility]) Vital Signs (Past 12 Hours) Vital Signs Temp Pulse Pulse Resp BP Pulse Ox 08/23/20 16:02 94 H 20 158/86 H 96 08/23/20 15:31 37.2 C 86 20 188/85 H 96 08/23/20 14:43 37.2 C 88 20 194/106 H 97 08/23/20 06:31 36.9 C 80 18 190/106 H 91
--- NOTE | 2020-08-23 18:09 | Operative Report ---
PG Post Operative Report Pre & Post Diagnosis Operation Date: 08/23/20 12:50 Pre-Op Diagnosis: symptomatic cholelithiasis Post-Op Diagnosis: symptomatic cholelithiasis; small hiatal hernia; pelvic adhesions. I identified the patient and participated in the time-out.: Yes Procedure Operation Date: 08/23/20 12:50 Actual Procedures p Laparoscopic Cholecystectomy - Fracisco Dominguez DO Surgeon Fracisco Dominguez DO Whipped Topping Mixer nita Alarcon Estimated Blood Loss 5 Findings Consistent with Post-Op Diagnosis Specimens gallbladder Description of Procedure After informed consent was obtained the patient was taken to the operating room and placed in the supine position. After successful intubation the abdomen was sterilely prepped and draped in usual fashion. A periumbilical incision was made with an 11 blade scalpel and carried down through the soft tissue using electrocautery. The anterior rectus fascia was opened using electrocautery and 2 #0 Vicryl stay sutures were placed. The peritoneum was elevated with hemostats and incised under direct vision using Metzenbaum scissors. A finger sweep was performed and a 12 mm Lynn trocar was placed. The abdomen was insufflated to 18 mmHg. The laparoscope was inserted and the abdomen was examined in 360. The stomach was slightly distended and there was a small hi atal hernia with minimal gastric incarceration. Certainly this would not explain the patient's symptoms. She also some adhesions in the pelvis so I did not get a good examination of any pelvic organs. There is no evidence of a small bowel obstruction. Liver appeared normal. Peritoneal surfaces appeared normal. A subxiphoid 5 mm port and 2 right upper quadrant 5 mm ports were placed under direct vision. The patient was placed in a reverse Trendelenburg position and slightly airplaned to the left. The gallbladder was grasped and elevated superiorly and laterally. A [place] dissector was used to take down adhesions around the neck of the gallbladder. The cystic duct was identified and skeletonized. It was clipped twice proximally and once distally and transected using a laparoscopic scissor. In similar fashion the cystic artery was identified and skeletonized clipped and divided. The gallbladder was removed from the gallbladder fossa with electrocautery. It was placed into an Endo Catch bag. Thorough irrigation was performed. At the end of the procedure there was adequate hemostasis and no evidence of any bile leaks. A final look around the abdomen showed no other abnormalities. Because of the patient's orogastric tube output and symptoms we decided to have anesthesia place an NG tube and leave it to low intermittent suction. We obtained about 800 cc of brownish fluid from the NG tube over the course of the case. The gallbladder and trochars were all removed and the abdomen was desufflated. The fascia of the camera port was closed using 0 Vicryl in a [id number] fashion. All the wounds were irrigated and closed using 4-0 Monocryl. Marcaine was injected around them for postoperative analgesia and skin glue used as a dressing. The patient was awakened, extubated and transferred to recovery in stable condition. My physician's optometric assistant was present throughout the entire case... helped with prepping the patient. With exposure for trocar placement, as well as retracted the gallbladder throughout the case and also assisted with wound closure and dressing placement. I attest to the content of the Intraoperative Record and any orders documented therein. Any exceptions are noted below.
[2020-08-23] MEDS ORDERED: LABETALOL HCL IV 5 MG/ML 20ML IV ONE (18:35)
[2020-08-23] MEDS: LABETALOL HCL IV 5 MG/ML 20ML IV PRN ×2 (18:36→18:48)
--- NOTE | 2020-08-23 19:05 | Anesthesiology Progress Note ---
Date of Service August 23, 2020 Anesthesia Post Procedure Vital Signs Vital Signs: Temp Pulse Pulse Pulse Resp BP BP 08/23/20 18:55 36.3 C L 70 21 184/83 H 08/23/20 18:45 36.3 C L 78 20 194/98 H 08/23/20 18:35 73 19 178/98 H 08/23/20 18:25 100 H 23 193/102 H 08/23/20 18:15 102 H 23 188/91 H 08/23/20 18:06 36.2 C L 103 H 20 157/79 H 08/23/20 16:02 94 H 20 158/86 H 08/23/20 15:31 37.2 C 86 20 188/85 H 08/23/20 14:43 37.2 C 88 20 194/106 H 08/23/20 06:31 36.9 C 80 18 190/106 H 08/23/20 00:16 36.8 C 65 18 191/92 H 08/22/20 19:15 192/92 H Pulse Ox 08/23/20 18:55 98 08/23/20 18:45 98 08/23/20 18:35 98 08/23/20 18:25 98 08/23/20 18:15 98 08/23/20 18:06 96 08/23/20 16:02 96 08/23/20 15:31 96 08/23/20 14:43 97 08/23/20 06:31 91 08/23/20 00:16 95 08/22/20 19:15 Pain Intensity Abdomen: Pain Intensity: 3 Transfer of Care Handoff Completed per policy Notes Mental Status: alert / awake / arousable Patient Amnestic to Procedure: Yes Nausea / Vomiting: adequately controlled Pain: adequately controlled Airway Patency, RR, SpO2: stable & adequate BP & HR: stable & adequate Hydration State: stable & adequate Anesthetic Complications: no major complications apparent
--- NOTE | 2020-08-23 20:07 | Billing Data ---
Date of Service August 23, 2020 Coding Level of Care Code 41723 Subseq Hosp Care Lvl 2
[2020-08-23] MEDS ORDERED: MoRPHine SULFATE 4 MG/ML 1 ML CARP\\VIAL IV PRN (21:22)
[2020-08-23] MEDS ORDERED: MoRPHine SULFATE 2 MG/ML CARP IV PRN (21:22)
[2020-08-24] MEDS: INSULIN ASPART 100 UNITS/ML 3 ML PEN SC SCH ×5 (00:01→20:26)
[2020-08-24] MEDS: LEVOTHYROXINE SODIUM 100 MCG TABLET PO SCH (06:09)
[2020-08-24 06:21] LABS: Basophils # (auto) 0.01 K/uL (0-0.2); Basophils % (auto) 0.1 %; Eosinophils # (auto) 0.01 K/uL (0-0.5); Eosinophils % (auto) 0.1 %; Hematocrit (blood only) 36.6 % (37-47); Hemoglobin 12.5 g/dL (12.0-16.0); Immature Granulocytes # (auto) 0.01 K/uL (0.00-0.02); Immature Granulocytes % (auto) 0.1 %; Lymphocytes # (auto) 1.68 K/uL (1.2-3.4); Lymphocytes % (auto) 14.8 %; Mean Corpuscular Hgb Conc 34.2 g/dL (32-36); Mean Corpuscular Volume 96.6 fL (80-100); Mean Platelet Volume 9.8 fL (7.4-10.4); Monocytes # (auto) 1.17 K/uL (0.11-0.59); Monocytes % (auto) 10.3 %; Neutrophils # (auto) 8.45 K/uL (1.4-6.5); Neutrophils % (auto) 74.6 %; Platelet Count 162 K/uL (130-400); RDW Coefficient of Variation 13.4 % (11.5-14.5); RDW Standard Deviation 46.3 fL (36.4-46.3); Red Blood Count 3.79 M/uL (4.2-5.4); White Blood Count 11.33 K/uL (4.8-10.8)
[2020-08-24 06:59] LABS: BUN Creatinine Ratio 18.7 (10-20); Calcium 8.7 mg/dl (8.5-10.1); Est GFR (African American) 36.1 ml/min; Est GFR (Non-African American) 31.2 ml/min; Potassium 3.5 mmol/L (3.5-5.1)
[2020-08-24 07:02] LABS: Albumin Globulin Ratio 0.8 (0.9-2); Bilirubin,Total 0.6 mg/dl (0.2-1); Globulin 3.6 gm/dl (2.5-4.0); Total Protein 6.6 gm/dl (6.4-8.2)
[2020-08-24] MEDS: hydroCHLOROthiazide 25 MG TAB PO SCH ×2 (08:21→12:01)
[2020-08-24] MEDS: cloNIDine HCL 0.1 MG TAB PO SCH ×3 (08:21→20:27)
[2020-08-24] MEDS: ROSUVASTATIN CALCIUM 20 MG TAB PO SCH ×2 (08:22→12:00)
[2020-08-24] MEDS: DORZOLAMIDE HCL 2% OPH SOLN 10 ML BTL OPB SCH ×2 (08:22→20:26)
[2020-08-24] MEDS: LOSARTAN POTASSIUM 50 MG TAB PO SCH ×2 (08:22→12:01)
[2020-08-24] MEDS: HYDROCORTISONE ACETATE 25 MG SUPP PR SCH ×2 (08:24→20:27)
--- NOTE | 2020-08-24 08:35 | Surgery Progress Note ---
Date of Service August 24, 2020 Assessment & Plan (1) Cholelithiasis: Patient postoperative day #1 from a cholecystectomy. Clinically doing well. She has had relatively high NG tube output however in the canister today it is all clear. Intraoperatively she had no evidence of a bowel obstruction. She has no nausea no pain and I believe we'll can remove her NG tube later try some clear liquids today. [facility] surgeons covering for the weekend if any questions or concerns. Admission and Anticipated Discharge Date Admission Date: August 22, 2020 Subjective Patient seen. States she is feeling better. Having no pain and no nausea today. Physical Exam Physical Exam: Alert. No acute distress Abdomen is soft. Minimal incisional tenderness. Nondistended Results & Data ([facility]) Vital Signs (Past 12 Hours) Vital Signs Temp Pulse Resp BP Pulse Ox 08/24/20 07:41 37.8 C H 80 18 182/76 H 92 08/24/20 03:18 37.3 C 79 20 179/92 H 98 08/23/20 22:49 37.0 C 75 18 183/91 H 99 08/23/20 21:24 37.2 C 79 18 191/84 H 99 PG Care Time/CCT Total # of Minutes Spent Total Time Spent with Patient: Total time spent is greater than 50% in coordination of care (as documented) at patient's floor/unit and/or counseling patient: Coding Level of Care Code None Diagnoses Cholelithiasis K80.20
[2020-08-24] MEDS: SODIUM CHLORIDE 0.9% 1000ML 1,000 ML IV SCH ×3 (10:11→18:12)
[2020-08-24] MEDS: POLYETHYLENE (MIRALAX) 17 GM PACK PO SCH (12:29)
--- NOTE | 2020-08-24 13:52 | Medical Student Progress Note ---
Date of Service August 24, 2020 Assessment & Plan (1) Right lateral abdominal pain: Laparoscopic cholecystectomy performed yesterday. -Remove nasogastric tube. -Advance diet as tolerated, beginning with clear liquids this afternoon. -Collaborate with surgery as to discharge plan. (2) Confusion: Some of the patients difficulty answering questions is attributable to aphasia from prior strokes, and some due to her difficulty hearing. Per son, this is her baseline. At this time, there is no reason to believe that her confusion is a new symptom. Keep patient's hearing aids within reach, which should help with her orientation. Admission and Anticipated Discharge Date Admission Date: August 22, 2020 Supervising Attestation I personally examined the patient and verified all chavez points of history and exam, discussed case, and agree with decision making with Ifeanyi JACOBS. NG out, feeling hungry Vitals noted, pleasant nad. HEENT normocephalic atraumatic mucous membranes moist. Breathing unlabored no accessory muscle use good effort. Skin shows no rashes no pallor or icterus. Abdomen soft nd nt Symptomatic cholelithiasisimproving post cholecystectomy. clear liquids, advance slowly Otherwise as above Subjective Patient recovering in room from lap hakeem. She has a nasogastric tube placed with suction drainage. There continues to be a sizable amount of drainage but it is clear. Per surgery, she can have the tube removed and begin a clear liquid diet later today. The patient feels much better. Her nausea and vomiting have resolved. She is feeling hungry, and is looking forward to being able to eat this afternoon. Review of Systems Review of Systems: All systems reviewed & are unremarkable except as noted in HPI & below Physical Exam Constitutional: WD/WN, vitals as above ENMT: external ear and nose normal, oropharynx normal Respiratory: normal respiratory effort, lungs clear to auscultation Cardiovascular: RRR, no murmur, no edema Gastrointestinal (Abdomen): Her incisions are closed and healing well. Her abdomen is tender to palpation, but less so than yesterday. Skin: no rashes, warm and dry Incisions healing well. Results & Data ([facility]) Vital Signs (Past 12 Hours) Vital Signs Temp Pulse Resp BP Pulse Ox 08/24/20 11:15 36.8 C 76 18 188/78 H 94 08/24/20 07:41 37.8 C H 80 18 182/76 H 92 08/24/20 03:18 37.3 C 79 20 179/92 H 98
[2020-08-24] MEDS: ONDANSETRON INJ 2 MG/ML 2 ML VIAL IV PRN (18:30)
--- NOTE | 2020-08-24 19:14 | Billing Data ---
Date of Service August 24, 2020 Coding Level of Care Code 27494 Subseq Hosp Care Lvl 2
[2020-08-25] MEDS: SODIUM CHLORIDE 0.9% 1000ML 1,000 ML IV SCH ×3 (02:17→18:29)
[2020-08-25] MEDS: LEVOTHYROXINE SODIUM 100 MCG TABLET PO SCH (06:20)
[2020-08-25 06:47] LABS: Hematocrit (blood only) 32.5 % (37-47); Hemoglobin 10.8 g/dL (12.0-16.0); Mean Corpuscular Hemoglobin 32.6 pg (25-34); Mean Corpuscular Hgb Conc 33.2 g/dL (32-36); Mean Corpuscular Volume 98.2 fL (80-100); Mean Platelet Volume 9.9 fL (7.4-10.4); Platelet Count 148 K/uL (130-400); RDW Coefficient of Variation 13.4 % (11.5-14.5); RDW Standard Deviation 48.2 fL (36.4-46.3); Red Blood Count 3.31 M/uL (4.2-5.4); White Blood Count 9.07 K/uL (4.8-10.8)
[2020-08-25 07:21] LABS: Albumin Level 2.5 gm/dl (3.4-5.0); BUN Creatinine Ratio 18.4 (10-20); Calcium 8.3 mg/dl (8.5-10.1); Creatinine Clr Calc Pharmacy 37.7 ml/min; Est GFR (African American) 39.5 ml/min; Est GFR (Non-African American) 34.1 ml/min; Potassium 3.7 mmol/L (3.5-5.1)
[2020-08-25 07:24] LABS: Albumin Globulin Ratio 0.7 (0.9-2); Bilirubin,Total 0.6 mg/dl (0.2-1); Globulin 3.4 gm/dl (2.5-4.0); Total Protein 5.9 gm/dl (6.4-8.2)
[2020-08-25] MEDS: ACETAMINOPHEN 325 MG TAB PO PRN ×2 (07:59→18:32)
[2020-08-25] MEDS: HYDROCORTISONE ACETATE 25 MG SUPP PR SCH ×2 (08:03→21:08)
[2020-08-25] MEDS: hydroCHLOROthiazide 25 MG TAB PO SCH (08:03)
[2020-08-25] MEDS: DORZOLAMIDE HCL 2% OPH SOLN 10 ML BTL OPB SCH ×2 (08:03→21:09)
[2020-08-25] MEDS: cloNIDine HCL 0.1 MG TAB PO SCH ×2 (08:03→21:08)
[2020-08-25] MEDS: ROSUVASTATIN CALCIUM 20 MG TAB PO SCH (08:04)
[2020-08-25] MEDS: LOSARTAN POTASSIUM 50 MG TAB PO SCH (08:04)
[2020-08-25] MEDS: POLYETHYLENE (MIRALAX) 17 GM PACK PO SCH (08:04)
[2020-08-25] MEDS: INSULIN ASPART 100 UNITS/ML 3 ML PEN SC SCH ×4 (08:44→21:35)
--- NOTE | 2020-08-25 10:14 | Hospitalist Progress Note ---
Date of Service August 25, 2020 Assessment & Plan (1) Right lateral abdominal pain: Mrs. Bui is an 85 yo woman who presented to the [facility] for evaluation of progressive R sided abdominal pain. Was found to have cholelithiasis and had laparoscopic cholecystectomy performed on 08/23. Cholelithiasis - Laparoscopic cholecystectomy performed 08/23. -Remove nasogastric tube. -Advance diet as tolerated, beginning with clear liquids this afternoon. -Collaborate with surgery as to discharge plan -PT/OT ordered Confusion - Some of the patients difficulty answering questions is attributable to aphasia from prior strokes, and some due to her difficulty hearing. - Per son, this is her baseline. - At this time, there is no reason to believe that her confusion is a new symptom. - Keep patient's hearing aids within reach, which should help with her orientation. Constipation - Patient has not had a bowel movement since the first day of her admission. -Continue Miralax until she has a bowel movement CODE: FULL Diet: Clear liquid, carb consistent/DM2 Dispo: MedSurg (2) Confusion: Admission and Anticipated Discharge Date Admission Date: August 22, 2020 Supervising Physician Co-Signing Physician Notes I personally examined the patient and verified all chavez points of history and exam, discussed case, and agree with decision making with Dr Marie Only real complaint is a little bit of left knee pain. Otherwise doing well. Vitals noted, pleasant nad. HEENT normocephalic atraumatic mucous membranes moist. Breathing unlabored no accessory muscle use good effort. Skin shows no rashes no pallor or icterus. Abdomen soft nd nt. Left knee a little bit tender along joint line, no erythema no large effusion. Symptomatic cholelithiasisimproving post cholecystectomy. clear liquids, advance slowlyfull liquids today. Knee painseems to be arthritis flare. Follow, consider topical treatment if it persists. DispoPT/OT eval and treat. Hopefully home soon. Otherwise as above Subjective Patient seen at bedside this morning having just finished breakfast. She does have aphasia which makes fully understanding her a bit difficult. However, she is eventually able to communicate that she is overall doing well and not feeling much abdominal pain. She does state that the most bothersome symptom she has currently is a sore throat from when she was intubated for surgery. Otherwise tolerating her diet. Review of Systems Review of Systems: All systems reviewed & are unremarkable except as noted in Subjective Physical Exam Constitutional: WD/WN, vitals as above ENMT: external ear and nose normal, oropharynx normal Respiratory: normal respiratory effort, lungs clear to auscultation Cardiovascular: RRR, no murmur, no edema Gastrointestinal (Abdomen): Her incisions are closed and healing well. Her abdomen is mildly tender to palpation Skin: no rashes, warm and dry Results & Data Results & Data ([facility]) Vital Signs (Past 12 Hours) Vital Signs Temp Pulse Resp BP Pulse Ox 08/25/20 07:13 36.9 C 75 20 137/80 96 08/24/20 22:35 37.4 C 90 18 179/71 H 92 Resident Activity Tracking Resident Involvement: Resident Care Provided Care Provided: Adult Hospital Medicine
--- NOTE | 2020-08-25 12:14 | Surgery Progress Note ---
Date of Service F/P lap hakeem POD 2, pt is doing better, no nausea, no vomiting, tolerated clear diet, August 25, 2020 Assessment & Plan Admission and Anticipated Discharge Date Admission Date: August 22, 2020 Supervising Physician Co-Signing Physician Notes I personally examined the patient and verified all chavez points of history and exam, discussed case, and agree with decision making with Ifeanyi Judge MS2. Has had more pain. A little bit nervous about going home. Discussed planshe would prefer to stay. Updated surgery. Vitals noted, in general she is awake and alert pleasant no distress. HEENT normocephalic atraumatic mucous membranes moist. Breathing unlabored no accessory muscle use good effort. Skin shows no rashes no pallor or icterus. Abdomen shows ongoing right upper quadrant tenderness but no guarding rebound or rigidity. Symptomatic cholelithiasiscontinue watchful waiting and conservative care, a little bit concerning that she is still having on again/off again pain. Otherwise as above 08/25/2020 12: 12PM doing better, advance diet, will F/U Subjective Patient seen. States she is feeling better. Having no pain and no nausea today. Physical Exam Constitutional: WD/WN, vitals as above well developed and well nourished Eyes: PERRL, conjunctivae normal, anicteric sclerae Neck: trachea midline, no thyromegaly Respiratory: normal respiratory effort, lungs clear to auscultation Cardiovascular: RRR, no murmur, no edema Gastrointestinal (Abdomen): normal bowel sounds, soft, nontender, no hepatosplenomegaly Percussion/Palpation: abdomen soft all incisions intact, no redness, Musculoskeletal: no cyanosis or clubbing, extremities motor strength 5/5 Neurologic: awake Psychiatric: Orientation: alert and oriented x 3 Results & Data ([facility]) Vital Signs (Past 12 Hours) Vital Signs Temp Pulse Resp BP Pulse Ox 08/25/20 07:13 36.9 C 75 20 137/80 96 Laboratory Results Abnormal lab results 08/24/20 08/24/20 08/24/20 Range/Units 12:14 17:04 20:00 RBC (4.2-5.4) M/uL Hgb (12.0-16.0) g/dL Hct (37-47) % RDW Std Deviation (36.4-46.3) fL Chloride (98-107) mmol/L BUN (7-18) mg/dl Creatinine (0.6-1.2) mg/dl Glucose (70-99) mg/dl POC Glucose 197 H 167 H 182 H (70-99) mg/dl Calcium (8.5-10.1) mg/dl AST (15-37) U/L Total Protein (6.4-8.2) gm/dl Albumin (3.4-5.0) gm/dl Albumin/Globulin Ratio (0.9-2) 08/25/20 08/25/20 08/25/20 Range/Units 06:16 06:16 08:00 RBC 3.31 L (4.2-5.4) M/uL Hgb 10.8 L (12.0-16.0) g/dL Hct 32.5 L (37-47) % RDW Std Deviation 48.2 H (36.4-46.3) fL Chloride 109 H (98-107) mmol/L BUN 26 H (7-18) mg/dl Creatinine 1.41 H (0.6-1.2) mg/dl Glucose 167 H (70-99) mg/dl POC Glucose 144 H (70-99) mg/dl Calcium 8.3 L (8.5-10.1) mg/dl AST 47 H (15-37) U/L Total Protein 5.9 L (6.4-8.2) gm/dl Albumin 2.5 L (3.4-5.0) gm/dl Albumin/Globulin Ratio 0.7 L (0.9-2) 08/25/20 Range/Units 11:57 RBC (4.2-5.4) M/uL Hgb (12.0-16.0) g/dL Hct (37-47) % RDW Std Deviation (36.4-46.3) fL Chloride (98-107) mmol/L BUN (7-18) mg/dl Creatinine (0.6-1.2) mg/dl Glucose (70-99) mg/dl POC Glucose 145 H (70-99) mg/dl Calcium (8.5-10.1) mg/dl AST (15-37) U/L Total Protein (6.4-8.2) gm/dl Albumin (3.4-5.0) gm/dl Albumin/Globulin Ratio (0.9-2)
--- NOTE | 2020-08-25 15:54 | Billing Data ---
Date of Service August 25, 2020 Coding Level of Care Code 31684 Subseq Hosp Care Lvl 2
[2020-08-25] MEDS: ONDANSETRON INJ 2 MG/ML 2 ML VIAL IV PRN (19:05)
[2020-08-25] MEDS ORDERED: PROMETHAZINE HCL 6.25 MG in SODIUM CHLORIDE 0.9% 50 ML IV STA (21:24)
[2020-08-26] MEDS: SODIUM CHLORIDE 0.9% 1000ML 1,000 ML IV SCH ×3 (02:18→18:24)
[2020-08-26] MEDS: LEVOTHYROXINE SODIUM 100 MCG TABLET PO SCH (05:19)
[2020-08-26] MEDS: ONDANSETRON INJ 2 MG/ML 2 ML VIAL IV PRN (07:13)
[2020-08-26] MEDS: cloNIDine HCL 0.1 MG TAB PO SCH ×2 (07:57→22:03)
[2020-08-26] MEDS: hydroCHLOROthiazide 25 MG TAB PO SCH (07:57)
[2020-08-26] MEDS: LOSARTAN POTASSIUM 50 MG TAB PO SCH (07:57)
[2020-08-26 08:13] LABS: Basophils # (auto) 0.01 K/uL (0-0.2); Basophils % (auto) 0.1 %; Hematocrit (blood only) 37.8 % (37-47); Immature Granulocytes # (auto) 0.01 K/uL (0.00-0.02); Immature Granulocytes % (auto) 0.1 %; Lymphocytes # (auto) 0.92 K/uL (1.2-3.4); Lymphocytes % (auto) 8.6 %; Mean Corpuscular Hemoglobin 33.9 pg (25-34); Mean Corpuscular Hgb Conc 34.4 g/dL (32-36); Mean Corpuscular Volume 98.4 fL (80-100); Mean Platelet Volume 9.9 fL (7.4-10.4); Monocytes # (auto) 0.73 K/uL (0.11-0.59); Monocytes % (auto) 6.8 %; Neutrophils # (auto) 9.02 K/uL (1.4-6.5); Neutrophils % (auto) 84.4 %; Platelet Count 179 K/uL (130-400); RDW Standard Deviation 46.6 fL (36.4-46.3); Red Blood Count 3.84 M/uL (4.2-5.4); White Blood Count 10.69 K/uL (4.8-10.8)
[2020-08-26 08:29] LABS: BUN Creatinine Ratio 18.8 (10-20); Calcium 8.2 mg/dl (8.5-10.1); Creatinine Clr Calc Pharmacy 44.7 ml/min; Est GFR (African American) 48.5 ml/min; Est GFR (Non-African American) 41.9 ml/min; Potassium 3.1 mmol/L (3.5-5.1)
[2020-08-26] MEDS: INSULIN GLARGINE SOLOSTAR 100 UNITS/ML 3 ML PEN SC SCH (08:52)
[2020-08-26] MEDS: DORZOLAMIDE HCL 2% OPH SOLN 10 ML BTL OPB SCH ×2 (08:53→22:00)
[2020-08-26] MEDS: INSULIN ASPART 100 UNITS/ML 3 ML PEN SC SCH ×4 (08:53→22:03)
[2020-08-26] MEDS: ROSUVASTATIN CALCIUM 20 MG TAB PO SCH (08:53)
[2020-08-26] MEDS: HYDROCORTISONE ACETATE 25 MG SUPP PR SCH ×2 (08:54→22:03)
[2020-08-26] MEDS: POLYETHYLENE (MIRALAX) 17 GM PACK PO SCH (08:54)
[2020-08-26] MEDS ORDERED: PROCHLORPERAZINE 5 MG in SYRINGE 4 ML IV PRN (10:26)
[2020-08-26] MEDS: FAMOTIDINE 20 MG in SYRINGE 3 ML IV SCH ×2 (11:12→22:02)
--- NOTE | 2020-08-26 11:22 | Hospitalist Progress Note ---
Date of Service August 26, 2020 Assessment & Plan (1) Right lateral abdominal pain: Mrs. Bui is an 85 yo woman who presented to the [facility] for evaluation of progressive R sided abdominal pain. Was found to have cholelithiasis and had laparoscopic cholecystectomy performed on 08/23. Cholelithiasis s/p laparoscopic cholecystectomy -Laparoscopic cholecystectomy performed 08/23 -Advance diet as tolerated, beginning with clear liquids this afternoon. -Collaborate with surgery as to discharge plan; PT/OT ordered -Pain control with APAP, morphine prn -Continue famotidine IV Nausea, vomiting -Likely secondary to postoperative ileus -08/26: zofran scheduled, with additional prn doses available; will monitor throughout the day -Five q6h doses ordered; will need to reevaluate on 08/27 Hypertension -Has been largely 170-220/80-110 during this admission -In the setting of post-op recovery, pain, vomiting, off antihypertensives (patient did not keep oral antihypertensives down on 08/25, but patient did tolerate them on 08/26) -Patient has been without headache, confusion, vision change, CP, SOB -08/26: holding home losartan, substituting with enalapril IV given vomiting Hypokalemia -3.1 on 08/26 (previous day 3.7); likely secondary to vomiting, poor PO intake -Replete via IV (4x 10mEq bags ordered 08/26) given ongoing nausea/vomiting -Follow up morning BMP DM2 -Holdiing home meds, monitor BSG and treat with ISS Confusion, aphasia, hearing impairment -At baseline, per patient's son -Encourage patient to use hearing aids when communicating; reorient if needed -Eliquis held on admission, restarted 08/26 -Continue rosuvastatin Constipation -No BM since admission -Daily miralax patient has BM; continue to monitor Hypothyroidism -Continue home levothyroxine FEN: NPO given worsening nausea/vomiting, NSS @ 125mL/hr (when n/v resolves, advance DM2 diet as tolerated) Code status: full code DVT ppx: eliquis Consults: general surgery Dispo: med/surg (2) Confusion: Admission and Anticipated Discharge Date Admission Date: August 22, 2020 Supervising Physician Co-Signing Physician Notes I personally examined the patient and verified all chavez points of history and exam, discussed case, and agree with decision making with Dr Thomas Had some nausea and was unable to keep blood pressure meds down earlier in the day. Otherwise no new issues. Vitals noted, pleasant nad. HEENT normocephalic atraumatic mucous membranes moist. Breathing unlabored no accessory muscle use good effort. Skin shows no rashes no pallor or icterus. Abdomen soft nd nt. No guarding, rebound, rigidity. Symptomatic cholelithiasisoverall medically improving, but did have some nausea. Continue supportive care, advance diet as she tolerates. Continue to watch closely. Uncontrolled hypertensionsuspect from her nausea, as well as from not being able to keep down her meds. Control nausea, supportive care, for now give ACEi IV to replace the losartan that she is not able to tolerate, resume home meds once possible. DispoPT/OT eval and treat. Hopefully home soon. Otherwise as above Subjective Per night resident, patient developed nausea overnight and was made NPO due to concerns for postop ileus vs other complications. Patient seen and evaluated at bedside this morning. Patient has continued nausea though it is a bit improved from overnight. Patient had a few episodes of vomiting. RN is unsure if patient kept yesterday's PO meds down, but notes patient kept today's PO meds down. Patient reports abdominal pain is mild today. Patient has no other concerns today. Patient denies CP, SOB, lightheadedness, dizziness, back pain, weakness, dysuria, diarrhea, or other symptoms. Review of Systems Review of Systems: See HPI Physical Exam Physical Exam: Constitutional: well-appearing, no acute distress, in bed HEENT: NCAT, no conjunctival injection CV: regular rhythm, no murmur appreciated, extremities well-perfused Resp: CTABL, no wheezes/rales/rhonchi appreciated, no increased work of breathing GI: soft, nondistended, mildly tender in RUQ and around incision, nontender elsewhere Skin: abdominal incision CDI with minimal surrounding ecchymosis Neuro: AOx4, expressive aphasia noted, no other focal neurologic deficits appreciated Results & Data Results & Data ([facility]) Vital Signs (Past 12 Hours) Vital Signs Temp Pulse Resp BP BP Pulse Ox 08/26/20 08:03 226/100 H 08/26/20 07:17 37.1 C 75 16 233/101 H 97 08/26/20 00:31 73 184/82 H Resident Activity Tracking Resident Involvement: Resident Care Provided Care Provided: Adult [facility] Medicine
[2020-08-26] MEDS: ONDANSETRON INJ 2 MG/ML 2 ML VIAL IV SCH ×2 (12:12→19:10)
--- NOTE | 2020-08-26 12:44 | Surgery Progress Note ---
Date of Service doing better, tolerated diet, no fever, no abdominal pain, August 26, 2020 Assessment & Plan Admission and Anticipated Discharge Date Admission Date: August 22, 2020 08/26/2020 12:44PM S/P lap hakeem, POD 3 doing better, advance diet, possible D/C tomorrow, will F/U Supervising Physician Co-Signing Physician Notes I personally examined the patient and verified all chavez points of history and exam, discussed case, and agree with decision making with Dr Marie Only real complaint is a little bit of left knee pain. Otherwise doing well. Vitals noted, pleasant nad. HEENT normocephalic atraumatic mucous membranes moist. Breathing unlabored no accessory muscle use good effort. Skin shows no rashes no pallor or icterus. Abdomen soft nd nt. Left knee a little bit tender along joint line, no erythema no large effusion. Symptomatic cholelithiasisimproving post cholecystectomy. clear liquids, advance slowlyfull liquids today. Knee painseems to be arthritis flare. Follow, consider topical treatment if it persists. DispoPT/OT eval and treat. Hopefully home soon. Otherwise as above Subjective Per night resident, patient developed nausea overnight and was made NPO due to concerns for postop ileus vs other complications. Patient seen and evaluated at bedside this morning. Patient has continued nausea though it is a bit improved from overnight. Patient had a few episodes of vomiting. RN is unsure if patient kept yesterday's PO meds down, but notes patient kept today's PO meds down. Patient reports abdominal pain is mild today. Patient has no other concerns today. Patient denies CP, SOB, lightheadedness, dizziness, back pain, weakness, dysuria, diarrhea, or other symptoms. Physical Exam Constitutional: WD/WN, vitals as above well developed and well nourished Eyes: PERRL, conjunctivae normal, anicteric sclerae Neck: trachea midline, no thyromegaly Respiratory: normal respiratory effort, lungs clear to auscultation Cardiovascular: RRR, no murmur, no edema Gastrointestinal (Abdomen): normal bowel sounds, soft, nontender, no hepatosplenomegaly Percussion/Palpation: abdomen soft all incisions intact, no redness, BS + Musculoskeletal: no cyanosis or clubbing, extremities motor strength 5/5 Neurologic: awake Psychiatric: Orientation: alert and oriented x 3 Results & Data ([facility]) Vital Signs (Past 12 Hours) Vital Signs Temp Pulse Resp BP BP Pulse Ox 08/26/20 12:01 36.6 C 74 18 186/97 H 95 08/26/20 08:03 226/100 H 08/26/20 07:17 37.1 C 75 16 233/101 H 97 Laboratory Results Abnormal lab results 08/25/20 08/25/20 08/26/20 Range/Units 17:11 20:50 07:55 RBC (4.2-5.4) M/uL RDW Std Deviation (36.4-46.3) fL Neut # (Auto) (1.4-6.5) K/uL Lymph # (Auto) (1.2-3.4) K/uL [place] # (Auto) (0.11-0.59) K/uL Potassium (3.5-5.1) mmol/L Chloride (98-107) mmol/L BUN (7-18) mg/dl Glucose (70-99) mg/dl POC Glucose 146 H 208 H 194 H (70-99) mg/dl Calcium (8.5-10.1) mg/dl 08/26/20 08/26/20 08/26/20 Range/Units 07:56 07:56 12:00 RBC 3.84 L (4.2-5.4) M/uL RDW Std Deviation 46.6 H (36.4-46.3) fL Neut # (Auto) 9.02 H (1.4-6.5) K/uL Lymph # (Auto) 0.92 L (1.2-3.4) K/uL [place] # (Auto) 0.73 H (0.11-0.59) K/uL Potassium 3.1 L D (3.5-5.1) mmol/L Chloride 108 H (98-107) mmol/L BUN 22 H (7-18) mg/dl Glucose 207 H (70-99) mg/dl POC Glucose 181 H (70-99) mg/dl Calcium 8.2 L (8.5-10.1) mg/dl
[2020-08-26] MEDS: POTASSIUM CHLORIDE / WTR 10 MEQ/100 ML PLCT IV SCH ×4 (13:56→19:09)
[2020-08-26] MEDS: APIXABAN 2.5 MG TAB PO SCH ×2 (14:41→22:02)
[2020-08-26] MEDS: ENALAPRILAT 1.25 MG in DEXTROSE 5% 25 ML IV SCH ×2 (15:40→22:13)
--- NOTE | 2020-08-26 15:49 | Billing Data ---
Date of Service August 26, 2020 Coding Level of Care Code 02584 Subseq Hosp Care Lvl 3
--- NOTE | 2020-08-26 15:50 | Billing Data ---
Date of Service August 26, 2020 Coding Level of Care Code 50325 Subseq Hosp Care Lvl 2
[2020-08-27] MEDS: ONDANSETRON INJ 2 MG/ML 2 ML VIAL IV SCH ×3 (00:38→12:44)
[2020-08-27] MEDS: SODIUM CHLORIDE 0.9% 1000ML 1,000 ML IV SCH (01:32)
[2020-08-27] MEDS: ENALAPRILAT 1.25 MG in DEXTROSE 5% 25 ML IV SCH ×3 (01:32→15:10)
[2020-08-27] MEDS: LEVOTHYROXINE SODIUM 100 MCG TABLET PO SCH (06:00)
--- NOTE | 2020-08-27 06:56 | Hospitalist Progress Note ---
Date of Service August 27, 2020 Assessment & Plan (1) Right lateral abdominal pain: Mrs. Bui is an 85 y/o F w/ hx of expressive aphasia s/p stroke who presented for R abd pain 2/2 acute calculous cholelithiasis and is s/p lap hakeem, POD4. Stable. acute calculous cholelithiasis s/p laparoscopic cholecystectomy on 08/23/20 -abd pain is mild. Pain control with APAP, morphine prn -Advancing diet as tolerated (previously clears->NPO for N/V). full liquid diet lunch of 08/27, regular diet dinner of 08/27 Nausea and vomiting, improving -Likely secondary to postoperative ileus -Zofran 4mg IV q6hprn. transition to PO on 08/28 Hypertension -elevated ~170s,180s systolic -BPs acceptable while inpatient; defer PRN antihypertensives at this time as long as patient remains asymptomatic -Patient has been without headache, confusion, vision change, CP, SOB -08/27/20 d/c'd IV enalapril. restart home losartan PO 100mg this PM Hypokalemia - daily BMP - replete 40meq PO DM2 -Holdiing home meds, monitor BSG and treat with ISS Expressive aphasia/hearing loss -At baseline, per patient's son -Encourage patient to use hearing aids when communicating; reorient if needed -Eliquis held on admission, restarted 08/26 Constipation -No BM since admission -Daily miralax patient has BM; continue to monitor Hypothyroidism -Continue home levothyroxine FEN: full diet. IV fluids d/c'd Code status: full code DVT ppx: eliquis Consults: general surgery Dispo: med/surg. 08/27 patient's son at bedside. plan is for short term SNF. search started (2) Confusion: Admission and Anticipated Discharge Date Admission Date: August 22, 2020 Supervising Physician Co-Signing Physician Notes Resident Physician Supervision Note: I independently interviewed and examined the patient and verified the chavez history and physical, reviewed labs and image studies and agree with resident Dr. Gordillo findings and care plan. Subjective Patient states her R abd pain is mild, better than yesterday. Mild nausea, none at the moment. Had some emesis around midnight. Tolerating clear liquid diet. Review of Systems Review of Systems: Constitutional: Denies fever, chills Eyes: Denies blurry vision Cardiovascular: Denies chest pain Respiratory: Denies shortness of breath Gastrointestinal: Denies constipation, diarrhea Genitourinary: Denies urinary symptoms Musculoskeletal: Denies weakness, muscle aches/pain, joint aches/pain Neurological: Denies headache, numbness, tingling, focal weakness Physical Exam Physical Exam: General: Grossly A&O. Mild-mod expressive aphasia. NAD. Cooperative. HEENT: Atraumatic, normocephalic. Pulm: CTAB. -wheezes, -rales, -rhonchi. No respiratory distress. Cardiac: RRR, -mrg. No LE edema. Abdominal: Nontender, nondistended, soft. Results & Data Results & Data ([facility]) Vital Signs (Past 12 Hours) Vital Signs Temp Pulse Resp BP Pulse Ox 08/27/20 01:30 155/63 H 08/26/20 22:08 36.9 C 61 21 151/62 H 92 Resident Activity Tracking Resident Involvement: Resident Care Provided Care Provided: Adult Hospital Medicine
[2020-08-27 07:51] LABS: Basophils # (auto) 0.01 K/uL (0-0.2); Basophils % (auto) 0.1 %; Eosinophils # (auto) 0.12 K/uL (0-0.5); Eosinophils % (auto) 1.3 %; Hematocrit (blood only) 34.4 % (37-47); Hemoglobin 11.3 g/dL (12.0-16.0); Immature Granulocytes # (auto) 0.01 K/uL (0.00-0.02); Immature Granulocytes % (auto) 0.1 %; Lymphocytes # (auto) 1.98 K/uL (1.2-3.4); Lymphocytes % (auto) 21.4 %; Mean Corpuscular Hemoglobin 32.5 pg (25-34); Mean Corpuscular Hgb Conc 32.8 g/dL (32-36); Mean Corpuscular Volume 98.9 fL (80-100); Mean Platelet Volume 10.1 fL (7.4-10.4); Monocytes # (auto) 1.02 K/uL (0.11-0.59); Neutrophils # (auto) 6.13 K/uL (1.4-6.5); Neutrophils % (auto) 66.1 %; Platelet Count 178 K/uL (130-400); RDW Coefficient of Variation 13.2 % (11.5-14.5); RDW Standard Deviation 47.5 fL (36.4-46.3); Red Blood Count 3.48 M/uL (4.2-5.4); White Blood Count 9.27 K/uL (4.8-10.8)
[2020-08-27 08:26] LABS: BUN Creatinine Ratio 18.1 (10-20); Calcium 8.2 mg/dl (8.5-10.1); Creatinine Clr Calc Pharmacy 39.4 ml/min; Est GFR (African American) 41.7 ml/min
[2020-08-27] MEDS: cloNIDine HCL 0.1 MG TAB PO SCH ×2 (09:19→20:57)
[2020-08-27] MEDS: hydroCHLOROthiazide 25 MG TAB PO SCH (09:19)
[2020-08-27] MEDS: ROSUVASTATIN CALCIUM 20 MG TAB PO SCH (09:19)
[2020-08-27] MEDS: APIXABAN 2.5 MG TAB PO SCH ×2 (09:19→20:56)
[2020-08-27] MEDS: DORZOLAMIDE HCL 2% OPH SOLN 10 ML BTL OPB SCH ×2 (09:20→20:56)
[2020-08-27] MEDS: POLYETHYLENE (MIRALAX) 17 GM PACK PO SCH (09:23)
[2020-08-27] MEDS: FAMOTIDINE 20 MG in SYRINGE 3 ML IV SCH (09:28)
[2020-08-27] MEDS ORDERED: POTASSIUM CHLORIDE CRTAB 20 MEQ TABCR PO STA (09:31)
[2020-08-27] MEDS: INSULIN GLARGINE SOLOSTAR 100 UNITS/ML 3 ML PEN SC SCH (09:39)
[2020-08-27] MEDS: INSULIN ASPART 100 UNITS/ML 3 ML PEN SC SCH ×4 (09:39→20:58)
--- NOTE | 2020-08-27 11:46 | Surgery Progress Note ---
Date of Service August 27, 2020 Assessment & Plan (1) Biliary sludge: pod 4. no pain or nausea sheela diet ok from my standpoint for d/c when ok with primary service. Admission and Anticipated Discharge Date Admission Date: August 22, 2020 Subjective pt sitting in chair. per nursing no complaints. Physical Exam Physical Exam: alert. nad abd: soft. expected incisional tenderness. incisions look good. Results & Data ([facility]) Vital Signs (Past 12 Hours) Vital Signs Temp Pulse Pulse Resp BP BP Pulse Ox 08/27/20 09:17 74 171/91 H 08/27/20 07:49 36.3 C L 69 16 181/78 H 95 08/27/20 01:30 155/63 H PG Care Time/CCT Total # of Minutes Spent Total Time Spent with Patient: Total time spent is greater than 50% in coordination of care (as documented) at patient's floor/unit and/or counseling patient: Coding Level of Care Code None Diagnoses Biliary sludge K83.8
[2020-08-27] MEDS ORDERED: POTASSIUM CHLORIDE PWD 20 MEQ PACK PO ONE (18:00)
[2020-08-27] MEDS ORDERED: ONDANSETRON INJ 2 MG/ML 2 ML VIAL IV PRN (18:00)
[2020-08-27] MEDS: HYDROCORTISONE ACETATE 25 MG SUPP PR SCH ×2 (19:08→20:58)
[2020-08-27] MEDS: LOSARTAN POTASSIUM 50 MG TAB PO SCH (20:56)
[2020-08-28] MEDS: LEVOTHYROXINE SODIUM 100 MCG TABLET PO SCH (05:46)
[2020-08-28 07:20] LABS: Basophils # (auto) 0.03 K/uL (0-0.2); Basophils % (auto) 0.4 %; Eosinophils # (auto) 0.21 K/uL (0-0.5); Eosinophils % (auto) 2.9 %; Hematocrit (blood only) 33.3 % (37-47); Lymphocytes # (auto) 1.98 K/uL (1.2-3.4); Mean Corpuscular Hemoglobin 32.5 pg (25-34); Mean Corpuscular Volume 98.5 fL (80-100); Mean Platelet Volume 9.9 fL (7.4-10.4); Monocytes # (auto) 0.78 K/uL (0.11-0.59); Monocytes % (auto) 10.7 %; Neutrophils # (auto) 4.32 K/uL (1.4-6.5); Platelet Count 177 K/uL (130-400); RDW Coefficient of Variation 13.2 % (11.5-14.5); RDW Standard Deviation 47.5 fL (36.4-46.3); Red Blood Count 3.38 M/uL (4.2-5.4); White Blood Count 7.32 K/uL (4.8-10.8)
[2020-08-28 07:50] LABS: Albumin Level 2.3 gm/dl (3.4-5.0); BUN Creatinine Ratio 17.5 (10-20); Calcium 8.2 mg/dl (8.5-10.1); Est GFR (African American) 39.9 ml/min; Est GFR (Non-African American) 34.4 ml/min; Potassium 3.5 mmol/L (3.5-5.1)
[2020-08-28 07:52] LABS: Albumin Globulin Ratio 0.7 (0.9-2); Bilirubin,Total 0.6 mg/dl (0.2-1); Globulin 3.1 gm/dl (2.5-4.0); Total Protein 5.4 gm/dl (6.4-8.2)
--- NOTE | 2020-08-28 07:59 | Hospitalist Progress Note ---
Date of Service August 28, 2020 Assessment & Plan (1) Right lateral abdominal pain: Mrs. Bui is an 85 y/o F w/ hx of expressive aphasia s/p stroke who presented for R abd pain 2/2 acute calculous cholelithiasis and is s/p lap hakeem, POD5. Stable. acute calculous cholelithiasis s/p laparoscopic cholecystectomy on 08/23/20 -abd pain is minimal. d/c morphine. if needing - consider oral meds. prn tylenol. -diet advanced, tolerating regular diet as of 08/27 dinner left knee pain and swelling - most likely secondary to chronic osteoarthritis; left knee pain mentioned in prior records in 2019 - physical exam less suggestive of infection, no erythema - arthrocentesis and xr imaging not indicated at this time - venous doppler US neg for DVT. patient has Ariza's cyst - Voltaren gel Nausea and vomiting, improved -?secondary to postoperative ileus -PO Zofran 4 mg ODT q6hprn Hypertension -elevated up to 180s systolic -acceptable during inpatient setting; defer PRN antihypertensives at this time as long as patient remains asymptomatic -Patient has been without headache, confusion, vision change, CP, SOB -home losartan PO 100mg Hypokalemia - daily BMP - repleted 40meq PO Chronic kidney disease - Cr ~ baseline. 1.4. egfr low 30s - daily BMP DM2 -Holding home meds, monitor BSG and treat with ISS Expressive aphasia/hearing loss -At baseline, per patient's son -Encourage patient to use hearing aids when communicating; reorient if needed -Eliquis held on admission, restarted 08/26 Constipation -Daily miralax. continue to monitor Hypothyroidism -Continue home levothyroxine FEN: DM2 diet. No IV fluids. Code status: full code Anticoagulation: Eliquis 2.5 mg PO BID Dispo: med/surg. awaiting SNF placement (2) Knee pain, left: (3) Type 2 diabetes mellitus: (4) Expressive aphasia: (5) Osteoarthritis: (6) HTN (hypertension): (7) Chronic renal insufficiency: Admission and Anticipated Discharge Date Admission Date: August 22, 2020 Supervising Physician Co-Signing Physician Notes Resident Physician Supervision Note: I independently interviewed and examined the patient and verified the chavez history and physical, reviewed labs and image studies and agree with resident Dr. Gordillo findings and care plan. Subjective Patient has some sore throat that she attributes to previous NG tube placement. Regarding L knee pain, it appears to be chronic and patient states she has had R knee surgery but L side has not been operated on yet. NO abd pain complaint today. Hx limited by patient's expressive aphasia. Review of Systems Review of Systems: Constitutional: Denies fever, chills Eyes: Denies blurry vision ENT: + sore throat Cardiovascular: Denies chest pain, palpitations Respiratory: Denies shortness of breath Gastrointestinal: Denies abdominal pain, nausea, vomiting, constipation, diarrhea Genitourinary: Denies urinary symptoms including dysuria Musculoskeletal: Denies weakness Neurological: Denies headache, numbness, tingling, focal weakness Physical Exam Physical Exam: General: Grossly A&O. NAD. Cooperative. HEENT: Atraumatic, normocephalic. EOMI Pulm: CTAB. -wheezes, -rales, -rhonchi. No respiratory distress. Cardiac: RRR, -mrg. Radial pulses intact and symmetrical. Trace edema on RLE Abdominal: Nontender, nondistended, soft. Musculoskeletal: L knee ttp. + L knee edema and mild effusion, not erythematous. Results & Data Results & Data ([facility]) Vital Signs (Past 12 Hours) Vital Signs Temp Pulse Resp BP Pulse Ox 08/27/20 22:36 36.8 C 77 16 144/67 H 94 Resident Activity Tracking Resident Involvement: Resident Care Provided Care Provided: Adult Hospital Medicine
--- NOTE | 2020-08-28 08:21 | Surgery Progress Note ---
Date of Service August 28, 2020 Assessment & Plan (1) Biliary sludge: POD#5 lap hakeem On regular diet Pain controlled with prn medication Abdomen soft, incisions c/d/i Dispo planning per medicine F/u in clinic with Dr. Dominguez upon discharge in 1-2 weeks Admission and Anticipated Discharge Date Admission Date: August 22, 2020 Subjective Subjective history is limited due to aphasia, but patient denies much abdominal pain. Says she is eating, but is experiencing some throat discomfort. No emesis. Physical Exam Physical Exam: awake Gastrointestinal (Abdomen): Inspection/Auscultation: + abdominal surgical inci gisell (c/d/i with dermabond overtop) Percussion/Palpation: abdomen soft; abdomen nontender Results & Data ([facility]) Vital Signs (Past 12 Hours) Vital Signs Temp Pulse Resp BP Pulse Ox 08/27/20 22:36 36.8 C 77 16 144/67 H 94 PG Care Time/CCT Total # of Minutes Spent Total Time Spent with Patient: Total time spent is greater than 50% in coordination of care (as documented) at patient's floor/unit and/or counseling patient: Coding Level of Care Code None Diagnoses Biliary sludge K83.8
[2020-08-28] MEDS ORDERED: POTASSIUM CHLORIDE CRTAB 20 MEQ TABCR PO STA (08:48)
[2020-08-28] MEDS ORDERED: FAMOTIDINE 20 MG in SYRINGE 3 ML IV SCH (09:00)
[2020-08-28] MEDS: INSULIN ASPART 100 UNITS/ML 3 ML PEN SC SCH ×4 (09:15→20:34)
[2020-08-28] MEDS: INSULIN GLARGINE SOLOSTAR 100 UNITS/ML 3 ML PEN SC SCH (09:16)
[2020-08-28] MEDS: POLYETHYLENE (MIRALAX) 17 GM PACK PO SCH (09:31)
[2020-08-28] MEDS: ROSUVASTATIN CALCIUM 20 MG TAB PO SCH (09:31)
[2020-08-28] MEDS: HYDROCORTISONE ACETATE 25 MG SUPP PR SCH ×2 (09:32→20:34)
[2020-08-28] MEDS: APIXABAN 2.5 MG TAB PO SCH ×2 (09:32→20:33)
[2020-08-28] MEDS: DORZOLAMIDE HCL 2% OPH SOLN 10 ML BTL OPB SCH ×2 (09:32→20:34)
[2020-08-28] MEDS: hydroCHLOROthiazide 25 MG TAB PO SCH (09:32)
[2020-08-28] MEDS: cloNIDine HCL 0.1 MG TAB PO SCH ×2 (09:32→20:33)
[2020-08-28] MEDS: ACETAMINOPHEN 325 MG TAB PO PRN (09:35)
--- NOTE | 2020-08-28 10:12 | Ultrasound Report ---
ULTRASOUND LEFT LOWER EXTREMITY VENOUS CLINICAL HISTORY: Left knee pain and swelling. COMPARISON STUDY: No priors. TECHNIQUE: Real-time, grayscale, and color Doppler sonography of the deep veins of the left lower ext remity was performed from the inguinal crease to the calf. Compression and augmentation were utilized . FINDINGS: There is no sonographic evidence of deep venous thrombosis identified in the left lower ext remity. The common femoral, superficial femoral, and popliteal veins are patent and normally compress ible. The greater saphenous vein and the profunda femoris vein at the junction with the common femora l vein are clear. The visualized calf veins are patent. A complex popliteal cyst measures 5.0 x 1.7 x 4.6 cm. IMPRESSION: 1. There is no sonographic evidence of deep venous thrombosis identified in the left lower extremity. 2. Ariza's cyst. ACT 112: Negative or not required by law. Electronically signed by: Andrew Reese M.D. 08/28/2020 10:10 AM
[2020-08-28] MEDS ORDERED: DICLOFENAC SOD 1% GEL 100 GM TUBE EXT PRN (12:02)
[2020-08-28] MEDS ORDERED: ONDANSETRON 4 MG OD TAB PO PRN (12:03)
[2020-08-28] MEDS ORDERED: CHLORASEPTIC 1.4% SOLN 180 ML BTL MT ONE (13:17)
[2020-08-28] MEDS ORDERED: CHLORASEPTIC 1.4% SOLN 180 ML BTL MT PRN (13:17)
[2020-08-28] MEDS: LOSARTAN POTASSIUM 50 MG TAB PO SCH (20:34)
[2020-08-29] MEDS: LEVOTHYROXINE SODIUM 100 MCG TABLET PO SCH (05:57)
[2020-08-29 06:24] LABS: Basophils # (auto) 0.03 K/uL (0-0.2); Basophils % (auto) 0.4 %; Eosinophils # (auto) 0.21 K/uL (0-0.5); Eosinophils % (auto) 2.9 %; Hematocrit (blood only) 33.3 % (37-47); Hemoglobin 11.3 g/dL (12.0-16.0); Immature Granulocytes # (auto) 0.01 K/uL (0.00-0.02); Immature Granulocytes % (auto) 0.1 %; Lymphocytes # (auto) 2.41 K/uL (1.2-3.4); Lymphocytes % (auto) 33.7 %; Mean Corpuscular Hemoglobin 32.9 pg (25-34); Mean Corpuscular Hgb Conc 33.9 g/dL (32-36); Mean Corpuscular Volume 97.1 fL (80-100); Mean Platelet Volume 10.1 fL (7.4-10.4); Monocytes # (auto) 0.72 K/uL (0.11-0.59); Monocytes % (auto) 10.1 %; Neutrophils # (auto) 3.78 K/uL (1.4-6.5); Neutrophils % (auto) 52.8 %; Platelet Count 197 K/uL (130-400); RDW Standard Deviation 45.4 fL (36.4-46.3); Red Blood Count 3.43 M/uL (4.2-5.4); White Blood Count 7.16 K/uL (4.8-10.8)
[2020-08-29 06:51] LABS: BUN Creatinine Ratio 17.4 (10-20); Calcium 8.4 mg/dl (8.5-10.1); Creatinine Clr Calc Pharmacy 39.7 ml/min; Est GFR (African American) 42.1 ml/min; Est GFR (Non-African American) 36.3 ml/min; Potassium 3.7 mmol/L (3.5-5.1)
[2020-08-29] MEDS: APIXABAN 2.5 MG TAB PO SCH (07:55)
[2020-08-29] MEDS: ROSUVASTATIN CALCIUM 20 MG TAB PO SCH (07:56)
[2020-08-29] MEDS: cloNIDine HCL 0.1 MG TAB PO SCH (07:56)
[2020-08-29] MEDS: POLYETHYLENE (MIRALAX) 17 GM PACK PO SCH (07:57)
[2020-08-29] MEDS: hydroCHLOROthiazide 25 MG TAB PO SCH (07:57)
[2020-08-29] MEDS: HYDROCORTISONE ACETATE 25 MG SUPP PR SCH (07:58)
[2020-08-29] MEDS: DORZOLAMIDE HCL 2% OPH SOLN 10 ML BTL OPB SCH (07:58)
[2020-08-29] MEDS ORDERED: FAMOTIDINE 20 MG TAB PO SCH (09:00)
--- NOTE | 2020-08-29 09:30 | Hospitalist Progress Note ---
Date of Service August 29, 2020 Assessment & Plan (1) Right lateral abdominal pain: Mrs. Bui is an 85 y/o F w/ hx of expressive aphasia s/p stroke who presented for R abd pain 2/2 acute calculous cholelithiasis and is s/p lap hakeem, POD5. Stable. acute calculous cholelithiasis s/p laparoscopic cholecystectomy on 08/23/20 -abd pain is minimal. d/c morphine. if needing - consider oral meds. prn tylenol. -diet advanced, tolerating regular diet as of 08/27 dinner left knee pain and swelling - most likely secondary to chronic osteoarthritis; left knee pain mentioned in prior records in 2019 - physical exam less suggestive of infection, no erythema - arthrocentesis and xr imaging not indicated at this time - venous doppler US neg for DVT. patient has Ariza's cyst - Voltaren gel Nausea and vomiting, improved -?secondary to postoperative ileus -PO Zofran 4 mg ODT q6hprn Hypertension -elevated up to 180s systolic -acceptable during inpatient setting; defer PRN antihypertensives at this time as long as patient remains asymptomatic -Patient has been without headache, confusion, vision change, CP, SOB -home losartan PO 100mg Hypokalemia - daily BMP - repleted 40meq PO Chronic kidney disease - Cr ~ baseline. 1.4. egfr low 30s - daily BMP DM2 -Holding home meds, monitor BSG and treat with ISS Expressive aphasia/hearing loss -At baseline, per patient's son -Encourage patient to use hearing aids when communicating; reorient if needed -Eliquis held on admission, restarted 08/26 Constipation -Daily miralax. continue to monitor Hypothyroidism -Continue home levothyroxine FEN: DM2 diet. No IV fluids. Code status: full code Anticoagulation: Eliquis 2.5 mg PO BID Dispo: med/surg. awaiting SNF placement (2) Knee pain, left: (3) Type 2 diabetes mellitus: - HbA1c below goal at 6.9 on 08/17/20 - continue home glipizide (4) Expressive aphasia: (5) Osteoarthritis: (6) HTN (hypertension): (7) Chronic renal insufficiency: Admission and Anticipated Discharge Date Admission Date: August 22, 2020 Subjective Patient feels fine. Her legs hurt when she she walks. No other complaints. Other ROS neg. Review of Systems Review of Systems: Constitutional: Denies fever, chills, weight change Eyes: Denies blurry vision, vision changes ENT: Denies sore throat, sinus pain Cardiovascular: Denies chest pain, palpitations Respiratory: Denies shortness of breath Gastrointestinal: Denies abdominal pain, nausea, vomiting, constipation, diarrhea Genitourinary: Denies urinary symptoms including dysuria Musculoskeletal: Denies weakness, muscle aches/pain, joint aches/pain Neurological: Denies headache, numbness, tingling, focal weakness Physical Exam Physical Exam: General: Grossly A&O. NAD. Cooperative. HEENT: Atraumatic, normocephalic. Pulm: Very faint bibasilar crackles, otherwise clear. No respiratory distress. Cardiac: RRR, -mrg. Radial pulses intact and symmetrical. no ankle edema. 1+ edema at L knee, milder than yesterday. mild ttp at R spencer and L knee Abdominal: Nontender, nondistended, soft. Obese abdomen. Results & Data Results & Data ([facility]) Vital Signs (Past 12 Hours) Vital Signs Temp Pulse Resp BP BP Pulse Ox 08/29/20 07:53 36.8 C 78 14 174/64 H 96 08/28/20 22:18 37.0 C 67 17 153/73 H 96
[2020-08-29] MEDS: INSULIN GLARGINE SOLOSTAR 100 UNITS/ML 3 ML PEN SC SCH (09:37)
[2020-08-29] MEDS: INSULIN ASPART 100 UNITS/ML 3 ML PEN SC SCH ×2 (09:39→13:07)
--- NOTE | 2020-08-29 11:27 | Discharge Summary ---
Date of Service August 29, 2020 Admission HPI Per Admitting Provider Mrs. Bui is an 85 yo woman who presented to the emergency department for evaluation of right sided abdominal pain which progressed over 3 days duration. She suffered a CVA in the past which left her with an expressive aphasia - thus history was difficult to obtain, no family members present at bedside. She denied any associated nausea/vomiting - admitted to one episode of diarrhea this morning. In the ED, she was afebrile, HR normal, saturating 99% on 2L via oxymask. Her CBC was normal. Electrolytes were stable. Creatinine elevated to 1.85, BUN at 44. Coags normal. Liver enzymes, t-bili and alk phos were normal. CXR . Cat scan of abdomen showed cholelithiasis without gallbladder distention or wall thickening or pericholecystic fluid. A gallbladder US showed a non-mobile stone in the neck of the gallbladder, mild distention no wall thickening or pericholecystic fluid; no CBD dilation. She was given 1 liter of NSS, 5mg IV hydralazine, and a dose of Ativan. Admission Exam Per Admitting Provider Constitutional: WD/WN, vitals as above cooperative; no acute distress Eyes: + anicteric sclerae ENMT: external ear and nose normal, oropharynx normal Ears: + hearing impairment + facial flushing Neck: normal visual inspection and trachea midline Respiratory: normal respiratory effort, lungs clear to auscultation Cardiovascular: RRR, no murmur, no edema Heart Sounds: normal S1 and normal S2 Gastrointestinal (Abdomen): Inspection/Auscultation: abdomen normal to inspection and normal bowel sounds Percussion/Palpation: + abdomen tender (RUQ) and abdomen soft; no guarding Skin: no rashes, warm and dry Neurologic: Speech / Cognition: + expressive aphasia Psychiatric: Orientation: alert, oriented to person, oriented to place and oriented to time (knew month, not year) Principal Diagnosis acute calculous cholecystitis Discharge Exam General: Grossly A&O. NAD. Cooperative. Baseline dysarthria and expressive phasia. HEENT: Atraumatic, normocephalic. Pulm: CTAB. -wheezes, -rales, -rhonchi. No respiratory distress. Cardiac: RRR, -mrg. Radial pulses intact and symmetrical. Trace edema on RLE Abdominal: Nontender, nondistended, soft. Musculoskeletal: L knee edema has improved from yesterday's exam. Patient has mild R spencer TTP. L knee TTP is mild. Discharge Data Allergies Allergy/AdvReac Type Severity Reaction Status Date / Time adhesive Allergy Mild SKIN GETS Verified 08/19/20 21:47 RED, SORE AND ITCHY atorvastatin AdvReac Intermediate GENERIC-SEVERE Verified 08/19/20 21:47 LEG CRAMPS NAUSEA NIGHTMARES Consultations 08/20/20 01:59 ED Decision to Admit Stat 08/20/20 04:42 Consult General Surgery Routine Procedures Performed Operation Date: 08/23/20 12:50 Actual Procedures p Laparoscopic Cholecystectomy - Fracisco Dominguez, DO Ordered Studies 08/19/20 20:48 CT abd pelvis wo con Stat 1. No acute intra-abdominal or intrapelvic abnormality. 2. Cholelithiasis. 3. Hiatal hernia. 4. Nonobstructing bilateral nephrolithiasis. 5. Colonic diverticulosis. 6. Additional findings in full report. 08/19/20 23:04 US gallbladder Urgent 1. Cholelithiasis 2. No ductal dilatation. 3. Nonspecific coarsened hepatic echotexture without evidence of a focal mass 08/28/20 08:47 US venous doppler LE LT Urgent 1. There is no sonographic evidence of deep venous thrombosis identified in the left lower extremity. 2. Ariza's cyst. Hospital Course (1) Right lateral abdominal pain: Mrs. Bui is an 85 y/o F w/ hx of expressive aphasia s/p stroke who presented for R abd pain 2/2 acute calculous cholelithiasis and is s/p lap hakeem (performed on 08/23/20). f/u w/ PCP in 1 week. f/u w/ gen surg (Dr. Dominguez) on 09/04/20 at 2:30pm acute calculous cholelithiasis s/p laparoscopic cholecystectomy on 08/23/20 - post operatively patient had nausea and vomiting that later resolved. - H/H stable - check CMP in 1 month left knee pain and swelling - most likely secondary to chronic osteoarthritis; left knee pain mentioned in prior records in 2019 - physical exam less suggestive of infection, no erythema - venous doppler US neg for DVT. patient has Ariza's cyst - Voltaren gel Hypertension -elevated up to 180s systolic. acceptable during inpatient setting; defer PRN antihypertensives at this time as long as patient remains asymptomatic -Patient has been without headache, confusion, vision change, CP, SOB -home losartan PO 100mg Hypokalemia - repleted. Chronic kidney disease - Cr ~ baseline. 1.4. egfr low 30s DM2 - restart home regimen of glipizide 5 mg PO BID Expressive aphasia/hearing loss -At baseline, per patient's son -Encourage patient to use hearing aids when communicating; reorient if needed Constipation -Daily miralax Hypothyroidism -Continue home levothyroxine FULL CODE (2) Knee pain, left: (3) Type 2 diabetes mellitus: (4) Expressive aphasia: (5) Osteoarthritis: (6) HTN (hypertension): (7) Chronic renal insufficiency: Total Time Total Time Spent Total Time Spent (In Minutes): See attending documentation. Discharge Plan Discharge Items Patient Disposition: Transfer [facility] Reason For Visit: Abd pain Discharge Diagnosis: laparoscopic cholecystectomy Activity: Per Instructions section Lifting: No more than 10 pounds Bathing Comment: may shower; no soaking in tubs/pools Exercise/Sports: Wait until after follow-up appointment Driving/Machine Use: no driving while taking narcotics for pain Non-emergency contact: Primary Care Provider and Surgeon Call non-emergency contact if: you have any medication questions, your pain is not controlled, your pain is worsening, your pain is concerning for you, you have a fever, your temperature is above 101.5, your wound has increased redness, your wound has increased drainage and your wound pain has increased Follow-up/Referrals: Maico Valencia MD [Primary Care Provider] - 08/27/20 1:00 pm (Janee Knight) Fracisco Dominguez DO [Surgeon] - 09/04/20 2:30 pm (Idris Iglesias PA-C) Diet: Carb Consistent or DM2 Addtl Attending Provider Instructions: Mrs. Bui is an 85 y/o F w/ hx of expressive aphasia s/p stroke who presented for R abd pain 2/2 acute calculous cholelithiasis and is s/p lap hakeem, POD6. f/u w/ PCP in 1 week. f/u w/ gen surg (Dr. Dominguez) on 09/04/20 at 2:30pm acute calculous cholelithiasis s/p laparoscopic cholecystectomy on 08/23/20 - abd pain is controlled w/o recent use of pain medications - patient had nausea and vomiting that have since resolved. This may have been secondary to postop ileus. - check CMP in 1 month left knee pain and swelling - most likely secondary to chronic osteoarthritis; left knee pain mentioned in prior records in 2019 - physical exam less suggestive of infection, no erythema - arthrocentesis and xr imaging not indicated at this time - venous doppler US neg for DVT. patient has Ariza's cyst - Voltaren gel Hypertension -elevated up to 180s systolic. acceptable during inpatient setting; defer PRN antihypertensives at this time as long as patient remains asymptomatic -Patient has been without headache, confusion, vision change, CP, SOB -home losartan PO 100mg Hypokalemia - repleted. check metabolic panel in 1 month as above Chronic kidney disease - Cr ~ baseline. 1.4. egfr low 30s - check metabolic panel as above DM2 - restart home regimen of glipizide 5 mg PO BID Expressive aphasia/hearing loss -At baseline, per patient's son -Encourage patient to use hearing aids when communicating; reorient if needed Constipation -Daily miralax Hypothyroidism -Continue home levothyroxine FULL CODE Pending Studies at Discharge: Yes Studies:: surgical pathology Stand-Alone Forms: My [facility] Skilled Items Patient informed of condition?: Yes DNR: No Discharge Level of Care: Skilled Communicable Disease: No Discharge Prognosis: Stable Lines: None Urinary Catheter: No Medications and DC Order Prescriptions: New famotidine 20 mg Tablet 20 mg PO QAM 15 Days Qty: 15 RF: 0 Continued clonidine HCl 0.1 mg tablet 0.1 mg PO BID 15 Days Qty: 60 RF: 2 glipizide 5 mg tablet extended release 24hr 5 mg PO BID 15 Days Qty: 15 RF: 0 aspirin 81 mg tablet,delayed release (DR/EC) 81 mg PO QAM 15 Days Qty: 15 RF: 0 acetaminophen 500 mg tablet 500 mg PO Q4H PRN (Reason: pain) 15 Days Qty: 15 RF: 0 hydrocortisone acetate 25 mg suppository 25 mg KS BID 15 Days Qty: 24 RF: 0 levothyroxine 100 mcg tablet 100 mcg PO QAM 15 Days Qty: 90 RF: 3 hydrochlorothiazide 25 mg tablet 25 mg PO QAM Qty: 90 RF: 3 ergocalciferol (vitamin D2) 1,250 mcg (50,000 unit) capsule 50,000 unit PO WK 14 Days Qty: 2 RF: 0 polyethylene glycol 3350 17 gram/dose powder 17 g PO DAILY PRN (Reason: Constipation) 15 Days Qty: 200 RF: 0 losartan 100 mg tablet 100 mg PO QAM 15 Days Qty: 90 RF: 3 dorzolamide 2 % drops 1 drops OPB BID 15 Days Qty: 10 RF: 0 rosuvastatin 20 mg tablet 20 mg PO QAM Qty: 90 RF: 3 diclofenac sodium 1 % gel 4 gm TOP QID 15 Days Qty: 100 RF: 2 Eliquis 2.5 mg tablet 2.5 mg PO BID 15 Days Qty: 180 RF: 3 Discharge Orders: Discharge Order (Routine); Ordered 08/29/20 Ordered By: Balwinder Kinsey/Other Patient Handouts: Cholecystectomy Laparoscopic Dc Admission Data Admit Date/Time: 08/22/20 17:11 Attending Provider: Tiffany Garza Admit Provider: Cinthia Alicia Primary Care Provider: Maico Valencia Other Providers: Lazarus Sumner ; Fracisco Dominguez ; Asad Arrington ; Tj Lucero [facility] ; [place],[facility] Other Interventions: Discharge Summary Assessment (RN) Last Done: 08/29/20 13:37 Supervising Physician Co-Signing Physician Notes Resident Physician Supervision Note: I independently interviewed and examined the patient and verified the chavez history and physical, reviewed labs and image studies and agree with resident Dr. Gordillo findings and care plan. Resident Activity Tracking Resident Involvement: Resident Care Provided Care Provided: Adult Hospital Medicine
== END 2020-08-29 14:18 | DRG 418 ==
LOC: ED 20:11 → 3W 20:11 → SUATTDRO 08-20 02:49 → 3W 08-20 04:10 → SUATTDRO 08-22 17:11

== ENCOUNTER 2021-11-19 12:40 | Inpatient (IN) ==
[2021-11-19 13:08] LABS: Basophils # (auto) 0.04 K/uL (0-0.2); Basophils % (auto) 0.5 %; Eosinophils # (auto) 0.08 K/uL (0-0.50); Eosinophils % (auto) 1.1 %; Hematocrit (blood only) 37.8 % (34.1-44.9); Immature Granulocytes # (auto) 0.02 K/uL (0.00-0.02); Immature Granulocytes % (auto) 0.3 %; Lymphocytes # (auto) 2.67 K/uL (1.2-3.4); Lymphocytes % (auto) 35.2 %; Mean Corpuscular Hemoglobin 34.2 pg (25.0-34.0); Mean Corpuscular Hgb Conc 34.4 g/dL (32.0-36.0); Mean Corpuscular Volume 99.5 fL (80.0-100.0); Mean Platelet Volume 10.6 fL (9.4-12.3); Monocytes # (auto) 0.56 K/uL (0.24-0.82); Monocytes % (auto) 7.4 %; Neutrophils # (auto) 4.21 K/uL (1.4-6.5); Neutrophils % (auto) 55.5 %; Platelet Count 155 K/uL (130-400); RDW Coefficient of Variation 13.7 % (11.5-14.5); RDW Standard Deviation 50.4 fL (36.4-46.3); White Blood Count 7.58 K/ul (4.8-10.8)
[2021-11-19 13:19] LABS: Prothrombin Time 10.9 Seconds (9.0-12.0)
--- NOTE | 2021-11-19 13:25 | XRay Report ---
XR chest 1V portable HISTORY: Stroke Like Symptoms COMPARISON: Chest 08/19/2020. FINDINGS: No pneumothorax. No pleural effusions. The heart remains enlarged. There is mild central pu lmonary vascular congestion without overt edema. A few bibasilar linear densities consistent with sub segmental atelectasis. Otherwise, no focal lung consolidations to suggest pneumonia. IMPRESSION: Mild cardiomegaly with mild central pulmonary vascular congestion without overt edema. This has progr essed in the interval. ACT 112: Negative or not required by law. Electronically signed by: Calvin Figueroa M.D. 11/19/2021 1:23 PM
[2021-11-19] MEDS: SODIUM CHLORIDE 0.9% 1000ML 1,000 ML IV SCH (13:37)
[2021-11-19 13:41] LABS: Troponin I High Sensitivity 9.3 pg/ml (0-14)
[2021-11-19 13:55] LABS: Albumin Globulin Ratio 1.3 (0.9-2); Albumin Level 3.9 gm/dl (3.4-5.0); Bilirubin,Total 0.5 mg/dl (0.2-1.0); Calcium 9.2 mg/dl (8.5-10.1); Creatinine Clr Calc Pharmacy 28.1 ml/min; Est GFR (Non-African American) 25.1 ml/min; Magnesium 1.9 mg/dl (1.7-2.4); Potassium 4.4 mmol/L (3.5-5.1); Total Protein 6.9 gm/dl (6.0-8.3)
--- NOTE | 2021-11-19 14:03 | Emergency Department Note ---
History of Present Illness General Chief complaint: Altered Mental Status Time Seen by Provider: 11/19/21 12:43 Source: patient, family and EMS Mode of arrival: EMS Limitations: no limitations History of Present Illness Provider complaint: ams This is an 86-year-old female brought in by EMS due to concern for altered mental status. Patient does live at home alone, however her son has cameras set up throughout the house to check on her when he is not able to go visit. He states when he looked at the camera feed this morning patient appeared to be acting strangely. He went over to check on her and when he spoke to her he stated it seemed as though she either could not see or could not hear him and he needed to wave his hands at her in order to get her attention. 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 He states her speech was worse compared to prior. Son denies any recent change in her medications. He states she does use a blood thinner from the prior stroke. He denies any recent falls or injury. EMS reports patient was markedly hypertensive on arrival. Pt seen during a time of high acuity and national emergency pandemic while wearing PPE. Home Medications Medication Instructions Recorded Confirmed Type nystatin 100,000 unit/gram topical 1 applic topical BID PRN Skin 09/18/20 11/19/21 History powder Irritation apixaban 2.5 mg tablet (Eliquis) 2.5 mg PO BID 90 days #180 tabs 01/10/21 11/19/21 Rx aspirin 81 mg tablet,delayed 81 mg PO QAM #90 tabs 01/10/21 11/19/21 Rx release hydrochlorothiazide 25 mg tablet 25 mg PO QAM #90 tabs 01/10/21 11/19/21 Rx polyethylene glycol 3350 17 17 g PO DAILY PRN Constipation 01/10/21 11/19/21 History gram/dose oral powder diclofenac sodium 1 % topical gel 4 g topical QID PRN Pain 06/06/21 11/19/21 History hydrocortisone acetate 25 mg 25 mg [place] BID PRN RECTAL BLEEDING 06/06/21 11/19/21 History rectal suppository clonidine HCl 0.1 mg tablet See Rx Instructions .Route 08/01/21 11/19/21 Rx .COMPLEX #60 tabs losartan 100 mg tablet 100 mg PO QAM #90 tabs 08/13/21 11/19/21 Rx glipizide 5 mg tablet, extended 5 mg PO BID #180 tabs 08/22/21 11/19/21 Rx release 24 hr levothyroxine 100 mcg tablet 100 mcg PO QAM #90 tabs 10/14/21 11/19/21 Rx dicyclomine 20 mg tablet 20 mg PO QID PRN abdominal pain 11/07/21 11/19/21 Rx #120 tabs brinzolamide 1 %-brimonidine 0.2 % 1 drp OPB BID 11/19/21 11/19/21 History eye drops,suspension (Simbrinza) rosuvastatin 20 mg tablet 20 mg PO HS 11/19/21 11/19/21 History Allergies Allergy/AdvReac Type Severity Reaction Status Date / Time adhesive Allergy Intermediate SKIN GETS Verified 11/19/21 18:26 RED, SORE AND ITCHY atorvastatin AdvReac Severe GENERIC-SEVERE Verified 11/19/21 18:26 LEG CRAMPS, NAUSEA, NIGHTMARES Past Med/Surg History Medical History Arthritis Biliary sludge Bradycardia Cholelithiasis Cholelithiasis Chronic reflux esophagitis Chronic renal insufficiency Confusion Depression Dysarthria, post-stroke Expressive aphasia Gait instability Hearing loss, bilateral Hip pain, right History of diabetes mellitus History of stroke Hoarseness Hypercholesterolemia Leg pain, bilateral Obstructive sleep apnea Osteoarthritis Peripheral neuropathy Restless leg syndrome Right lateral abdominal pain 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 Urge incontinence of urine Surgical History H/O left mastectomy S/P cholecystectomy Family History Son Myocardial infarction Denies family history of Ovarian cancer Prostate cancer Breast cancer Colorectal cancer Social History Smoking Status: Never smoker Second Hand Exposure: No; Hx Alcohol Use: No Hx Substance Use: No Preferred Language: Faroese Communication Ability: Impaired Visual Impairment: No Limitations Hearing Ability: Use of Hearing Aid Manager Ccu Required: No Beliefs That Will Affect Care: None marital status: / Current Living Situation: Alone current occupational status: retired How many Children do You have: 2 Feels Safe at Home: Yes Dental Care, Regularly: No Physical Activity Frequency: Does not Exercise Seatbelt Use: always Sunscreen Use: No Assistive Devices: Wheelchair and Other Review of Systems A total of 10 systems reviewed and were otherwise negative All systems reviewed & are unremarkable except as noted in HPI & below Physical Exam Vital Signs Vital Signs - 24 hr 11/19/21 12:53 11/19/21 13:40 Temperature 36.8 C Temperature Source Oral Pulse Rate 73 Pulse Rate [Radial] 57 L Pulse Rhythm Regular Pulse Rhythm [Radial] Regular Pulse Strength Normal Pulse Strength [Radial] Normal Respiratory Rate 20 18 Respiratory Effort / Characteristics Non-Labored Spontaneous Non-Labored Spontaneous Respiratory Depth Normal Normal Respiratory Pattern Regular Regular Blood Pressure 174/90 H Blood Pressure [Right Arm] 157/90 H Blood Pressure Mean 118 Blood Pressure Mean [Right Arm] 112 Blood Pressure Position Sitting Blood Pressure Position [Right Arm] Lying Pulse Oximetry 97 97 Oxygen Delivery Method Room Air Room Air Sepsis Recent Fever Within 48 Hours No Sepsis New/Unexplained Change in Mental Status N/A Sepsis Action Taken by Nursing No Action Required GENERAL: alert, agitated appearing, well nourished, no distress, non-toxic EYE EXAM: normal conjunctiva, PERRL and EOM's grossly intact OROPHARYNX: no exudate, no erythema, lips, buccal mucosa, and tongue normal and mucous membranes are moist NECK: supple, no nuchal rigidity, no adenopathy, non-tender LUNGS: Clear to auscultation. Normal chest wall mechanics, no w/r/r HEART: no murmurs, S1 normal and S2 normal ABDOMEN: abdomen soft, non-tender, normo-active bowel sounds, no masses, no rebound or guarding. BACK: Back is symmetrical on inspection and there is no deformity, no midline tenderness, no CVA tenderness. SKIN: no rashes and no bruising UPPER EXTREMITIES: upper extremities are grossly normal. FROM, nml pulses b/l. LOWER EXTREMITIES: No pitting edema. FROM, nml pulses b/l. NEURO EXAM: Normal sensorium, cranial nerves II-XII grossly intact, dysarthria, no gross weakness of arms, no gross weakness of legs. Gross sensation intact. Course Course 1558: Updated by nursing staff that patient was unable to urinate. She was unable to tolerate a pure wick so a Murrell catheter was placed. Upon placement patient had immediate drainage of 1300 mL of clear yellow urine. 1622: Updated son at bedside. Patient resting. VS stable. Administered Medications Clonidine HCl (Clonidine Hcl 0.1 Mg/24 Hr Transderm Sys) 1 patch TD Q7D@2100 MATTY Stop: 12/19/21 21:29 Last Admin: 11/19/21 22:17 Dose: 1 patch Documented By: ED Insulin Aspart (Insulin Aspart Per Unit) 0 units SC Q6 MATTY Stop: 12/19/21 21:29 Last Admin: 11/20/21 17:34 Dose: Not Given Documented By: Admin: 11/20/21 13:04 Dose: Not Given Documented By: Admin: 11/20/21 07:35 Dose: Not Given Documented By: ANDREY Co-signed By: SEN Admin: 11/19/21 22:18 Dose: 1 units Documented By: ED Co-signed By: ATIYA Miscellaneous (Check Clonidine Patch Placement) 1 each N/A QS [facility] Stop: 12/20/21 00:00 Last Admin: 11/20/21 16:37 Dose: Not Given Documented By: Admin: 11/20/21 11:32 Dose: 1 each Documented By: Admin: 11/20/21 00:28 Dose: 1 each Documented By: ED Olanzapine (Olanzapine 10 Mg/2.1 Ml Sdv) 5 mg IM Q4H PRN PRN Reason: Agitation Stop: 12/20/21 14:29 Last Admin: 11/20/21 14:40 Dose: 5 mg Documented By: ANDREY Discontinued Medications Furosemide (Furosemide Inj 20 Mg/2 Ml Vial) 20 mg IV ONE ONE Stop: 11/19/21 18:08 Last Admin: 11/19/21 19:12 Dose: 20 mg Documented By: DP Sodium Chloride (Nss 1000ml) 1,000 mls @ 125 mls/hr IV .Q8H MATTY Stop: 12/19/21 12:59 Last Admin: 11/20/21 17:45 Dose: Not Given Documented By: Infusion: 11/20/21 17:44 Dose: 0 mls/hr Documented By: Admin: 11/20/21 11:13 Dose: 125 mls/hr Documented By: Infusion: 11/20/21 09:45 Dose: 0 mls/hr Documented By: Admin: 11/20/21 00:24 Dose: 125 mls/hr Documented By: Infusion: 11/19/21 21:37 Dose: 125 mls/hr Documented By: Admin: 11/19/21 13:37 Dose: 125 mls/hr Documented By: KONSTANTINH Lorazepam 0.5 mg/ Syringe 0.5 mls @ 2 mls/min IV ONE ONE Stop: 11/19/21 21:31 Last Admin: 11/19/21 22:43 Dose: 2 mls/min Documented By: ED Lorazepam 0.25 mg/ Syringe 0.25 mls @ 2 mls/min IV ONE ONE Stop: 11/20/21 01:46 Last Admin: 11/20/21 01:55 Dose: 2 mls/min Documented By: ED Lorazepam 0.5 mg/ Syringe 0.5 mls @ 2 mls/min IV NOW STA Stop: 11/20/21 11:23 Last Admin: 11/20/21 11:35 Dose: 2 mls/min Documented By: ANDREY Insulin Glargine (Lantus Per Unit Charge) 15 units SQ BID MATTY Stop: 12/19/21 21:29 Last Admin: 11/20/21 10:06 Dose: 15 units Documented By: ANDREY Co-signed By: CC Admin: 11/19/21 22:18 Dose: 15 units Documented By: ED Co-signed By: ATIYA Labetalol HCl (Labetalol Hcl Iv 5 Mg/Ml 20ml) 5 mg IV NOW STA Stop: 11/20/21 01:27 Last Admin: 11/20/21 01:39 Dose: 5 mg Documented By: ED Co-signed By: DIONNE Metoprolol Tartrate (Metoprolol Tartrate 1 Mg/Ml Vial) 5 mg IV NOW STA Stop: 11/20/21 01:16 Last Admin: 11/20/21 01:47 Dose: Not Given Documented By: ED Olanzapine (Olanzapine 10 Mg/2.1 Ml Sdv) 5 mg IM NOW STA Stop: 11/20/21 12:58 Last Admin: 11/20/21 13:06 Dose: Not Given Documented By: CC Olanzapine (Olanzapine 10 Mg/2.1 Ml Sdv) Confirm Administered Dose 10 mg IM .STK-MED ONE Stop: 11/20/21 13:00 Last Admin: 11/20/21 13:01 Dose: 5 mg Documented By: CC Medical Decision Making Differential Diagnosis Differential diagnoses includes but is not limited to toxic, metabolic, infectious, traumatic, cardiac, neurologic, hematologic, psychiatric and inflammatory etiologies. Medical Records Attestation: I reviewed the patient's medical records. Home Medications Current Medication List: was personally reviewed by me Laboratory Data Attestation: I reviewed the patient's lab results. Result diagrams: 11/20/21 07:38 11/20/21 06:39 Lab Results 11/19/21 11/19/21 11/19/21 Range/Units 13:00 13:00 13:00 WBC 7.58 (4.8-10.8) K/ul RBC 3.80 L (3.93-5.22) M/uL Hgb 13.0 (12.0-16.0) g/dl Hct 37.8 (34.1-44.9) % MCV 99.5 (80.0-100.0) fL MCH 34.2 H (25.0-34.0) pg MCHC 34.4 (32.0-36.0) g/dL RDW Std Deviation 50.4 H (36.4-46.3) fL RDW Coeff of Nora 13.7 (11.5-14.5) % Plt Count 155 (130-400) K/uL MPV 10.6 (9.4-12.3) fL Immature Gran % (Auto) 0.3 % Neut % (Auto) 55.5 % Lymph % (Auto) 35.2 % [place] % (Auto) 7.4 % Eos % (Auto) 1.1 % Baso % (Auto) 0.5 % Neut # (Auto) 4.21 (1.4-6.5) K/uL Lymph # (Auto) 2.67 (1.2-3.4) K/uL [place] # (Auto) 0.56 (0.24-0.82) K/uL Eos # (Auto) 0.08 (0-0.50) K/uL Baso # (Auto) 0.04 (0-0.2) K/uL Immature Gran # (Auto) 0.02 (0.00-0.02) K/uL PT 10.9 (9.0-12.0) Seconds INR 1.0 (0.9-1.1) Sodium 136 (136-145) mmol/L Potassium 4.4 (3.5-5.1) mmol/L Chloride 106 (98-107) mmol/L Carbon Dioxide 22 (21-32) mmol/L Anion Gap 8 (3-11) BUN 38 H (6-23) mg/dl Creatinine 1.81 H (0.6-1.2) mg/dl Est Cr Clr Drug Dosing 28.1 ml/min Est GFR ( Amer) 29.0 ml/min Est GFR (Non-Af Amer) 25.1 ml/min BUN/Creatinine Ratio 21.0 H (10-20) Glucose 241 H (70-99(Fasting)) mg/dl Calcium 9.2 (8.5-10.1) mg/dl Magnesium 1.9 (1.7-2.4) mg/dl Total Bilirubin 0.5 (0.2-1.0) mg/dl AST 15 (13-39) U/L ALT 9 (7-52) U/L Alkaline Phosphatase 52 (34-104) U/L Troponin I High Sens 9.3 (0-14) pg/ml Total Protein 6.9 (6.0-8.3) gm/dl Albumin 3.9 (3.4-5.0) gm/dl Globulin 3.0 (2.5-4.0) gm/dl Albumin/Globulin Ratio 1.3 (0.9-2) TSH (0.300-4.500) uIu/ml Urine Color Urine Appearance (Clear) Urine pH (4.5-7.5) Ur Specific [place] (1.000-1.030) Urine Protein (Negative) Urine Glucose (UA) (Negative) Urine Ketones (Negative) Urine Blood (Negative) Urine Nitrite (Negative) Urine Bilirubin (Negative) Urine Urobilinogen (Negative) Ur Leukocyte Esterase (Negative) Urine WBC (Auto) (0-5) /hpf Urine RBC (Auto) (0-4) /hpf U Hyaline Cast (Auto) (0-5) /lpf U Epithel Cells (Auto) (0-5) /lpf Urine Bacteria (Auto) (Negative) SARS-CoV-2 (PCR) (Negative) Influenza Type A (PCR) (Neg) Influenza Type B (PCR) (Neg) RSV (RT-PCR) (Neg) 11/19/21 11/19/21 11/19/21 Range/Units 13:00 16:05 16:49 WBC (4.8-10.8) K/ul RBC (3.93-5.22) M/uL Hgb (12.0-16.0) g/dl Hct (34.1-44.9) % MCV (80.0-100.0) fL MCH (25.0-34.0) pg MCHC (32.0-36.0) g/dL RDW Std Deviation (36.4-46.3) fL RDW Coeff of Nora (11.5-14.5) % Plt Count (130-400) K/uL MPV (9.4-12.3) fL Immature Gran % (Auto) % Neut % (Auto) % Lymph % (Auto) % [place] % (Auto) % Eos % (Auto) % Baso % (Auto) % Neut # (Auto) (1.4-6.5) K/uL Lymph # (Auto) (1.2-3.4) K/uL [place] # (Auto) (0.24-0.82) K/uL Eos # (Auto) (0-0.50) K/uL Baso # (Auto) (0-0.2) K/uL Immature Gran # (Auto) (0.00-0.02) K/uL PT (9.0-12.0) Seconds INR (0.9-1.1) Sodium (136-145) mmol/L Potassium (3.5-5.1) mmol/L Chloride (98-107) mmol/L Carbon Dioxide (21-32) mmol/L Anion Gap (3-11) BUN (6-23) mg/dl Creatinine (0.6-1.2) mg/dl Est Cr Clr Drug Dosing ml/min Est GFR ( Amer) ml/min Est GFR (Non-Af Amer) ml/min BUN/Creatinine Ratio (10-20) Glucose (70-99(Fasting)) mg/dl Calcium (8.5-10.1) mg/dl Magnesium (1.7-2.4) mg/dl Total Bilirubin (0.2-1.0) mg/dl AST (13-39) U/L ALT (7-52) U/L Alkaline Phosphatase (34-104) U/L Troponin I High Sens (0-14) pg/ml Total Protein (6.0-8.3) gm/dl Albumin (3.4-5.0) gm/dl Globulin (2.5-4.0) gm/dl Albumin/Globulin Ratio (0.9-2) TSH 0.935 (0.300-4.500) uIu/ml Urine Color Yellow Urine Appearance Clear (Clear) Urine pH 7.0 (4.5-7.5) Ur Specific [place] 1.010 (1.000-1.030) Urine Protein 2+ H (Negative) Urine Glucose (UA) Trace H (Negative) Urine Ketones Negative (Negative) Urine Blood Negative (Negative) Urine Nitrite Negative (Negative) Urine Bilirubin Negative (Negative) Urine Urobilinogen Negative (Negative) Ur Leukocyte Esterase Negative (Negative) Urine WBC (Auto) 1-5 (0-5) /hpf Urine RBC (Auto) 0-4 (0-4) /hpf U Hyaline Cast (Auto) 0 (0-5) /lpf U Epithel Cells (Auto) 5-10 H (0-5) /lpf Urine Bacteria (Auto) Negative (Negative) SARS-CoV-2 (PCR) NEGATIVE (Negative) Influenza Type A (PCR) Negative (Neg) Influenza Type B (PCR) Negative (Neg) RSV (RT-PCR) Negative (Neg) Imaging Data Radiologist's Impression: Chest X-Ray 11/19/21 12:52 XR chest 1V portable HISTORY: Stroke Like Symptoms COMPARISON: Chest 08/19/2020. FINDINGS: No pneumothorax. No pleural effusions. The heart remains enlarged. There is mild central pulmonary vascular congestion without overt edema. A few bibasilar linear densities consistent with subsegmental atelectasis. Otherwise, no focal lung consolidations to suggest pneumonia. IMPRESSION: Mild cardiomegaly with mild central pulmonary vascular congestion without overt edema. This has progressed in the interval. ACT 112: Negative or not required by law. Electronically signed by: Calvin Figueroa M.D. 11/19/2021 1:[address] 11/19/21 12:52 CT SCAN OF THE BRAIN WITHOUT IV CONTRAST CLINICAL HISTORY: Change in mental status. Strokelike symptoms. COMPARISON STUDY: CT of the brain dated 02/10/2017. MRI of the brain dated 02/11/2017. TECHNIQUE: Unenhanced axial CT scan of the brain is performed from the vertex to the skull base. A dose lowering technique was utilized adhering to the principles of ALARA. The patient was scanned twice due to motion artifact. The examination is significantly motion degraded. CT DOSE: 1642.00 mGycm FINDINGS: Brain parenchyma: There is age-related involutional change noting moderate confluent subcortical and periventricular microangiopathic disease. Extensive encephalomalacia throughout the left hemisphere is similar to prior studies and consistent with remote infarcts. There is no hemorrhage, mass effect, or evidence of acute territorial ischemia by CT criteria. Wilson-white matter differentiation is preserved. No extra-axial fluid collection is seen. Ventricles, sulci, cisterns: Prominent secondary to involutional change. Intracranial vasculature: There is atherosclerotic calcification of the cavernous carotid and vertebral arteries. Calvarium: Unremarkable. Sinuses and mastoids: The paranasal sinuses are clear. The mastoid air cells are well pneumatized. Orbits: The bony orbits are grossly intact. There are bilateral ocular lens implants. IMPRESSION: 1. There is no hemorrhage, mass effect, or evidence of acute territorial ischemia by CT criteria noted is significantly motion compromised examination. 2. Extensive chronic infarcts throughout the left hemisphere are similar to previous. ACT 112: Negative or not required by law. Electronically signed by: Andrew Reese M.D. 11/19/2021 3:00 PM ECG Data Attestation: I personally reviewed and interpreted this ECG as follows: Indication: + other Rate (beats per minute): 77 Rhythm: + normal sinus ECG Intervals/blocks: + Normal QRS and + Normal QT ECG [place]: + Normal ECG ST segments: + Nonspecific ST abnormalities MDM Narrative An order was placed for continuous cardiac monitoring. The monitor shows a rate of _60_ with _normal sinus_ rhythm. This is a 86-year-old female presents emergency department due to altered mental status as observed by the patient's son. Patient does have several deficits following a prior stroke however does live alone. Unknown time of onset of pa tient's increased confusion and worsening speech. Labs drawn and sent and patient sent for CT imaging. CT angiography not performed due to patient's low GFR and CKD. Patient started on gentle IV fluid rehydration. She was markedly hypertensive for EMS although slightly improved on arrival here. This was monitored and continued to improve. In attempting to obtain a urinalysis a Murrell catheter was eventually placed which resulted in immediate drainage of 1300 mL of clear yellow urine. Patient's agitation did seem to improve following this. Son denies any prior history of recurrent UTIs or urinary retention. Other labs reassuring. All results discussed with son at bedside verbalized understanding and was in agreement with plan for additional inpatient evaluation. Case discussed with hospitalist. Impression & Plan Altered mental status, HTN (hypertension), Chronic renal insufficiency, Dysarthria, post-stroke, Acute urinary retention Discharge Plan Visit Data Chief Complaint: Altered Mental Status ED Provider: Miranda Fonseca Discharge Problem: Altered mental status, HTN (hypertension), Chronic renal insufficiency, Dysarthria, post-stroke, Acute urinary retention Patient Disposition: Admitted As Inpatient Discharge Instructions Interventions: ED Discharge Assessment Last Done: 11/19/21 20:48
--- NOTE | 2021-11-19 15:02 | CT Scan Report ---
CT SCAN OF THE BRAIN WITHOUT IV CONTRAST CLINICAL HISTORY: Change in mental status. Strokelike symptoms. COMPARISON STUDY: CT of the brain dated 02/10/2017. MRI of the brain dated 02/11/2017. TECHNIQUE: Unenhanced axial CT scan of the brain is performed from the vertex to the skull base. A do se lowering technique was utilized adhering to the principles of ALARA. The patient was scanned twice due to motion artifact. The examination is significantly motion degraded. CT DOSE: 1642.00 mGycm FINDINGS: Brain parenchyma: There is age-related involutional change noting moderate confluent subcortical and periventricular microangiopathic disease. Extensive encephalomalacia throughout the left hemisphere i s similar to prior studies and consistent with remote infarcts. There is no hemorrhage, mass effect, or evidence of acute territorial ischemia by CT criteria. Wilson-white matter differentiation is preser brayan. No extra-axial fluid collection is seen. Ventricles, sulci, cisterns: Prominent secondary to involutional change. Intracranial vasculature: There is atherosclerotic calcification of the cavernous carotid and vertebr al arteries. Calvarium: Unremarkable. Sinuses and mastoids: The paranasal sinuses are clear. The mastoid air cells are well pneumatized. Orbits: The bony orbits are grossly intact. There are bilateral ocular lens implants. IMPRESSION: 1. There is no hemorrhage, mass effect, or evidence of acute territorial ischemia by CT criteria note d is significantly motion compromised examination. 2. Extensive chronic infarcts throughout the left hemisphere are similar to previous. ACT 112: Negative or not required by law. Electronically signed by: Andrew Reese M.D. 11/19/2021 3:00 PM
[2021-11-19 16:23] LABS: Appearance Urine Clear (Clear); Bacteria Urine Automated Negative (Negative); Bilirubin Urine Negative (Negative); Blood Urine Negative (Negative); Cast Urine Automated 0 /lpf (0-5); Color Urine Yellow; Glucose Urine UA Trace (Negative); Ketones Urine Negative (Negative); Leukocyte Esterase Urine Negative (Negative); Nitrite Urine Negative (Negative); Protein Urine 2+ (Negative); RBC Urine Automated 0-4 /hpf (0-4); Urobilinogen Urine Negative (Negative)
--- NOTE | 2021-11-19 17:04 | History & Physical Report ---
Date of Service November 19, 2021 Assessment & Plan (1) AMS (altered mental status): Plan: -Admit to medicine -Patient is currently afebrile, hemodynamically stable, and stable on room air -At this time the patient's currently AMS appears most likely associated with an ischemic stroke, last know well is greater than 4 hours so she was not a stroke alert or candidate for thrombolytic therapy -Patient has previous ischemic strokes with baseline dysarthria and lower extremity weakness, however, she was able to live on her own and perform most ADLs herself, son states that she is now acting more confused than normal -CT of the head showing chronic changes from previous strokes but no acute changes, no CTA ordered due to chronic kidney disease -Will obtain non-contrast MRI now as son is able to answer Questionnaire, no history of pacemaker >tubing tester low dose ativan to be given prior to MRI for anxiety and distress -Adding on TSH with free T4 since she has hx of hypothyroidism -Ordered echo with bubble study as well, neuro consult, PT/OT, lipid panels -Dysphagia screen ordered and will consult speech therapy prior to starting diet -Will keep on light hydration overnight until she can be evaluated by speech -Patient will likely need placement on discharge, CM consult placed (2) HTN (hypertension): Plan: -Currently hemodynamically stable -Will hold 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 antihypertensives for now until she is evaluated by speech -Switching patient to clonidine patch to avoid rebound hypertension since hold 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 PAINTER PO clonidine 0.1 mg daily (3) Stage 3b chronic kidney disease: Plan: -At baseline (4) Expressive aphasia: Plan: -Patient with baseline dysarthria but son thinks it is even worse -See AMS and strok workup (5) Dysarthria, post-stroke: Plan: -See AMS and stroke workup (6) Depression: Plan: -old 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 PAINTER meds until seen by speech (7) Type 2 diabetes mellitus: Plan: -Hold PO antihyperglycemics -Monitor BSG q6h while NPO -Glargine, 17 units BID -Correction factor of 25 and carb ratio of 8 (8) Hypothyroidism: Plan: -Hold levothyroxine for now until she is evaluated by speech Plan The patient was discussed with Dr. Tucker at the time of admission History of Present Illness Chief Complaint: AMS Primary Care Provider: DO Aide Morin is a 86 year old female with a PMH significant for previous ischemic stroke with residual dysarthria, HTN, OA, depression, DM II, and hypothyroidism who presented to the [facility] ED on 11/19/21 with a chief complaint of AMS. In the ED the patient was found to be afebrile, hemodynamically stable, and stable on RA. CT of the head did not reveal acute changes and revealed Extensive chronic infarcts throughout the left hemisphere are similar to previous. Labs were unremarkable and CXR revealed Mild cardiomegaly with mild central pulmonary vascular congestion without overt edema. This has progressed in the interval. The patient had to have a dejesus catheter placed and had 1.3 liters of urine drained after placement. The patient was given 1L NSS bolus prior to admission. At the time of the exam the patient was lying in bed with her son sitting bedside. History obtained only from son do to patient's baseline dysarthria and current mental status. He states that she typically lives at home and gets around with her scooter and is normally able to perform most of her ADLs her self. He and his visit her daily and she also gets meals on wheels. He states that she was in her normal state of health as of yesterday evening, this am he received a call from meals on wheels that the patient was not opening the door. His went to check on the patient, when she found the patient, Aide would only stare straight ahead and would not interact with his . Her son states that he noticed she took today's medications and this upcoming Thursday's medications after inspecting her pill storage container. He does not believe that there have been any recent medication or diet changes, the patient does not use tobacco products or alcohol. I explained to the patient's son that we would continue with a stroke workup and AMS workup but she was out of the window for thrombolytics and he understood. Allergies Allergy/AdvReac Type Severity Reaction Status Date / Time adhesive Allergy Intermediate SKIN GETS Verified 11/19/21 18:26 RED, SORE AND ITCHY atorvastatin AdvReac Severe GENERIC-SEVERE Verified 11/19/21 18:26 LEG CRAMPS, NAUSEA, NIGHTMARES Home Medications Medication Instructions Recorded Confirmed Type nystatin 100,000 unit/gram topical 1 applic topical BID PRN Skin 09/18/20 11/19/21 History powder Irritation apixaban 2.5 mg tablet (Eliquis) 2.5 mg PO BID 90 days #180 tabs 01/10/21 11/19/21 Rx aspirin 81 mg tablet,delayed 81 mg PO QAM #90 tabs 01/10/21 11/19/21 Rx release hydrochlorothiazide 25 mg tablet 25 mg PO QAM #90 tabs 01/10/21 11/19/21 Rx polyethylene glycol 3350 17 17 g PO DAILY PRN Constipation 01/10/21 11/19/21 History gram/dose oral powder diclofenac sodium 1 % topical gel 4 g topical QID PRN Pain 06/06/21 11/07/21 History hydrocortisone acetate 25 mg 25 mg NC BID PRN RECTAL BLEEDING 06/06/21 11/07/21 History rectal suppository clonidine HCl 0.1 mg tablet See Rx Instructions .Route 08/01/21 11/19/21 Rx .COMPLEX #60 tabs losartan 100 mg tablet 100 mg PO QAM #90 tabs 08/13/21 11/19/21 Rx glipizide 5 mg tablet, extended 5 mg PO BID #180 tabs 08/22/21 11/19/21 Rx release 24 hr levothyroxine 100 mcg tablet 100 mcg PO QAM #90 tabs 10/14/21 11/19/21 Rx dicyclomine 20 mg tablet 20 mg PO QID PRN abdominal pain 11/07/21 11/19/21 Rx #120 tabs brinzolamide 1 %-brimonidine 0.2 % 1 drp OPB BID 11/19/21 11/19/21 History eye drops,suspension (Simbrinza) rosuvastatin 20 mg tablet 20 mg PO HS 11/19/21 11/19/21 History Past Med/Surg History Medical History Arthritis Biliary sludge Bradycardia Cholelithiasis Cholelithiasis Chronic reflux esophagitis Chronic renal insufficiency Confusion Depression Dysarthria, post-stroke Expressive aphasia Gait instability Hearing loss, bilateral Hip pain, right History of diabetes mellitus History of stroke Hoarseness Hypercholesterolemia Leg pain, bilateral Obstructive sleep apnea Osteoarthritis Peripheral neuropathy Restless leg syndrome Right lateral abdominal pain 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 Urge incontinence of urine Surgical History H/O left mastectomy S/P cholecystectomy Family History Son Myocardial infarction Denies family history of Ovarian cancer Prostate cancer Breast cancer Colorectal cancer Social History Smoking Status: Never smoker Second Hand Exposure: No; Hx Alcohol Use: No Hx Substance Use: No Preferred Language: [place] Communication Ability: Effective Visual Impairment: No Limitations Hearing Ability: Use of Hearing Aid Health Information Systems Technician Required: No Beliefs That Will Affect Care: None marital status: / Current Living Situation: Alone current occupational status: retired How many Children do You have: 2 Feels Safe at Home: Yes Dental Care, Regularly: No Physical Activity Frequency: Does not Exercise Seatbelt Use: always Sunscreen Use: No Assistive Devices: Walker and Wheelchair Review of Systems Review of Systems: ROS unable to be obtained from patient due to current mental status but patient's son answered questions for her Denies current fever, chills, headache, changes in vision, hearing, taste, and smell, chest pain, SOB, cough, abdominal pain, nausea, vomiting, diarrhea, hematemesis, melena, dysuria, hematuria, and recent falls. All systems have been reviewed and are otherwise negative. Physical Exam Physical Exam: Physical Exam: Physical exam was limited due to patient distress and refusal to cooperate General: In mild distress, stated age, chronically ill appearing HEENT: Normocephalic, atraumatic, no scleral icterus, pupils around round, symmetrical, and reactive to light, moist mucus membranes, trachea midline, no thyromegaly Chest/Pulm: No respiratory distress, symmetrical chest expansion, clear breath sounds throughout Cardiac: RRR, no murmurs noted Abdomen: Negative for ascites and bruising, normoactive bowel sounds, soft, tender to palpation throughout Musculoskeletal: Symmetrical, patient moving upper extremities voluntarily but did not move lower extremities during exam Extremities: Radial, dorsalis pedis, and posterior tibial pulses are intact and symmetrical, no edema noted in the BL LE's Skin: Warm, dry, no rashes , lesions, or scars noted Neuro: Alert, unable to answer orientation questions due to baseline dysarthria, no focal neuro defects but patient would not participate with most of the neuro and strenght exam Psych: anxious and in moderate distress, uncooperative with exam Results & Data Results & Data ([facility]) Vital Signs (Past 12 Hours) Vital Signs Temp Pulse Pulse Resp BP BP Pulse Ox 11/19/21 13:40 57 L 18 157/90 H 97 11/19/21 12:53 36.8 C 73 20 174/90 H 97 O2 Del Method 11/19/21 13:40 Room Air 11/19/21 12:53 Room Air Laboratory Results Abnormal lab results 11/19/21 11/19/21 11/19/21 Range/Units 13:00 13:00 16:05 RBC 3.80 L (3.93-5.22) M/uL MCH 34.2 H (25.0-34.0) pg RDW Std Deviation 50.4 H (36.4-46.3) fL BUN 38 H (6-23) mg/dl Creatinine 1.81 H (0.6-1.2) mg/dl BUN/Creatinine Ratio 21.0 H (10-20) Glucose 241 H (70-99(Fasting)) mg/dl Urine Protein 2+ H (Negative) Urine Glucose (UA) Trace H (Negative) U Epithel Cells (Auto) 5-10 H (0-5) /lpf Diagnostic Findings Chest X-Ray 11/19/21 12:52 XR chest 1V portable HISTORY: Stroke Like Symptoms COMPARISON: Chest 08/19/2020. FINDINGS: No pneumothorax. No pleural effusions. The heart remains enlarged. There is mild central pulmonary vascular congestion without overt edema. A few bibasilar linear densities consistent with subsegmental atelectasis. Otherwise, no focal lung consolidations to suggest pneumonia. IMPRESSION: Mild cardiomegaly with mild central pulmonary vascular congestion without overt edema. This has progressed in the interval. ACT 112: Negative or not required by law. Electronically signed by: Calvin Figueroa M.D. 11/19/2021 1:[address] 11/19/21 12:52 CT SCAN OF THE BRAIN WITHOUT IV CONTRAST CLINICAL HISTORY: Change in mental status. Strokelike symptoms. COMPARISON STUDY: CT of the brain dated 02/10/2017. MRI of the brain dated 02/11/2017. TECHNIQUE: Unenhanced axial CT scan of the brain is performed from the vertex to the skull base. A dose lowering technique was utilized adhering to the principles of ALARA. The patient was scanned twice due to motion artifact. The examination is significantly motion degraded. CT DOSE: 1642.00 mGycm FINDINGS: Brain parenchyma: There is age-related involutional change noting moderate confluent subcortical and periventricular microangiopathic disease. Extensive encephalomalacia throughout the left hemisphere is similar to prior studies and consistent with remote infarcts. There is no hemorrhage, mass effect, or evidence of acute territorial ischemia by CT criteria. Wilson-white matter differentiation is preserved. No extra-axial fluid collection is seen. Ventricles, sulci, cisterns: Prominent secondary to involutional change. Intracranial vasculature: There is atherosclerotic calcification of the cavernous carotid and vertebral arteries. Calvarium: Unremarkable. Sinuses and mastoids: The paranasal sinuses are clear. The mastoid air cells are well pneumatized. Orbits: The bony orbits are grossly intact. There are bilateral ocular lens implants. IMPRESSION: 1. There is no hemorrhage, mass effect, or evidence of acute territorial ischemia by CT criteria noted is significantly motion compromised examination. 2. Extensive chronic infarcts throughout the left hemisphere are similar to previous. ACT 112: Negative or not required by law. Electronically signed by: Andrew Reese M.D. 11/19/2021 3:00 PM ECG Additional Comments: Poor data quality, interpretation may be adversely affected Normal sinus rhythm Normal ECG When compared with ECG of 19-AUG-2020 20:55, No significant change was found Code Status & VTE Plan Code Status No code VTE Prophylaxis Plan VTE Prophylaxis will be ordered: Yes Supervising Physician Co-Signing Physician Notes Patient seen and examined, chart reviewed, case discussed with Rian Rocha PA-C and I agree with the assessment and plan as above except as otherwise noted Labs and images reviewed Normal state of health yesterday evening, baseline bi LE weakness and dysarthria. AM of admission [facility] noted pt was not opening door. Was found sitting in the chair staring off and was confused. On ER exam appears to be hypersensitive and tender all over. CT-H negative for acute findings. CXR with +PVC without edema. Stable on room air and VSS. Pt with urinary retention and 1.3L drained after dejesus placement. Pt more calm after dejesus placement/bladder decompression. No focal neuro deficits. Was recommended for stroke eval given history and baseline altered status/dysarthria/weakness. TSH wnl. Pt did take medications this AM, did accidentally double up medications this AM. (Double eliquis, no sedating/altering medications). Exam somewhat limited by engagement/cognitive status. Breathing unlabored, no rales/crackles. RRR. Strength testing limited by engagement, does open eyes and respond to soft touch in arms/legs. Tolerates nasal pillow CPAP at home, son has this in the car and will bring it in. At bedside abdomen is nontender, patient very hard of hearing and does not follow commands, endorses discomfort in her abdomen otherwise exam is limited by engagement. Lungs are clear, heart rate regular. AMS: Complete CVA eval as above. ?due to urinary retention. No signs of infection. No signs of cauda/spinal compromise. Metabolic evaluation unremarkable, trend CBC/BMP. COVID negative. Defer fluids due to PVC, hold lasix. PG Care Time/CCT Total # of Minutes Spent Total Time Spent with Patient: Total time spent is greater than 50% in coordination of care (as documented) at patient's floor/unit and/or counseling patient: [place] [address] Initial Inpt Care Lvl 3 Patient Type Established Medical Decision Making High Complexity Diagnoses AMS (altered mental status) R41.82 HTN (hypertension) I10 Stage 3b chronic kidney disease N18.32 Expressive aphasia R47.01 Dysarthria, post-stroke I69.322 Depression F32.9 Type 2 diabetes mellitus E11.9 Hypothyroidism E03.9
[2021-11-19 17:46] LABS: Influenza A virus by PCR Negative (Neg); Influenza B virus by PCR Negative (Neg); RSV by PCR Negative (Neg); SARS CoV2 RNA(COVID-19) InHosp NEGATIVE (Negative)
[2021-11-19] MEDS ORDERED: FUROSEMIDE INJ 20 MG/2 ML VIAL IV ONE (18:07)
[2021-11-19] MEDS ORDERED: GLUCOSE 40% GEL 15 GM TUBE PO PRN (21:02)
[2021-11-19] MEDS ORDERED: DEXTROSE 50% 50 ML SYRINGE IV PRN (21:02)
[2021-11-19] MEDS ORDERED: GLUCOSE 10 TAB/TUBE PO PRN (21:02)
[2021-11-19] MEDS ORDERED: cloNIDine HCL 0.1 MG/24 HR TRANSDERM SYS TD SCH ×2 (21:02→21:30)
[2021-11-19] MEDS ORDERED: PHARMACIST DISCHARGE MED REC CONSULT PRN (21:02)
[2021-11-19] MEDS ORDERED: CARBOHYDRATES FOR HYPOGLYCEMIA PO PRN (21:02)
[2021-11-19] MEDS ORDERED: GLUCAGON FOR INJ 1 MG VIAL SQ PRN (21:02)
[2021-11-19] MEDS ORDERED: LORazepam 2 MG/2 ML SYR IV ONE (21:02)
[2021-11-19] MEDS ORDERED: LORazepam 0.5 MG in SYRINGE 0.25 ML IV ONE (21:30)
[2021-11-19] MEDS: LANTUS PER UNIT CHARGE SQ SCH (22:18)
[2021-11-19] MEDS: INSULIN ASPART PER UNIT SC SCH (22:18)
[2021-11-20] MEDS: SODIUM CHLORIDE 0.9% 1000ML 1,000 ML IV SCH ×3 (00:24→17:45)
[2021-11-20] MEDS: CHECK CLONIDINE PATCH PLACEMENT SCH ×3 (00:28→16:37)
[2021-11-20] MEDS ORDERED: METOPROLOL TARTRATE 1 MG/ML VIAL IV STA (01:15)
[2021-11-20] MEDS ORDERED: LABETALOL HCL IV 5 MG/ML 20ML IV STA (01:26)
[2021-11-20] MEDS ORDERED: LORazepam 0.25 MG in SYRINGE 0.125 ML IV ONE (01:45)
[2021-11-20 07:30] LABS: Calcium 9.4 mg/dl (8.5-10.1); Creatinine Clr Calc Pharmacy 32.5 ml/min; Est GFR (African American) 33.7 ml/min; Est GFR (Non-African American) 29.1 ml/min; Potassium 3.9 mmol/L (3.5-5.1)
[2021-11-20] MEDS: INSULIN ASPART PER UNIT SC SCH ×3 (07:35→17:34)
[2021-11-20 08:05] LABS: Hematocrit (blood only) 40.8 % (34.1-44.9); Hemoglobin 14.1 g/dl (12.0-16.0); Mean Corpuscular Hemoglobin 34.6 pg (25.0-34.0); Mean Corpuscular Hgb Conc 34.6 g/dL (32.0-36.0); Mean Platelet Volume 9.7 fL (9.4-12.3); Platelet Count 166 K/uL (130-400); RDW Coefficient of Variation 13.6 % (11.5-14.5); RDW Standard Deviation 50.5 fL (36.4-46.3); Red Blood Count 4.08 M/uL (3.93-5.22); White Blood Count 8.92 K/ul (4.8-10.8)
[2021-11-20 08:45] LABS: Estimated Average Glucose 146 mg/dl; Hemoglobin A1C 6.7 % (4.5-5.6)
[2021-11-20] MEDS: LANTUS PER UNIT CHARGE SQ SCH (10:06)
--- NOTE | 2021-11-20 10:59 | Neurology Consultation ---
Date of Consultation November 20, 2021 Assessment & Plan (1) H/O: stroke with residual effects: (2) Combined receptive and expressive aphasia: Plan 86-year-old female with a history of a relatively large, chronic, left hemispheric stroke with extensive associated encephalomalacia involving primarily the left temporal and parietal lobes. By history, she has a chronic residual aphasia as well as a mild right hemiparesis. She presented to the emergency department yesterday with altered mental status. Per my examination this morning, she exhibits a rather significant, global, receptive greater than expressive aphasia. She was capable of spontaneous speech although her speech made relatively little sense. She did not appear to comprehend speech very well either. She did not follow commands or answer simple questions during my evaluation. She does have a history notable for right carotid endarterectomy in 2017 and continues to follow with Dr. Ng. A recent carotid ultrasound in his office revealed no restenosis of the right CEA surgical site although has revealed slight progression and the stenosis of her left internal carotid artery, now measuring 60 to 69%. At this point, patient's clinical presentation is potentially consistent with a recurrent left hemispheric stroke. I agree with obtaining a noncontrast brain MRI for further assessment. Patient's Eliquis and daily low-dose aspirin are currently on hold although she should restart these medications when she is able to reliably swallow. Would also recommend continuing her rosuvastatin when able. If patient's brain MRI is negative for acute or subacute stroke would consider obtaining an EEG. Subclinical seizure activity not expected but not completely excluded. The patient's brain MRI does reveal evidence of an acute or subacute infarct within the left cerebral hemisphere, would consider obtaining an up-to-date carotid ultrasound, or possibly CT angiogram of the head and neck if able, depending on her renal status. Consultations with PT/OT/speech therapy. I will advise further pending completion of the above MRI. History of Present Illness Reason for Consultation: Strokelike symptoms Requesting Physician: Rian Rocha PA-C Attending Physician: Vazquez Gagnon MD History of Present Illness The patient is an 86-year-old female with a history of chronic relatively large left hemispheric stroke with residual speech difficulty, living somewhat independently at home, son has installed various cameras throughout her home to keep an eye on her, also gets Meals on Wheels. Patient's son had noted she was acting strangely on remote camera, when he went to check in on her she was behaving in an altered fashion, not speaking, seemed inattentive. She was modestly hypertensive with presentation, blood pressure 174/90. Her blood glucose was 241. A CT of the head revealed a relatively large, chronic infarct throughout the left cerebral hemisphere, similar to previous study done in January 2017. I did independently review the images. There is a chronic infarct involving primarily the left temporoparietal region with associated encephalomalacia. The patient was admitted to the medical service for further evaluation and management. A noncontrast brain MRI has been ordered. The patient exhibits a rather significant global, receptive greater than expressive aphasia this morning. She is an unreliable historian. Allergies Allergy/AdvReac Type Severity Reaction Status Date / Time adhesive Allergy Intermediate SKIN GETS Verified 11/19/21 18:26 RED, SORE AND ITCHY atorvastatin AdvReac Severe GENERIC-SEVERE Verified 11/19/21 18:26 LEG CRAMPS, NAUSEA, NIGHTMARES Home Medications Medication Instructions Recorded Confirmed Type nystatin 100,000 unit/gram topical 1 applic topical BID PRN Skin 09/18/20 11/19/21 History powder Irritation apixaban 2.5 mg tablet (Eliquis) 2.5 mg PO BID 90 days #180 tabs 01/10/21 11/19/21 Rx aspirin 81 mg tablet,delayed 81 mg PO QAM #90 tabs 01/10/21 11/19/21 Rx release hydrochlorothiazide 25 mg tablet 25 mg PO QAM #90 tabs 01/10/21 11/19/21 Rx polyethylene glycol 3350 17 17 g PO DAILY PRN Constipation 01/10/21 11/19/21 History gram/dose oral powder diclofenac sodium 1 % topical gel 4 g topical QID PRN Pain 06/06/21 11/19/21 History hydrocortisone acetate 25 mg 25 mg MS BID PRN RECTAL BLEEDING 06/06/21 11/19/21 History rectal suppository clonidine HCl 0.1 mg tablet See Rx Instructions .Route 08/01/21 11/19/21 Rx .COMPLEX #60 tabs losartan 100 mg tablet 100 mg PO QAM #90 tabs 08/13/21 11/19/21 Rx glipizide 5 mg tablet, extended 5 mg PO BID #180 tabs 08/22/21 11/19/21 Rx release 24 hr levothyroxine 100 mcg tablet 100 mcg PO QAM #90 tabs 10/14/21 11/19/21 Rx dicyclomine 20 mg tablet 20 mg PO QID PRN abdominal pain 11/07/21 11/19/21 Rx #120 tabs brinzolamide 1 %-brimonidine 0.2 % 1 drp OPB BID 11/19/21 11/19/21 History eye drops,suspension (Simbrinza) rosuvastatin 20 mg tablet 20 mg PO HS 11/19/21 11/19/21 History Patient History Medical History Arthritis Biliary sludge Bradycardia Cholelithiasis Cholelithiasis Chronic reflux esophagitis Chronic renal insufficiency Confusion Depression Dysarthria, post-stroke Expressive aphasia Gait instability Hearing loss, bilateral Hip pain, right History of diabetes mellitus History of stroke Hoarseness Hypercholesterolemia Leg pain, bilateral Obstructive sleep apnea Osteoarthritis Peripheral neuropathy Restless leg syndrome Right lateral abdominal pain 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 Urge incontinence of urine Surgical History H/O left mastectomy S/P cholecystectomy Family History Son Myocardial infarction Denies family history of Ovarian cancer Prostate cancer Breast cancer Colorectal cancer Social History Smoking Status: Never smoker Second Hand Exposure: No; Hx Alcohol Use: No Hx Substance Use: No Preferred Language: Greek Communication Ability: Effective Visual Impairment: No Limitations Hearing Ability: Use of Hearing Aid Gummed Tape Press Operator Required: No Beliefs That Will Affect Care: None marital status: / Current Living Situation: Alone current occupational status: retired How many Children do You have: 2 Feels Safe at Home: Yes Dental Care, Regularly: No Physical Activity Frequency: Does not Exercise Seatbelt Use: always Sunscreen Use: No Assistive Devices: CPAP and Walker Review of Systems Review of Systems: Unobtainable due to cognitive status Exam (Neuro) Constitutional: well developed and + altered mental status Eyes: normal visual campuzano by confrontation, PERRL and EOM intact bilaterally Cardiovascular: Vessels: normal carotid upstroke; no carotid bruit Neurologic: Oriented to:: negative Person, Place or Time Memory: negative Short Term Intact or Remote Intact Attention: negative Span Intact or Concentration Intact Language: negative Naming Objects or Repeating Phrases Speech Fluency: Dysfluency Speech Aphasia: Wernicke's Aphasia Fund of Knowledge: negative Current Events, Past History or Vocabulary Cranial Nerves: Normal III, IV, , V, VIII, IX, X, XI and XII; Abnorm II or VII (Mild flattening of the right nasolabial fold) Motor Strength: negative Normal Lower Extremities or Normal Upper Extremities Motor Tone: Normal Lower Extremities and Normal Upper Extremities Muscle Bulk/Involuntary Movements: No Involuntary Movements Sensation: Light Touch Intact, Pain/Temperature Intact and Vibration Intact Coordination: Finger-Nose Abnormal and Heel-Webster Abnormal Deep Tendon Reflexes: Rt Triceps: 1+, Lt Triceps: 1+, Rt Biceps: 1+, Lt Biceps: 1+, Rt Brachioradialis: 1+, Lt Brachioradialis: 1+, Rt Patellar: 1+, Lt Patellar: 1+, Rt Ankle: 1+ and Lt Ankle: 1+ Special Tests: Babinski Present (right) Details: Gait could not be tested in the context of patient's current neurological status. Results & Data ([facility]) Vital Signs (Past 12 Hours) Vital Signs Temp Pulse Resp BP Pulse Ox O2 Del Method 11/20/21 08:03 102 H 22 136/77 95 11/20/21 02:54 36.8 C 84 18 211/106 H 94 Room Air 11/20/21 01:29 37.2 C 83 18 241/117 H 95 Room Air Laboratory Results WBC 8.92, hemoglobin 14.1, hematocrit 40.8, MCV 100, platelet count 166, sodium 137, potassium 3.9, BUN 32, creatinine 1.60, glucose 129, hemoglobin A1c 6.7, calcium 9.4, magnesium 1.9, AST 15, ALT 9, triglycerides 169, cholesterol 146, LDL 64, VLDL 34, HDL 48, TSH 0.935, SARS-CoV-2 negative, influenza and RSV testing negative Diagnostic Findings CT of the head is as described in the history of present illness, I reviewed the images as well as the radiologist interpretation of this test. I did review images pertaining to a brain MRI completed at [facility] in January 2017. There was evidence of an acute to subacute stroke within the left temporoparietal and right parieto-occipital region at that time, superimposed on a chronic left temporal occipital stroke. Electrocardiogram reveals a normal sinus rhythm, 77 bpm. I reviewed vascular surgery note from Dr. Ng, from this past August. History of carotid stenosis, right carotid endarterectomy in 2017 that have been discovered during a work-up for a left hemispheric stroke at that time. Patient noted to have residual aphasia and right-sided weakness as a result of her left hemispheric stroke. A carotid ultrasound at that time revealed no significant restenosis of the right ICA. There was an approximate 60% stenosis of the left ICA, previously measured at 50%. Recommendation was for follow-up ultrasound in 1 year. Patient follows with [facility] nephrology for stage IIIb chronic kidney disease, history of hypertension, type 2 diabetes mellitus, vitamin D deficiency. History notable for pulmonary embolism, apparently incidental finding after undergoing right carotid endarterectomy. Has been on Eliquis and daily low-dose aspirin. Coding Level of Care Code 66228 Initial Inpt Care Lvl 3 Diagnoses H/O: stroke with residual effects I69.30 Combined receptive and expressive aphasia R47.01
[2021-11-20] MEDS ORDERED: LORazepam 0.5 MG in SYRINGE 0.25 ML IV STA (11:22)
--- NOTE | 2021-11-20 11:53 | Electrocardiogram Report ---
Test Reason : Blood Pressure : / mmHG Vent. Rate : 077 BPM Atrial Rate : 077 BPM P-R Int : 172 ms QRS Dur : 084 ms QT Int : 376 ms P-R-T Axes : 081 028 072 degrees QTc Int : 425 ms Poor data quality, interpretation may be adversely affected Normal sinus rhythm Normal ECG When compared with ECG of 19-AUG-2020 20:55, No significant change was found Confirmed by Giovanni Dickerson ([id number]) on 11/20/2021 11:53:24 AM Referred By: REFERRED SELF Confirmed By:Giovanni Dickerson
[2021-11-20] MEDS ORDERED: OLANZapine 10 MG/2.1 ML SDV IM STA (12:57)
[2021-11-20] MEDS ORDERED: OLANZapine 10 MG/2.1 ML SDV IM ONE (12:59)
--- NOTE | 2021-11-20 13:03 | Hospitalist Progress Note ---
Date of Service November 20, 2021 Assessment & Plan (1) AMS (altered mental status): Plan: -Patient is currently afebrile, hemodynamically stable, and stable on room air -At this time the patient's currently AMS appears most likely associated with an ischemic stroke, last know well is greater than 4 hours so she was not a stroke alert or candidate for thrombolytic therapy -Patient has previous ischemic strokes with baseline dysarthria and lower extremity weakness, however, she was able to live on her own and perform most ADLs herself, son states that she is now acting more confused than normal. -CT of the head showing chronic changes from previous strokes but no acute changes, no CTA ordered due to chronic kidney disease -Will obtain non-contrast MRI now as son is able to answer Questionnaire, no history of pacemaker -> Pending. -TSH normal. -Ordered echo with bubble study as well, neuro consult, PT/OT, lipid panels -Dysphagia screen ordered and will consult speech therapy prior to starting diet -Will keep on light hydration overnight until she can be evaluated by speech -Patient will likely need placement on discharge, CM consult placed - (2) HTN (hypertension): Plan: BP today is 145/95. - Will hold TRANSFERRER antihypertensives for now until she is evaluated by speech - Switching patient to clonidine patch to avoid rebound hypertension since hold TRANSFERRER PO clonidine 0.1 mg daily (3) Stage 3b chronic kidney disease: Plan: -At baseline (4) Expressive aphasia: Plan: -Patient with baseline dysarthria but son thinks it is even worse -See AMS and stroke workup (5) Dysarthria, post-stroke: Plan: -See AMS and stroke workup (6) Depression: Plan: -Hold TRANSFERRER meds until seen by speech (7) Type 2 diabetes mellitus: Plan: -Hold PO antihyperglycemics -Monitor BSG q6h while NPO -Glargine, 17 units BID -Correction factor of 25 and carb ratio of 8 (8) Hypothyroidism: Plan: - Hold levothyroxine for now until she is evaluated by speech Admission and Anticipated Discharge Date Admission Date: November 19, 2021 Subjective Seen this AM. Very tearful and upset. Painful all over. Light touch on her shoulders, using stethoscope, pressing on abdomen, even gently pressing on ankles all elicit cries and her pushing me away. She has expressive aphasia, and her words do not relate to questions or make sense. Review of Systems Review of Systems: Unobtainable due to cognitive status Physical Exam Constitutional: + acute distress and + ill appearing Eyes: EOM intact bilaterally; no conjunctival abnormality ENMT: external ear and nose normal, oropharynx normal Neck: trachea midline, no thyromegaly normal visual inspection Respiratory: normal respiratory effort, lungs clear to auscultation no respiratory distress Cardiovascular: RRR, no murmur, no edema Gastrointestinal (Abdomen): Inspection/Auscultation: abdomen normal to inspection; abdomen not distended Skin: no rashes, warm and dry Neurologic: moves all extremities and awake Psychiatric: Orientation: alert, oriented to person and cooperative Results & Data Results & Data ([facility]) Vital Signs (Past 12 Hours) Vital Signs Temp Pulse Resp BP BP Pulse Ox O2 Del Method 11/20/21 11:17 80 20 95 Room Air 11/20/21 11:33 142/94 H 11/20/21 08:03 102 H 22 136/77 95 11/20/21 02:54 36.8 C 84 18 211/106 H 94 Room Air 11/20/21 01:29 37.2 C 83 18 241/117 H 95 Room Air PG Care Time/CCT Total # of Minutes Spent Total Time Spent with Patient: Total time spent is greater than 50% in coordination of care (as documented) at patient's floor/unit and/or counseling patient: Coding Level of Care Code 27689 Subseq Hosp Care Lvl 2 Diagnoses AMS (altered mental status) R41.82 HTN (hypertension) I10 Stage 3b chronic kidney disease N18.32 Expressive aphasia R47.01 Dysarthria, post-stroke I69.322 Depression F32.9 Type 2 diabetes mellitus E11.9 Hypothyroidism E03.9
--- NOTE | 2021-11-20 13:20 | Magnetic Resonance Report ---
MR brain wo con CLINICAL HISTORY: stroke like symptoms TECHNIQUE: Multiplanar and multisequence MR images of the brain were obtained without intravenous con trast. Comparison: Comparison is made to MRI brain 02/11/[address] head 11/19/2021 FINDINGS: Exam is limited by patient motion. Scattered foci of restricted diffusion are seen most prominent in the posterior cerebrum, right greater than left. Foci of T2 and FLAIR hyperintensity are noted in the paraventricular areas consistent with chronic small vessel ischemic disease. Ex vacuo ventriculomega ly and sulcal enlargement is noted compatible with diffuse encephalomalacia. Old encephalomalacia in the left posterior cerebrum is compatible with old infarct in 2017. No mass is seen. There is no mass effect or midline shift. There is no evidence of acute intraparenchymal hemorrhage. No extra axial f luid collections are seen. The corpus callosum, pituitary gland, and cerebellar tonsils appear grossl y unremarkable. Flow voids of the major intracranial arterial vessels are identified. The imaged portions of the para nasal sinuses, mastoid air cells, and orbits are unremarkable. IMPRESSION: Limited exam due to patient motion. There is restricted diffusion in the right greater than left post erior cerebra concerning for acute infarct, possibly of the posterior circulation. No definite eviden ce of hemorrhagic transformation, but evaluation is highly limited by patient motion. ACT 112: Negative or not required by law. Electronically signed by: Ariel Reid M.D. 11/20/2021 1:19 PM
[2021-11-20] MEDS: OLANZapine 10 MG/2.1 ML SDV IM PRN ×2 (14:40→22:40)
[2021-11-21] MEDS: INSULIN ASPART PER UNIT SC SCH ×5 (00:15→22:18)
[2021-11-21] MEDS: CHECK CLONIDINE PATCH PLACEMENT SCH ×2 (00:38→08:22)
[2021-11-21 08:17] LABS: BUN Creatinine Ratio 19.6 (10-20); Calcium 9.7 mg/dl (8.5-10.1); Creatinine Clr Calc Pharmacy 28.2 ml/min; Est GFR (African American) 28.5 ml/min; Est GFR (Non-African American) 24.6 ml/min; Magnesium 1.5 mg/dl (1.7-2.4); Potassium 3.8 mmol/L (3.5-5.1)
[2021-11-21] MEDS: LANTUS PER UNIT CHARGE SQ SCH (08:36)
[2021-11-21 08:42] LABS: Hematocrit (blood only) 43.3 % (34.1-44.9); Hemoglobin 15.1 g/dl (12.0-16.0); Mean Corpuscular Hemoglobin 34.5 pg (25.0-34.0); Mean Corpuscular Hgb Conc 34.9 g/dL (32.0-36.0); Mean Corpuscular Volume 98.9 fL (80.0-100.0); Mean Platelet Volume 9.6 fL (9.4-12.3); Platelet Count 190 K/uL (130-400); RDW Coefficient of Variation 13.8 % (11.5-14.5); RDW Standard Deviation 50.4 fL (36.4-46.3); Red Blood Count 4.38 M/uL (3.93-5.22); White Blood Count 11.22 K/ul (4.8-10.8)
--- NOTE | 2021-11-21 11:10 | Neurology Progress Note ---
Date of Service November 21, 2021 Assessment & Plan (1) Stroke: (2) H/O: stroke with residual effects: (3) Combined receptive and expressive aphasia: Plan 86-year-old female with a history of relatively large chronic stroke involving the left temporal and parietal lobes, with residual aphasia and mild right hemiparesis, [facility] with [facility] status, combined receptive and expressive aphasia, inattentiveness, agitation, now found to have an acute infarct within the right temporal lobe. She has a history of right carotid endarterectomy in 2017 and has been following with Dr. Ng, no evidence of restenosis this past August. She has had slight progression in the left internal carotid artery stenosis, however. I would recommend obtaining an up-to-date carotid ultrasound. A CT angiogram would be helpful as well although may not be possible due to her chronic kidney disease. Patient should restart her Eliquis and daily low-dose aspirin when she is able to safely swallow. I agree with as needed olanzapine to address patient's agitation in the context of this during hospitalization. Prognosis for return to 71 independent living seems poor at this time. Admission and Anticipated Discharge Date Admission Date: November 19, 2021 Subjective Follow-up for stroke Brain MRI completed yesterday limited due to motion artifact although did reveal evidence of an acute infarct within the right temporal lobe in addition to the chronic encephalomalacia involving the left temporal and parietal lobes as described previously. I did review these images as well as the radiologist interpretation of this test. Please see my addendum from yesterday as well. The patient continues to exhibit confusion/altered mental status. She is inattentive with the examiner and does not seem to understand language or follow commands. She does not name objects or repeats. She will occasionally exhibit some spontaneous speech although her speech makes very little sense. She is an unreliable historian and unable to provide any details regarding symptoms or provide any complaints. Review of Systems Review of Systems: Unobtainable due to cognitive status Results & Data ([facility]) Vital Signs (Past 12 Hours) Vital Signs Temp Pulse Resp BP Pulse Ox O2 Del Method 11/21/21 09:17 36.4 C L 109 H 16 161/96 H 100 Room Air 11/21/21 00:30 37.0 C 98 H 20 137/90 95 Room Air 11/20/21 23:24 36.9 C 116 H 20 101/47 L 94 Room Air Laboratory Results WBC 11.22, hemoglobin 15.1, hematocrit 43.3, MCV 98.9, platelet count 190, sodium 137, potassium 3.8, BUN 36, creatinine 1.84, glucose 140, calcium 9.7, magnesium 1.5 Diagnostic Findings Echocardiogram completed yesterday revealed a normal ejection fraction, mild LVH, normal right ventricular size and function, no significant valvular disease, grade 1 diastolic dysfunction, impaired relaxation, borderline left atrial enlargement noted, no ASD. Exam (Neuro) Physical Exam: The patient is alert, she is essentially nonverbal in the sense that she does not understand spoken language, does not name objects, or repeat phrases. As above, she will occasionally exhibit spontaneous speech that makes relatively little sense. Some word substitutions. She is inattentive and it is difficult to assess her visual campuzano. She grabs at bed sheets fairly symmetrically with the hands, but otherwise, difficult to assess for underlying hemiparesis, ataxia, or motor deficit. She has a tendency for agitation and is currently on one-to-one observation. Coding Level of Care Code 58972 Subseq Hosp Care Lvl 2 Diagnoses Stroke I63.9 H/O: stroke with residual effects I69.30 Combined receptive and expressive aphasia R47.01
[2021-11-21] MEDS: PANTOprazole 40 MG TAB PO SCH (12:23)
--- NOTE | 2021-11-21 15:11 | Hospitalist Progress Note ---
Date of Service November 21, 2021 Assessment & Plan (1) Stroke: Plan: Patient with a history of previous stroke Presents with AMS Brain MRI reveal evidence of an acute infarct within the right temporal lobe in addition to the chronic encephalomalacia involving the left temporal and parietal lobes Neurology on consult 2 D ECHO did not show any structural heart abnormality will obtain bilateral carotid US (2) AMS (altered mental status): Plan: -Patient is currently afebrile, hemodynamically stable, and stable on room air -At this time the patient's currently AMS appears most likely associated with an ischemic stroke -Patient has previous ischemic strokes with baseline dysarthria and lower extremity weakness, however, she was able to live on her own and perform most ADLs herself, son states that she is now acting more confused than normal. - (3) HTN (hypertension): Plan: BP today is 161/96 - Will continue to observe permissive htn (4) Stage 3b chronic kidney disease: Plan: -At baseline (5) Expressive aphasia: Plan: -Worsening due to acute stroke (6) Dysarthria, post-stroke: Plan: -See AMS and stroke workup (7) Depression: Plan: -Hold RESOURCE CONSERVATION MANAGER meds until seen by speech (8) Type 2 diabetes mellitus: Plan: -Hold PO antihyperglycemics -Monitor BSG q6h while NPO -Glargine, 17 units BID -Correction factor of 25 and carb ratio of 8 (9) Hypothyroidism: Plan: - Hold levothyroxine for now until she is evaluated by speech (10) H/O: stroke with residual effects: Plan Patient used to be independent at home, however, will need placement in view of deterioration from acute stroke Admission and Anticipated Discharge Date Admission Date: November 19, 2021 Subjective patient seen and examined, sitting in the chair, unable to obtain any reasonable history Review of Systems Review of Systems: unable to obtain Physical Exam Physical Exam: The patient is awake, confused HEENT--PERRL, EOMI, mucous membranes and oropharynx mildly dry Neck--supple. No JVD. No bruits. Thyroid normal, trachea midline, no adenopathy. Heart--normal S1 and S2. No murmurs, rubs or gallops. Lungs--clear bilaterally, no respiratory distress, no accessory muscle use. Abdomen--normal bowel sounds and soft. Mild epigastric and left sided abdominal pain Extremities--no cyanosis or clubbing. No edema. Dermatologic--normal skin turgor, normal color, no abnormal lymph nodes, no rash. Neurologic--cranial nerves II through XII grossly intact. Rheumatologic--normal range of motion. Psychiatric--normal affect. Results & Data Results & Data ([facility]) Vital Signs (Past 12 Hours) Vital Signs Temp Pulse Resp BP Pulse Ox O2 Del Method 11/21/21 09:17 97.5 F L 109 H 16 161/96 H 100 Room Air PG Care Time/CCT Total # of Minutes Spent Total Time Spent with Patient: Total time spent is greater than 50% in coordination of care (as documented) at patient's floor/unit and/or counseling patient: Coding Level of Care Code 30535 Subseq Hosp Care Lvl 2 Diagnoses Stroke I63.9 AMS (altered mental status) R41.82 HTN (hypertension) I10 Stage 3b chronic kidney disease N18.32 Expressive aphasia R47.01 Dysarthria, post-stroke I69.322 Depression F32.9 Type 2 diabetes mellitus E11.9 Hypothyroidism E03.9 H/O: stroke with residual effects I69.30 Time Spent (min) 35
[2021-11-21] MEDS ORDERED: Nursing to Pharmacy Communication SCH (15:15)
[2021-11-22 07:46] LABS: Hematocrit (blood only) 44.4 % (34.1-44.9); Hemoglobin 15.6 g/dl (12.0-16.0); Mean Corpuscular Hgb Conc 35.1 g/dL (32.0-36.0); Mean Corpuscular Volume 99.6 fL (80.0-100.0); Mean Platelet Volume 10.2 fL (9.4-12.3); Platelet Count 203 K/uL (130-400); RDW Coefficient of Variation 13.9 % (11.5-14.5); RDW Standard Deviation 50.6 fL (36.4-46.3); Red Blood Count 4.46 M/uL (3.93-5.22); White Blood Count 12.89 K/ul (4.8-10.8)
[2021-11-22 08:10] LABS: BUN Creatinine Ratio 23.7 (10-20); Calcium 9.5 mg/dl (8.5-10.1); Creatinine Clr Calc Pharmacy 23.7 ml/min; Est GFR (African American) 23.1 ml/min; Est GFR (Non-African American) 19.9 ml/min; Potassium 4.1 mmol/L (3.5-5.1)
[2021-11-22] MEDS: INSULIN ASPART PER UNIT SC SCH ×4 (08:48→21:45)
[2021-11-22] MEDS: LANTUS PER UNIT CHARGE SQ SCH (08:49)
--- NOTE | 2021-11-22 10:33 | Ultrasound Report ---
CAROTID ARTERY ULTRASOUND CLINICAL HISTORY: stroke COMPARISON STUDY: Carotid ultrasound February 10, 2017. MRA of the neck February 12, 2017. TECHNIQUE: Real-time, grayscale, and color Doppler sonography of the carotid and vertebral arteries w as attempted. Study could not be completed due to patient's inability to cooperate with the study. FINDINGS: No diagnostic images could be obtained given patient's inability to cooperate with the exam . This study is nondiagnostic. IMPRESSION: Nondiagnostic exam, as described above. This study should be credited. ACT 112: Negative or not required by law. Electronically signed by: Amarjit Quiñonez M.D. 11/22/2021 10:31 AM
[2021-11-22] MEDS: PANTOprazole 40 MG TAB PO SCH (11:02)
[2021-11-22] MEDS ORDERED: HYDROCORTISONE ACETATE 25 MG SUPP PR PRN (12:21)
[2021-11-22] MEDS ORDERED: DICYCLOMINE HCL 20 MG TAB PO PRN (12:21)
[2021-11-22] MEDS ORDERED: POLYETHYLENE (MIRALAX) 17 GM PACK PO PRN (12:21)
--- NOTE | 2021-11-22 12:21 | Hospitalist Progress Note ---
Date of Service November 22, 2021 Assessment & Plan (1) Stroke: Plan: Patient with a history of previous stroke Presents with AMS Brain MRI reveal evidence of an acute infarct within the right temporal lobe in addition to the chronic encephalomalacia involving the left temporal and parietal lobes Neurology on consult 2 D ECHO did not show any structural heart abnormality Carotid US could not be completed because patient was unable to sit still (2) AMS (altered mental status): Plan: -Patient is currently afebrile, hemodynamically stable, and stable on room air -At this time the patient's currently AMS appears most likely associated with an ischemic stroke -Patient has previous ischemic strokes with baseline dysarthria and lower extremity weakness, however, she was able to live on her own and perform most ADLs herself, son states that she is now acting more confused than normal. (3) HTN (hypertension): Plan: BP today is 129/50 continue to monitor (4) Stage 3b chronic kidney disease: Plan: -slight worsening of renal function -Will start gentle hydration with NS @80cc/hr receck BMP (5) Expressive aphasia: Plan: -Worsening due to acute stroke (6) Dysarthria, post-stroke: Plan: -See AMS and stroke workup (7) Depression: Plan: -Resume home meds (8) Type 2 diabetes mellitus: Plan: -Hold PO antihyperglycemics -Monitor BSG q6h while NPO -Glargine, 17 units BID -Correction factor of 25 and carb ratio of 8 (9) Hypothyroidism: Plan: - Hold levothyroxine for now until she is evaluated by speech (10) H/O: stroke with residual effects: Plan Patient used to be independent at home, however, will need placement in view of deterioration from acute stroke Admission and Anticipated Discharge Date Admission Date: November 19, 2021 Subjective patient seen and examined, no new complains, although patient is confused Review of Systems Review of Systems: unable to obtain Physical Exam Physical Exam: The patient is awake, confused HEENT--PERRL, EOMI, mucous membranes and oropharynx mildly dry Neck--supple. No JVD. No bruits. Thyroid normal, trachea midline, no adenopathy. Heart--normal S1 and S2. No murmurs, rubs or gallops. Lungs--clear bilaterally, no respiratory distress, no accessory muscle use. Abdomen--normal bowel sounds and soft. Mild epigastric and left sided abdominal pain Extremities--no cyanosis or clubbing. No edema. Dermatologic--normal skin turgor, normal color, no abnormal lymph nodes, no rash. Neurologic--cranial nerves II through XII grossly intact. Rheumatologic--normal range of motion. Psychiatric--normal affect. Results & Data Results & Data ([facility]) Vital Signs (Past 12 Hours) Vital Signs Temp Pulse Pulse Resp BP Pulse Ox O2 Del Method 11/22/21 07:20 103 H 11/22/21 06:56 97.2 F L 97 H 22 129/50 L 91 Room Air 11/22/21 04:00 99.0 F 99 H 22 116/52 L 90 Room Air PG Care Time/CCT Total # of Minutes Spent Total Time Spent with Patient: Total time spent is greater than 50% in coordination of care (as documented) at patient's floor/unit and/or counseling patient: Coding Level of Care Code 76880 Subseq Hosp Care Lvl 2 Diagnoses Stroke I63.9 AMS (altered mental status) R41.82 HTN (hypertension) I10 Stage 3b chronic kidney disease N18.32 Expressive aphasia R47.01 Dysarthria, post-stroke I69.322 Depression F32.9 Type 2 diabetes mellitus E11.9 Hypothyroidism E03.9 H/O: stroke with residual effects I69.30 Time Spent (min) 35
[2021-11-22] MEDS: SODIUM CHLORIDE 0.9% 1000ML 1,000 ML IV SCH (12:47)
[2021-11-22] MEDS: ASPIRIN 81 MG ECTAB PO SCH (13:57)
[2021-11-22] MEDS: APIXABAN 2.5 MG TAB PO SCH ×2 (13:57→21:47)
[2021-11-22] MEDS ORDERED: GLIPIZIDE 5 MG PO SCH (21:00)
[2021-11-22] MEDS: ROSUVASTATIN CALCIUM 10 MG TAB PO SCH (21:47)
[2021-11-22] MEDS: cloNIDine HCL 0.1 MG TAB PO SCH (21:48)
[2021-11-23] MEDS: SODIUM CHLORIDE 0.9% 1000ML 1,000 ML IV SCH ×2 (03:49→16:14)
[2021-11-23] MEDS: LEVOTHYROXINE SODIUM 100 MCG TABLET PO SCH (06:18)
[2021-11-23 06:36] LABS: Creatinine Clr Calc Pharmacy 21.1 ml/min; Est GFR (African American) 20.3 ml/min; Est GFR (Non-African American) 17.5 ml/min
[2021-11-23] MEDS ORDERED: hydroCHLOROthiazide 25 MG TAB PO SCH (09:00)
[2021-11-23 09:01] LABS: Calcium 9.1 mg/dl (8.5-10.1); Creatinine Clr Calc Pharmacy 21.6 ml/min; Est GFR (Non-African American) 18.1 ml/min; Potassium 3.9 mmol/L (3.5-5.1)
[2021-11-23] MEDS: PANTOprazole 40 MG TAB PO SCH ×2 (10:00→12:13)
[2021-11-23] MEDS: LOSARTAN POTASSIUM 50 MG TAB PO SCH ×2 (10:00→12:13)
[2021-11-23] MEDS: ASPIRIN 81 MG ECTAB PO SCH ×2 (10:00→12:13)
[2021-11-23] MEDS: APIXABAN 2.5 MG TAB PO SCH ×2 (10:00→23:34)
[2021-11-23] MEDS: cloNIDine HCL 0.1 MG TAB PO SCH ×2 (10:01→23:34)
[2021-11-23] MEDS: INSULIN ASPART PER UNIT SC SCH ×4 (10:06→22:02)
[2021-11-23] MEDS: LANTUS PER UNIT CHARGE SQ SCH (10:07)
[2021-11-23] MEDS ORDERED: ONDANSETRON INJ 2 MG/ML 2 ML VIAL IV PRN (10:28)
--- NOTE | 2021-11-23 11:42 | Nephrology Consultation ---
Date of Consultation November 23, 2021 Assessment & Plan (1) VALERI (acute kidney injury): (2) Stage 3b chronic kidney disease: (3) Acute urinary retention: (4) HTN (hypertension): (5) Altered mental status: Plan CKD IIIb at baseline (creatinine 1.5-1.9 mg/dL). CKD attributed to ar terionephrosclerosis. Imaging consistent with advanced CKD. CKD complicated by some degree of urinary retention on admission. Murrell intact. Non-oliguric. Intravascular volume depletion and poor PO intake noted. VALERI can be attributed to this combination. Aide remains on losartan which may be held as needed. Electrolytes are acceptable. There is certainly no emergent indication for dialysis. Aide has multiple medical comorbidities and poor baseline functional status that unfortunately make her a poor candidate for maintenance dialysis if kidney function declines. She is receiving appropriate supportive care, including IVF to maintain an even to slightly positive fluid balance. Murrell remains intact. Medications are appropriate for kidney function. Eliquis appropriately dosed at 2.5 mg BID. Rosuvastatin 10 mg daily. The risks/benefits of Dicyclomine are not clear to me at this time. BP is acceptable. Consider holding losartan if there is no improvement in kidney function in next 24-48 hours. Document strict I/O's. Repeat metabolic profile tomorrow AM. History of Present Illness Reason for Consultation: VALERI/CKD Requesting Physician: Isabella Kim MD Attending Physician: Isabella Kim MD History of Present Illness Aide Bui is an 86 year-old female with chronic kidney disease admitted to [facility] with mental status changes attributed to ischemic cerebral vascular disease. She was seen and evaluated in her hospital room this AM with the 1:1 and bedside nurse. Aide was resting comfortably in bed. Unfortunately, due to expressive and receptive aphasia, she was not able to provide any history. She was drinking water and described increased thirst. Her level of alertness and ability to drink independently were notably improved since yesterday per report. Aide was admitted to [facility] on November 19. She presented from home with acute mental status changes. MRI findings consistent with right temporal lobe CVA and notable encephalomalacia. On admission, the patient was found to have some urinary retention with 1.3 L drained from the bladder immediately following Murrell placement. Serum creatinine was at baseline ~1.6 mg/dL on admission. Creatinine was 1.84 mg/dL on November 21 and 2.2 mg/dL yesterday. Creatinine 2.4 mg/dL this AM. Electrolytes are normal. Urine microscopy on admission was acellular. CT scan of the abdomen obtained in September demonstrates atrophic kidneys with notable calcific vascular disease. Aide follows with Dr. Santos as an outpatient regarding her kidney dysfunction. She was most recently seen in the clinic in July. At that time, creatinine was stable at baseline ~1.5-1.9 mg/dL. CKD has been attributed to micovascular disease related to a history of hypertension and DM. Medical history is notable for cerebral vascular disease and multiple CVA, hypertension, DMII, OA, depression, hypothyroidism, and a history of PE. Aide has been maintained on Eliquis for reported history of PE. She was recently started on Dicyclomine by her PCP for chronic abdominal pain. NSS infusing currently at 80 ml/hr. Non-oliguric with 650 ml of urine output reported yesterday. Allergies Allergy/AdvReac Type Severity Reaction Status Date / Time adhesive Allergy Intermediate SKIN GETS Verified 11/19/21 18:26 RED, SORE AND ITCHY atorvastatin AdvReac Severe GENERIC-SEVERE Verified 11/19/21 18:26 LEG CRAMPS, NAUSEA, NIGHTMARES Home Medications Medication Instructions Recorded Confirmed Type nystatin 100,000 unit/gram topical 1 applic topical BID PRN Skin 09/18/20 11/19/21 History powder Irritation apixaban 2.5 mg tablet (Eliquis) 2.5 mg PO BID 90 days #180 tabs 01/10/21 11/19/21 Rx aspirin 81 mg tablet,delayed 81 mg PO QAM #90 tabs 01/10/21 11/19/21 Rx release hydrochlorothiazide 25 mg tablet 25 mg PO QAM #90 tabs 01/10/21 11/19/21 Rx polyethylene glycol 3350 17 17 g PO DAILY PRN Constipation 01/10/21 11/19/21 History gram/dose oral powder diclofenac sodium 1 % topical gel 4 g topical QID PRN Pain 06/06/21 11/19/21 History hydrocortisone acetate [address] BID PRN RECTAL BLEEDING 06/06/21 11/19/21 History rectal suppository clonidine HCl 0.1 mg tablet See Rx Instructions .Route 08/01/21 11/19/21 Rx .COMPLEX #60 tabs losartan 100 mg tablet 100 mg PO QAM #90 tabs 08/13/21 11/19/21 Rx glipizide 5 mg tablet, extended 5 mg PO BID #180 tabs 08/22/21 11/19/21 Rx release 24 hr levothyroxine 100 mcg tablet 100 mcg PO QAM #90 tabs 10/14/21 11/19/21 Rx dicyclomine 20 mg tablet 20 mg PO QID PRN abdominal pain 11/07/21 11/19/21 Rx #120 tabs brinzolamide 1 %-brimonidine 0.2 % 1 drp OPB BID 11/19/21 11/19/21 History eye drops,suspension (Simbrinza) rosuvastatin 20 mg tablet 20 mg PO HS 11/19/21 11/19/21 History Patient History Medical History Arthritis Biliary sludge Bradycardia Cholelithiasis Cholelithiasis Chronic reflux esophagitis Chronic renal insufficiency Confusion Depression Dysarthria, post-stroke Expressive aphasia Gait instability Hearing loss, bilateral Hip pain, right History of diabetes mellitus History of stroke Hoarseness Hypercholesterolemia Leg pain, bilateral Obstructive sleep apnea Osteoarthritis Peripheral neuropathy Restless leg syndrome Right lateral abdominal pain 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 Urge incontinence of urine Surgical History H/O left mastectomy S/P cholecystectomy Family History Son Myocardial infarction Denies family history of Ovarian cancer Prostate cancer Breast cancer Colorectal cancer Social History Smoking Status: Never smoker Second Hand Exposure: No; Hx Alcohol Use: No Hx Substance Use: No Preferred Language: Marshallese Communication Ability: Impaired Visual Impairment: No Limitations Hearing Ability: Use of Hearing Aid Division Chair Required: No Beliefs That Will Affect Care: None marital status: / Current Living Situation: Alone current occupational status: retired How many Children do You have: 2 Feels Safe at Home: Yes Dental Care, Regularly: No Physical Activity Frequency: Does not Exercise Seatbelt Use: always Sunscreen Use: No Assistive Devices: Wheelchair and Other Review of Systems Review of Systems: Unobtainable due to cognitive status Physical Exam Constitutional: + altered mental status, + frail appearing and comfortable; no acute distress Eyes: + anicteric sclerae; no corneal abnormality ENMT: Ears: + hearing impairment Mouth: + dry oral mucous membranes; no oral mucosal abnormality Neck: normal visual inspection and trachea midline Respiratory: normal respiratory effort Auscultation: lungs clear to auscultation bilaterally Cardiovascular: Rate/Rhythm: + tachycardic Heart Sounds: normal S1 and normal S2 Extremities: no edema Musculoskeletal: Extremities: no cyanosis and no clubbing Skin: + turgor decreased; no lesions Neurologic: Speech / Cognition: + expressive aphasia Motor/Sensory: no tremor and no asterixis Psychiatric: Orientation: alert Genitourinary: Murrell draining yellow urine Results & Data ([facility]) Vital Signs (Past 12 Hours) Vital Signs Temp Pulse Pulse Resp BP BP Pulse Ox 11/23/21 07:38 36.5 C 102 H 22 122/68 95 11/23/21 04:05 36.7 C 101 H 20 147/60 H 94 11/23/21 00:17 36.6 C 98 H 20 132/65 92 11/23/21 00:13 89 O2 Del Method 11/23/21 07:38 Room Air 11/23/21 04:05 Room Air 11/23/21 00:17 Room Air 11/23/21 00:13 Laboratory Results Laboratory Results - last 24 hr 11/22/21 11/22/21 11/22/21 12:25 16:47 20:18 Sodium Potassium Chloride Carbon Dioxide Anion Gap BUN Creatinine Est Cr Clr Drug Dosing Est GFR ( Amer) Est GFR (Non-Af Amer) BUN/Creatinine Ratio Glucose POC Glucose 214 H 178 H 182 H Calcium 11/23/21 11/23/21 11/23/21 05:18 05:26 07:28 Sodium 142 Potassium 3.9 Chloride 109 H Carbon Dioxide 24 Anion Gap 9 BUN 71 H Creatinine 2.43 H 2.37 H Est Cr Clr Drug Dosing 21.1 21.6 Est GFR ( Amer) 20.3 21.0 Est GFR (Non-Af Amer) 17.5 18.1 BUN/Creatinine Ratio 30.0 H Glucose 129 H POC Glucose 148 H Calcium 9.1 PG Care Time/CCT Total # of Minutes Spent Total Time Spent with Patient: Total time spent is greater than 50% in coordination of care (as documented) at patient's floor/unit and/or counseling patient: Coding Level of Care Code 72375 Inpt Consult Level 4 Diagnoses VALERI (acute kidney injury) N17.9 Stage 3b chronic kidney disease N18.32 Acute urinary retention R33.8 HTN (hypertension) I10 Altered mental status R41.82
--- NOTE | 2021-11-23 12:27 | CT Scan Report ---
ABDOMEN AND PELVIS CT WITHOUT CONTRAST CT DOSE: 1925.16 mGy.cm HISTORY: Acute generalized abdominal pain abdominal pain TECHNIQUE: Multiaxial CT images of the abdomen and pelvis were performed without contrast. A dose lo wering technique was utilized adhering to the principles of ALARA. COMPARISON STUDY: CT 10/24/2021 FINDINGS: Cardiomegaly with coronary artery calcifications. Mild ectasia of the ascending thoracic ao rta, 3.8 cm. Mild subsegmental bibasilar atelectasis. The study is degraded by positioning and respir atory motion artifact as well as lack of contrast. Calcified granulomata of the spleen. Unremarkable pancreas and adrenal glands. Cholecystectomy. Unrem arkable liver. No hepatic mass identified. Cortical thinning of the bilateral kidneys. Linear calcifi cations of the left kidney redemonstrated which are likely vascular. Punctate nonobstructing calculus of the anterior interpolar right kidney is unchanged. There are 2 subcentimeter hyperdense foci with in the interpolar left kidney measuring up to 8 mm suggestive of hemorrhagic or proteinaceous cysts. No ureteral calculi or hydronephrosis identified. Decompressed urinary bladder with Murrell catheter in place. Air is noted within the urinary bladder lumen. Atherosclerosis of the aorta without aneurysm. No lymphadenopathy. Small hiatal hernia. No bowel obstruction or bowel wall thickening. There is moderate fecal retention within the rectum. Colonic diverticulosis without acute diverticulitis. Noninflamed appendix. Tiny f at filled umbilical hernia, diastases of 9 mm. No ascites or mesenteric inflammation. Unremarkable so ft tissues. Degenerative changes of the spine, pelvis and left hip. ORIF hardware of the left proxima l femur with right hip total joint arthroplasty. IMPRESSION: 1. No acute intra-abdominal or intrapelvic abnormality. 2. Colonic diverticulosis without acute diverticulitis. 3. Right nephrolithiasis. 4. Additional findings as above. ACT 112: Negative or not required by law. The above report was generated using voice recognition software. It may contain grammatical, syntax o r spelling errors. Electronically signed by: Oumar Stahl M.D. 11/23/2021 12:25 PM
[2021-11-23] MEDS ORDERED: MoRPHine SULFATE 2 MG/ML CARP IV STA (12:34)
--- NOTE | 2021-11-23 13:13 | Hospitalist Progress Note ---
Date of Service November 23, 2021 Assessment & Plan (1) Stroke: Plan: Patient with a history of previous stroke Presents with AMS Brain MRI reveal evidence of an acute infarct within the right temporal lobe in addition to the chronic encephalomalacia involving the left temporal and parietal lobes Neurology on consult 2 D ECHO did not show any structural heart abnormality Carotid US could not be completed because patient was unable to sit still (2) AMS (altered mental status): Plan: -Patient is currently afebrile, hemodynamically stable, and stable on room air -At this time the patient's currently AMS appears most likely associated with an ischemic stroke -Patient has previous ischemic strokes with baseline dysarthria and lower extremity weakness, however, she was able to live on her own and perform most ADLs herself, son states that she is now acting more confused than normal. Currently, some of her speech is garbled, but at times, she is able to articulate a concern (3) HTN (hypertension): Plan: BP today is 122/68 continue home meds continue to monitor (4) Abdominal pain: Plan: complains of abdominal pain will obtain CT abdomen and pelvis (5) Stage 3b chronic kidney disease: Plan: -slight worsening of renal function -Will start gentle hydration with NS @80cc/hr receck BMP -Nephrology on consult, appreciate recs (6) Expressive aphasia: Plan: -Worsening due to acute stroke (7) Dysarthria, post-stroke: Plan: -See AMS and stroke workup (8) Depression: Plan: -Resume home meds (9) Type 2 diabetes mellitus: Plan: -Hold PO antihyperglycemics -Monitor BSG q6h while NPO -Glargine, 17 units BID -Correction factor of 25 and carb ratio of 8 (10) Hypothyroidism: Plan: - Hold levothyroxine for now until she is evaluated by speech (11) H/O: stroke with residual effects: Plan Patient used to be independent at home, however, will need placement in view of deterioration from acute stroke Admission and Anticipated Discharge Date Admission Date: November 19, 2021 Subjective patient seen and examined, although some of her speech is garbled, but she compl ains of abdominal pain Review of Systems Review of Systems: unable to obtain Physical Exam Physical Exam: The patient is awake, alert HEENT--PERRL, EOMI, mucous membranes and oropharynx mildly dry Neck--supple. No JVD. No bruits. Thyroid normal, trachea midline, no adenopathy. Heart--normal S1 and S2. No murmurs, rubs or gallops. Lungs--clear bilaterally, no respiratory distress, no accessory muscle use. Abdomen--normal bowel sounds and soft. Mild epigastric and left sided abdominal pain Extremities--no cyanosis or clubbing. No edema. Dermatologic--normal skin turgor, normal color, no abnormal lymph nodes, no rash. Neurologic--cranial nerves II through XII grossly intact. Rheumatologic--normal range of motion. Psychiatric--normal affect. Results & Data Results & Data ([facility]) Vital Signs (Past 12 Hours) Vital Signs Temp Pulse Resp BP BP Pulse Ox O2 Del Method 11/23/21 07:38 97.7 F 102 H 22 122/68 95 Room Air 11/23/21 04:05 98.1 F 101 H 20 147/60 H 94 Room Air PG Care Time/CCT Total # of Minutes Spent Total Time Spent with Patient: Total time spent is greater than 50% in coordination of care (as documented) at patient's floor/unit and/or counseling patient: Coding Level of Care Code 03999 Subseq Hosp Care Lvl 2 Diagnoses Stroke I63.9 AMS (altered mental status) R41.82 HTN (hypertension) I10 Abdominal pain R10.9 Stage 3b chronic kidney disease N18.32 Expressive aphasia R47.01 Dysarthria, post-stroke I69.322 Depression F32.9 Type 2 diabetes mellitus E11.9 Hypothyroidism E03.9 H/O: stroke with residual effects I69.30 Time Spent (min) 35
[2021-11-23] MEDS: OLANZapine 10 MG/2.1 ML SDV IM PRN (21:40)
[2021-11-23] MEDS: DICLOFENAC SOD 1% GEL 100 GM TUBE EXT PRN (22:34)
[2021-11-23] MEDS ORDERED: OLANZapine 10 MG/2.1 ML SDV IM STA (23:02)
[2021-11-23] MEDS: ROSUVASTATIN CALCIUM 10 MG TAB PO SCH (23:34)
[2021-11-24] MEDS: SODIUM CHLORIDE 0.9% 1000ML 1,000 ML IV SCH ×2 (03:14→16:06)
[2021-11-24] MEDS: INSULIN ASPART PER UNIT SC SCH ×4 (08:29→21:02)
[2021-11-24 09:16] LABS: BUN Creatinine Ratio 27.5 (10-20); Calcium 9.2 mg/dl (8.5-10.1); Creatinine Clr Calc Pharmacy 20.7 ml/min; Est GFR (African American) 19.9 ml/min; Est GFR (Non-African American) 17.2 ml/min; Potassium 4.6 mmol/L (3.5-5.1)
[2021-11-24] MEDS: ASPIRIN 81 MG ECTAB PO SCH (09:25)
[2021-11-24] MEDS: LANTUS PER UNIT CHARGE SQ SCH (09:30)
[2021-11-24] MEDS: DICLOFENAC SOD 1% GEL 100 GM TUBE EXT PRN (09:33)
--- NOTE | 2021-11-24 10:36 | Nephrology Progress Note ---
Date of Service November 24, 2021 Assessment & Plan (1) VALERI (acute kidney injury): (2) Stage 3b chronic kidney disease: (3) Acute urinary retention: (4) HTN (hypertension): (5) Altered mental status: Plan CKD IIIb at baseline (creatinine 1.5-1.9 mg/dL). 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 Imaging consistent with advanced CKD. There is no hydroureteronephrosis on imaging. CKD complicated by some degree of urinary retention on admission. Murrell intact. Non-oliguric. Intravascular volume depletion and poor PO intake noted. VALERI can be attributed to this combination. Aide remains on losartan which may be held as needed. Electrolytes are acceptable. There is certainly no emergent indication for dialysis. Aide has multiple medical comorbidities and poor baseline functional status that unfortunately make her a poor candidate for maintenance dialysis if kidney func tion declines. She is receiving appropriate supportive care, including IVF to maintain an even to slightly positive fluid balance. Murrell remains intact. Medications are appropriate for kidney function. Eliquis appropriately dosed at 2.5 mg BID. Rosuvastatin 10 mg daily. The risks/benefits of Dicyclomine are not clear to me at this time. BP is acceptable. Consider holding losartan if there is no improvement in kidney function in next 24-48 hours. Document strict I/O's. Repeat metabolic profile tomorrow AM. Admission and Anticipated Discharge Date Admission Date: November 19, 2021 Subjective No acute events overnight. Aide continues to demonstrate expressive and receptive aphasia. She has been refusing to eat or drink this AM. No pain reported. 1:1 remains at bedside. Review of Systems Review of Systems: Unobtainable due to cognitive status Physical Exam Constitutional: + altered mental status, + frail appearing and comfortable; no acute distress Eyes: + anicteric sclerae; no corneal abnormality ENMT: Ears: + hearing impairment Mouth: + dry oral mucous membranes; no oral mucosal abnormality Neck: normal visual inspection and trachea midline Respiratory: normal respiratory effort Auscultation: lungs clear to auscultation bilaterally Cardiovascular: Rate/Rhythm: regular rate Heart Sounds: normal S1 and normal S2 Extremities: no edema Musculoskeletal: Extremities: no cyanosis and no clubbing Skin: + turgor decreased; no lesions Neurologic: Speech / Cognition: + expressive aphasia Motor/Sensory: no tremor and no asterixis Psychiatric: Orientation: alert and oriented x 3 Results & Data ([facility]) Vital Signs (Past 12 Hours) Vital Signs Temp Pulse Pulse Resp BP BP Pulse Ox 11/24/21 06:00 36.7 C 89 20 121/74 91 11/24/21 04:00 36.5 C 105 H 24 135/56 L 92 11/23/21 23:26 91 H O2 Del Method 11/24/21 06:00 Room Air 11/24/21 04:00 Room Air 11/23/21 23:26 Laboratory Results Laboratory Results - last 24 hr 11/23/21 11/23/21 11/23/21 11:42 16:45 21:58 Sodium Potassium Chloride Carbon Dioxide Anion Gap BUN Creatinine Est Cr Clr Drug Dosing Est GFR ( Amer) Est GFR (Non-Af Amer) BUN/Creatinine Ratio Glucose POC Glucose 164 H 140 H 95 Calcium 11/24/21 11/24/21 07:38 08:10 Sodium 144 Potassium 4.6 Chloride 114 H Carbon Dioxide 22 Anion Gap 8 BUN 68 H Creatinine 2.47 H Est Cr Clr Drug Dosing 20.7 Est GFR ( Amer) 19.9 Est GFR (Non-Af Amer) 17.2 BUN/Creatinine Ratio 27.5 H Glucose 84 POC Glucose 83 Calcium 9.2 PG Care Time/CCT Total # of Minutes Spent Total Time Spent with Patient: Total time spent is greater than 50% in coordination of care (as documented) at patient's floor/unit and/or counseling patient: Coding Level of Care Code 88147 Subseq Hosp Care Lvl 3 Diagnoses VALERI (acute kidney injury) N17.9 Stage 3b chronic kidney disease N18.32 Acute urinary retention R33.8 HTN (hypertension) I10 Altered mental status R41.82
[2021-11-24] MEDS: APIXABAN 2.5 MG TAB PO SCH ×3 (10:40→20:05)
[2021-11-24] MEDS: cloNIDine HCL 0.1 MG TAB PO SCH ×3 (10:40→20:06)
[2021-11-24] MEDS: LEVOTHYROXINE SODIUM 100 MCG TABLET PO SCH (10:41)
[2021-11-24] MEDS: LOSARTAN POTASSIUM 50 MG TAB PO SCH (10:42)
[2021-11-24] MEDS: PANTOprazole 40 MG TAB PO SCH (10:42)
[2021-11-24] MEDS ORDERED: MoRPHine SULFATE 2 MG/ML CARP IV STA (10:50)
--- NOTE | 2021-11-24 13:44 | Hospitalist Progress Note ---
Date of Service November 24, 2021 Assessment & Plan (1) Stroke: Plan: Patient with a history of previous stroke Presents with AMS Brain MRI reveal evidence of an acute infarct within the right temporal lobe in addition to the chronic encephalomalacia involving the left temporal and parietal lobes Neurology on consult 2 D ECHO did not show any structural heart abnormality Carotid US could not be completed because patient was unable to sit still Remains significantly aphasic (2) AMS (altered mental status): Plan: -Patient is currently afebrile, hemodynamically stable, and stable on room air -At this time the patient's currently AMS appears most likely associated with an ischemic stroke -Patient has previous ischemic strokes with baseline dysarthria and lower extremity weakness, however, she was able to live on her own and perform most ADLs herself, son states that she is now acting more confused than normal. Currently, some of her speech is garbled, but at times, she is able to articu late a concern (3) HTN (hypertension): Plan: BP today is 122/68 continue home meds continue to monitor (4) Depressed: Plan: patient has been depressed and teary Most likley due to her stroke and medical condition will obtain psych consult (5) Abdominal pain: Plan: complains of abdominal pain CT abdomen and pelvis did not show any acute pathology according to son, patient has had that complaint for some weeks now previous abdominal US was also normal (6) Stage 3b chronic kidney disease: Plan: -slight worsening of renal function -Will increase fluids to 100cc/hr Hold Losartan receck BMP -Nephrology on consult, appreciate recs (7) Expressive aphasia: Plan: -Worsening due to acute stroke (8) Dysarthria, post-stroke: Plan: -See AMS and stroke workup (9) Depression: Plan: -Resume home meds (10) Type 2 diabetes mellitus: Plan: -Hold PO antihyperglycemics -Monitor BSG q6h while NPO -Glargine, 17 units BID -Correction factor of 25 and carb ratio of 8 (11) Hypothyroidism: Plan: - Hold levothyroxine for now until she is evaluated by speech (12) H/O: stroke with residual effects: Plan Patient used to be independent at home, however, will need placement in view of deterioration from acute stroke Admission and Anticipated Discharge Date Admission Date: November 19, 2021 Subjective patient seen and examined, 1:1 sitter by the bed side, patient remains significantly aphasic Review of Systems Review of Systems: unable to obtain Physical Exam Physical Exam: The patient is awake, alert HEENT--PERRL, EOMI, mucous membranes and oropharynx mildly dry Neck--supple. No JVD. No bruits. Thyroid normal, trachea midline, no adenopathy. Heart--normal S1 and S2. No murmurs, rubs or gallops. Lungs--clear bilaterally, no respiratory distress, no accessory muscle use. Abdomen--normal bowel sounds and soft. Mild epigastric and left sided abdominal pain Extremities--no cyanosis or clubbing. No edema. Dermatologic--normal skin turgor, normal color, no abnormal lymph nodes, no rash. Neurologic--aphasic Rheumatologic--normal range of motion. Psychiatric--normal affect. Results & Data Results & Data ([facility]) Vital Signs (Past 12 Hours) Vital Signs Temp Pulse Resp BP BP Pulse Ox O2 Del Method 11/24/21 11:00 98.2 F 87 20 122/65 92 Room Air 11/24/21 06:00 98.1 F 89 20 121/74 91 Room Air 11/24/21 04:00 97.7 F 105 H 24 135/56 L 92 Room Air PG Care Time/CCT Total # of Minutes Spent Total Time Spent with Patient: Total time spent is greater than 50% in coordination of care (as documented) at patient's floor/unit and/or counseling patient: Coding Level of Care Code 35703 Subseq Hosp Care Lvl 2 Diagnoses Stroke I63.9 AMS (altered mental status) R41.82 HTN (hypertension) I10 Depressed F32.A Abdominal pain R10.9 Stage 3b chronic kidney disease N18.32 Expressive aphasia R47.01 Dysarthria, post-stroke I69.322 Depression F32.9 Type 2 diabetes mellitus E11.9 Hypothyroidism E03.9 H/O: stroke with residual effects I69.30 Time Spent (min) 35
[2021-11-24] MEDS ORDERED: D5W AND 1/2NSS 1,000 ML IV SCH (19:15)
[2021-11-24] MEDS: ROSUVASTATIN CALCIUM 10 MG TAB PO SCH (20:06)
[2021-11-24] MEDS: BRINZOLAMIDE/BRIMONIDINE TART 119 DROPS/8 ML BTL OP SCH ×2 (20:56→21:02)
[2021-11-25] MEDS: LEVOTHYROXINE SODIUM 100 MCG TABLET PO SCH (05:16)
[2021-11-25] MEDS: SODIUM CHLORIDE 0.9% 1000ML 1,000 ML IV SCH ×2 (05:16→10:31)
[2021-11-25 07:54] LABS: Creatinine Clr Calc Pharmacy 26.5 ml/min; Est GFR (African American) 27.2 ml/min; Est GFR (Non-African American) 23.5 ml/min
--- NOTE | 2021-11-25 09:08 | Nephrology Progress Note ---
Date of Service November 25, 2021 Assessment & Plan (1) VALERI (acute kidney injury): (2) Stage 3b chronic kidney disease: (3) Acute urinary retention: (4) HTN (hypertension): (5) Altered mental status: Plan CKD IIIb at baseline (creatinine 1.5-1.9 mg/dL). 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 Imaging consistent with advanced CKD. There is no hydroureteronephrosis on imaging. CKD complicated by some degree of urinary retention on admission. Murrell intact. Non-oliguric. Intravascular volume depletion and poor PO intake noted. Losartan held. Creatinine improved to baseline. Remains in a negative fluid balance with IV saline infusing. Volume status acceptable. Continue IVF pending improved PO take. Goal is to maintain even fluid balance. BP elevated off losartan. Amlodipine 5 mg provided this AM. Will continue to hold losartan. Remains on clonidine 0.1 mg BID. Murrell remains intact. Medications are appropriate for kidney function. Eliquis appropriately dosed at 2.5 mg BID. Rosuvastatin 10 mg daily. Document strict I/O's. Repeat metabolic profile tomorrow AM. Admission and Anticipated Discharge Date Admission Date: November 19, 2021 Subjective No acute events overnight. 1:1 remains at the bedside. Aide was sleeping when I entered her room this AM. She continues to demonstrate expressive and receptive aphasia when awake. Review of Systems Review of Systems: All systems reviewed & are unremarkable except as noted in HPI & below Physical Exam Constitutional: + altered mental status, + frail appearing and comfortable; no acute distress Eyes: + anicteric sclerae; no corneal abnormality ENMT: Ears: + hearing impairment Mouth: + dry oral mucous membranes; no oral mucosal abnormality Neck: normal visual inspection and trachea midline Respiratory: normal respiratory effort Auscultation: lungs clear to auscultation bilaterally Cardiovascular: Rate/Rhythm: regular rate and + tachycardic Heart Sounds: normal S1 and normal S2 Extremities: no edema Musculoskeletal: Extremities: no cyanosis and no clubbing Skin: + turgor decreased; no lesions Neurologic: Speech / Cognition: + expressive aphasia Motor/Sensory: no tremor and no asterixis Psychiatric: Orientation: alert and oriented x 3 Results & Data ([facility]) Vital Signs (Past 12 Hours) Vital Signs Temp Pulse Pulse Pulse Resp BP BP 11/25/21 08:08 88 11/25/21 05:45 94 H 163/89 H 11/25/21 03:38 37.1 C 83 18 190/94 H 11/24/21 23:14 85 11/24/21 22:46 36.9 C 97 H 20 183/99 H Pulse Ox O2 Del Method 11/25/21 08:08 11/25/21 05:45 11/25/21 03:38 95 Room Air 11/24/21 23:14 11/24/21 22:46 97 Room Air Laboratory Results Laboratory Results - last 24 hr 11/24/21 11/24/21 11/24/21 08:10 11:08 16:37 Sodium 144 Potassium 4.6 Chloride 114 H Carbon Dioxide 22 Anion Gap 8 BUN 68 H Creatinine 2.47 H Est Cr Clr Drug Dosing 20.7 Est GFR ( Amer) 19.9 Est GFR (Non-Af Amer) 17.2 BUN/Creatinine Ratio 27.5 H Glucose 84 POC Glucose 90 73 Calcium 9.2 11/24/21 11/25/21 20:54 06:47 Sodium Potassium Chloride Carbon Dioxide Anion Gap BUN Creatinine 1.91 H D Est Cr Clr Drug Dosing 26.5 Est GFR ( Amer) 27.2 Est GFR (Non-Af Amer) 23.5 BUN/Creatinine Ratio Glucose POC Glucose 109 H Calcium PG Care Time/CCT Total # of Minutes Spent Total Time Spent with Patient: Total time spent is greater than 50% in coordination of care (as documented) at patient's floor/unit and/or counseling patient: Coding Level of Care Code 60609 Subseq Hosp Care Lvl 3 Diagnoses VALERI (acute kidney injury) N17.9 Stage 3b chronic kidney disease N18.32 Acute urinary retention R33.8 HTN (hypertension) I10 Altered mental status R41.82
[2021-11-25] MEDS ORDERED: amLODIPine BESYLATE 5 MG TAB PO ONE (09:12)
[2021-11-25] MEDS: PANTOprazole 40 MG TAB PO SCH (09:39)
[2021-11-25] MEDS: ASPIRIN 81 MG ECTAB PO SCH (09:39)
[2021-11-25] MEDS: APIXABAN 2.5 MG TAB PO SCH ×3 (09:39→22:05)
[2021-11-25] MEDS: cloNIDine HCL 0.1 MG TAB PO SCH ×2 (09:40→22:01)
[2021-11-25] MEDS: BRINZOLAMIDE/BRIMONIDINE TART 119 DROPS/8 ML BTL OP SCH ×2 (09:40→22:05)
[2021-11-25] MEDS: INSULIN ASPART PER UNIT SC SCH ×4 (09:42→22:06)
[2021-11-25] MEDS: LANTUS PER UNIT CHARGE SQ SCH (09:55)
[2021-11-25] MEDS: D5W AND NSS 1,000 ML IV SCH ×2 (11:24→19:11)
--- NOTE | 2021-11-25 12:05 | Communication Note ---
Date of Service: November 25, 2021 consult request received, chart reviewed, patient was not cooperative with liaison assessment last pm. This am she is sleeping soundly. Chart presentation consistent with ongoing AMS and/or additional hospital acquired delirium following stroke. No formal psych hx noted. Dr. Kim contacted and concerned about degree of tearfulness post stroke. 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 No accute agitation, monitor for hypoactive delirium. Will reattempt consult within next 24 hrs.
--- NOTE | 2021-11-25 14:02 | Hospitalist Progress Note ---
Date of Service November 25, 2021 Assessment & Plan (1) Stroke: Plan: Patient with a history of previous stroke Presents with AMS Brain MRI reveal evidence of an acute infarct within the right temporal lobe in addition to the chronic encephalomalacia involving the left temporal and parietal lobes Neurology on consult 2 D ECHO did not show any structural heart abnormality Carotid US could not be completed because patient was unable to sit still Remains significantly aphasic On Apixaban and ASA, will continue Plan is for SNF for rehab (2) AMS (altered mental status): Plan: -Patient is currently aphasic from her stroke -Patient has previous ischemic strokes with baseline dysarthria and lower extremity weakness, however, she was able to live on her own and perform most ADLs herself, son states that she is now acting more confused than normal. (3) HTN (hypertension): Plan: BP today is 169/83 Amlodipine added in lieu of Lorsartan which was held on account of renal insufficiency continue home meds continue to monitor (4) Depressed: Plan: patient has been depressed and teary Most likley psuedobulbars due to her stroke and medical condition Per Psych, usually not amenable to SSRI, appreciate recs (5) Abdominal pain: Plan: complains of abdominal pain CT abdomen and pelvis did not show any acute pathology according to son, patient has had that complaint for some weeks now previous abdominal US was also normal No pains today (6) Stage 3b chronic kidney disease: Plan: -some improvement in renal function today - Continue to Hold Losartan receck BMP -Nephrology on consult, appreciate recs (7) Expressive aphasia: Plan: -Worsening due to acute stroke (8) Dysarthria, post-stroke: Plan: -See AMS and stroke workup (9) Type 2 diabetes mellitus: Plan: -Hold PO antihyperglycemics -Monitor BSG q6h while NPO -Glargine, 17 units BID -Correction factor of 25 and carb ratio of 8 (10) Hypothyroidism: Plan: - Hold levothyroxine for now until she is evaluated by speech (11) H/O: stroke with residual effects: Plan Patient used to be independent at home, however, will need placement in view of deterioration from acute stroke Admission and Anticipated Discharge Date Admission Date: November 19, 2021 Subjective patient seen and examined today, still has significant aphasia Review of Systems Review of Systems: unable to obtain Physical Exam Physical Exam: The patient is awake, alert HEENT--PERRL, EOMI, mucous membranes and oropharynx mildly dry Neck--supple. No JVD. No bruits. Thyroid normal, trachea midline, no adenopathy. Heart--normal S1 and S2. No murmurs, rubs or gallops. Lungs--clear bilaterally, no respiratory distress, no accessory muscle use. Abdomen--normal bowel sounds and soft. Mild epigastric and left sided abdominal pain Extremities--no cyanosis or clubbing. No edema. Dermatologic--normal skin turgor, normal color, no abnormal lymph nodes, no rash. Neurologic--aphasic Rheumatologic--normal range of motion. Psychiatric--normal affect. Results & Data Results & Data ([facility]) Vital Signs (Past 12 Hours) Vital Signs Temp Pulse Pulse Pulse Resp BP BP 11/25/21 13:30 97.3 F L 103 H 16 169/83 H 11/25/21 08:08 88 11/25/21 05:45 94 H 163/89 H 11/25/21 03:38 98.8 F 83 18 190/94 H Pulse Ox O2 Del Method 11/25/21 13:30 92 Room Air 11/25/21 08:08 11/25/21 05:45 11/25/21 03:38 95 Room Air PG Care Time/CCT Total # of Minutes Spent Total Time Spent with Patient: Total time spent is greater than 50% in coordination of care (as documented) at patient's floor/unit and/or counseling patient: Coding Level of Care Code 05422 Subseq Hosp Care Lvl 2 Diagnoses Stroke I63.9 AMS (altered mental status) R41.82 HTN (hypertension) I10 Depressed F32.A Abdominal pain R10.9 Stage 3b chronic kidney disease N18.32 Expressive aphasia R47.01 Dysarthria, post-stroke I69.322 Type 2 diabetes mellitus E11.9 Hypothyroidism E03.9 H/O: stroke with residual effects I69.30 Time Spent (min) 35
[2021-11-25] MEDS: ROSUVASTATIN CALCIUM 10 MG TAB PO SCH (22:01)
[2021-11-25] MEDS: OLANZapine 10 MG/2.1 ML SDV IM PRN (22:15)
[2021-11-26] MEDS: BRINZOLAMIDE/BRIMONIDINE TART 119 DROPS/8 ML BTL OP SCH ×3 (01:21→19:55)
[2021-11-26] MEDS: cloNIDine HCL 0.1 MG TAB PO SCH ×2 (01:21→08:16)
[2021-11-26] MEDS: ROSUVASTATIN CALCIUM 10 MG TAB PO SCH ×2 (01:21→19:55)
[2021-11-26] MEDS: D5W AND NSS 1,000 ML IV SCH ×3 (05:05→21:00)
[2021-11-26] MEDS: LEVOTHYROXINE SODIUM 100 MCG TABLET PO SCH (06:04)
[2021-11-26] MEDS: LANTUS PER UNIT CHARGE SQ SCH (08:15)
[2021-11-26] MEDS: INSULIN ASPART PER UNIT SC SCH ×4 (08:15→20:59)
[2021-11-26] MEDS: ASPIRIN 81 MG ECTAB PO SCH (08:16)
[2021-11-26] MEDS: PANTOprazole 40 MG TAB PO SCH (08:16)
[2021-11-26] MEDS: APIXABAN 2.5 MG TAB PO SCH ×2 (08:16→19:54)
[2021-11-26 08:58] LABS: Albumin Level 3.2 gm/dl (3.4-5.0); BUN Creatinine Ratio 18.2 (10-20); Calcium 8.6 mg/dl (8.5-10.1); Creatinine Clr Calc Pharmacy 30.7 ml/min; Est GFR (African American) 32.5 ml/min; Phosphorus 2.1 mg/dl (2.5-4.9); Potassium 3.6 mmol/L (3.5-5.1)
--- NOTE | 2021-11-26 10:07 | Nephrology Progress Note ---
Date of Service November 26, 2021 Assessment & Plan (1) VALERI (acute kidney injury): (2) Stage 3b chronic kidney disease: (3) Acute urinary retention: (4) HTN (hypertension): (5) Altered mental status: Plan CKD IIIb at baseline (creatinine 1.5-1.9 mg/dL). 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 Imaging consistent with advanced CKD. There is no hydroureteronephrosis on imaging. CKD complicated by some degree of urinary retention on admission. Murrell intact. Non-oliguric. Intravascular volume depletion and poor PO intake noted. Losartan held. Creatinine improved to baseline. Unfortunately PO intake remains poor and Aide remains on IVF replacement. Volume status acceptable. Continue IVF pending improved PO take. Goal is to maintain even fluid balance. BP acceptable. Remains on clonidine. Losartan and HCTZ held. No added therapy required. Murrell remains intact. Medications are appropriate for kidney function. Eliquis appropriately dosed at 2.5 mg BID. Rosuvastatin 10 mg daily. Document strict I/O's. Repeat metabolic profile tomorrow AM. Admission and Anticipated Discharge Date Admission Date: November 19, 2021 Subjective No acute events overnight. Continues to demonstrate notable expressive and receptive aphasia. Ate very little this AM. No pain reported. No fevers or chills. Review of Systems Review of Systems: Unobtainable due to cognitive status Physical Exam Constitutional: + altered mental status, + frail appearing and comfortable; no acute distress Eyes: + anicteric sclerae; no corneal abnormality ENMT: Ears: + hearing impairment Mouth: + dry oral mucous membranes; no oral mucosal abnormality Neck: normal visual inspection and trachea midline Respiratory: normal respiratory effort Auscultation: lungs clear to auscultation bilaterally Cardiovascular: Rate/Rhythm: regular rate and + tachycardic Heart Sounds: normal S1 and normal S2 Extremities: no edema Musculoskeletal: Extremities: no cyanosis and no clubbing Skin: + turgor decreased; no lesions Neurologic: Speech / Cognition: + expressive aphasia Motor/Sensory: no tremor and no asterixis Results & Data ([facility]) Vital Signs (Past 12 Hours) Vital Signs Temp Pulse Pulse Resp BP Pulse Ox O2 Del Method 11/26/21 07:40 104 H 11/26/21 03:15 37.0 C 103 H 18 94 Room Air 11/26/21 00:00 105 H 11/25/21 23:07 36.7 C 104 H 18 111/97 95 Room Air Laboratory Results Laboratory Results - last 24 hr 11/25/21 11/25/21 11/25/21 09:52 11:57 16:33 Sodium Potassium Chloride Carbon Dioxide Anion Gap BUN Creatinine Est Cr Clr Drug Dosing Est GFR ( Amer) Est GFR (Non-Af Amer) BUN/Creatinine Ratio Glucose POC Glucose 149 H 149 H 207 H Calcium Phosphorus Albumin 11/25/21 11/26/21 11/26/21 20:32 07:17 07:49 Sodium 139 Potassium 3.6 D Chloride 109 H Carbon Dioxide 23 Anion Gap 7 BUN 30 H D Creatinine 1.65 H Est Cr Clr Drug Dosing 30.7 Est GFR ( Amer) 32.5 Est GFR (Non-Af Amer) 28.0 BUN/Creatinine Ratio 18.2 Glucose 230 H POC Glucose 210 H 206 H Calcium 8.6 Phosphorus 2.1 L Albumin 3.2 L PG Care Time/CCT Total # of Minutes Spent Total Time Spent with Patient: Total time spent is greater than 50% in coordination of care (as documented) at patient's floor/unit and/or counseling patient: Coding Level of Care Code 00073 Subseq Hosp Care Lvl 3 Diagnoses VALERI (acute kidney injury) N17.9 Stage 3b chronic kidney disease N18.32 Acute urinary retention R33.8 HTN (hypertension) I10 Altered mental status R41.82
[2021-11-26] MEDS ORDERED: MoRPHine SULFATE 2 MG/ML CARP IV STA (10:34)
[2021-11-26] MEDS ORDERED: hydrALAZINE HCL 20 MG/ML VIAL IV PRN (11:40)
--- NOTE | 2021-11-26 11:40 | Hospitalist Progress Note ---
Date of Service November 26, 2021 Assessment & Plan (1) Stroke: Plan: Patient with a history of previous stroke Presents with AMS Brain MRI reveal evidence of an acute infarct within the right temporal lobe in addition to the chronic encephalomalacia involving the left temporal and parietal lobes Neurology on consult 2 D ECHO did not show any structural heart abnormality Carotid US could not be completed because patient was unable to sit still Remains significantly aphasic On Apixaban and ASA, will continue Plan is for SNF for rehab, however patient not participating in PT will consult palliative regarding goals of care and discussion about comfort care (2) AMS (altered mental status): Plan: -Patient is currently aphasic from her stroke -Patient has previous ischemic strokes with baseline dysarthria and lower extremity weakness, however, she was able to live on her own and perform most ADLs herself, son states that she is now acting more confused than normal. (3) HTN (hypertension): Plan: BP today is 170/109 Amlodipine added in lieu of Lorsartan which was held on account of renal insufficiency Will add Clonidine patch, patient has been refusing oral meds will also add Hydralzine PRN for SBP>160 continue to monitor (4) Depressed: Plan: patient has been depressed and teary Most likley psuedobulbars due to her stroke and medical condition Per Psych, usually not amenable to SSRI, appreciate recs (5) Abdominal pain: Plan: complains of abdominal pain CT abdomen and pelvis did not show any acute pathology according to son, patient has had that complaint for some weeks now previous abdominal US was also normal No pains today (6) Stage 3b chronic kidney disease: Plan: -some improvement in renal function today - [facility], appreciate recs (7) Expressive aphasia: Plan: -Worsening due to acute stroke (8) Dysarthria, post-stroke: Plan: -See AMS and stroke workup (9) Type 2 diabetes mellitus: Plan: -Hold PO antihyperglycemics -Monitor BSG q6h while NPO -Glargine, 17 units BID -Correction factor of 25 and carb ratio of 8 (10) Hypothyroidism: Plan: - Hold levothyroxine for now until she is evaluated by speech (11) H/O: stroke with residual effects: Plan Patient used to be independent at home, however, will need placement in view of deterioration from acute stroke, but unable to participate in PT, so may not qualify for rehab Palliative on consult regarding goals of care Admission and Anticipated Discharge Date Admission Date: November 19, 2021 Subjective patient seen and examined, sitter by the bedside, patient becoming agitated and fidgety Review of Systems Review of Systems: unable to obtain Physical Exam Physical Exam: The patient is awake, alert, aphasic HEENT--PERRL, EOMI, mucous membranes and oropharynx mildly dry Neck--supple. No JVD. No bruits. Thyroid normal, trachea midline, no adenopathy. Heart--normal S1 and S2. No murmurs, rubs or gallops. Lungs--clear bilaterally, no respiratory distress, no accessory muscle use. Abdomen--normal bowel sounds and soft. Mild epigastric and left sided abdominal pain Extremities--no cyanosis or clubbing. No edema. Dermatologic--normal skin turgor, normal color, no abnormal lymph nodes, no rash. Neurologic--aphasic Rheumatologic--normal range of motion. Psychiatric--normal affect. Results & Data Results & Data ([facility]) Vital Signs (Past 12 Hours) Vital Signs Temp Pulse Pulse Resp BP Pulse Ox O2 Del Method 11/26/21 11:35 105 H 22 170/109 H 97 11/26/21 07:40 104 H 11/26/21 03:15 98.6 F 103 H 18 94 Room Air 11/26/21 00:00 105 H PG Care Time/CCT Total # of Minutes Spent Total Time Spent with Patient: Total time spent is greater than 50% in coordination of care (as documented) at patient's floor/unit and/or counseling patient: Coding Level of Care Code 84033 Subseq Hosp Care Lvl 2 Diagnoses Stroke I63.9 AMS (altered mental status) R41.82 HTN (hypertension) I10 Depressed F32.A Abdominal pain R10.9 Stage 3b chronic kidney disease N18.32 Expressive aphasia R47.01 Dysarthria, post-stroke I69.322 Type 2 diabetes mellitus E11.9 Hypothyroidism E03.9 H/O: stroke with residual effects I69.30 Time Spent (min) 35
--- NOTE | 2021-11-26 14:50 | Psychiatric Consultation ---
Date of Consultation November 26, 2021 Impression / Recommendations Impression as per interim communication note: Chart presentation consistent with ongoing AMS and/or additional hospital acquired delirium following stroke. Reviewed that most likely lability due to acute AMS but certainly pseudobulbar affect can be associated with strokes, typically doesn't respond to the SSRIs in same fashion. Plan: Family is not particularly interested in psychiatric medication at this time given other needs. Having reviewed additional history I suspect that much of her tearfulness/breakthrough agitation with AMS could be related to pain and inability to express it. (1) Altered mental status: (2) Stroke: (3) Combined receptive and expressive aphasia: Psych History Identifying Data 86 yo from [place], seen with family at bedside. Son has been overseeing her medications for some time. Consult is by hospitalist service for tearful spells. Chief Complaint aphasic, AMS History of Present Illness At baseline prior to hospitalization the patient has word finding difficulties and aphasia but seems more confused. Son/DIL don't view her as depressed at baseline but she's been less spontaneous affect following first stroke. She maintains her personality and likes to get around in her scooter. In the hospital she has been more confused, tearful some days and not others. They don't see her as having emotional lability at baseline. Reviewed that she has received a few doses of prn Zyprexa here for agitation, presumably calling out as I do not see combativeness. She reportedly gets frustrated as can't reposition self on her bed as she does here and she is on standing Tylenol at home. She doesn't have a psych hx and is "not a pill person". She successfully lived alone for many years after her and liked her independenct. Allergies Allergy/AdvReac Type Severity Reaction Status Date / Time adhesive Allergy Intermediate SKIN GETS Verified 11/19/21 18:26 RED, SORE AND ITCHY atorvastatin AdvReac Severe GENERIC-SEVERE Verified 11/19/21 18:26 LEG CRAMPS, NAUSEA, NIGHTMARES Home Medications Medication Instructions Recorded Confirmed Type nystatin 100,000 unit/gram topical 1 applic topical BID PRN Skin 09/18/20 11/19/21 History powder Irritation apixaban 2.5 mg tablet (Eliquis) 2.5 mg PO BID 90 days #180 tabs 01/10/21 11/19/21 Rx aspirin 81 mg tablet,delayed 81 mg PO QAM #90 tabs 01/10/21 11/19/21 Rx release hydrochlorothiazide 25 mg tablet 25 mg PO QAM #90 tabs 01/10/21 11/19/21 Rx polyethylene glycol 3350 17 17 g PO DAILY PRN Constipation 01/10/21 11/19/21 History gram/dose oral powder diclofenac sodium 1 % topical gel 4 g topical QID PRN Pain 06/06/21 11/19/21 History hydrocortisone acetate 25 mg 25 mg W[place] BID PRN RECTAL BLEEDING 06/06/21 11/19/21 History rectal suppository clonidine HCl 0.1 mg tablet See Rx Instructions .Route 08/01/21 11/19/21 Rx .COMPLEX #60 tabs losartan 100 mg tablet 100 mg PO QAM #90 tabs 08/13/21 11/19/21 Rx glipizide 5 mg tablet, extended 5 mg PO BID #180 tabs 08/22/21 11/19/21 Rx release 24 hr levothyroxine 100 mcg tablet 100 mcg PO QAM #90 tabs 10/14/21 11/19/21 Rx dicyclomine 20 mg tablet 20 mg PO QID PRN abdominal pain 11/07/21 11/19/21 Rx #120 tabs brinzolamide 1 %-brimonidine 0.2 % 1 drp OPB BID 11/19/21 11/19/21 History eye drops,suspension (Simbrinza) rosuvastatin 20 mg tablet 20 mg PO HS 11/19/21 11/19/21 History Personal History Beliefs That Will Affect Care: None Patient History Medical History Arthritis Biliary sludge Bradycardia Cholelithiasis Cholelithiasis Chronic reflux esophagitis Chronic renal insufficiency Confusion Depression Dysarthria, post-stroke Expressive aphasia Gait instability Hearing loss, bilateral Hip pain, right History of diabetes mellitus History of stroke Hoarseness Hypercholesterolemia Leg pain, bilateral Obstructive sleep apnea Osteoarthritis Peripheral neuropathy Restless leg syndrome Right lateral abdominal pain 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 Urge incontinence of urine Surgical History H/O left mastectomy S/P cholecystectomy Family History Son Myocardial infarction Denies family history of Ovarian cancer Prostate cancer Breast cancer Colorectal cancer Social History Smoking Status: Never smoker Second Hand Exposure: No; Hx Alcohol Use: No Hx Substance Use: No Preferred Language: British Communication Ability: Impaired Visual Impairment: No Limitations Hearing Ability: Use of Hearing Aid Manager Community Outreach Required: No Beliefs That Will Affect Care: None marital status: / Current Living Situation: Alone current occupational status: retired How many Children do You have: 2 Feels Safe at Home: Yes Dental Care, Regularly: No Physical Activity Frequency: Does not Exercise Seatbelt Use: always Sunscreen Use: No Assistive Devices: Wheelchair and Other Physical Exam Psychiatric: patient in bed, fiddling with her sheet, limited interest in conversation, responds to name/oriented to self only. Vital Signs (Past 24 Hours): Last Vital Signs Temp 37.0 C 11/26/21 03:15 Pulse 105 H 11/26/21 11:35 Resp 22 11/26/21 11:35 BP 170/109 H 11/26/21 11:35 Pulse Ox 97 11/26/21 11:35 O2 Del Method 11/26/21 03:15 Review of Systems Unobtainable due to cognitive status Results & Data (PSY) Medications Administered Apixaban (Apixaban 2.5 Mg Tab) 2.5 mg PO BID MATTY Stop: 12/22/21 12:29 Last Admin: 11/26/21 08:16 Dose: Not Given Documented By: Admin: 11/25/21 22:05 Dose: Not Given Documented By: Admin: 11/25/21 09:39 Dose: 2.5 mg Documented By: Admin: 11/24/21 20:05 Dose: Not Given Documented By: Admin: 11/24/21 10:41 Dose: Not Given Documented By: Admin: 11/24/21 10:40 Dose: Not Given Documented By: Admin: 11/23/21 23:34 Dose: Not Given Documented By: Admin: 11/22/21 21:47 Dose: 2.5 mg Documented By: Admin: 11/22/21 13:57 Dose: 2.5 mg Documented By: JETHRO Aspirin (Aspirin 81 Mg Ectab) 81 mg PO QAM MATTY Stop: 12/22/21 12:44 Last Admin: 11/26/21 08:16 Dose: Not Given Documented By: Admin: 11/25/21 09:39 Dose: 81 mg Documented By: Admin: 11/24/21 09:25 Dose: Not Given Documented By: Admin: 11/23/21 12:13 Dose: Not Given Documented By: Admin: 11/22/21 13:57 Dose: 81 mg Documented By: JETHRO Brinzolamide/Brimonidine Tartrate (Brinzolamide/Brimonidine Tart 119 Drops/8 Ml Btl) 1 drops OP BID MATTY Stop: 12/24/21 20:59 Last Admin: 11/26/21 08:16 Dose: Not Given Documented By: Admin: 11/26/21 01:21 Dose: Not Given Documented By: Admin: 11/25/21 09:40 Dose: 1 drops Documented By: Admin: 11/24/21 21:02 Dose: Not Given Documented By: ANIVAL Clonidine HCl (Clonidine Hcl 0.1 Mg Tab) 0.1 mg PO BID MATTY Stop: 12/22/21 20:59 Last Admin: 11/26/21 08:16 Dose: Not Given Documented By: Admin: 11/26/21 01:21 Dose: Not Given Documented By: Admin: 11/25/21 09:40 Dose: 0.1 mg Documented By: Admin: 11/24/21 20:06 Dose: Not Given Documented By: Admin: 11/24/21 10:41 Dose: Not Given Documented By: Admin: 11/24/21 10:40 Dose: Not Given Documented By: [facility] Admin: 11/23/21 23:34 Dose: Not Given Documented By: Admin: 11/22/21 21:48 Dose: 0.1 mg Documented By: ANIVAL Clonidine HCl (Clonidine Hcl 0.2 Mg/24 Hr Transderm Sys) 1 patch TD Q7D MATTY Stop: 12/26/21 11:59 Last Admin: 11/26/21 13:11 Dose: 1 patch Documented By: SEN Diclofenac Sodium (Diclofenac Sod 1% Gel 100 Gm Tube) 4 gm EXT TID PRN; Protocol PRN Reason: knee pain Stop: 12/23/21 20:59 Last Admin: 11/24/21 09:33 Dose: 4 gm Documented By: Admin: 11/23/21 22:34 Dose: 4 gm Documented By: SIOBHAN Dextrose/Sodium Chloride (D5w And Nss) 1,000 mls @ 100 mls/hr IV .Q10H MATTY Stop: 12/25/21 11:14 Last Admin: 11/26/21 14:17 Dose: 100 mls/hr Documented By: Infusion: 11/26/21 14:17 Dose: 100 mls/hr Documented By: Admin: 11/26/21 05:05 Dose: 100 mls/hr Documented By: Infusion: 11/26/21 05:05 Dose: 100 mls/hr Documented By: Admin: 11/25/21 19:11 Dose: 100 mls/hr Documented By: Infusion: 11/25/21 19:11 Dose: 100 mls/hr Documented By: Admin: 11/25/21 11:24 Dose: 100 mls/hr Documented By: TONI Insulin Aspart (Insulin Aspart Per Unit) 0 units SC ACHS MATTY Stop: 12/19/21 21:29 Last Admin: 11/26/21 13:15 Dose: 1 units Documented By: SEN Co-signed By: [id number] Admin: 11/26/21 08:15 Dose: 3 units Documented By: SEN Co-signed By: [id number] Admin: 11/25/21 22:06 Dose: 3 units Documented By: ANTONI Co-signed By: GORGE Admin: 11/25/21 17:17 Dose: 3 units Documented By: TONI Co-signed By: SM Admin: 11/25/21 12:46 Dose: 1 units Documented By: TONI Co-signed By: MIROSLAVA Admin: 11/25/21 09:42 Dose: Not Given Documented By: Admin: 11/24/21 21:02 Dose: Not Given Documented By: ANIVAL Co-signed By: DIONNE Admin: 11/24/21 18:39 Dose: Not Given Documented By: Admin: 11/24/21 12:06 Dose: Not Given Documented By: Admin: 11/24/21 08:29 Dose: Not Given Documented By: Admin: 11/23/21 22:02 Dose: Not Given Documented By: Admin: 11/23/21 17:54 Dose: Not Given Documented By: Admin: 11/23/21 12:49 Dose: 1 units Documented By: ANDREY Co-signed By: NATHANIEL Admin: 11/23/21 10:06 Dose: 3 units Documented By: ANDREY Co-signed By: SUT Admin: 11/22/21 21:45 Dose: 2 units Documented By: ANIVAL Co-signed By: GORGE Admin: 11/22/21 17:28 Dose: 4 units Documented By: JETHRO Co-signed By: PLACIDO Admin: 11/22/21 12:35 Dose: 3 units Documented By: JETHRO Co-signed By: [id number] Admin: 11/22/21 08:48 Dose: 6 units Documented By: JETHRO Co-signed By: PLACIDO Admin: 11/21/21 22:18 Dose: 1 units Documented By: ANIVAL Co-signed By: GALDINO Admin: 11/21/21 16:59 Dose: Not Given Documented By: STU Levothyroxine Sodium (Levothyroxine Sodium 100 Mcg Tablet) 100 mcg PO DAILYBB [facility] Stop: 12/23/21 06:29 Last Admin: 11/26/21 06:04 Dose: Not Given Documented By: Admin: 11/25/21 05:16 Dose: Not Given Documented By: Admin: 11/24/21 10:41 Dose: Not Given Documented By: Admin: 11/23/21 06:18 Dose: 100 mcg Documented By: ANIVAL Losartan Potassium (Losartan Potassium 50 Mg Tab) 100 mg PO QAM [facility] Stop: 12/23/21 08:59 Last Admin: 11/24/21 10:42 Dose: Not Given Documented By: Admin: 11/23/21 12:13 Dose: Not Given Documented By: ANDREY Miscellaneous (Remove Clonidine Patch) 1 each N/A CQWK [facility] Stop: 12/26/21 11:44 Last Admin: 11/26/21 12:03 Dose: Not Given Documented By: SEN Olanzapine (Olanzapine 10 Mg/2.1 Ml Sdv) 5 mg IM Q4H PRN PRN Reason: Agitation Stop: 12/20/21 14:29 Last Admin: 11/25/21 22:15 Dose: 5 mg Documented By: Admin: 11/23/21 21:40 Dose: 5 mg Documented By: Admin: 11/20/21 22:40 Dose: 5 mg Documented By: Admin: 11/20/21 14:40 Dose: 5 mg Documented By: ANDREY Ondansetron HCl (Ondansetron Inj 2 Mg/Ml 2 Ml Vial) 4 mg IV Q4H PRN PRN Reason: Nausea Stop: 12/23/21 10:27 Last Admin: 11/23/21 11:15 Dose: 4 mg Documented By: ANDREY Pantoprazole Sodium (Pantoprazole 40 Mg Tab) 40 mg PO DAILY MATTY Stop: 12/21/21 11:59 Last Admin: 11/26/21 08:16 Dose: Not Given Documented By: Admin: 11/25/21 09:39 Dose: 40 mg Documented By: Admin: 11/24/21 10:42 Dose: Not Given Documented By: Admin: 11/23/21 12:13 Dose: Not Given Documented By: Admin: 11/22/21 11:02 Dose: Not Given Documented By: Admin: 11/21/21 12:23 Dose: 40 mg Documented By: STU Rosuvastatin Calcium (Rosuvastatin Calcium 10 Mg Tab) 10 mg PO HS MATTY Stop: 12/22/21 20:59 Last Admin: 11/26/21 01:21 Dose: Not Given Documented By: Admin: 11/24/21 20:06 Dose: Not Given Documented By: Admin: 11/23/21 23:34 Dose: Not Given Documented By: Admin: 11/22/21 21:47 Dose: 10 mg Documented By: ANIVAL Coding Level of Care Code 56495 [facility] Intl Hosp Care Lvl 2 Diagnoses Altered mental status R41.82 Stroke I63.9 Combined receptive and expressive aphasia R47.01
[2021-11-26] MEDS: CHECK CLONIDINE PATCH PLACEMENT SCH ×2 (16:34→23:18)
[2021-11-26] MEDS ORDERED: ACETAMINOPHEN 1000 MG/100 ML IV IV ONE (19:47)
[2021-11-26] MEDS ORDERED: ACETAMINOPHEN 1,000 MG/100 ML VIAL IV PRN (20:13)
[2021-11-27] MEDS: LEVOTHYROXINE SODIUM 100 MCG TABLET PO SCH (05:26)
[2021-11-27] MEDS: D5W AND NSS 1,000 ML IV SCH (05:54)
[2021-11-27] MEDS: CHECK CLONIDINE PATCH PLACEMENT SCH ×3 (07:48→22:53)
[2021-11-27] MEDS ORDERED: LANTUS PER UNIT CHARGE SQ SCH (09:00)
[2021-11-27] MEDS: BRINZOLAMIDE/BRIMONIDINE TART 119 DROPS/8 ML BTL OP SCH ×2 (10:06→19:39)
[2021-11-27] MEDS: ASPIRIN 81 MG ECTAB PO SCH (10:06)
[2021-11-27] MEDS: PANTOprazole 40 MG TAB PO SCH (10:06)
[2021-11-27] MEDS: APIXABAN 2.5 MG TAB PO SCH ×2 (10:06→19:39)
[2021-11-27] MEDS: INSULIN ASPART PER UNIT SC SCH ×3 (10:15→16:41)
--- NOTE | 2021-11-27 10:29 | Nephrology Progress Note ---
Date of Service November 27, 2021 Assessment & Plan (1) VALERI (acute kidney injury): (2) Stage 3b chronic kidney disease: (3) HTN (hypertension): Plan CKD IIIb at baseline (creatinine 1.5-1.9 mg/dL). CKD attributed to arterionephrosclerosis. Imaging consistent with advanced CKD. There is no hydroureteronephrosis on imaging. CKD complicated by some degree of urinary retention on admission. Murrell in place. Non-oliguric. Intravascular volume depletion and poor PO intake noted. Losartan held. Creatinine improved to baseline. Unfortunately PO intake remains poor and Aide remains on IVF replacement. Volume status acceptable. Continue IVF pending improved PO take. Goal is to maintain even fluid balance. BP acceptable. Remains on clonidine. Losartan and HCTZ held. No added therapy required. Medications are appropriate for kidney function. Eliquis appropriately dosed at 2.5 mg BID. Rosuvastatin 10 mg daily. Metabolic profile pending today. Admission and Anticipated Discharge Date Admission Date: November 19, 2021 Subjective No acute events overnight. Aide continues to demonstrate expressive and receptive aphasia. Very little PO intake per nursing report. Review of Systems Review of Systems: Unobtainable due to cognitive status Physical Exam Constitutional: + altered mental status, + frail appearing and comfortable; no acute distress Eyes: + anicteric sclerae; no corneal abnormality ENMT: Ears: + hearing impairment Mouth: + dry oral mucous membranes; no oral mucosal abnormality Neck: normal visual inspection and trachea midline Respiratory: normal respiratory effort Auscultation: lungs clear to auscultation bilaterally Cardiovascular: Rate/Rhythm: regular rate and + tachycardic Heart Sounds: normal S1 and normal S2 Extremities: no edema Musculoskeletal: Extremities: no cyanosis and no clubbing Skin: + turgor decreased; no lesions Neurologic: Speech / Cognition: + expressive aphasia Motor/Sensory: no tremor and no asterixis Results & Data ([facility]) Vital Signs (Past 12 Hours) Vital Signs Temp Pulse Pulse Resp BP Pulse Ox O2 Del Method 11/27/21 07:56 36.4 C L 103 H 18 113/82 97 Room Air 11/27/21 07:09 82 11/26/21 22:31 87 Laboratory Results Laboratory Results - last 24 hr 11/26/21 11/26/21 11/26/21 11:33 16:50 20:03 POC Glucose 165 H 172 H 170 H 11/27/21 07:46 POC Glucose 175 H PG Care Time/CCT Total # of Minutes Spent Total Time Spent with Patient: Total time spent is greater than 50% in coordination of care (as documented) at patient's floor/unit and/or counseling patient: Coding Level of Care Code 17223 Subseq Hosp Care Lvl 3 Diagnoses VALERI (acute kidney injury) N17.9 Stage 3b chronic kidney disease N18.32 HTN (hypertension) I10
--- NOTE | 2021-11-27 11:17 | Hospitalist Progress Note ---
Date of Service November 27, 2021 Assessment & Plan (1) Stroke: Plan: Patient with a history of previous stroke Presents with AMS Brain MRI reveal evidence of an acute infarct within the right temporal lobe in addition to the chronic encephalomalacia involving the left temporal and parietal lobes Neurology on consult 2 D ECHO did not show any structural heart abnormality Carotid US could not be completed because patient was unable to sit still Remains significantly aphasic On Apixaban and ASA, will continue Plan is for SNF for rehab, however patient not participating in PT Palliative has been consulted regarding goals of care and discussion about comfort care (2) AMS (altered mental status): Plan: -Patient is currently aphasic from her stroke -Patient has previous ischemic strokes with baseline dysarthria and lower extremity weakness, however, she was able to live on her own and perform most ADLs herself, son states that she is now acting more confused than normal. (3) HTN (hypertension): Plan: BP today is 113/82 Amlodipine added in lieu of Lorsartan which was held on account of renal insufficiency Family refused Clonidine patch, patient has been refusing oral meds will also add Hydralzine PRN for SBP>160 continue to monitor (4) Depressed: Plan: patient has been depressed and teary could be psuedobulbars due to her stroke and other medical condition Per Psych, usually not amenable to SSRI, appreciate recs (5) Abdominal pain: Plan: no new complaints CT abdomen and pelvis did not show any acute pathology according to son, patient has had that complaint for some weeks now previous abdominal US was also normal No pains today (6) Stage 3b chronic kidney disease: Plan: -some improvement in renal function today - Continue to Hold Losartan receck [facility] -Nephrology on consult, appreciate recs (7) Expressive aphasia: Plan: -Worsening due to acute stroke (8) Dysarthria, post-stroke: Plan: -See AMS and stroke workup (9) Type 2 diabetes mellitus: Plan: -Hold PO antihyperglycemics -Monitor BSG q6h while NPO -Glargine, 17 units BID -Correction factor of 25 and carb ratio of 8 (10) Hypothyroidism: Plan: - Hold levothyroxine for now until she is evaluated by speech (11) H/O: stroke with residual effects: Plan Patient used to be independent at home, however, will need placement in view of deterioration from acute stroke, but unable to participate in PT, so may not qualify for rehab Palliative on consult regarding goals of care Admission and Anticipated Discharge Date Admission Date: November 19, 2021 Subjective patient seen and examined, sleeping quietly Review of Systems Review of Systems: unable to obtain Physical Exam Physical Exam: The patient sleeping HEENT--PERRL, EOMI, mucous membranes and oropharynx mildly dry Neck--supple. No JVD. No bruits. Thyroid normal, trachea midline, no adenopathy. Heart--normal S1 and S2. No murmurs, rubs or gallops. Lungs--clear bilaterally, no respiratory distress, no accessory muscle use. Abdomen--normal bowel sounds and soft. Mild epigastric and left sided abdominal pain Extremities--no cyanosis or clubbing. No edema. Dermatologic--normal skin turgor, normal color, no abnormal lymph nodes, no rash. Neurologic--aphasic Rheumatologic--normal range of motion. Psychiatric--sad. Results & Data Results & Data ([facility]) Vital Signs (Past 12 Hours) Vital Signs Temp Pulse Pulse Resp BP Pulse Ox O2 Del Method 11/27/21 10:15 Room Air 11/27/21 07:56 97.5 F L 103 H 18 113/82 97 Room Air 11/27/21 07:09 82 PG Care Time/CCT Total # of Minutes Spent Total Time Spent with Patient: Total time spent is greater than 50% in coordination of care (as documented) at patient's floor/unit and/or counseling patient: Coding Level of Care Code 64293 Subseq Hosp Care Lvl 2 Diagnoses Stroke I63.9 AMS (altered mental status) R41.82 HTN (hypertension) I10 Depressed F32.A Abdominal pain R10.9 Stage 3b chronic kidney disease N18.32 Expressive aphasia R47.01 Dysarthria, post-stroke I69.322 Type 2 diabetes mellitus E11.9 Hypothyroidism E03.9 H/O: stroke with residual effects I69.30 Time Spent (min) 35
[2021-11-27 12:26] LABS: Calcium 8.9 mg/dl (8.5-10.1); Est GFR (Non-African American) 21.6 ml/min
[2021-11-27] MEDS: ROSUVASTATIN CALCIUM 10 MG TAB PO SCH (19:39)
[2021-11-28] MEDS: LEVOTHYROXINE SODIUM 100 MCG TABLET PO SCH (04:21)
[2021-11-28] MEDS: CHECK CLONIDINE PATCH PLACEMENT SCH ×3 (07:47→23:17)
[2021-11-28] MEDS: APIXABAN 2.5 MG TAB PO SCH ×2 (08:44→19:33)
[2021-11-28] MEDS: ASPIRIN 81 MG ECTAB PO SCH (08:44)
[2021-11-28] MEDS: PANTOprazole 40 MG TAB PO SCH (08:44)
[2021-11-28] MEDS: BRINZOLAMIDE/BRIMONIDINE TART 119 DROPS/8 ML BTL OP SCH ×2 (08:44→19:33)
[2021-11-28] MEDS ORDERED: MoRPHine SULFATE 5 MG/0.25 ML UDP PO PRN (10:25)
--- NOTE | 2021-11-28 10:31 | Nephrology Progress Note ---
Date of Service November 28, 2021 Assessment & Plan (1) VALERI (acute kidney injury): (2) Stage 3b chronic kidney disease: (3) HTN (hypertension): Plan CKD IIIb at baseline (creatinine 1.5-1.9 mg/dL). CKD attributed to arterionephrosclerosis. Imaging consistent with advanced CKD. There is no hydroureteronephrosis on imaging. CKD complicated by some degree of urinary retention on admission. Murrell in place. Non-oliguric. Intravascular volume depletion and poor PO intake contributing. IVF discontinued. Patient has transitioned to comfort care. Plan of care reviewed with hospitalist. No additional recommendations at this time from nephrology. I will sign off. Please call with questions or concerns. Admission and Anticipated Discharge Date Admission Date: November 19, 2021 Subjective No acute events overnight. Resting comfortably in bed this AM. 1:1 at bedside. Continued aphasia. Review of Systems Review of Systems: All systems reviewed & are unremarkable except as noted in HPI & below Physical Exam Constitutional: + altered mental status, + frail appearing and comfortable; no acute distress ENMT: Ears: + hearing impairment Mouth: + dry oral mucous membranes Neck: normal visual inspection and trachea midline Respiratory: normal respiratory effort Auscultation: lungs clear to auscultation bilaterally Cardiovascular: Rate/Rhythm: regular rate Musculoskeletal: Extremities: no cyanosis and no clubbing Skin: + turgor decreased; no lesions Neurologic: Speech / Cognition: + expressive aphasia Motor/Sensory: no tremor and no asterixis Results & Data ([facility]) Vital Signs (Past 12 Hours) Vital Signs Temp Pulse Pulse Pulse Resp BP Pulse Ox 11/28/21 09:20 11/28/21 08:55 84 16 159/60 H 90 11/28/21 06:57 105 H 11/27/21 23:18 36.9 C 101 H 20 173/74 H 95 11/27/21 22:54 101 H O2 Del Method 11/28/21 09:20 Room Air 11/28/21 08:55 Room Air 11/28/21 06:57 11/27/21 23:18 Room Air 11/27/21 22:54 Laboratory Results Laboratory Results - last 24 hr 11/27/21 11/27/21 11/27/21 11:11 11:43 16:31 Sodium 144 Potassium 4.0 Chloride 113 H Carbon Dioxide 23 Anion Gap 8 BUN 37 H Creatinine 2.05 H D Est Cr Clr Drug Dosing 25.0 Est GFR ( Amer) 25.0 Est GFR (Non-Af Amer) 21.6 BUN/Creatinine Ratio 18.0 Glucose 169 H POC Glucose 159 H 137 H Calcium 8.9 11/28/21 07:26 Sodium Potassium Chloride Carbon Dioxide Anion Gap BUN Creatinine Est Cr Clr Drug Dosing Est GFR ( Amer) Est GFR (Non-Af Amer) BUN/Creatinine Ratio Glucose POC Glucose 133 H Calcium PG Care Time/CCT Total # of Minutes Spent Total Time Spent with Patient: Total time spent is greater than 50% in coordination of care (as documented) at patient's floor/unit and/or counseling patient: Coding Level of Care Code 18775 Subseq Hosp Care Lvl 2 Diagnoses VALERI (acute kidney injury) N17.9 Stage 3b chronic kidney disease N18.32 HTN (hypertension) I10
[2021-11-28] MEDS: fentaNYL 25 MCG/HR TDSY TD SCH (10:56)
--- NOTE | 2021-11-28 13:26 | Palliative Care Consultation ---
Date of Consultation November 28, 2021 Assessment & Plan (1) Abdominal pain: No definitive etiology. With her refusal to take po medications will order fentanyl patch for analgesia. I discussed this with her son and he is agreeable. She has been getting diclofenac gel for her knee pain. Her son says that she has tried that in the past without significant relief. Fentanyl should also relieve arthritis pain. Unfortunately, there will be a 12-24 hour period until therapeutic effect. Discussed with RN to try buccal dosing of roxanol. She was able to give roxanol. However, after reviewing her last creatinine, she may develop opioid toxicity with morphine. Order changed to oxycodone oral concentrate. (2) Palliative care encounter: I talked with her son, Ozzie Bui. He tells me that Aide never really talked much about what her goals would be if she were seriously ill. She did tell him not to feel guilty if he needed to put her in a correction. He does not feel that she would consider her current state as good quality of life. He feels that comfort focus with hospice care would be what she would want at this time. Despite her statement about nursing homes, he would prefer to take her back to her home. He and his will stay with her and have a friend who has offered additional support. We talked about management of pain which appears to be her most troublesome symptom at this time. I suspect that the anxious affect is partly related to her aphasia as well as pain. Family has been encouraging her to eat. We talked about artificial nutrition and he is certain that she would not want that. He realizes that she doesn't want to eat and accepts that. We talked about prognosis which, if she continues to refuse po intake, would likely be weeks. (3) Stroke: (4) Osteoarthritis: (5) Chronic renal insufficiency: History of Present Illness Reason for Consultation: goals of care Requesting Physician: Dr. Kim Attending Physician: Isabella Kim MD History of Present Illness 86 yo lady with history of prior CVA who has residual dysarthria and limited mobility but is able to be independent with ADLs and lives alone with close support of her son and daughter in law. She presented with altered mental st atus and was found to have left posterior cerebral infarct. She has previous history of diabetes, hypertension, CKD, depression and hypothyroidism. She has had an increase in her creatinine from her baseline. She has been very distressed and has increased difficulty with speech. She has been refusing medications and refusing to eat or drink. Family has decided that they would prefer a comfort focused approach and are working with case management to get her home with hospice care. Aide is awake with facial grimace. Speech is generally word salad but she does repeatedly say "the pain, the pain". Per her son, she had been having chronic abdominal pain prior to admission with negative workup, including ultrasound and CT of her abdomen. She also has chronic knee pain related to arthritis. Allergies Allergy/AdvReac Type Severity Reaction Status Date / Time adhesive Allergy Intermediate SKIN GETS Verified 11/19/21 18:26 RED, SORE AND ITCHY atorvastatin AdvReac Severe GENERIC-SEVERE Verified 11/19/21 18:26 LEG CRAMPS, NAUSEA, NIGHTMARES Home Medications Medication Instructions Recorded Confirmed Type nystatin 100,000 unit/gram topical 1 applic topical BID PRN Skin 09/18/20 11/19/21 History powder Irritation apixaban 2.5 mg tablet (Eliquis) 2.5 mg PO BID 90 days #180 tabs 01/10/21 11/19/21 Rx aspirin 81 mg tablet,delayed 81 mg PO QAM #90 tabs 01/10/21 11/19/21 Rx release hydrochlorothiazide 25 mg tablet 25 mg PO QAM #90 tabs 01/10/21 11/19/21 Rx polyethylene glycol 3350 17 17 g PO DAILY PRN Constipation 01/10/21 11/19/21 History gram/dose oral powder diclofenac sodium 1 % topical gel 4 g topical QID PRN Pain 06/06/21 11/19/21 History hydrocortisone acetate 25 mg 25 mg RI BID PRN RECTAL BLEEDING 06/06/21 11/19/21 History rectal suppository clonidine HCl 0.1 mg tablet See Rx Instructions .Route 08/01/21 11/19/21 Rx .COMPLEX #60 tabs losartan 100 mg tablet 100 mg PO QAM #90 tabs 08/13/21 11/19/21 Rx glipizide 5 mg tablet, extended 5 mg PO BID #180 tabs 08/22/21 11/19/21 Rx release 24 hr levothyroxine 100 mcg tablet 100 mcg PO QAM #90 tabs 10/14/21 11/19/21 Rx dicyclomine 20 mg tablet 20 mg PO QID PRN abdominal pain 11/07/21 11/19/21 Rx #120 tabs brinzolamide 1 %-brimonidine 0.2 % 1 drp OPB BID 11/19/21 11/19/21 History eye drops,suspension (Simbrinza) rosuvastatin 20 mg tablet 20 mg PO HS 11/19/21 11/19/21 History Patient History Medical History Arthritis Biliary sludge Bradycardia Cholelithiasis Cholelithiasis Chronic reflux esophagitis Chronic renal insufficiency Confusion Depression Dysarthria, post-stroke Expressive aphasia Gait instability Hearing loss, bilateral Hip pain, right History of diabetes mellitus History of stroke Hoarseness Hypercholesterolemia Leg pain, bilateral Obstructive sleep apnea Osteoarthritis Peripheral neuropathy Restless leg syndrome Right lateral abdominal pain 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 Urge incontinence of urine Surgical History H/O left mastectomy S/P cholecystectomy Family History Son Myocardial infarction Denies family history of Ovarian cancer Prostate cancer Breast cancer Colorectal cancer Social History Smoking Status: Never smoker Second Hand Exposure: No; Hx Alcohol Use: No Hx Substance Use: No Preferred Language: Swedish Communication Ability: Impaired Visual Impairment: No Limitations Hearing Ability: Use of Hearing Aid Director Of First Impressions Required: No Beliefs That Will Affect Care: None marital status: / Current Living Situation: Alone current occupational status: retired How many Children do You have: 2 Feels Safe at Home: Yes Dental Care, Regularly: No Physical Activity Frequency: Does not Exercise Seatbelt Use: always Sunscreen Use: No Assistive Devices: Wheelchair and Other Review of Systems Review of Systems: Other aphasia ESAS Pain AD 2/3 Dyspnea by observation 0/3 Anxiety by observation 2/3 PPS 20% Physical Exam Constitutional: + uncomfortable Respiratory: normal respiratory effort; no labored breathing Gastrointestinal (Abdomen): pushed my hand away on abdominal palpation Neurologic: expressive aphasia Psychiatric: Affect: + anxious affect labile, tearful Results & Data ([facility]) Vital Signs (Past 12 Hours) Vital Signs Pulse Pulse Resp BP Pulse Ox O2 Del Method 11/28/21 09:20 Room Air 11/28/21 08:55 84 16 159/60 H 90 Room Air 11/28/21 06:57 105 H PG Care Time/CCT Total # of Minutes Spent Total Time Spent: 58 Total Time Spent with Patient: Total time spent is greater than 50% in coordination of care (as documented) at patient's floor/unit and/or counseling patient: goals of care, symptom management, prognosis, hospice, family education and support Coding Level of Care Code 82591 Initial Inpt Care Lvl 2 Diagnoses Abdominal pain R10.9 Palliative care encounter Z51.5 Stroke I63.9 Osteoarthritis M19.90 Chronic renal insufficiency N18.9
--- NOTE | 2021-11-28 14:34 | Hospitalist Progress Note ---
Date of Service November 28, 2021 Assessment & Plan (1) Stroke: Plan: Patient with a history of previous stroke Presents with AMS Brain MRI reveal evidence of an acute infarct within the right temporal lobe in addition to the chronic encephalomalacia involving the left temporal and parietal lobes Neurology was consulted 2 D ECHO did not show any structural heart abnormality Carotid US could not be completed because patient was unable to sit still Remains significantly aphasic often refusing food and medications On Apixaban and ASA, will continue for now, until a decision is made about hospice Palliative has been consulted, son is leaning towards home hospice (2) AMS (altered mental status): Plan: -Patient is currently aphasic from her stroke (3) HTN (hypertension): Plan: BP today is 159/60 patient refusing oral medications son said she could not tolerate clonidine patch (4) Depressed: Plan: patient has been depressed and teary could be psuedobulbars due to her stroke and other medical condition Per Psych, usually not amenable to SSRI, appreciate recs (5) Abdominal pain: Plan: no new complaints CT abdomen and pelvis did not show any acute pathology according to son, patient has had that complaint for some weeks now previous abdominal US was also normal No pains today (6) Stage 3b chronic kidney disease: Plan: -some improvement in renal function today - Continue to Hold Losartan receck BMP -Nephrology on consult, appreciate recs (7) Expressive aphasia: Plan: -Worsening due to acute stroke (8) Dysarthria, post-stroke: Plan: -See AMS and stroke workup (9) Type 2 diabetes mellitus: Plan: -Hold PO antihyperglycemics -Monitor BSG q6h while NPO -Glargine, 17 units BID -Correction factor of 25 and carb ratio of 8 (10) Hypothyroidism: Plan: - Hold levothyroxine for now until she is evaluated by speech (11) H/O: stroke with residual effects: Plan Patient has been refusing food and medications family is leaning towards hospice Admission and Anticipated Discharge Date Admission Date: November 19, 2021 Subjective patient seen and examined, 1:1 sitter by her bedside, patient aphasic, but seem to be complaining of abdominal pain Review of Systems Review of Systems: unable to obtain Physical Exam Physical Exam: The patient tearry and complaining about abdominal pain HEENT--PERRL, EOMI, mucous membranes and oropharynx mildly dry Neck--supple. No JVD. No bruits. Thyroid normal, trachea midline, no adenopathy. Heart--normal S1 and S2. No murmurs, rubs or gallops. Lungs--clear bilaterally, no respiratory distress, no accessory muscle use. Abdomen--tender Extremities--no cyanosis or clubbing. No edema. Dermatologic--normal skin turgor, normal color, no abnormal lymph nodes, no rash. Neurologic--aphasic Rheumatologic--normal range of motion. Psychiatric--sad. Results & Data Results & Data ([facility]) Vital Signs (Past 12 Hours) Vital Signs Pulse Pulse Resp BP Pulse Ox O2 Del Method 11/28/21 09:20 Room Air 11/28/21 08:55 84 16 159/60 H 90 Room Air 11/28/21 06:57 105 H PG Care Time/CCT Total # of Minutes Spent Total Time Spent with Patient: Total time spent is greater than 50% in coordination of care (as documented) at patient's floor/unit and/or counseling patient: Coding Level of Care Code 33562 Subseq Hosp Care Lvl 2 Diagnoses Stroke I63.9 AMS (altered mental status) R41.82 HTN (hypertension) I10 Depressed F32.A Abdominal pain R10.9 Stage 3b chronic kidney disease N18.32 Expressive aphasia R47.01 Dysarthria, post-stroke I69.322 Type 2 diabetes mellitus E11.9 Hypothyroidism E03.9 H/O: stroke with residual effects I69.30 Time Spent (min) 35
[2021-11-28] MEDS: CHECK fentaNYL PATCH PLACEMENT SCH ×2 (15:23→23:17)
[2021-11-28] MEDS: ROSUVASTATIN CALCIUM 10 MG TAB PO SCH (19:33)
[2021-11-29] MEDS: LEVOTHYROXINE SODIUM 100 MCG TABLET PO SCH (05:07)
[2021-11-29] MEDS: CHECK CLONIDINE PATCH PLACEMENT SCH ×2 (07:41→15:24)
[2021-11-29] MEDS: CHECK fentaNYL PATCH PLACEMENT SCH ×2 (07:41→15:24)
[2021-11-29] MEDS: BRINZOLAMIDE/BRIMONIDINE TART 119 DROPS/8 ML BTL OP SCH ×2 (07:55→20:45)
[2021-11-29] MEDS: APIXABAN 2.5 MG TAB PO SCH ×2 (07:55→20:41)
[2021-11-29] MEDS: PANTOprazole 40 MG TAB PO SCH (07:55)
[2021-11-29] MEDS: ASPIRIN 81 MG ECTAB PO SCH (07:55)
[2021-11-29 10:15] LABS: Hematocrit (blood only) 37.4 % (34.1-44.9); Hemoglobin 12.6 g/dl (12.0-16.0); Mean Corpuscular Hemoglobin 34.3 pg (25.0-34.0); Mean Corpuscular Hgb Conc 33.7 g/dL (32.0-36.0); Mean Corpuscular Volume 101.9 fL (80.0-100.0); Mean Platelet Volume 10.3 fL (9.4-12.3); Platelet Count 192 K/uL (130-400); RDW Coefficient of Variation 13.3 % (11.5-14.5); RDW Standard Deviation 50.1 fL (36.4-46.3); Red Blood Count 3.67 M/uL (3.93-5.22); White Blood Count 7.36 K/ul (4.8-10.8)
--- NOTE | 2021-11-29 12:25 | Hospitalist Progress Note ---
Date of Service November 29, 2021 Assessment & Plan (1) Stroke: Plan: Patient with a history of previous stroke Presents with AMS Brain MRI reveal evidence of an acute infarct within the right temporal lobe in addition to the chronic encephalomalacia involving the left temporal and parietal lobes Neurology was consulted 2 D ECHO did not show any structural heart abnormality Carotid US could not be completed because patient was unable to sit still Remains significantly aphasic often refusing food and medications On Apixaban and ASA, will continue for now, until a decision is made about hospice Palliative has been consulted, son is leaning towards home hospice (2) AMS (altered mental status): Plan: -Patient is currently aphasic from her stroke (3) HTN (hypertension): Plan: BP today is 174/148 patient refusing oral medications clonidine patch (4) Depressed: Plan: patient has been depressed and teary could be psuedobulbars due to her stroke and other medical condition Per Psych, usually not amenable to SSRI, appreciate recs (5) Abdominal pain: Plan: no new complaints CT abdomen and pelvis did not show any acute pathology according to son, patient has had that complaint for some weeks now previous abdominal US was also normal No pains today (6) Stage 3b chronic kidney disease: Plan: -worsening renal function due to poor oral intake IV fluids have been discontinued in view of comfort care (7) Expressive aphasia: Plan: -Worsening due to acute stroke (8) Dysarthria, post-stroke: Plan: -See AMS and stroke workup (9) Type 2 diabetes mellitus: Plan: -patient refusing meds now comfort care (10) Hypothyroidism: Plan: - refusing meds (11) H/O: stroke with residual effects: Plan Patient has been refusing food and medications family is leaning towards hospice, currently comfort care Admission and Anticipated Discharge Date Admission Date: November 19, 2021 Subjective patient seen and examined, 1:1 sitter by her bedside, patient aphasic, but lying quietly in bed Review of Systems Review of Systems: unable to obtain Physical Exam Physical Exam: The patient tearry and complaining about abdominal pain HEENT--PERRL, EOMI, mucous membranes and oropharynx mildly dry Neck--supple. No JVD. No bruits. Thyroid normal, trachea midline, no adenopathy. Heart--normal S1 and S2. No murmurs, rubs or gallops. Lungs--clear bilaterally, no respiratory distress, no accessory muscle use. Abdomen--tender Extremities--no cyanosis or clubbing. No edema. Dermatologic--normal skin turgor, normal color, no abnormal lymph nodes, no rash. Neurologic--aphasic Rheumatologic--normal range of motion. Psychiatric--sad. Results & Data Results & Data ([facility]) Vital Signs (Past 12 Hours) Vital Signs Pulse O2 Del Method 11/29/21 08:00 Room Air 11/29/21 07:41 98 H PG Care Time/CCT Total # of Minutes Spent Total Time Spent with Patient: Total time spent is greater than 50% in coordination of care (as documented) at patient's floor/unit and/or counseling patient: Coding Level of Care Code 42764 Subseq Hosp Care Lvl 2 Diagnoses Stroke I63.9 AMS (altered mental status) R41.82 HTN (hypertension) I10 Depressed F32.A Abdominal pain R10.9 Stage 3b chronic kidney disease N18.32 Expressive aphasia R47.01 Dysarthria, post-stroke I69.322 Type 2 diabetes mellitus E11.9 Hypothyroidism E03.9 H/O: stroke with residual effects I69.30 Time Spent (min) 35
[2021-11-29] MEDS: ROSUVASTATIN CALCIUM 10 MG TAB PO SCH (20:40)
[2021-11-30] MEDS: CHECK fentaNYL PATCH PLACEMENT SCH ×3 (00:15→15:21)
[2021-11-30] MEDS: CHECK CLONIDINE PATCH PLACEMENT SCH ×3 (00:15→15:20)
[2021-11-30] MEDS: LEVOTHYROXINE SODIUM 100 MCG TABLET PO SCH (06:26)
[2021-11-30] MEDS: APIXABAN 2.5 MG TAB PO SCH ×2 (08:03→20:58)
[2021-11-30] MEDS: PANTOprazole 40 MG TAB PO SCH (08:04)
[2021-11-30] MEDS: ASPIRIN 81 MG ECTAB PO SCH (08:04)
[2021-11-30] MEDS: BRINZOLAMIDE/BRIMONIDINE TART 119 DROPS/8 ML BTL OP SCH ×2 (08:06→21:07)
--- NOTE | 2021-11-30 14:56 | Hospitalist Progress Note ---
Date of Service November 30, 2021 Assessment & Plan (1) Stroke: Plan: Patient with a history of previous stroke Presented with AMS Brain MRI reveal evidence of an acute infarct within the right temporal lobe in addition to the chronic encephalomalacia involving the left temporal and parietal lobes Neurology was consulted 2 D ECHO did not show any structural heart abnormality Carotid US could not be completed because patient was unable to sit still Remains significantly aphasic often refusing food, drink and medications Palliative has been consulted, patient is now comfort care (2) AMS (altered mental status): Plan: -Patient is currently aphasic from her stroke (3) HTN (hypertension): Plan: BP today is 146/64 Now comfirt care (4) Depressed: Plan: patient has been depressed and teary could be psuedobulbars due to her stroke and other medical condition Now comfort focused care (5) Abdominal pain: Plan: CT abdomen and pelvis did not show any acute pathology according to son, patient has had that complaint for some weeks now previous abdominal US was also normal (6) Stage 3b chronic kidney disease: Plan: -worsening renal function due to poor oral intake IV fluids have been discontinued in view of comfort care (7) Expressive aphasia: Plan: -Worsening due to acute stroke (8) Dysarthria, post-stroke: Plan: -See AMS and stroke workup (9) Type 2 diabetes mellitus: Plan: -patient refusing meds now comfort care (10) Hypothyroidism: Plan: - refusing meds (11) H/O: stroke with residual effects: Plan Patient has been refusing food and medications family is leaning towards hospice, currently comfort care Admission and Anticipated Discharge Date Admission Date: November 19, 2021 Subjective patient seen and examined, 1:1 sitter by her bedside, patient aphasic, but lying quietly in bed, still refusing to eat or drink Review of Systems Review of Systems: unable to obtain Physical Exam Physical Exam: The patient tearry and complaining about abdominal pain HEENT--PERRL, EOMI, mucous membranes and oropharynx mildly dry Neck--supple. No JVD. No bruits. Thyroid normal, trachea midline, no adenopathy. Heart--normal S1 and S2. No murmurs, rubs or gallops. Lungs--clear bilaterally, no respiratory distress, no accessory muscle use. Abdomen--tender Extremities--no cyanosis or clubbing. No edema. Dermatologic--normal skin turgor, normal color, no abnormal lymph nodes, no rash. Neurologic--aphasic Rheumatologic--normal range of motion. Psychiatric--sad. Results & Data Results & Data ([facility]) Vital Signs (Past 12 Hours) Vital Signs Temp Pulse Resp BP Pulse Ox O2 Del Method 11/30/21 07:00 Room Air 11/30/21 08:03 97.2 F L 100 H 16 146/64 H 94 Room Air PG Care Time/CCT Total # of Minutes Spent Total Time Spent with Patient: Total time spent is greater than 50% in coordination of care (as documented) at patient's floor/unit and/or counseling patient: Coding Level of Care Code 32030 Subseq Hosp Care Lvl 2 Diagnoses Stroke I63.9 AMS (altered mental status) R41.82 HTN (hypertension) I10 Depressed F32.A Abdominal pain R10.9 Stage 3b chronic kidney disease N18.32 Expressive aphasia R47.01 Dysarthria, post-stroke I69.322 Type 2 diabetes mellitus E11.9 Hypothyroidism E03.9 H/O: stroke with residual effects I69.30 Time Spent (min) 35
[2021-11-30] MEDS: ROSUVASTATIN CALCIUM 10 MG TAB PO SCH (20:57)
[2021-12-01] MEDS: CHECK fentaNYL PATCH PLACEMENT SCH ×3 (00:34→15:14)
[2021-12-01] MEDS: CHECK CLONIDINE PATCH PLACEMENT SCH ×3 (00:34→15:13)
[2021-12-01] MEDS: LEVOTHYROXINE SODIUM 100 MCG TABLET PO SCH (06:22)
[2021-12-01] MEDS: PANTOprazole 40 MG TAB PO SCH (08:18)
[2021-12-01] MEDS: BRINZOLAMIDE/BRIMONIDINE TART 119 DROPS/8 ML BTL OP SCH ×2 (08:19→21:04)
[2021-12-01] MEDS: ASPIRIN 81 MG ECTAB PO SCH (08:19)
[2021-12-01] MEDS: APIXABAN 2.5 MG TAB PO SCH ×2 (08:19→21:04)
[2021-12-01] MEDS: fentaNYL 25 MCG/HR TDSY TD SCH (08:22)
--- NOTE | 2021-12-01 14:31 | Hospitalist Progress Note ---
Date of Service December 01, 2021 Assessment & Plan (1) Stroke: Plan: Patient with a history of previous stroke Presented to the hospital with AMS Brain MRI reveal evidence of an acute infarct within the right temporal lobe in addition to the chronic encephalomalacia involving the left temporal and parietal lobes Neurology was consulted 2 D ECHO did not show any structural heart abnormality Carotid US could not be completed because patient was unable to sit still Remains significantly aphasic often refusing food, drink and medications Palliative has been consulted, patient is now comfort care, plan is home with hospice (2) AMS (altered mental status): Plan: -Patient is currently aphasic from her stroke (3) HTN (hypertension): Plan: BP today is 133/80 Now comfirt care (4) Depressed: Plan: patient has been depressed and teary could be psuedobulbars due to her stroke and other medical condition Now comfort focused care (5) Abdominal pain: Plan: CT abdomen and pelvis did not show any acute pathology according to son, patient has had that complaint for some weeks now previous abdominal US was also normal (6) Stage 3b chronic kidney disease: Plan: -worsening renal function due to poor oral intake IV fluids have been discontinued in view of comfort care (7) Expressive aphasia: Plan: -Worsening due to acute stroke (8) Dysarthria, post-stroke: Plan: -See AMS and stroke workup (9) Type 2 diabetes mellitus: Plan: -patient refusing meds now comfort care (10) Hypothyroidism: Plan: - refusing meds (11) H/O: stroke with residual effects: Plan Patient has been refusing food and medications family is leaning towards home with hospice, currently comfort care Admission and Anticipated Discharge Date Admission Date: November 19, 2021 Subjective patient seen and examined, sleeping quietly Review of Systems Review of Systems: unable to obtain Physical Exam Physical Exam: sleeping today HEENT--PERRL, EOMI, mucous membranes and oropharynx mildly dry Neck--supple. No JVD. No bruits. Thyroid normal, trachea midline, no adenopathy. Heart--normal S1 and S2. No murmurs, rubs or gallops. Lungs--clear bilaterally, no respiratory distress, no accessory muscle use. Abdomen--tender Extremities--no cyanosis or clubbing. No edema. Dermatologic--normal skin turgor, normal color, no abnormal lymph nodes, no rash. Neurologic--aphasic Rheumatologic--normal range of motion. Psychiatric--sad. Results & Data Results & Data ([facility]) Vital Signs (Past 12 Hours) Vital Signs Temp Pulse Resp Pulse Ox O2 Del Method 12/01/21 07:30 Room Air 12/01/21 07:53 97.5 F L 73 18 90 Room Air PG Care Time/CCT Total # of Minutes Spent Total Time Spent with Patient: Total time spent is greater than 50% in coordination of care (as documented) at patient's floor/unit and/or counseling patient: Coding Level of Care Code 83354 Subseq Hosp Care Lvl 2 Diagnoses Stroke I63.9 AMS (altered mental status) R41.82 HTN (hypertension) I10 Depressed F32.A Abdominal pain R10.9 Stage 3b chronic kidney disease N18.32 Expressive aphasia R47.01 Dysarthria, post-stroke I69.322 Type 2 diabetes mellitus E11.9 Hypothyroidism E03.9 H/O: stroke with residual effects I69.30 Time Spent (min) 35
[2021-12-01] MEDS ORDERED: bisacodyL 10 MG SUPP PR STA (17:57)
[2021-12-01] MEDS ORDERED: bisacodyL 10 MG SUPP PR ONE (17:59)
[2021-12-01] MEDS: ROSUVASTATIN CALCIUM 10 MG TAB PO SCH (21:04)
[2021-12-02] MEDS: CHECK CLONIDINE PATCH PLACEMENT SCH ×2 (00:48→07:19)
[2021-12-02] MEDS: CHECK fentaNYL PATCH PLACEMENT SCH ×3 (00:48→16:01)
--- NOTE | 2021-12-02 06:46 | Hospitalist Progress Note ---
Date of Service December 02, 2021 Assessment & Plan (1) Stroke: Plan: Presented to hospital with altered mental status. CT head did not show any acute infarcts. MRI brain showed evidence of acute right>left posterior cerebra (possibly posterior infarct). Echocardiogram did not reveal a shunt. Carotid ultrasound unable to be performed because patient was unable to sit still. Neurology consulted while patient was admitted. Due to significant aphasia and obtundation palliative care was consulted and ultimate decision was made by family for comfort care, with plan to discharge to facility with hospice care. Orders adjusted today to reflect comfort care; all medications not for purposes of comfort discontinued today. (2) AMS (altered mental status): Plan: See above (3) HTN (hypertension): Plan: History of hypertension. Vital checks as needed, otherwise comfort care. (4) Abdominal pain: Plan: While in the ER patient complained of abdominal pain, which family reported she has been stating off and on for several weeks. CT abdomen and pelvis did not show any acute pathology. Pain medications as needed for comfort. (5) Stage 3b chronic kidney disease: Plan: P.o. fluids as desired by patient. (6) Dysarthria, post-stroke: Plan: See above. (7) Type 2 diabetes mellitus: Plan: Food as desired by patient, without dietary restriction. Comfort care. (8) Hypothyroidism: Plan: History of, medication discontinued today. Plan CODE STATUS: DNR/DNI FEN: Food as desired by patient DVT prophylaxis: Not indicated; comfort care Dispo: Medical, with ultimate plan for discharge to facility with hospice care Admission and Anticipated Discharge Date Admission Date: November 19, 2021 Subjective Patient without acute events overnight. Patient noted to spit out pills today. Please see below for adjustments to orders. Patient does not participate in questioning, however does not appear uncomfortable. Review of Systems Review of Systems: Unobtainable due to cognitive status Physical Exam Constitutional: well developed and + ill appearing Comfortable appearing Respiratory: normal respiratory effort, lungs clear to auscultation Cardiovascular: Regular rate and rhythm 1+ pitting edema up to bilateral lower extremities Psychiatric: Orientation: + not alert and + not oriented x 3 PG Care Time/CCT Total # of Minutes Spent Total Time Spent with Patient: Total time spent is greater than 50% in coordination of care (as documented) at patient's floor/unit and/or counseling patient: Coding Level of Care Code 00135 Subseq Hosp Care Lvl 2 Diagnoses Stroke I63.9 AMS (altered mental status) R41.82 HTN (hypertension) I10 Abdominal pain R10.9 Stage 3b chronic kidney disease N18.32 Dysarthria, post-stroke I69.322 Type 2 diabetes mellitus E11.9 Hypothyroidism E03.9
[2021-12-02] MEDS: LEVOTHYROXINE SODIUM 100 MCG TABLET PO SCH (07:41)
[2021-12-02] MEDS: APIXABAN 2.5 MG TAB PO SCH (08:02)
[2021-12-02] MEDS: BRINZOLAMIDE/BRIMONIDINE TART 119 DROPS/8 ML BTL OP SCH (08:02)
[2021-12-02] MEDS: PANTOprazole 40 MG TAB PO SCH (08:02)
[2021-12-02] MEDS: ASPIRIN 81 MG ECTAB PO SCH (08:02)
[2021-12-02] MEDS ORDERED: LORazepam 0.5 MG in SYRINGE 0 ML IV PRN (08:38)
[2021-12-02] MEDS ORDERED: GLYCOPYRROLATE 0.2 MG/ML VIAL IV PRN (08:38)
[2021-12-02] MEDS ORDERED: ONDANSETRON 4 MG OD TAB SL PRN (08:38)
--- NOTE | 2021-12-02 14:55 | Palliative Care Progress Note ---
Date of Service December 02, 2021 Assessment & Plan (1) Abdominal pain: Plan: Continue fentanyl patch and prn oxycodone. She does try to spit out oxycodone at times but has difficulty due to low volume (2) Palliative care encounter: Plan: Plan had been home with hospice but is now for transfer to SNF. Continue comfort focused care per family wishes. Admission and Anticipated Discharge Date Admission Date: November 19, 2021 Nolvia Noble is awake. She continues to have aphasia. She has had 1-2 doses of oxycodone every 24 hours since fentanyl patch placed. Review of Systems Review of Systems: Other (aphasia) ESAS PainjAD 1/3 Dyspnea by observation 0/ Physical Exam Constitutional: + obese; no acute distress Respiratory: normal respiratory effort; no labored breathing Cardiovascular: Rate/Rhythm: + irregularly irregular Gastrointestinal (Abdomen): nontender, LBM 12/02 Skin: warm and dry Results & Data ([facility]) Vital Signs (Past 12 Hours) Vital Signs Temp Pulse Resp BP Pulse Ox O2 Del Method 12/02/21 08:00 Room Air 12/02/21 08:01 98.6 F 97 H 19 151/103 H 98 Room Air PG Care Time/CCT Total # of Minutes Spent Total Time Spent: 25 Total Time Spent with Patient: Total time spent is greater than 50% in coordination of care (as documented) at patient's floor/unit and/or counseling patient: symptom management, coordination of care Coding Level of Care Code 58245 Subseq Hosp Care Lvl 2 Diagnoses Abdominal pain R10.9 Palliative care encounter Z51.5
[2021-12-03] MEDS: CHECK fentaNYL PATCH PLACEMENT SCH ×3 (00:56→16:38)
--- NOTE | 2021-12-03 08:12 | Hospitalist Progress Note ---
Date of Service December 03, 2021 Assessment & Plan (1) Stroke: Plan: Presented to hospital with altered mental status. CT head did not show any acute infarcts. MRI brain showed evidence of acute right>left posterior cerebra (possibly posterior infarct). Echocardiogram did not reveal a shunt. Carotid ultrasound unable to be performed because patient was unable to sit still. Neurology consulted while patient was admitted. Due to significant aphasia and obtundation palliative care was consulted and ultimate decision was made by family for comfort care, with plan to discharge to facility with hospice care. . Medications as needed for purposes of pain control, anxiety, agitation. Good control at this time with as needed medications. (2) AMS (altered mental status): Plan: See above (3) HTN (hypertension): Plan: History of hypertension. Vital checks as needed, otherwise comfort care. (4) Abdominal pain: Plan: While in the ER patient complained of abdominal pain, which family reported she has been stating off and on for several weeks. CT abdomen and pelvis did not show any acute pathology. Pain medications as needed for comfort. (5) Stage 3b chronic kidney disease: Plan: P.o. fluids as desired by patient. (6) Dysarthria, post-stroke: Plan: See above. (7) Type 2 diabetes mellitus: Plan: Food as desired by patient, without dietary restriction. Comfort care. (8) Hypothyroidism: Plan: History of, medication discontinued today. Plan CODE STATUS: DNR/DNI FEN: Food as desired by patient DVT prophylaxis: Not indicated; comfort care Dispo: Medical, with ultimate plan for discharge to facility with hospice care Admission and Anticipated Discharge Date Admission Date: November 19, 2021 Subjective Patient without acute events overnight. Does have periods of confusion and frustration due to expressive aphasia. Unable to express needs however does appear comfortable in bed. Review of Systems Review of Systems: Unobtainable due to cognitive status Physical Exam Constitutional: + obese; no acute distress Respiratory: normal respiratory effort; no labored breathing Cardiovascular: Rate/Rhythm: + irregularly irregular Skin: warm and dry PG Care Time/CCT Total # of Minutes Spent Total Time Spent with Patient: Total time spent is greater than 50% in coordination of care (as documented) at patient's floor/unit and/or counseling patient: Coding Level of Care Code 93868 Subseq Hosp Care Lvl 2 Diagnoses Stroke I63.9 AMS (altered mental status) R41.82 HTN (hypertension) I10 Abdominal pain R10.9 Stage 3b chronic kidney disease N18.32 Dysarthria, post-stroke I69.322 Type 2 diabetes mellitus E11.9 Hypothyroidism E03.9
[2021-12-03] MEDS: PANTOprazole 40 MG TAB PO SCH (09:22)
--- NOTE | 2021-12-03 12:58 | Palliative Care Progress Note ---
Date of Service December 03, 2021 Assessment & Plan (1) Abdominal pain: Plan: with no clear etiology. Continue fentanyl patch and prn oxycodone. She does sometimes refuse medications but has been tolerating oral concentrate (2) Altered mental status: Plan: complicated by aphasia. She is not combative but does get frustrated at times. Lorazepam available as needed and can be given buccally with syringe and slurry with crushed tablet. Discussed with RN (3) Palliative care encounter: Plan: Focus of care is comfort and symptom management. Family had initially discussed taking her to her home with hospice but would now prefer placement. Discussed with case management. (4) Stroke: Admission and Anticipated Discharge Date Admission Date: November 19, 2021 Subjective Currently sleeping. Appears comfortable. No prn oxycodone last 24 hours. She is restless at times but not combative. Review of Systems Review of Systems: aphasia ESAS pain by observation 0/3 Dyspnea by observation 0/3 PPS 30% Physical Exam Constitutional: no acute distress ENMT: Mouth: oral mucous membranes not dry Respiratory: normal respiratory effort; no labored breathing Gastrointestinal (Abdomen): obese Results & Data ([facility]) Vital Signs (Past 12 Hours) Vital Signs Temp Pulse Resp BP Pulse Ox O2 Del Method 12/03/21 12:25 98.1 F 80 16 128/61 97 Room Air 12/03/21 07:30 Room Air PG Care Time/CCT Total # of Minutes Spent Total Time Spent: 25 Total Time Spent with Patient: Total time spent is greater than 50% in coordination of care (as documented) at patient's floor/unit and/or counseling patient:symptom management, coordination of care Coding Level of Care Code 72264 Subseq Hosp Care Lvl 2 Diagnoses Abdominal pain R10.9 Altered mental status R41.82 Palliative care encounter Z51.5 Stroke I63.9
[2021-12-04] MEDS: CHECK fentaNYL PATCH PLACEMENT SCH ×4 (01:00→23:07)
--- NOTE | 2021-12-04 08:23 | Hospitalist Progress Note ---
Date of Service December 04, 2021 Assessment & Plan (1) Stroke: Plan: Presented to hospital with acutely altered mental status. CT head did not show any acute infarcts. MRI brain showed evidence of acute right>left posterior cerebra (possibly posterior infarct). Echocardiogram did not reveal a shunt. Carotid ultrasound unable to be performed because patient was unable to sit still. Neurology consulted while patient was admitted. Due to significant aphasia and obtundation palliative care was consulted and ultimate decision was made by family for comfort care, with plan to discharge to facility with hospice care. Medications as needed for purposes of pain control, anxiety, agitation. Good control at this time with as needed medications. (2) AMS (altered mental status): Plan: See above (3) HTN (hypertension): Plan: History of hypertension. Vital checks as needed, otherwise comfort care. (4) Abdominal pain: Plan: While in the ER patient complained of abdominal pain, which family reported she has been stating off and on for several weeks. CT abdomen and pelvis did not show any acute pathology. Pain medications as needed for comfort. Did add MiraLAX today to see if having a bowel movement will improve patient's abdominal pain complaints. (5) Stage 3b chronic kidney disease: Plan: P.o. fluids as desired by patient. (6) Dysarthria, post-stroke: Plan: See above. (7) Type 2 diabetes mellitus: Plan: Food as desired by patient, without dietary restriction. Comfort care. (8) Hypothyroidism: Plan: History of, medication discontinued today. Plan CODE STATUS: DNR/DNI FEN: Food as desired by patient DVT prophylaxis: Not indicated; comfort care Dispo: Medical, with ultimate plan for discharge to facility with hospice care Admission and Anticipated Discharge Date Admission Date: November 19, 2021 Subjective No acute events overnight, however this morning patient was tearful when I was in the room. Patient did have garbled speech however kept saying the words "bathroom" and "poop". Patient calmed down after as needed medications. Review of Systems Review of Systems: Unobtainable due to cognitive status Physical Exam Constitutional: + obese Respiratory: normal respiratory effort; no labored breathing Cardiovascular: Rate/Rhythm: + irregularly irregular Gastrointestinal (Abdomen): Abdomen soft Skin: warm and dry Psychiatric: Affect: + tearful affect PG Care Time/CCT Total # of Minutes Spent Total Time Spent with Patient: Total time spent is greater than 50% in coordination of care (as documented) at patient's floor/unit and/or counseling patient: Coding Level of Care Code 10303 Subseq Hosp Care Lvl 2 Diagnoses Stroke I63.9 AMS (altered mental status) R41.82 HTN (hypertension) I10 Abdominal pain R10.9 Stage 3b chronic kidney disease N18.32 Dysarthria, post-stroke I69.322 Type 2 diabetes mellitus E11.9 Hypothyroidism E03.9
[2021-12-04] MEDS: fentaNYL 25 MCG/HR TDSY TD SCH (09:32)
[2021-12-04] MEDS: PANTOprazole 40 MG TAB PO SCH (09:36)
[2021-12-04] MEDS: LORazepam 0.5 MG TAB PO PRN ×2 (10:28→17:50)
[2021-12-04] MEDS ORDERED: POLYETHYLENE (MIRALAX) 17 GM PACK PO PRN (11:30)
--- NOTE | 2021-12-05 07:59 | Hospitalist Progress Note ---
Date of Service December 05, 2021 Assessment & Plan (1) Stroke: Plan: Presented to hospital with acutely altered mental status. CT head did not show any acute infarcts. MRI brain showed evidence of acute right>left posterior cerebra (possibly posterior infarct). Echocardiogram did not reveal a shunt. Carotid ultrasound unable to be performed because patient was unable to sit still. Neurology consulted while patient was admitted. Due to significant aphasia and obtundation palliative care was consulted and ultimate decision was made by family for comfort care, with plan to discharge to facility with hospice care. Medications as needed for purposes of pain control, anxiety, agitation. Good control at this time with as needed medications. (2) AMS (altered mental status): Plan: See above (3) HTN (hypertension): Plan: History of hypertension. Vital checks as needed, otherwise comfort care. (4) Abdominal pain: Plan: While in the ER patient complained of abdominal pain, which family reported she has been stating off and on for several weeks. CT abdomen and pelvis did not show any acute pathology. Pain medications as needed for comfort. Did add MiraLAX today to see if having a bowel movement will improve patient's abdominal pain complaints. (5) Stage 3b chronic kidney disease: Plan: P.o. fluids as desired by patient. (6) Dysarthria, post-stroke: Plan: See above. (7) Type 2 diabetes mellitus: Plan: Food as desired by patient, without dietary restriction. Comfort care. (8) Hypothyroidism: Plan: History of, medication discontinued today. Plan CODE STATUS: DNR/DNI FEN: Food as desired by patient DVT prophylaxis: Not indicated; comfort care Dispo: Medical, with ultimate plan for discharge to facility with hospice care Admission and Anticipated Discharge Date Admission Date: November 19, 2021 Results & Data Results & Data ([facility]) Vital Signs (Past 12 Hours) Vital Signs O2 Del Method 12/04/21 21:00 Room Air PG Care Time/CCT Total # of Minutes Spent Total Time Spent with Patient: Total time spent is greater than 50% in coordination of care (as documented) at patient's floor/unit and/or counseling patient: Coding Diagnoses Stroke I63.9 AMS (altered mental status) R41.82 HTN (hypertension) I10 Abdominal pain R10.9 Stage 3b chronic kidney disease N18.32 Dysarthria, post-stroke I69.322 Type 2 diabetes mellitus E11.9 Hypothyroidism E03.9
[2021-12-05] MEDS: CHECK fentaNYL PATCH PLACEMENT SCH (11:01)
[2021-12-05] MEDS: PANTOprazole 40 MG TAB PO SCH (11:02)
--- NOTE | 2021-12-05 12:21 | Discharge Summary ---
Discharge Summary Date of Service December 05, 2021 Admission HPI Per Admitting Provider Aide is a 86 year old female with a PMH significant for previous ischemic stroke with residual dysarthria, HTN, OA, depression, DM II, and hypothyroidism who presented to the [facility] ED on 11/19/21 with a chief complaint of AMS. In the ED the patient was found to be afebrile, hemodynamically stable, and stable on RA. CT of the head did not reveal acute changes and revealed Extensive chronic infarcts throughout the left hemisphere are similar to previous. Labs were unremarkable and CXR revealed Mild cardiomegaly with mild central pulmonary vascular congestion without overt edema. This has progressed in the interval. The patient had to have a dejesus catheter placed and had 1.3 liters of urine drained after placement. The patient was given 1L NSS bolus prior to admission. At the time of the exam the patient was lying in bed with her son sitting bedside. History obtained only from son do to patient's baseline dysarthria and current mental status. He states that she typically lives at home and gets around with her scooter and is normally able to perform most of her ADLs herself. He and his visit her daily and she also gets meals on wheels. He states that she was in her normal state of health as of yesterday evening, this am he received a call from [employer] that the patient was not opening the door. His went to check on the patient, when she found the patient, Aide would only stare straight ahead and would not interact with his . Her son states that he noticed she took today's medications and this upcoming Thursday's medications after inspecting her pill storage container. He does not believe that there have been any recent medication or diet changes, the patient does not use tobacco products or alcohol. I explained to the patient's son that we would continue with a stroke workup and AMS workup but she was out of the window for thrombolytics and he understood. Admission Exam Per Admitting Provider Physical Exam: Physical exam was limited due to patient distress and refusal to cooperate General:In mild distress, stated age, chronically ill appearing HEENT:Normocephalic, atraumatic, no scleral icterus, pupils around round, symmetrical, and reactive to light, moist mucus membranes, trachea midline, no thyromegaly Chest/Pulm:No respiratory distress, symmetrical chest expansion, clear breath sounds throughout Cardiac:RRR, no murmurs noted Abdomen:Negative for ascites and bruising, normoactive bowel sounds, soft, tender to palpation throughout Musculoskeletal:Symmetrical, patient moving upper extremities voluntarily but did not move lower extremities during exam Extremities:Radial, dorsalis pedis, and posterior tibial pulses are intact and symmetrical, no edema noted in the BL LE's Skin:Warm, dry, no rashes , lesions, or scars noted Neuro:Alert, unable to answer orientation questions due to baseline dysarthria, no focal neuro defects but patient would not participate with most of the neuro and strenght exam Psych:anxious and in moderate distress, uncooperative with exam Principal Dx & Hospital Course #1 = Principal Diagnosis (1) Stroke: 89-year-old female past medical history significant for hypertension, CKD, DM2, hypothyroidism admitted for altered mental status and ultimately found to have stroke, since that time due to poor prognosis has been made comfort care by family. Please see below for hospital course. Presented to hospital with acutely altered mental status. CT head did not show any acute infarcts. MRI brain showed evidence of acute right>left posterior cerebra (possibly posterior infarct). Echocardiogram did not reveal a shunt. Carotid ultrasound unable to be performed because patient was unable to sit still. Neurology consulted while patient was admitted. Due to significant aphasia and obtundation palliative care was consulted and ultimate decision was made by family for comfort care, with plan to discharge to facility with hospice care. Medications as needed for purposes of pain control, anxiety, agitation. Good control at this time with as needed medications. (2) AMS (altered mental status): See above (3) HTN (hypertension): History of hypertension. Vital checks as needed, otherwise comfort care. ( (4) Abdominal pain: While in the ER patient complained of abdominal pain, which family reported she has been stating off and on for several weeks. CT abdomen and pelvis did not show any acute pathology. Pain medications as needed for comfort. Did add MiraLAX today to see if having a bowel movement will improve patient's abdominal pain complaints. (5) Stage 3b chronic kidney disease: P.o. fluids as desired by patient. (6) Type 2 diabetes mellitus: Food as desired by patient, without dietary restriction. Comfort care. (7) Hypothyroidism: History of, medication discontinued for comfort care. Plan Discharge to facility with hospice care. Discharge Exam Constitutional + obese; no acute distress Comfortable appearing Skin no rashes, warm and dry Hospital Stay Data Consultations 11/19/21 16:53 ED Decision to Admit Stat 11/19/21 21:02 Consult Neurology Routine 11/23/21 07:53 Consult Nephrology Routine 11/24/21 13:44 Consult Psychiatry Routine 11/26/21 11:29 Consult Palliative Care Routine Diagnostic Imagining Performed 11/19/21 12:52 CT head/brain wo con Stat 11/20/21 00:01 MR brain wo con Routine 11/21/21 14:54 Carotid duplex [US carotid doppler BI] Routine 11/23/21 11:27 CT Abd and Pelvis [CT abd pelvis wo con] Routine Pending Results Patient Have Any Pending Studies at Discharge: No Discharge Instructions Given to Patient (Per Discharging Provider) Aide was admitted to the hospital for altered mental status. CT head did not show any acute stroke, however MRI brain did show evidence of an acute right greater than left posterior cerebral infarct. Due to significant change in her mental status, obtundation, and overall poor prognosis, decision was made by family for patient to be made comfort care. Patient may have medications such as morphine, fentanyl patches, olanzapine, Zofran, and Ativan for purposes of pain control, anxiety, nausea, and agitation. She has had good control with the use of these medications in-house. She will have care by hospice services and comfort care medications as needed. Medications as needed are at discretion of hospice/comfort care services. Total Time Total Time Spent Total Time Spent (In Minutes): 20 Coding Level of Care Code D/C DAY MANAGEMENT <30 MINS Diagnoses Stroke I63.9 AMS (altered mental status) R41.82 HTN (hypertension) I10 Abdominal pain R10.9 Stage 3b chronic kidney disease N18.32 Type 2 diabetes mellitus E11.9 Hypothyroidism E03.9
== END 2021-12-05 16:13 | disposition hospice, inpatient (51) | DRG 65 ==
LOC: ED 12:40 → 2N 16:54 → SUATTDRO 16:54 → 2N 20:48
DX: E11.22 Type 2 diabetes mellitus with diabetic chronic kidney disease; Z79.82 Long term (current) use of aspirin; R33.9 Retention of urine, unspecified; I12.9 Hypertensive chronic kidney disease with stage 1 through stage 4 chronic kidney disease, or unspecified chronic kidney disease; Z79.84 Long term (current) use of oral hypoglycemic drugs; G81.91 Hemiplegia, unspecified affecting right dominant side; Z51.5 Encounter for palliative care; H90.3 Sensorineural hearing loss, bilateral; Z66 Do not resuscitate; N18.32 Chronic kidney disease, stage 3b; E03.9 Hypothyroidism, unspecified; M19.90 Unspecified osteoarthritis, unspecified site; R10.9 Unspecified abdominal pain; R47.01 Aphasia; I63.9 Cerebral infarction, unspecified; I69.351 Hemiplegia and hemiparesis following cerebral infarction affecting right dominant side; R41.82 Altered mental status, unspecified; Z83.3 Family history of diabetes mellitus; N17.9 Acute kidney failure, unspecified; Z79.890 Hormone replacement therapy; I69.320 Aphasia following cerebral infarction